=== PATIENT | female | born 2005 | race Caucasian/White ===

== ENCOUNTER 2023-03-18 01:30 | Emergency (ER) | payer MEDICAID, SELFPAY ==
[2023-03-18 01:40] VITALS: BP 130/82; PULSE 95; RESP 16; TEMP 37.1; O2SAT 97; BMI 45.2
--- NOTE | 2023-03-18 01:45 | ED.SOB1 ---
HPI - SOB/Dyspnea General Chief Complaint: Shortness of Breath/Dyspnea Stated Complaint: SHORTNESS OF BREATH Time Seen by Provider: 03/18/23 01:45 Source: patient Mode of arrival: walk-in Limitations: no limitations History of Present Illness HPI Narrative: history of asthma. doesn't have her inhaler. short of breath for a couple of days. Worse with exertion or lying down. No fever. Dry cough. No associated nausea MD elicited complaint: shortness of breath and cough Related Data Home Medications Medication Instructions Recorded Confirmed lisinopril 5 mg tablet mg 03/18/23 Allergies Allergy/AdvReac Type Severity Reaction Status Date / Time estradiol [From EstroGel] Allergy Verified 03/18/23 01:44 Review of Systems ROS Status of ROS 10 or more systems reviewed and unremarkable except as noted in history and below [facility] Medical History (Updated 03/18/23 @ 02:55 by Demetris Dunaway MD) Exam Constitutional Vital Signs - 24 hr 03/18/23 01:40 Temperature 98.7 F Pulse Rate [Monitor] 95 H Respiratory Rate 16 Blood Pressure [Right Arm] 130/82 H Pulse Oximetry 97 Oxygen Delivery Method Room Air Common normals: no apparent distress, oriented x3 and no limitations HENMT Common normals: normocephalic and head/scalp atraumatic Eye Common normals: PERRL, EOMs intact bilaterally and conjunctivae normal Chest Common normals: inspection of chest normal and palpation of chest normal Respiratory Common normals: normal respiratory effort, no retractions, no use of accessory muscles and clear to auscultation bilaterally Cardio Common normals: regular rate, regular rhythm, S1 normal heart sound and S2 normal heart sound GI Common normals: Normal to inspection, nondistended, normoactive bowel sounds present and soft to palpation Extremity Common normals: normal to inspection, full ROM and no joint enlargement Neuro Common normals: oriented x3 and CN's II-XII intact bilaterally Psych Appearance: grossly normal Course Vital Signs Vital signs: Vital Signs Temperature 98.7 F 03/18/23 01:40 Pulse Rate 95 H 03/18/23 01:40 Respiratory Rate 16 03/18/23 01:40 Blood Pressure 130/82 H 03/18/23 01:40 Pulse Oximetry 97 03/18/23 01:40 Oxygen Delivery Method Room Air 03/18/23 01:40 Temperature 98.7 F 03/18/23 01:40 Pulse Rate 95 H 03/18/23 01:40 Respiratory Rate 16 03/18/23 01:40 Blood Pressure 130/82 H 03/18/23 01:40 Pulse Oximetry 97 03/18/23 01:40 Oxygen Delivery Method Room Air 03/18/23 01:40 MDM - SOB/Dyspnea MDM Narrative Medical decision making narrative: history of asthma. Presents complaining she feels short of breath. chest clear. No distress. cxray is clear. Treated with albuterol NMT and solumedrol and she is feeling better. Discharged home Discharge Plan Discharge Chief Complaint: Shortness of Breath/Dyspnea Clinical Impression: Asthma with acute exacerbation Patient Disposition: Home, Self-Care Prescriptions / Home Meds: No Action lisinopril 5 mg tablet Instructions: Asthma (ED) Stand Alone Forms: Portal Instructions Referrals: Nicanor Leung MD [Primary Care Provider] - 1 week Follow Up Appointments: follow up with Dr Leung in 1-3 days
--- NOTE | 2023-03-18 01:47 | XR_ITS ---
The [address] [address] Patient Name: CHAYO JACOBSON MRN: [id number] date: 2005 Sex: F Assigned Patient Location: ER Current Patient Location: ER Accession/Order Number: [id number] Exam Date: 03/18/2023 02:22 Report Date: 03/18/2023 02:40 At the request of: NIRAJ ROCHA Procedure: XR chest 2V EXAM: XR chest 2V HISTORY: dyspnea COMPARISON: None. TECHNIQUE: 2 views of the chest were obtained. FINDINGS: The cardiac silhouette is normal in size. The lungs are clear. There is no significant pneumothorax or pleural effusion. No acute osseous abnormality is seen. IMPRESSION: 1. No acute cardiopulmonary abnormality. Electronically authenticated by: Sandra DUNN Date: 03/18/2023 02:40
[2023-03-18 02:20] VITALS: PULSE 93; RESP 18; O2SAT 96
[2023-03-18] MEDS: ALBUTEROL SULFATE 2.5 MG/3 ML VIAL NEB IH (02:20)
[2023-03-18 02:27] LABS: Basophils Percent Auto 0.4 % (0.2-2.0); Eosinophils Absolute Auto 0.1 10^3/uL (0.0-0.7); Hematocrit 43.8 % (36.0-48.0); Hemoglobin 14.6 g/dL (12.0-16.0); Immature Granulocytes Abs Auto 0.03 10^3/uL (0.00-0.03); Immature Granulocytes Pct Auto 0.3 % (0.0-0.5); Lymphocytes Absolute Auto 3.3 10^3/uL (1.2-3.8); Lymphocytes Percent Auto 34.1 % (20.5-60.0); Mean Corpuscular HGB Conc 33.3 g/dL (29.9-35.2); Mean Corpuscular Hemoglobin 27.4 pg (26.7-34.0); Mean Corpuscular Volume 82.3 fL (81.0-99.0); Mean Platelet Volume 8.9 fL (9.5-13.5); Monocytes Absolute Auto 0.7 10^3/uL (0.3-0.8); Monocytes Percent Auto 7.6 % (1.7-12.0); Neutrophils Absolute Auto 5.4 10^3/uL (1.4-6.5); Neutrophils Percent Auto 56.6 % (43.0-75.0); Platelet Count 310 10^3/uL (150-450); Red Blood Count 5.32 10^6/uL (4.20-5.40); Red Cell Distribution Width 13.4 % (11.0-15.0); White Blood Count 9.6 10^3/uL (4.0-11.0)
[2023-03-18 02:29] VITALS: PULSE 91; RESP 20; O2SAT 99
[2023-03-18 02:32] LABS: Anion Gap 12.3; BUN Creatinine Ratio 14.5; Calcium 9.3 mg/dL (8.5-10.1); Carbon Dioxide 27.4 mmol/L (21.0-32.0); Chloride 104 mmol/L (98-107); Estimated GFR (African America >60 (>=60); Estimated GFR (Non-African Ame >60 (>=60); Glucose 97 mg/dL (74-106); Potassium 3.7 mmol/L (3.5-5.1); Sodium 140 mmol/L (136-145)
[2023-03-18] MEDS: ALBUTEROL SULFATE 200 PUFF/6.7 GM INHALER IH (03:03)
== END 2023-03-18 03:09 | disposition home or self-care (01) ==
PROVIDERS: Emergency Provider Internal Medicine; PCP Family Medicine
DX: J45.901 Unspecified asthma with (acute) exacerbation (principal); Z79.899 Other long term (current) drug therapy
CPT/HCPCS: 36415; 71046; 80048; 85025; 94640; 99284

== ENCOUNTER 2023-11-26 20:59 | Emergency (ER) | payer SELFPAY ==
[2023-11-26 21:09] VITALS: BP 122/77; PULSE 122; RESP 18; TEMP 38.9; O2SAT 99; BMI 45.4
--- NOTE | 2023-11-26 21:14 | XR_ITS ---
The [place] [id number] Patient Name: CHAYO JACOBSON MRN: [id number] date: 2005 Sex: F Assigned Patient Location: ER Current Patient Location: ED.MAIN Accession/Order Number: [id number] Exam Date: 11/26/2023 21:25 Report Date: 11/26/2023 22:18 At the request of: NIRAJ ROCHA Procedure: XR chest 1V EXAMINATION: XR chest 1V, , 11/26/2023 9:25 PM EST INDICATION: shortness of breath HISTORY: Ordering Provider Reason for Exam: shortness of breath Technologist Note: Additional: COMPARISON: None. TECHNIQUE: Chest x-ray: One view. FINDINGS: No pneumothorax, pleural effusion or focal airspace consolidation. Heart is normal in size. Bony thorax is unremarkable. XR/XR chest 1V IMPRESSION: No acute cardiopulmonary process. Electronically authenticated by: ERICKA FOSTER Date: 11/26/2023 22:18
[2023-11-26 21:22] LABS: Adenovirus NOT DETECTED (NOT DETECTE); Bordetella parapertussis NOT DETECTED (NOT DETECTE); Coronavirus 229E NOT DETECTED (NOT DETECTE); Coronavirus HKU1 NOT DETECTED (NOT DETECTE); Coronavirus NL63 NOT DETECTED (NOT DETECTE); Coronavirus OC43 NOT DETECTED (NOT DETECTE); Human Metapneumovirus NOT DETECTED (NOT DETECTE); Human Rhinovirus/Enterovirus NOT DETECTED (NOT DETECTE); Influenza B NOT DETECTED (NOT DETECTE); Mycoplasma pneumoniae NOT DETECTED (NOT DETECTE); Parainfluenza Virus 1 NOT DETECTED (NOT DETECTE); Parainfluenza Virus 2 NOT DETECTED (NOT DETECTE); Parainfluenza Virus 3 NOT DETECTED (NOT DETECTE); Parainfluenza Virus 4 NOT DETECTED (NOT DETECTE); Respiratory Syncytial Virus NOT DETECTED (NOT DETECTE); SARS-CoV-2 NOT DETECTED (NOT DETECTE)
[2023-11-26] MEDS: ACETAMINOPHEN 500 MG TABLET 1000 MG PO (22:28)
[2023-11-26 22:50] VITALS: PULSE 117; O2SAT 93
[2023-11-26 23:20] LABS: Basophils Percent Auto 0.5 % (0.2-2.0); Hematocrit 41.3 % (36.0-48.0); Hemoglobin 13.3 g/dL (12.0-16.0); Immature Granulocytes Abs Auto 0.02 10^3/uL (0.00-0.03); Immature Granulocytes Pct Auto 0.3 % (0.0-0.5); Lymphocytes Absolute Auto 0.6 10^3/uL (1.2-3.8); Lymphocytes Percent Auto 9.3 % (20.5-60.0); Mean Corpuscular HGB Conc 32.2 g/dL (29.9-35.2); Mean Corpuscular Volume 83.9 fL (81.0-99.0); Mean Platelet Volume 9.1 fL (9.5-13.5); Monocytes Absolute Auto 0.8 10^3/uL (0.3-0.8); Neutrophils Absolute Auto 4.9 10^3/uL (1.4-6.5); Neutrophils Percent Auto 77.9 % (43.0-75.0); Platelet Count 237 10^3/uL (150-450); Red Blood Count 4.92 10^6/uL (4.20-5.40); Red Cell Distribution Width 13.5 % (11.0-15.0); White Blood Count 6.3 10^3/uL (4.0-11.0)
[2023-11-26 23:32] LABS: Anion Gap 13.3; Calcium 8.6 mg/dL (8.5-10.1); Carbon Dioxide 23.2 mmol/L (21.0-32.0); Chloride 105 mmol/L (98-107); Estimated GFR (African America >60 (>=60); Estimated GFR (Non-African Ame >60 (>=60); Glucose 95 mg/dL (74-106); Potassium 3.5 mmol/L (3.5-5.1); Sodium 138 mmol/L (136-145)
[2023-11-26] MEDS: OSELTAMIVIR PHOSPHATE 75 MG CAPSULE PO (23:52)
[2023-11-26] MEDS: 0.9 % SODIUM CHLORIDE 1,000 ML 999 ML IV (23:52)
[2023-11-26 23:59] VITALS: PULSE 102; TEMP 37.5; O2SAT 95
--- NOTE | 2023-11-27 00:10 | ED.URI1 ---
HPI - URI/Sore Throat General Chief Complaint: Upper Respiratory Infection Stated Complaint: diff breathing/burning sensation Time Seen by Provider: 11/26/23 21:16 Source: patient Limitations: no limitations History of Present Illness HPI Narrative: patient states ill since yesterday. cough and body aches. Chest aches with deep breath. no nausea or vomiting or fever. Feels weak. Related Data Home Medications Medication Instructions Recorded Confirmed lisinopril 5 mg tablet mg 03/18/23 rivaroxaban 10 mg tablet (Xarelto) mg 11/26/23 Allergies Allergy/AdvReac Type Severity Reaction Status Date / Time estradiol [From EstroGel] Allergy Verified 11/26/23 21:13 Review of Systems ROS Status of ROS 10 or more systems reviewed and unremarkable except as noted in history and below [facility] Medical History (Updated 11/27/23 @ 00:13 by Demetris Dunaway MD) Pulmonary embolism ?I26.99 - Other pulmonary embolism without acute cor pulmonale (ICD-10) Factor 5 Leiden mutation, heterozygous ?D68.51 - Activated protein C resistance (ICD-10) Hypertension ?I10 - Essential (primary) hypertension (ICD-10) Social History Smoking status: Never smoker Exam Constitutional Vital Signs, click to edit/add: Last Vital Signs Temp 99.5 F 11/26/23 23:59 Pulse 102 H 11/26/23 23:59 Resp 18 11/26/23 21:09 BP 122/77 11/26/23 21:09 Pulse Ox 95 11/26/23 23:59 O2 Del Method Room Air 11/26/23 21:09 Common normals: no apparent distress, average body habitus, oriented x3, healthy appearing, alert and well nourished [facility] Common normals: normocephalic and head/scalp atraumatic Eye Common normals: EOMs intact bilaterally and conjunctivae normal Respiratory Common normals: normal respiratory effort, no retractions, no use of accessory muscles and clear to auscultation bilaterally Cardio Common normals: regular rate, regular rhythm, S1 normal heart sound and S2 normal heart sound GI Common normals: Normal to inspection, nondistended, normoactive bowel sounds present, soft to palpation and non-tender Extremity Common normals: normal to inspection and full ROM Neuro Common normals: oriented x3, CN's II-XII intact bilaterally, moves all extremities and no focal motor deficits Psych Appearance: grossly normal Course Vital Signs Vital signs: Vital Signs Temperature 102.1 F H 11/26/23 21:09 Pulse Rate 122 H 11/26/23 21:09 Respiratory Rate 18 11/26/23 21:09 Blood Pressure 122/77 11/26/23 21:09 Pulse Oximetry 99 11/26/23 21:09 Oxygen Delivery Method Room Air 11/26/23 21:09 Temperature 99.5 F 11/26/23 23:59 Pulse Rate 102 H 11/26/23 23:59 Respiratory Rate 18 11/26/23 21:09 Blood Pressure 122/77 11/26/23 21:09 Pulse Oximetry 95 11/26/23 23:59 Oxygen Delivery Method Room Air 11/26/23 21:09 MDM - URI/Sore Throat MDM Narrative Medical decision making narrative: patient present with complaint of body aches and cough. RA pulse ox 95%. cxray clear. chest clear. influenza positive. patient tachycardic and hydrated in the department. Given dose of Tamiflu and discharged home Lab Data Labs: Lab Results 11/26/23 11/26/23 Range/Units 21:20 23:12 WBC 6.3 (4.0-11.0) 10^3/uL RBC 4.92 (4.20-5.40) 10^6/uL Hgb 13.3 (12.0-16.0) g/dL Hct 41.3 (36.0-48.0) % MCV 83.9 (81.0-99.0) fL MCH 27.0 (26.7-34.0) pg MCHC 32.2 (29.9-35.2) g/dL RDW 13.5 (11.0-15.0) % Plt Count 237 (150-450) 10^3/uL MPV 9.1 L (9.5-13.5) fL Neut % (Auto) 77.9 H (43.0-75.0) % Lymph % (Auto) 9.3 L (20.5-60.0) % [place] % (Auto) 12.0 (1.7-12.0) % Eos % (Auto) 0.0 L (0.9-7.0) % Baso % (Auto) 0.5 (0.2-2.0) % Neut # (Auto) 4.9 (1.4-6.5) 10^3/uL Lymph # (Auto) 0.6 L (1.2-3.8) 10^3/uL [place] # (Auto) 0.8 (0.3-0.8) 10^3/uL Eos # (Auto) 0.0 (0.0-0.7) 10^3/uL Baso # (Auto) 0.0 (0.0-0.1) 10^3/uL Abs Immat Gran (auto) 0.02 (0.00-0.03) 10^3/uL Imm/Tot Granulo (auto) 0.3 (0.0-0.5) % Sodium 138 (136-145) mmol/L Potassium 3.5 (3.5-5.1) mmol/L Chloride 105 (98-107) mmol/L Carbon Dioxide 23.2 (21.0-32.0) mmol/L Anion Gap 13.3 BUN 10.0 (7.0-18.0) mg/dL Creatinine 0.83 (0.55-1.02) mg/dL Est GFR ( Amer) >60 (>=60) Est GFR (Non-Af Amer) >60 (>=60) BUN/Creatinine Ratio 12.0 Glucose 95 (74-106) mg/dL Calcium 8.6 (8.5-10.1) mg/dL Adenovirus (PCR) Not detected (NOT DETECTE) C. pneumoniae DNA (PCR) Not detected (NOT DETECTE) Coronavirus Type OC43 Not detected (NOT DETECTE) Coronavirus Type HKU1 Not detected (NOT DETECTE) Coronavirus Type 229E Not detected (NOT DETECTE) Coronavirus Type NL63 Not detected (NOT DETECTE) Human Metapneumovir PCR Not detected (NOT DETECTE) Influenza A (H1) PCR Senior Clinical Project Manager Influenza A (H3) PCR Detected M. pneumoniae (PCR) Not detected (NOT DETECTE) Parainfluenza PCR Not detected (NOT DETECTE) Parainfluenza 2 (PCR) Not detected (NOT DETECTE) Parainfluenza 3 (PCR) Not detected (NOT DETECTE) Parainfluenza 4 (PCR) Not detected (NOT DETECTE) RSV (RT-PCR) Not detected (NOT DETECTE) Entero/Rhino (PCR) Not detected (NOT DETECTE) SARS-CoV-2 (PCR) Not detected (NOT DETECTE) Bordetella pertussis (PCR) Not detected (NOT DETECTE) B parapertussis DNA PCR Not detected (NOT DETECTE) Influenza Type B (PCR) Not detected (NOT DETECTE) Discharge Plan Discharge Chief Complaint: Upper Respiratory Infection Clinical Impression: Acute dehydration, Influenza Patient Disposition: Home, Self-Care Prescriptions / Home Meds: No Action lisinopril 5 mg tablet Xarelto 10 mg tablet Instructions: Dehydration (ED), Influenza (ED) Stand Alone Forms: Portal Instructions Referrals: Nicanor Leung MD [Primary Care Provider] - 1 week Discharge Date/Time: 11/27/23 01:10
[2023-11-27 12:23] LABS: Influenza A\\H3 DETECTED
== END 2023-11-27 01:10 | disposition home or self-care (01) ==
PROVIDERS: Emergency Provider Internal Medicine; PCP Family Medicine
DX: J10.1 Influenza due to other identified influenza virus with other respiratory manifestations (principal); E86.0 Dehydration; Z79.01 Long term (current) use of anticoagulants; Z79.899 Other long term (current) drug therapy; I10 Essential (primary) hypertension; D68.51 Activated protein C resistance; Z86.711 Personal history of pulmonary embolism; Z20.822 Contact with and (suspected) exposure to COVID-19
CPT/HCPCS: 0202U; 36415; 71045; 80048; 85025; 99284

== ENCOUNTER 2024-10-10 13:00 | Emergency (ER) | payer SELFPAY ==
[2024-10-10 13:11] VITALS: BP 118/69; PULSE 85; TEMP 37.1; O2SAT 98; BMI 46.2
--- OUTSIDE RECORDS SUMMARY | 2024-10-10 13:23 | XMS_ITS | CCD ---
Author Organization [facility] Care Team Providers Care Easter Bunny Name Role Phone Susan [phone] UNKNOWN Unavailable Unavailable Román Charlton Unavailable Unavailable Román Charlton Unavailable Unavailable Wendy Leyva Unavailable Unavailable Laila, Margo Unavailable Unavailable Susan Leung Unavailable Unavailable Susan Leung Unavailable Unavailable Unavailable MADHU Malik, DR DAVIS Admitting Unavailable HOY ., DR DAVIS Attending Unavailable HOY ., DR DAVIS Primary Care Unavailable HOY ., DR DAVIS Consulting Unavailable KARASIK ., DR AYALA Admitting Unavailabl e KARASIK ., DR AYALA Attending Unavailabl e HOY ., DR DAVIS Primary Care Unavailable KARASIK ., DR AYALA Consulting Unavailabl e KARRUPERTK ., DR AYALA Admitting Unavailabl e KARRUPERTK ., DR AYALA Attending Unavailabl e HOY ., DR DAVIS Primary Care Unavailable KARASIK ., DR AYALA Consulting Unavailabl e WEST, DR ANTONIO Nguyen Consulting Unavailable DIANE DAVIS Admitting Unavailable DIANE DAVIS Attending Unavailable MADHU ., DR DAVIS Primary Care Unavailable DIANE DAVIS Consulting Unavailable HOY ., DR DAVIS Admitting Unavailable HOY ., DR DAVIS Attending Unavailable HOY ., DR DAVIS Primary Care Unavailable HOY ., DR DAVIS Consulting Unavailable LEEANN, DR ANTONIO Nguyen Consulting Unavailable LIBERTY LOONEY Attending SUSAN Soto Primary Care Unavailable LIBERTY LOONEY Attending LIBERTY Stahl Referring UnavailSUSAN Marroquin Primary Care Unavailable Allergies Allergy Classification Reported Allergen(s) Allergy Type Date of Onset Reaction(s) Facility Estrogens (1 source) Estrogens; Translations: [Estrogens] Drug Allergy [facility] Work Phone: (2 sources) Estrogens; Translations: [Estrogens] Drug Allergy DC-Ezpanvipzc-X [facility] Work Phone: (1 source) Estradiol Drug Allergy 10-11-2020 [facility] Repository (1 source) Estradiol; Translations: [ESTRADIOL] Drug Allergy 03-31-2024 [facility] Repository Medications Completed/Discontinued Medications Medication Drug Class(es) Dates Sig (Normalized) Sig (Original) acetaminophen 325 mg oral tablet (3 sources) Start: 11-14-2020 take 1-2 tablets by mouth every four hours as needed Tylenol 325 MG Oral Tablet TAKE 1 TO 2 TABLETS EVERY 4 HOURS NEEDED Quantity: 0 Refills: 0 Ordered: 14-Nov-2020 DO Start : 14-Nov-2020 Active 60 actuat albuterol 0.09 mg/actuat metered dose inhaler (1 source) beta2-Adrenergic Agonist Start: 10-06-2020 take 2 puff(s) by mouth every four to six hours as needed Albuterol Sulfate HFA 108 (90 Base) MCG/ACT Inhalation Aerosol Solution INHALE 2 PUFFS BY MOUTH EVERY 4 TO 6 HOURS NEEDED Quantity: 18 Refills: 0 Start : 06-Oct-2020 Active cetirizine hydrochloride 10 mg oral tablet (3 sources) Histamine-1 Receptor Antagonist Start: 11-27-2019 take 1 tablet by mouth once daily as needed Cetirizine HCl - 10 MG Oral Tablet TAKE 1 TABLET DAILY NEEDED. Quantity: 0 Refills: 2 Ordered: 14-Nov-2020 DO Start : 27-Nov-2019 Active ferrous sulfate 143 mg extended release oral tablet (3 sources) Start: 11-14-2020 take 1 tablet by mouth twice daily Iron Slow Release 143 (45 Fe) MG Oral Tablet Extended Release take one tablet po bid Quantity: 0 Refills: 0 Ordered: 14-Nov-2020 DO Start : 14-Nov-2020 Active lisinopril 10 mg oral tablet (3 sources) Angiotensin Converting Enzyme Inhibitor Start: 11-14-2020 take 1 tablet by mouth once daily Lisinopril 10 MG Oral Tablet TAKE 1 TABLET BY MOUTH DAILY Quantity: 30 Refills: 1 Ordered: 15-Sep-2021 Wendy Leyva MD Start : 14-Nov-2020 Active Needs to be seen in Nephrology for further refills NasoGel Nasal Gel (1 source) Start: 11-04-2020 NasoGel Nasal Gel Use once or twice daily as needed for nasal congestion/irritati on Quantity: 1 Refills: 6 Margo Ulloa DO Start : 04-Nov-2020 Active 30 ML [place] Btl norethindrone acetate 5 mg oral tablet (1 source) Start: 10-23-2020 take 1 tablet by mouth once daily Norethindrone Acetate 5 MG Oral Tablet TAKE 1 TABLET DAILY. Quantity: 30 Refills: 6 Start : 23-Oct-2020 Active rivaroxaban 20 mg oral tablet (3 sources) Factor Xa Inhibitor Start: 10-21-2020 take 1 tablet by mouth once daily Xarelto 20 MG Oral Tablet TAKE ONE TABLET PO DAILY Quantity: 0 Refills: 0 Ordered: 14-Nov-2020 DO Start : 21-Oct-2020 Active Problems Active Problems Problem Classification Problem Date Documented Da te Episodic/Chronic Abdominal pain (1 source) Abdominal pain Onset: 03-31-2024 Episodic Cardiac and circulatory congenital anomalies (2 sources) Patent foramen ovale; Translations: [Ostium secundum type atrial septal defect] Chronic Conditions associated with dizziness or vertigo (3 sources) Dizziness and giddiness; Translations: [Dizziness] Onset: 03-31-2024 Episodic Deficiency and other anemia (3 sources) Anemia; Translations: [Anemia, unspecified] Episodic Essential hypertension (5 sources) Hypertensive disorder; Translations: [Unspecified essential hypertension] Chronic Fluid and electrolyte disorders (1 source) Dehydration; Translations: [Dehydration] Onset: 03-31-2024 Episodic Menstrual disorders (4 sources) Dysmenorrhea, unspecified; Translations: [DYSMENORRHEA UNSPECIFIED] Onset: 08-10-2022 Chronic Nutritional deficiencies (1 source) Vitamin D deficiency, unspecified; Translations: [VITAMIN D DEFICIENCY UNSPECIFIED] Onset: 02-11-2022 Chronic Other female genital disorders (1 source) Abnormal uterine bleeding; Translations: [DUB (dysfunctional uterine bleeding)] Chronic Other female genital disorders (4 sources) Postcoital and contact bleeding; Translations: [POSTCOITAL AND CONTACT BLEEDING] Onset: 05-15-2022 Chronic Other lower respiratory disease (1 source) Hypoxia; Translations: [Nocturnal hypoxemia] Episodic Other lower respiratory disease (3 sources) Snoring; Translations: [Other respiratory abnormalities] Episodic Other lower respiratory disease (3 sources) Cough; Translations: [Cough] Episodic Other nutritional; endocrine; and metabolic disorders (2 sources) Childhood obesity; Translations: [Obesity, unspecified] Chronic Other upper respiratory disease (3 sources) Allergic rhinitis; Translations: [Allergic rhinitis, cause unspecified] Chronic Other upper respiratory disease (3 sources) Nasal congestion; Translations: [Other disease of nasal cavity and sinuses] Episodic Other upper respiratory disease (3 sources) Bleeding from nose; Translations: [Epistaxis] Episodic Other upper respiratory disease (3 sources) Nasal mucosa dry; Translations: [Other disease of nasal cavity and sinuses] Episodic Other upper respiratory infections (4 sources) Acute sinusitis, unspecified; Translations: [ACUTE SINUSITIS UNSPECIFIED] Onset: 10-07-2022 Episodic Phlebitis; thrombophlebitis and thromboembolism (2 sources) Acute deep vein thrombosis of lower limb; Translations: [Acute venous embolism and thrombosis of unspecified deep vessels of lower extremity] Episodic Pulmonary heart disease (3 sources) Pulmonary embolism; Translations: [Other pulmonary embolism and infarction] Episodic Residual codes; unclassified (2 sources) Hypoxia; Translations: [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 Spondylosis; intervertebral disc disorders; other back problems (4 sources) Radiculopathy, cervical region; Translations: [RADICULOPATHY CERVICAL REGION] Onset: 12-25-2022 Episodic Unclassified (1 source) CONTACT W/AND (SUSP) EXPOS COVID-19; Translations: [CONTACT W/AND (SUSP) EXPOS COVID-19] Onset: 10-09-2022 Past or Other Problems Problem Classification Problem Date Documented Date Episodic/Chronic Deficiency and other anemia (1 source) Anemia, unspecified; Translations: [ANEMIA UNSPECIFIED] Onset: 02-11-2022 Episodic Diabetes mellitus without complication (1 source) Other abnormal glucose; Translations: [OTHER ABNORMAL GLUCOSE] Onset: 02-11-2022 Episodic Other female genital disorders (2 sources) History of gynecological disorder; Translations: [Personal history of other genital system and obstetric disorders] Resolved: 01-17-2021 Episodic Unclassified (1 source) History of No significant past medical history; Translations: [History of No significant past medical history] NEGATED: Highlighted row has not occurred!Residual codes; unclassified (2 sources) Disease Episodic Results Test Name Value Interpretation Reference Range Facility CBC AND AUTO DIFFon 03-31-20 ABSOLUTE BASOPHIL 0.0 X10E9/L Normal 0.0-0.2 [facility] Comment on above: Performed By: #### Zoë MITTAL, 79080-2, CMP, 1988-02, , 97121- 7 #### [facility] ([id number]) [address] [place] [address] 73547 ABSOLUTE NEUTROPHIL 6.2 X10E9/L Normal 1.5-6.6 [facility] Comment on above: Performed By: #### Zoë MITTAL, 70823-4, CMP, 1988-02, , 86635- 7 #### [facility] ([id number]) [address] [place] [address] 03588 Basophils/100 WBC (Bld) 0.3 % Normal [facility] Comment on above: Performed By: #### Zoë MITTAL, 66656-8, CMP, 1988-02, , 74689- 7 #### [facility] ([id number]) [address] [place] [address] 12870 Eosinophils (Bld) [#/Vol] 0.2 10*3/uL Normal 0.0-0.4 [facility] Comment on above: Performed By: #### Zoë MITTAL, 90932-3, CMP, 1988-02, , 17876 7 #### [facility] ([id number]) [address] [place] [address] 72492 Eosinophils/100 WBC (Bld) 2.1 % Normal [facility] Comment on above: Performed By: #### Zoë MITTAL, 63226-8, CMP, 1988-02, , 45293- 7 #### [facility] ([id number]) [address] [place] [address] 62527 Erythrocyte distribution width (RBC) [Ratio] 14.0 % Normal 11.5-15.0 [facility] Comment on above: Performed By: #### Zoë MITTAL, 31841-4, [facility], 1988-02, , 25497- 7 #### [facility] ([id number]) [address] [place] [address] 45545 Hematocrit (Bld) [Volume fraction] 41.1 % Normal 35-47 [facility] Comment on above: Performed By: #### Zoë MITTAL, 30229-7, [facility], 1988-02, , 46043- 7 #### [facility] ([id number]) [address] [place] [address] 85928 Hemoglobin (Bld) [Mass/Vol] 13.9 g/dL Normal 11.7-15.5 [facility] Comment on above: Performed By: #### Zoë MITTAL, 24473-5, [facility], 1988-02, , 04476- 7 #### [facility] ([id number]) [address] [place] [address] 33562 Lymphocytes (Bld) [#/Vol] 4.4 10*3/uL High 1.0-3.5 [facility] Comment on above: Performed By: #### Zoë MITTAL, 38652-8, [facility], 1988-02, , 98317 #### [facility] ([id number]) [address] [place] [address] 44132 Lymphocytes/100 WBC (Bld) 38.2 % Normal [facility] Comment on above: Performed By: #### Zoë MITTAL, 90009-7, [facility], 1988-02, , 82986 7 #### [facility] ([id number]) [address] [place] [address] 29475 MCH (RBC) [Entitic mass] 27.2 pg Normal 27-34 [facility] Comment on above: Performed By: #### Zoë MITTAL, 95968-0, CMP, 1988-02, , 77447 7 #### [facility] ([id number]) [address] [place] [address] 82162 MCHC (RBC) [Mass/Vol] 33.8 g/dL Normal 32-36 [facility] Comment on above: Performed By: #### Zoë MITTAL, 79082-5, CMP, 1988-02, , 11435 #### [facility] ([id number]) [address] [place] [address] 69633 MCV (RBC) [Entitic vol] 80 fL Normal 80-100 [facility] Comment on above: Performed By: #### Zoë MITTAL, 86077-9, CMP, 1988-02, , 08524- 7 #### [facility] ([id number]) [address] [place] [address] 76185 Monocytes (Bld) [#/Vol] 0.7 10*3/uL Normal 0-0.9 [facility] Comment on above: Performed By: #### Zoë MITTAL, 22559-0, CMP, 1988-02, , 64406- 7 #### [facility] ([id number]) [address] [place] [address] 73906 Monocytes/100 WBC (Bld) 6.1 % Normal [facility] Comment on above: Performed By: #### Zoë MITTAL, 96035-2, CMP, 1988-02, , 33463 7 #### [facility] ([id number]) [address] [place] [address] 86468 Neutrophils/100 WBC (Bld) 53.3 % Normal [facility] Comment on above: Performed By: #### Zoë MITTAL, 74874-3, CMP, 1988-02, , 03539- 7 #### [facility] ([id number]) [address] [place] [address] 05417 Platelet mean volume (Bld) [Entitic vol] 7.4 fL Normal 7-12 [facility] Comment on above: Performed By: #### Zoë MITTAL, 07114-5, CMP, 1988-02, , 13361- 7 #### [facility] ([id number]) [address] [place] [address] 98649 Platelets (Bld) [#/Vol] 310 10*3/uL Normal 150-450 [facility] Comment on above: Performed By: #### Zoë MITTAL, 65620-2, CMP, 1988-02, , 73846- 7 #### [facility] ([id number]) [address] [place] [address] 58345 RBC COUNT 5.11 X10E12/L Normal 3.80-5.20 [facility] Comment on above: Performed By: #### Zoë MITTAL, 87486-9, CMP, 1988-02, , 73984- 7 #### [facility] ([id number]) [address] [place] [address] 59663 WBC (Bld) [#/Vol] 11.6 10*3/uL High 4.0-11.0 [facility] Comment on above: Performed By: #### Zoë MITTAL, 46314-9, CMP, 1988-02, , 13224- 7 #### [facility] ([id number]) [address] [place] [address] 52266 COMPREHENSIVE METABOLIC PANE Bill 03-31-2024 Albumin [Mass/Vol] 3.8 g/dL Normal 3.2-5.3 [facility] Comment on above: Performed By: #### Zoë MITTAL, 55840-8, CMP, 1988-02, , 53473 7 #### [facility] ([id number]) [address] [place] [address] 68777 ALP [Catalytic activity/Vol] 75 U/L Normal 39-130 [facility] Comment on above: Performed By: #### C BCA, 29552-8, CMP, 1988-02, , 12663- 7 #### [facility] ([id number]) [address] [place] [address] 90093 ALT [Catalytic activity/Vol] 16 U/L Normal 0-31 [facility] Comment on above: Performed By: #### C BCA, 08301-8, CMP, 1988-02, , 36038 7 #### [facility] ([id number]) [address] [place] [address] 24483 Anion gap [Moles/Vol] 3 mmol/L Low 5-15 [facility] Comment on above: Performed By: #### C BCA, 72064-6, CMP, 1988-02, , 05413- 7 #### [facility] ([id number]) [address] [place] [address] 75502 AST [Catalytic activity/Vol] 19 U/L Normal 0-41 [facility] Comment on above: Performed By: #### C BCA, 92433-3, CMP, 1988-02, , 91722 7 #### [facility] ([id number]) [address] [place] [address] 16089 Bilirubin [Mass/Vol] 0.6 mg/dL Normal 0.3-1.2 [facility] Comment on above: Performed By: #### C BCA, 77393-5, CMP, 1988-02, , 52196- 7 #### [facility] ([id number]) [address] [place] [address] 45705 Calcium [Mass/Vol] 8.7 mg/dL Normal 8.5-10.5 [facility] Comment on above: Performed By: #### C DAXA, 26920-3, CMP, 1988-02, , 05517- 7 #### [facility] ([id number]) [address] [place] [address] 63675 Chloride [Moles/Vol] 108 mmol/L Normal 98-109 [facility] Comment on above: Performed By: #### C DAXA, 03530-7, CMP, 1988-02, , 40198 7 #### [facility] ([id number]) [address] [place] [address] 91002 CO2 [Moles/Vol] 26 mmol/L Normal 22-32 [facility] Comment on above: Performed By: #### C DAXA, 47158-7, CMP, 1988-02, , 29361- 7 #### [facility] ([id number]) [address] [place] [address] 96890 Creatinine [Mass/Vol] 0.83 mg/dL Normal 0.40-1.00 [facility] Comment on above: Result Comment: METH OD TRACEABLE TO IDMS STANDARD Performed By: #### C DAXA, 65634-4, CMP, 1988-02, , 99413-7 #### [facility] ([id number]) [address] [place] [address] 55280 eGFR (CKD-EPI) NON-RACE DEPENDENT >90 Normal >59 [facility] Comment on above: Result Comment: Reported eGFR is based on the CKD-EPI 2020 equation that does not use a race coefficient. Performed By: #### C DAXA, 21300-0, CMP, 1988-02, , 29655-0 #### [facility] ([id number]) [address] [place] [address] 29493 Glucose [Mass/Vol] 88 mg/dL Normal 65-99 [facility] Comment on above: Performed By: #### C DAXA, 95371-6, CMP, 1988-02, , 46339- 7 #### [facility] ([id number]) [address] [place] [address] 06678 Potassium [Moles/Vol] 3.6 mmol/L Normal 3.5-5.0 [facility] Comment on above: Performed By: #### C BCA, 26213-6, CMP, 1988-02, , 59225- 7 #### [facility] ([id number]) [address] [place] [address] 66697 Protein [Mass/Vol] 6.9 g/dL Normal 6.0-8.0 [facility] Comment on above: Performed By: #### C BCA, 74176-6, CMP, 1988-02, , 70099- 7 #### [facility] ([id number]) [address] [place] [address] 19427 Sodium [Moles/Vol] 137 mmol/L Normal 134-146 [facility] Comment on above: Performed By: #### C BCA, 26410-7, CMP, 1988-02, , 04131- 7 #### [facility] ([id number]) [address] [place] [address] 33501 Urea nitrogen [Mass/Vol] 15 mg/dL Normal 5-23 [facility] Comment on above: Performed By: #### C BCA, 70967-9, CMP, 1988-02, , 87083- 7 #### [facility] ([id number]) [address] [place] [address] 93969 CRP [Mass/Vol]on 03-31-2024 C REACTIVE PROTEIN 1.5 mg/dL High 0.000-0.744 [facility] Comment on above: Performed By: #### C BCA, 30108-4, CMP, 1988-02, , 15018 7 #### [facility] ([id number]) [address] [place] [address] ABDOMEN AND PELVIS W CONT on 03-31-2024 CT ABDOMEN AND PELVIS W CONT CT ABDOMEN AND PELVIS W CONT History: . Abdominal pain, post-op Exam/Technique: Contiguous axial images are obtained of the abdomen and pelvis with 100 cc omnipaque 300 intravenous contrast. Coronal and sagittal reconstructions were performed and reviewed. Automatic dose exposure reduction technique utilized. Comparison: None. Findings: LUNGS AND CARDIOMEDIASTINAL STRUCTURES: no abnormality. LIVER: is normal. SPLEEN: is normal. GALLBLADDER: normal. BILIARY TREE:Normal PANCREAS: normal. ADRENAL GLANDS are normal. RIGHT KIDNEY: is normal.. Right renal cyst formation: LEFT KIDNEY: is normal.. Left renal cyst formation: ABDOMINAL AND PELVIC VASCULATURE: Normal IVC is normal. Retroaortic left renal vein normal variation. There is no paraaortic or paracaval adenopathy. FREE AIR: Absent SIGNIFICANT FREE FLUID:absent MESENTERY: Normal BODY WALL: Fat-containing periumbilical hernia. SMALL BOWEL AND TERMINAL ILEUM: normal. COLON: no abnormality. APPENDIX: normal. HERNIAL ORIFICES:normal. PELVIC ORGANS: IUD in the uterus. BONES AND SOFT TISSUES: No acute findings. IMPRESSION: No acute findings.. All CT scans at this facility use dose modulation, iterative reconstruction, and/or weight based dosing when appropriate to reduce radiation dose to as low as reasonably achievable. Finalized by Carlos Bar MD on 03/31/2024 3:35 PM Normal [facility] DRUG SCREEN, URINEon 024 AMPHETAMINE/METHAMP Negative Normal NEG [facility] Comment on above: Result Comment: AMPH /METH screening cut off = 1000 ng/mL Performed By: #### D CRANDALL #### [facility] ([id number]) [address] [place] [address] 78204 BARBITURATES Negative Normal NEG [facility] Comment on above: Result Comment: Gisela iturates screening cut off value = 200 ng/mL Performed By: #### D CRANDALL #### [facility] ([id number]) [address] [place] [address] [place] [address] BENZODIAZEPINES Negative Normal NEG [facility] Comment on above: Result Comment: Zack odiazepines screening cut off value = 200 ng/mL Performed By: #### D CRANDALL #### [facility] ([id number]) [address] [place] [address] 39353 CANNABINOIDS Negative Normal NEG [facility] Comment on above: Result Comment: Valdo abinoids/THC screening cut off value = 50 ng/mL Performed By: #### D CRANDALL #### [facility] ([id number]) [address] [place] [address] 19972 COCAINE METABOLITE Negative Normal NEG [facility] Comment on above: Result Comment: Coca ine screening cut off value = 300 ng/mL Performed By: #### D CRANDALL #### [facility] ([id number]) [address] [place] [address] 80637 ECSTASY Negative Normal NEG [facility] Comment on above: Result Comment: Ecst asy screening cut off value = 500 ng/mL This report is intended for use in clinical monitoring or management of patients. Performed By: #### D CRANDALL #### [facility] ([id number]) [address] [place] [address] 09353 METHADONE Negative Normal NEG [facility] Comment on above: Result Comment: Meth adone screening cut off value = 300 ng/mL. Performed By: #### D CRANDALL #### [facility] ([id number]) [address] [place] [address] [place] [address] OPIATES Negative Normal NEG [facility] Comment on above: Result Comment: Opia albertina screening cut off value = 300 ng/mL NOTE: This test is used for the detection of codeine, hydrocodone (>1000 ng/mL), morphine and hydromorphone (>900 ng/mL) in urine. Performed By: #### D CRANDALL #### [facility] ([id number]) [address] [place] [address] 37751 OXYCODONE Negative Normal NEG [facility] Comment on above: Result Comment: Oxyc odone screening cut off value = 300 ng/mL NOTE: This test is used for the detection of oxycodone and oxymorphone in urine. Performed By: #### D CRANDALL #### [facility] ([id number]) [address] [place] [address] 53236 PHENCYCLIDINE Negative Normal NEG [facility] Comment on above: Result Comment: Phen cyclidine screening cut off value = 25 ng/mL Performed By: #### D CRANDALL #### [facility] ([id number]) [address] [place] [address] 13687 Fibrin D-dimer DDU (PPP) [Ma ss/Vol]on 03-31-2024 D DIMER <150 Normal <255 [facility] Comment on above: Result Comment: Results <255 ng/mL DDU: The presence of a VTE can safely be excluded with a negative D-Dimer result and Wells score. A negative result doesn't exclude the possibility of DIC. The test be repeated along with other diagnostic tests if the patient's symptoms persist or worsen. [email or web address] Performed By: #### C BCA, 58690-0, CMP, 1987-5, 16271-8, 30891-5 #### [facility] ([id number]) [address] [place] [address] 52058 HCG ( test) Ql (U)o n 03-31-2024 Beta HCG ( test) Ql (U) Negative Normal NEG [facility] Comment on above: Performed By: #### 2 106-3 #### [facility] ([id number]) [address] [place] [address] 46491 MAGNESIUMon 03-31-2024 Magnesium [Mass/Vol] 2.2 mg/dL Normal 1.8-2.6 [facility] Comment on above: Performed By: #### C DAXA, 92848-0, [facility], 1988-02, , 66660- 7 #### [facility] ([id number]) [address] [place] [address] 81934 Troponin I.cardiac High sens itivity method [Mass/Vol]on 03-31-2024 1 HOUR TROP I, HIGH SENSITIVITY <2 Normal <16 [facility] Comment on above: Result Comment: Reference ranges have not been established for patients under 21 years of age. Performed By: #### 8 9579-7 #### [facility] ([id number]) [address] [place] [address] TROPONIN I, HIGH SENSITIVITY <2 Normal <16 [facility] Comment on above: Result Comment: Reference ranges have not been established for patients under 21 years of age. Performed By: #### C DAXA, 17838-0, [facility], 1988-02, , 52699-1 #### [facility] ([id number]) [address] [place] [address] 20853 URN MACROSCOPIC NURon 2023 BILIRUBIN MIREYA Small Abnormal NEG [facility] Comment on above: Performed By: #### N UM #### [facility] ([id number]) [address] [place] [address] [place] [address] BLOOD/HGB MIREYA Negative Normal NEG [facility] Comment on above: Performed By: #### N UM #### [facility] ([id number]) [address] [place] [address] GLUCOSE MIREYA Negative Normal NEG [facility] Comment on above: Performed By: #### N UM #### [facility] ([id number]) [address] [place] [address] [place] [address] KETONES MIREYA Trace Abnormal NEG [facility] Comment on above: Performed By: #### N UM #### [facility] ([id number]) [address] [place] [address] 22500 LEUKOCYTE ESTERASE MIREYA Negative Normal NEG [facility] Comment on above: Performed By: #### N UM #### [facility] ([id number]) [address] [place] [address] 27790 NITRITE MIREYA Negative Normal NEG [facility] Comment on above: Performed By: #### N UM #### [facility] ([id number]) [address] [place] [address] 490[address] PH MIREYA 5.5 Normal 5.0-8.5 [facility] Comment on above: Performed By: #### N UM #### [facility] ([id number]) [address] [place] [address] 79732 PROTEIN MIREYA Negative Normal NEG [facility] Comment on above: Performed By: #### N UM #### [facility] ([id number]) [address] [place] [address] SPECIFIC GRAVITY MIREYA >=1.030 Normal 1.003-1.035 [facility] Comment on above: Performed By: #### N UM #### [facility] ([id number]) [address] [place] [address] 80959 UROBILINOGEN MIREYA 0.2 eu/dL Normal <1.1 [facility] Comment on above: Performed By: #### N UM #### [facility] ([id number]) [address] [place] [address] 34065 XR CSPINE MIN 4 VIEWSon 12-09 XR CSPINE MIN 4 VIEWS EXAMINATION: XR CSPINE MIN 4 VIEWS HISTORY: Cervical radiculopathy COMPARISON: No relevant comparison available. FINDINGS: BONES: Reversal of normal cervical lordosis. No acute fracture or spondylolisthesis. No significant degenerative changes DISC SPACES: Normal. No significant disc height narrowing, subluxation, or endplate abnormality. PARASPINOUS: Negative. No paraspinous abnormality is seen. OTHER: Negative. IMPRESSION: Reversal of cervical lordosis Electronically authenticated by: ANTONIO BRADSHAW Date: 2022-12-25 15:36 Normal [facility]11 SARS-CoV-2 (COVID-19) RNA HAIDER+probe Ql (Unsp spec) Not detected Normal NOT DETECTED [facility] Comment on above: Result Comment: This test is not yet approved or cleared by the [place] FDA. When there are no FDA-approved or cleared tests available, and other criteria are met, FDA can make tests available under an emergency access mechanism called an Emergency Use Authorization (EUA). The EUA for this test is supported by the [place] Supervisor of Health and Human Service's (HHS's) declaration that circumstances exist to justify the emergency use of in vitro diagnostics for the detection and/or diagnosis of the virus that causes COVID-19. This EUA will remain in effect (meaning this test can be used) for the duration of the COVID-19 declaration justifying emergency of IVDs, unless it is terminated or revoked by FDA (after which the test may no longer be used). When diagnostic testing is negative, the possibility of a false negative should be considered in the context of a patient's recent exposures and the presence of clinical signs and symptoms consistent with SARS-CoV-2. Performed By: #### C VDTBH #### [facility] [address] [place], [place] [address] Dr. Ryan Bagley INFLUENZA A AND B AGon 10-07 [facility] SEE BELOW Normal [facility] Comment on above: Result Comment: Nega tive for Flu A protein angiten. Infection due to Flu A cannot be ruled out. Flu A angiten in the sample may be below the detection limit of the test. Performed By: #### I NFLUAB ####[facility] [address] [place], [place] [address]WwDr. Ryan Bagley INFLUBNEG SEE BELOW Normal [facility] Comment on above: Result Comment: Nega tive for Flu B protein antigen. Infection due to Flu B cannot be ruled out. Flu B antigen in the sample may be below the detection limit of the test. Performed By: #### I NFLUAB ####[facility] [address] [place], [place] [address]Kn. Ryan Bagley INFLUENZA A AG Negative Normal NEGATIVE SEE COMMENT [facility] Comment on above: Performed By: #### I NFLUAB ####[facility] [address] [place], [place] [address]Oc. Ryan Bagley INFLUENZA B AG Negative Normal NEGATIVE SEE COMMENT [facility] Comment on above: Performed By: #### I NFLUAB ####[facility] [address] [place], [place] [address]Fh. Ryan Kevyn US PELVISon 08-11-2022 US PELVIS EXAMINATION: US PELV IS HISTORY: IUD check COMPARISON: FINDINGS: Transabdominal only images The uterus is normal in size, contour and echotexture measuring 7.4 x 3.8 x 4.5 cm. Anteverted, anteflexed. No focal myometrial mass. The endometrium measures 7 mm, normal. Linear hyperechogenicity within the endometrial cavity with acoustic shadowing consistent with a normally positioned IUD The right ovary is normal in appearance measuring 4.3 x 1.7 x 2.5 cm. The left ovary is normal in appearance measuring 3.5 x 1.4 x 2.6 cm. IMPRESSION: Normal examination. Electronically authenticated by: ANTONIO BRADSHAW Date: 2022-08-11 07:16 Normal [facility] CHLAMYDIA/GONOCOCCUS HAIDER (SW AB/URINE/PAPon 05-18-2022 Chlamydia trachomatis, HAIDER Negative Normal Negative [facility] Comment on above: Performed By: #### C T/NGNA #### [facility] [address] [place] [address] [address] Ryan Bagley Neisseria gonorrhoeae, HAIDER Negative Normal Negative [facility] Comment on above: Performed By: #### C T/NGNA #### [facility] [address] [place] [address] [address] Ryan Bagley VAGINITIS/VAGINOSIS DNA PROB Sarmad 05-17-2022 Dawn species Negative Normal Negative [facility] Comment on above: Performed By: #### V AGINT ####[facility] [address] [place] [id number]. Ryan Bagely Gardnerella vaginalis Negative Normal Negative [facility] Comment on above: Performed By: #### V AGINT ####[facility] [address] [place] [id number]. Ryan Bagley Trichomonas vaginalis Negative Normal Negative [facility] Comment on above: Performed By: #### V AGINT ####[facility] [address] [place] [address]Dr. Ryan Bagley INSULINon 02-11-2022 Insulin 31.4 uIU/mL Critically high 2.6-24.9 [facility] Comment on above: Performed By: #### I NSULIN #### [facility] [address] [place] [address] [address] Ryan Bagley CBC AUTO DIFFon 02-10-2022 BASO # 0.1 103/ul Normal 0.0-0.1 [facility] Comment on above: Performed By: #### C BC ####[facility] [address] [place] [address]Dr. Ryan Bagley Basophils/100 WBC (Bld) 1.0 % Normal 0.2-2.0 [facility] Comment on above: Performed By: #### C BC ####[facility] [address] [place] [address]Dr. Ryan Bagley EO # 0.2 103/ul Normal 0.0-0.7 [facility] Comment on above: Performed By: #### C BC ####[facility] [address] [place] [address]Dr. Ryan Bagley Eosinophils/100 WBC (Bld) 3.1 % Normal 0.9-7.0 [facility] Comment on above: Performed By: #### C BC ####[facility] [address] [place] [address]Dr. Ryan Bagley Erythrocyte distribution width (RBC) [Ratio] 17.5 % Critically high 11.0-15.0 [facility] Comment on above: Performed By: #### C BC ####[facility] [address] [place] [address]Dr. Ryan Bagley Hematocrit (Bld) [Volume fraction] 47.4 % Normal 36.0-48.0 [facility] Comment on above: Performed By: #### C BC ####[facility] [address] [place] [address]Dr. Ryan Bagley Hemoglobin (Bld) [Mass/Vol] 14.7 g/dL Normal 12.0-16.0 [facility] Comment on above: Performed By: #### C BC ####[facility] [address] [place] [address]Dr. Ryan Bagley IG # 0.03 10e3/ul Normal 0.00-0.03 [facility] Comment on above: Performed By: #### C BC ####[facility] [address] [place] [address]Dr. Robynyana Bagley IG % 0.4 % Normal 0.0-0.5 [facility] Comment on above: Performed By: #### C BC ####[facility] [address] [place] [address]Dr. Ryan Kevyn LYMPH # 2.0 103/ul Normal 1.2-3.8 [facility] Comment on above: Performed By: #### C BC ####[facility] [address] [place] [address]Dr. Robynyana Bagley Lymphocytes/100 WBC (Bld) 28.9 % Normal 20.5-60.0 [facility] Comment on above: Performed By: #### C BC ####[facility] [address] [place] [address]Dr. Ryan Bagley MANUAL DIFF REQ NO Normal [facility] Comment on above: Performed By: #### C BC ####[facility] [address] [place], [place] [address]Dr. Ryan Bagley MCH (RBC) [Entitic mass] 24.2 pg Critically low 26.7-34.0 [facility] Comment on above: Performed By: #### C BC ####[facility] [address] [place] [address]Dr. Ryan Bagley MCHC (RBC) [Mass/Vol] 31.0 g/dL Normal 29.9-35.2 [facility] Comment on above: Performed By: #### C BC ####[facility] [address] [place] [address]Dr. Ryan Bagley MCV (RBC) [Entitic vol] 78.0 fL Critically low 81.0-99.0 [facility] Comment on above: Performed By: #### C BC ####[facility] [address] [place], [place] [address]Dr. Ryan Bagley MONO # 0.5 103/ul Normal 0.3-0.8 [facility] Comment on above: Performed By: #### C BC ####[facility] [address] [place], [place] [address]Dr. Robynyana Bagley Monocytes/100 WBC (Bld) 6.8 % Normal 1.7-12.0 [facility] Comment on above: Performed By: #### C BC ####[facility] [address] [place], [place] [address]Dr. Ryan Bagley NEUT # 4.2 103/ul Normal 1.4-6.5 [facility] Comment on above: Performed By: #### C BC ####[facility] [address] [place], [place] [address]Dr. Ryan Bagley Neutrophils/100 WBC (Bld) 59.8 % Normal 43.0-75.0 [facility] Comment on above: Performed By: #### C BC ####[facility] [address] [place], [place] [address]Dr. Ryan Bagley Platelet mean volume (Bld) [Entitic vol] 8.7 fL Critically low 9.5-13.5 [facility] Comment on above: Performed By: #### C BC ####[facility] [address] [place], [place] [address]Dr. Ryan Kevyn PLT 268 103/ul Normal 150-450 [facility] Comment on above: Performed By: #### C BC ####[facility] [address] [place], [place] [address]FhKing Bagley RBC 6.08 106/ul Critically high 4.20-5.40 [facility] Comment on above: Performed By: #### C BC ####[facility] [address] [place], [place] [address]AeKing Bagley WBC 7.0 103/ul Normal 4.0-11.0 [facility] Comment on above: Performed By: #### C BC ####[facility] [address] [place] [id number]. Ryan Bagley FREE THYROXINE INDEX T7on FTI 3.06 Normal [facility] Comment on above: Performed By: #### T 7, TSH, CMP, LIPID #### [facility] [address] [place] [address] [address] Ryan Bagley T3U 36.0 % Normal 23.5-40.5 [facility] Comment on above: Performed By: #### T 7, TSH, CMP, LIPID #### [facility] [address] [place] [address] [address] Ryan Bagley T4 [Mass/Vol] 8.50 ug/dL Normal 5.40-10.60 [facility] Comment on above: Performed By: #### T 7, TSH, CMP, LIPID #### [facility] [address] [place] [address] [address] Ryan Bagley GLYCOHEMOGLOBIN A1Con 2021 ADA RECOMMENDATION SEE BELOW Normal [facility] Comment on above: Result Comment: ADA RECOMMENDED LIMIT 4.0 - 6.0 ADA THERAPEUTIC TARGET < 7.0 ACTION SUGGESTED > 7.0 Performed By: #### A 1C ####[facility] [address] [place] [id number]. Ryan Bagley Glucose [Mass/Vol] 108 mg/dL Normal [facility] Comment on above: Performed By: #### A 1C ####[facility] [address] [place] [id number]. Ryan Bagley HbA1c (Bld) [Mass fraction] 5.4 % Normal 4.5-6.2 [facility] Comment on above: Performed By: #### A 1C ####[facility] [address] [place], [place] [address]JhDr. Ryan Bagley IRONon 02-10-2022 Iron [Mass/Vol] 50.0 ug/dL Normal 50.0-170.0 [facility] Comment on above: Performed By: #### V ITAD, IRON ####[facility] [address] [place], [place] [address]KeDr. Ryan Bagley LIPID PROFILEon 02-10-2022 CHOL-HDL RATIO NORM SEE BELOW Normal [facility] Comment on above: Result Comment: 3.3 - 4.4 LOW RISK 4.4 - 7.1 AVERAGE RISK 7.1 - 11.0 MODERATE RISK >11.0 HIGH RISK Performed By: #### T 7, TSH, CMP, LIPID #### [facility] [address] [place] [address] [address] Ryan Bagley Cholesterol [Mass/Vol] 215 mg/dL Normal 104-227 [facility] Comment on above: Performed By: #### T 7, TSH, CMP, LIPID #### [facility] [address] [place] [id number] [address] Ryan Bagley Cholesterol in HDL [Mass/Vol] 42 mg/dL Normal 29-69 [facility] Comment on above: Performed By: #### T 7, TSH, CMP, LIPID #### [facility] [address] [place] [id number] [address] Ryan Bagley Cholesterol in LDL [Mass/Vol] 145.0 mg/dL Critically high 46.0-140.0 [facility] Comment on above: Performed By: #### T 7, TSH, CMP, LIPID #### [facility] [address] [place], [place] [address] Dr. Ryan Bagley Cholesterol.total/C holesterol in HDL [Mass ratio] 5.1 {ratio} Normal [facility] Comment on above: Performed By: #### T 7, TSH, CMP, LIPID #### [facility] [address] [place], [place] [address] Dr. Ryan Bagley HDL NORMAL > or = 60 mg/dl - LO W CARDIOVASCULAR RISK <40 mg/dl - HIGH CARDIOVASCULAR RISK Normal [facility] Comment on above: Performed By: #### T 7, TSH, CMP, LIPID #### [facility] [address] [place] [address] [address] Ryan Bagley LDL CALC NORMAL SEE BELOW Normal [facility] Comment on above: Result Comment: <100 mg/dl OPTIMAL 100 - 129 mg/dl NEAR OR ABOVE OPTIMAL 130 - 159 mg/dl BORDERLINE HIGH 160 - 189 mg/dl HIGH >190 mg/dl VERY HIGH Performed By: #### T 7, TSH, CMP, LIPID #### [facility] [address] [place] [address] [address] Ryan Bagley Triglyceride [Mass/Vol] 140 mg/dL Normal 53-208 [facility] Comment on above: Performed By: #### T 7, TSH, CMP, LIPID #### [facility] [address] [place] [address] [address] Ryan Bagley VLDL CALC 28.0 mg/dL Normal [facility] Comment on above: Performed By: #### T 7, TSH, CMP, LIPID #### [facility] [address] [place] [address] [address] Ryan Bagley PROF 14(COMP METB)on 022 Albumin [Mass/Vol] 3.7 g/dL Normal 3.4-5.0 [facility] Comment on above: Performed By: #### T 7, TSH, CMP, LIPID #### [facility] [address] [place] [address] [address] Ryan Bagley Albumin/Globulin [Mass ratio] 0.9 {ratio} Normal [facility] Comment on above: Performed By: #### T 7, TSH, CMP, LIPID #### [facility] [address] [place] [address] [address] Ryan Bagley ALP [Catalytic activity/Vol] 102 U/L Normal 46-116 [facility] Comment on above: Performed By: #### T 7, TSH, CMP, LIPID #### [facility] [address] [place] [address] [address] Ryan Bagley ALT [Catalytic activity/Vol] 19 U/L Normal 14-59 [facility] Comment on above: Performed By: #### T 7, TSH, CMP, LIPID #### [facility] [address] [place] [address] [address] Ryan Bagley Anion gap [Moles/Vol] 15.1 mmol/L Normal [facility] Comment on above: Performed By: #### T 7, TSH, CMP, LIPID #### [facility] [address] [place] [address] [address] Ryan Bagley AST [Catalytic activity/Vol] 17 U/L Normal 15-37 [facility] Comment on above: Performed By: #### T 7, TSH, CMP, LIPID #### [facility] [address] [place] [address] Dr. Ryan Bagley Bilirubin [Mass/Vol] 0.7 mg/dL Normal 0.2-1.0 [facility] Comment on above: Performed By: #### T 7, TSH, CMP, LIPID #### [facility] [address] [place] [address] [address] Ryan Bagley Calcium [Mass/Vol] 8.3 mg/dL Critically low 8.5-10.1 [facility] Comment on above: Performed By: #### T 7, TSH, CMP, LIPID #### [facility] [address] [place] [address] Dr. Ryan Bagley Chloride [Moles/Vol] 101 mmol/L Normal 98-107 [facility] Comment on above: Performed By: #### T 7, TSH, CMP, LIPID #### [facility] [address] [place] [address] Dr. Ryan Bagley CO2 [Moles/Vol] 23.8 mmol/L Normal 21.0-32.0 [facility] Comment on above: Performed By: #### T 7, TSH, CMP, LIPID #### [facility] [address] [place] [address] Dr. Ryan Bagley Creatinine [Mass/Vol] 0.81 mg/dL Normal 0.55-1.02 [facility] Comment on above: Performed By: #### T 7, TSH, CMP, LIPID #### [facility] [address] [place] [address] [address] Ryan Bagley EGFR-AF FINNISH >60 Normal >=60 [facility] Comment on above: Performed By: #### T 7, TSH, CMP, LIPID #### [facility] [address] [place] [address] [address] Ryan Bagley EGFR-NON AF FINNISH >60 Normal >=60 [facility] Comment on above: Performed By: #### T 7, TSH, CMP, LIPID #### [facility] [address] [place] [address] [address] Ryan Bagley Globulin (S) [Mass/Vol] 4.0 g/dL Normal [facility] Comment on above: Performed By: #### T 7, TSH, CMP, LIPID #### [facility] [address] [place] [address] [address] Ryan Bagley Glucose [Mass/Vol] 95 mg/dL Normal 74-106 [facility] Comment on above: Performed By: #### T 7, TSH, CMP, LIPID #### [facility] [address] [place] [address] [address] Ryan Bagley Potassium [Moles/Vol] 3.9 mmol/L Normal 3.5-5.1 [facility] Comment on above: Performed By: #### T 7, TSH, CMP, LIPID #### [facility] [address] [place] [address] [address] Ryan Bagley Protein [Mass/Vol] 7.7 g/dL Normal 6.1-8.2 [facility] Comment on above: Performed By: #### T 7, TSH, CMP, LIPID #### [facility] [address] [place] [address] [address] Ryan Bagley Sodium [Moles/Vol] 136 mmol/L Normal 136-145 [facility] Comment on above: Performed By: #### T 7, TSH, CMP, LIPID #### [facility] [address] [place] [address] [address] Ryan Bagley Urea nitrogen [Mass/Vol] 9.0 mg/dL Normal 6.4-19.3 [facility] Comment on above: Performed By: #### T 7, TSH, CMP, LIPID #### [facility] [address] [place] [address] [address] Ryan Bagley Urea nitrogen/Creatinine [Mass ratio] 11.1 mg/mg Normal [facility] Comment on above: Performed By: #### T 7, TSH, CMP, LIPID #### [facility] [address] [place] [address] Dr. Ryan Bagley TSHon 02-10-2022 TSH 2.133 uIU/mL Normal 0.430-3.750 [facility] Comment on above: Performed By: #### T 7, TSH, CMP, LIPID #### [facility] [address] [place] [address] Dr. Ryan Bagley TSH RANGE SEE BELOW Normal [facility] Comment on above: Result Comment: <0.3 4 UIU/ml HYPERTHYROID 0.34-5.60 UIU/ml EUTHYROID >5.60 UIU/ml HYPOTHYROID Performed By: #### T 7, TSH, CMP, LIPID #### [facility] [address] [place] [address] Dr. Ryan Bagley VITAMIN D 25 OHon 02-10-2022 VIT D 25-OH 11.3 ng/mL Normal [facility] Comment on above: Performed By: #### V ITAD, IRON #### [facility] [address] [place] [address] Dr. Ryan Bagley VIT D RANGES SEE BELOW Normal [facility] Comment on above: Result Comment: <20 ng/mL Vit D deficient 20 - <30 ng/mL Vit D insufficient 30 - 100 ng/mL Vit D sufficient >100 ng/mL Potential Toxicity Performed By: #### V ITAD, IRON #### [facility] [address] [place] [address] Dr. Ryan Bagley IRON + TIBCon 01-03-2022 % SATURATION 11 % Low 25 - 45 [facility] Comment on above: Performed By: #### I RONT #### [facility] [address] [place] [address] Iron [Mass/Vol] 36 ug/dL Normal 35 - 150 [facility] Comment on above: Performed By: #### I KRISTI #### [facility] [address] [place] [address] TIBC 334 ug/dL Normal 240 - 445 [facility] Comment on above: Performed By: #### I KRISTI #### [facility] [address] [place] [address] CBC AND DIFFERENTIALon 01-02 % AUTOMATED IMMATURE GRAN 0.4 % Normal 0.0 - 0.9 [facility] Comment on above: Result Comment: [place]lin ture Granulocyte Count (IG) includes promyelocytes, myelocytes and metamyelocytes but does not include bands. Percent differential counts (%) should be interpreted in the context of the absolute cell counts (cells/L). Performed By: #### C BCDF #### [address] [id number] Basophils (Bld) [#/Vol] 0.07 10*3/uL Normal 0.00 - 0.10 [facility] Comment on above: Performed By: #### C BCDF #### [address] [id number] Basophils/100 WBC (Bld) 0.6 % Normal 0.0 - 2.0 [facility] Comment on above: Performed By: #### C BCDF #### [address] [id number] Eosinophils (Bld) [#/Vol] 0.14 10*3/uL Normal 0.00 - 0.70 [facility] Comment on above: Performed By: #### C BCDF #### [address] [id number] Eosinophils/100 WBC (Bld) 1.1 % Normal 0.0 - 6.0 [facility] Comment on above: Performed By: #### C BCDF #### [address] [id number] Erythrocyte distribution width (RBC) [Ratio] 16.5 % High 11.5 - 14.5 [facility] Comment on above: Performed By: #### C BCDF #### [address] [id number] Hematocrit (Bld) [Volume fraction] 46.8 % High 36.0 - 46.0 [facility] Comment on above: Performed By: #### C BCDF #### [address] [id number] Hemoglobin (Bld) [Mass/Vol] 13.7 g/dL Normal 12.0 - 16.0 [facility] Comment on above: Performed By: #### C BCDF #### [address] [id number] Lymphocytes (Bld) [#/Vol] 3.77 10*3/uL Normal 1.20 - 4.80 [facility] Comment on above: Performed By: #### C BCDF #### [address] [id number] Lymphocytes/100 WBC (Bld) 30.5 % Normal 13.0 - 44.0 [facility] Comment on above: Performed By: #### C BCDF #### [address] [id number] MCHC (RBC) [Mass/Vol] 29.3 g/dL Low 32.0 - 36.0 [facility] Comment on above: Performed By: #### C BCDF #### [address] [id number] MCV (RBC) [Entitic vol] 79 fL Low 80 - 100 [facility] Comment on above: Performed By: #### C BCDF #### [address] [id number] Monocytes (Bld) [#/Vol] 0.94 10*3/uL Normal 0.10 - 1.00 [facility] Comment on above: Performed By: #### C BCDF #### [address] [id number] Monocytes/100 WBC (Bld) 7.6 % Normal 2.0 - 10.0 [facility] Comment on above: Performed By: #### C BCDF #### [address] [id number] Neutrophils (Bld) [#/Vol] 7.41 10*3/uL Normal 1.20 - 7.70 [facility] Comment on above: Performed By: #### C BCDF #### [address] [id number] Neutrophils/100 WBC (Bld) 59.8 % Normal 40.0 - 80.0 [facility] Comment on above: Performed By: #### C BCDF #### [address] [phone] Platelets (Bld) [#/Vol] 427 10*3/uL Normal 150 - 450 [facility] Comment on above: Performed By: #### C BCDF #### [address] [id number] RBC 5.92 x10E12/L High 4.00 - 5.20 [facility] [place] Comment on above: Performed By: #### C BCDF #### [address] [phone] WBC (Bld) [#/Vol] 12.4 10*3/uL High 4.4 - 11.3 [facility] Comment on above: Performed By: #### C BCDF #### [address] [id number] FERRITINon 01-02-2022 FERRITIN 59 ug/L Normal 8 - 150 [facility] Comment on above: Performed By: #### F ERRI #### [facility] [address] [place] [address] Peds Nephrologyon 10-02-2021 Peds Nephrology No report was sent Normal [facility]phrolog[facility] 02-20-2021 Peds Nephrology Orders Renew: Lisinopril 10 MG Oral Tablet; TAKE 1 TABLET DAILY Patient Discussion/Summary Thank you for coming in to clinic today! Please decrease Lisinopril to 10mg daily (1 tablet). Please take your blood pressure every day around the same time. We will call to check up in about 2-3 weeks. If you develops any symptoms such as dizziness, blurred vision, headache, chest pain or blood in your urine please call the office! Lifestyle modifications that can improve hypertension include: -Increasing activity/exercise to 30 minutes at least three times weekly -Limiting sodium in the diet to 2000 mg daily -Following a DASH diet: eating fruits and vegetables, nuts, dairy, lean meats, fish, poultry, whole grains, and heart healthy fats -Keeping weight in a healthy range Provider Impressions Zee is a 15 y/o morbidly obese female with hypertension, double heterozygous state for Factor V Leiden and prothrombin gene mutation with history of bilateral PE's and significant RLE DVT in October of 2020 on chronic anticoagulation with Xarelto who is here for follow up for HTN. Overall doing well - some dizziness/blurred vision when standing up quickly. BP today 105/70 (RUE) and 112/72 (LUE). No at home BPs reported however suspect that dizziness/blurred vision may be secondary to mild hypotension. Etiology of HTN is likely primary given obesity and CV risk factors however may have been exacerbated by significant pulmonary embolism which is now resolving with anticoagulant therapy, again raising suspicion for hypotension at home. Will decrease Lisinopril today from 15mg to 10mg and encourage home BP monitoring. UA wnl. We reviewed the teratogenicity of ROGE-I therapy, and Zee has an IUD in place. - Decrease Lisinopril to 10mg daily - Encourage BP checks daily at home - will call to check in 2-3 weeks time - F/u in 3 months, can be virtual; plan for annual RFP while on ROGE-I therapy. Latisha Hoyt, DO PGY-2 Pediatrics Dave I saw and evaluated the patient. I personally obtained the martins and critical portions of the history and physical exam or was physically present for martins and critical portions performed by the trainee. I reviewed the documentation and discussed the patient with the trainee. I agree with the medical decision making, as documented on the trainee's note. Wendy Leyva MD, MS [facility] Out Man of Pediatric Nephrology [facility] [phone] [address] [place] [place] [id number] Chief Complaint Follow up visit here for hypertension per mother Accompanied by mother. History of Present Illness Zee lopez is a 15 year old female who was diagnosed with DVT and PE secondary to OCP use in October 2020. During that hospitalization, she was noted to be hypertensive and started on lisinopril. Her renal imaging was normal with no evidence of renal vein thrombosis, and echocardiogram reassuringly showed no left ventricular hypertrophy. She has been maintained on lisinopril. Per Mom, she is still on 1L of Oxygen at night. Mom states that when she is a deep sleep she will drop lower into the upper 80s. She just received a call that she does not need to be on O2 overnight moving forward. They are planning on one more sleep study after this. Overall she has been doing very well per Mom - about to graduate high school. 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 She endorses chronic fatigue - stable. She also endorses blurred/double vision when she stands up quickly or if she has been standing for a while. She does also have occasional heart racing when she is lying down to sleep. She has not been checking her blood pressure at home. She is very compliant with her medication - has missed maybe one dose in the past few months. Diet: does not eat a lot of meat, eats chicken/rice, avoids salt Past Medical History: Menorrhagia Pre-diabetes DVT and PE, likely due to previous OCP use and double heterozygous state for Factor V Leiden and prothrombin gene mutation Primary hypertension Past Surgical History: Tonsillectomy Bilateral myringotomy and tube placement Family History: Strong maternal family history of hypertension Father with hypertension Cousin with DVT at young age Social History: Lives with mother and father; will be graduating from high school and plans to attend school for ultrasonography The patient is being seen for a routine clinic follow-up of chronic kidney disease. The patient is being seen for a routine clinic follow-up of hypertension. Symptoms: visual disturbance, rapid heartbeat, dyspnea, fatigue and SOB on exertion - improved from after d/c, but no headache, no epistaxis, no palpitations, no flushing, no tremor, no edema, no hematuria, no weight gain and no weight loss. Review of Systems Positive fatigue, hair loss, double/blurry vision, SOB, depressed mood, difficulty sleeping. Per patient, A 10 point review of systems was completed and is negative except as noted (more content not included)... Normal [facility] Peds Cardiology - 3-19 y/oon 01-14-2021 Peds Cardiology - 3-19 y/o Diagnoses/Problems Assessed Acute deep vein thrombosis (DVT) of other specified vein of right lower extremity (453.40) (I82.491) Essential hypertension (401.9) (I10) Multiple subsegmental pulmonary emboli without acute cor pulmonale (415.19) (I26.94) Nocturnal hypoxemia (327.24) (G47.34) PFO (patent foramen ovale) (745.5) (Q21.1) Provider Impressions Zee is a 15-year-old girl who suffered an acute right lower extremity DVT and bilateral submassive pulmonary emboli in October 2020. She still is in the convalescence stage following her DVT/PE. She still has a nocturnal oxygen requirement is thought to be secondary to intrapulmonary shunting and this has been slowly getting better with less oxygen required to maintain normal nocturnal saturations. Her to echocardiograms performed both show normal intracardiac anatomy and function. Although her right ventricle function was low-normal to mildly diminished during her acute presentation with her pulmonary embolism, the function is now normal based on her NATHAN in December. The NATHAN in December did reveal a patent foramen ovale with [id number] shunting by color-flow Doppler. No evidence of right to left shunting, although a agitated hearing contrast injection was not performed. Nevertheless Fabricio has not suffered a cryptogenic stroke nor has she had any other signs of systemic embolization to suggest that the PFO is at all pathologic. The only FDA approved indication for PFO at this time is for the secondary prevention of cryptogenic stroke in young patients less than 60 years do not have other explanation for why the had the stroke. Considering that Zee has never had a stroke she does not meet any standard indication for PFO closure. I do not think that the oxygen requirement is related to right to left shunting as this was not seen on either of her studies and is getting progressively better presumably as the pulmonary artery clot burden improves and she has less intrapulmonary shunting. Discussed the indications for PFO closure with the patient and her mother who provided reassurance that the PFO does not require any closure at this time. I did emphasize the need for follow-up for possible obstructive sleep apnea and encouraged weight loss and exercise to promote heart healthy living in her younger years and to decrease the risk for acquired cardiovascular disease in the future. Should there be concerned that she has a persistent oxygen requirement despite optimizing all other factors that we could look at the atrial septum as a possible source of right to left shunting and systemic desaturation, but again I do not feel this is likely to be the case at this time or in the future. I only suggest that we keep it as a consideration should the oxygen requirement persist I do not need to see Zee back in clinic at this time and do not recommend any further cardiovascular testing at this time. Recommendations: 1. SBE prophylaxis is not indicated 2. Encouraged diet and increasing physical exercise to promote weight loss. No restrictions to exercise from cardiac standpoint. 3. HTN management per nephrology 4. Anticoagulation management for DVT/PE and thrombophilia per hematology 5. No indication for PFO closure at this time 6. Ongoing cardiology follow-up not needed Chief Complaint ART CONSERVATOR evaluation for recent pulmonary embolism and recent echo findings Accompanied by mother. History of Present Illness ZEE is a 15-year-old female who is being seen in follow-up today after recent hospitalization for pulmonary embolus. She is accompanied by her mother who contributed to the history. Previous records were reviewed and pertinent details are included below. Zee was admitted to an outside hospital on October 16, 2020 with worsening respiratory distress and fever. Workup at the outside hospital revealed a submassive pulmonary embolism and right lower extremity DVT. She had recently started an oral contraceptive pill for control of her menorrhagia, and this was thought to be the reason for the thrombus formation. She was transferred from the outside hospital to [place] [facility] for management of worsening respiratory distress. She never required intubation but was on noninvasive positive pressure ventilatory support during her ICU stay. She did not receive systemic thrombolytic therapy or mechanical thrombectomy, just intravenous heparin drip. She was then transitioned over to Xarelto on which she still remains. In the hospital she was found to be hypertensive and was eventually started on lisinopril 10 mg daily. She also had a persistent oxygen requirement at night which was thought to be multifactorial but partly related to her significant pulmonary emboli. She remains on 1 L of oxygen by nasal cannula at night. While in the hospital a transthoracic echocardiogram was performed which was pertinent for abnormal branch pulmonary artery Doppler profile and mildly diminished RV systolic function. Both of which could be seen with acute s (more content not included)... Normal [facility] 11-14-2020 Peds Nephrology Diagnoses/Problems Hypertension (401.9) (I10) Orders Start: Lisinopril 10 MG Oral Tablet; TAKE 1 TABLET DAILY Stop: Lisinopril 5 MG Oral Tablet Patient Discussion/Summary Recommendations: 1. Increase lisinopril to 10 mg daily; we reviewed the potential teratogenicity of ROGE-I. Zee is scheduled to get IUD placement next week. 1 2. Our nurse will call in 2 weeks to review home BP's after medication adjustment; please continue to take BP daily 3. Lifestyle modifications including increasing activity, losing weight and eating a low salt diet will aid in control of hypertension 4. Follow up in Nephrology Clinic in 3 months, likely with repeat RFP at that time 1 Amended By: Wendy Leyva; Nov 14 2020 3:33 PM ESTProvider Impressions In summary, Zee is a 15 year old female who was recently hospitalized for treatment of DVT and PE, noted to have hypertension most likely primary in nature. Renal imaging was reassuring and she had no evidence of end organ damage with no LVH on echocardiogram. She is being treated with lisinopril with some improvement in her home blood pressures, but the majority of her BP's remain above goal of < 120/80. I would like to increase her lisinopril dose today and continue to monitor home BP's, as we may need to adjust dose further. Her renal function and electrolytes after lisinopril initiation is appropriate, and she has no history of proteinuria. Wendy Leyva MD, MS [facility] Out [facility] of Pediatric Nephrology [facility] [phone] [place] [address] Chief Complaint An interactive audio and video telecommunication system which permits real time communications between the patient (at the originating site) and provider (at the distant site) was utilized to provide this telehealth service. Verbal consent was requested and obtained for minor from (parent/guardian) on this date, 11/14/2020 09:20 AM , for a telehealth visit. This visit was completed via Doxy[employer]Me due to the restrictions of the COVID-19 pandemic. All issues as below were discussed and addressed but no physical exam was performed. If it was felt that the patient should be evaluated in clinic then they were directed there. The patient/parent verbally consented to the visit. FUV HTN History of Present IllnessI had the pleasure of seeing ZEE tinoco in the Nephrology Clinic at [facility] today for follow-up evaluation of hypertension. As you know, ZEE is a 15 year old female who was recently diagnosed with DVT and PE secondary to OCP use in October 2020. During that hospitalization, she was noted to be hypertensive and started on lisinopril. Her renal imaging was normal with no evidence of renal vein thrombosis, and echocardiogram reassuringly showed no left ventricular hypertrophy. She was started on lisinopril 5 mg daily prior to discharge. Since discharge from the hospital, Zee reports doing well. She continues to use oxygen overnight while asleep, and does report some higher heart rates intermittently. She is working on becoming more active, which is going slowly. She reports the swelling of her RLE associated with DVT has resolved, though still has some mild right inner thigh pain intermittent. Takes her medication regularly with no issues. Is off OCP with plans to get IUD placed next week with sedation. She endorses constipation for which she is using Miralax. She doesn't drink much water during the day - maybe 1-2 cups. She has occasionally gotten dizzy with standing but getting better. Denies headaches, vision changes, nosebleeds and dry cough. Home BP's: 124/78, 116/79, 112/82, 143/75, 128/83, 120/76, 141/82, 126/85, 138/68, 137/80, 121/81, 145/95 Past Medical History: Menorrhagia Pre-diabetes DVT and PE, likely due to previous OCP use Primary hypertension Past Surgical History: Tonsillectomy Bilateral myringotomy and tube placement Family History: Strong maternal family history of hypertension Cousin with DVT at young age Social History: Lives with mother and father; family taking a trip in their RV next week to [place] Review of Systems The remainder of a full review of systems is otherwise negative Active Problems Allergic rhinitis (477.9) (J30.9) Anemia (285.9) (D64.9) Cough (786.2) (R05) DUB (dysfunctional uterine bleeding) (626.8) (N93.8) Epistaxis (784.7) (R04.0) Hypertension (401.9) (I10) Nasal congestion (478.19) (R09.81) Nasal dryness (478.19) (J34.89) Nocturnal hypoxemia (327.24) (G47.34) Pulmonary embolism (415.19) (I26.99) Snoring (786.09) (R06.83) Past Medical History History of No significant past medical history Surgical History History of Tonsillectomy with adenoidectomy Family History Family history of Environmental allergies Family history of sleep apnea (V19.8) (Z82.0) Social History Lives with parents Never a smoker No tobacco/smoke exposure Pets/Animals: Cat Allergies Estrogens Record (more content not included)... Normal [facility] 5 Allergens with IgEon 11-04-2020 Alternaria Alternata <0.10 Normal [facility] 0 [facility] Comment on above: Performed By: #### A LLERGEN 5, MOUSE EPITHELIA #### [facility] , Magno White Allergen <0.10 Normal Class [address] [facility] Comment on above: Performed By: #### A LLERGEN 5, MOUSE EPITHELIA #### [facility] , Aspergillis Fumigatus Allergen <0.10 [facility] 0 [facility] Comment on above: Performed By: #### A LLERGEN 5, MOUSE EPITHELIA #### [facility] , Bermuda Grass Allergen <0.10 Normal [facility] 0 [facility] Comment on above: Performed By: #### A LLERGEN 5, MOUSE EPITHELIA #### [facility] , [place] Common Silver Aller <0.10 Normal [facility] 0 [facility] Comment on above: Performed By: #### A LLERGEN 5, MOUSE EPITHELIA #### [facility] , Cat Hair/Dander Allergen <0.10 [facility] 0 [facility] Comment on above: Performed By: #### A LLERGEN 5, MOUSE EPITHELIA #### [facility] , [place], Mountain Allergen <0.10 Normal Class 0 [facility] Comment on above: Performed By: #### A LLERGEN 5, MOUSE EPITHELIA #### [facility] , Cladosporium Herbarum <0.10 Normal Class 0 [facility] Comment on above: Performed By: #### A LLKIRILLN 5, MOUSE EPITHELIA #### [facility] , CLASS DESCRIPTION Normal . [facility] Comment on above: Result Comment: Forest gill of Specific IgE Class Description of Class ----- < 0.10 0 Negative 0.10 - 0.31 0/I Equivocal/Low 0.32 - 0.55 I Low 0.56 - 1.40 II Moderate 1.41 - 3.90 III High 3.91 - 19.00 IV Very High 19.01 - 100.00 V Very High >100.00 Very High Performed By: #### A LLERGEN 5, MOUSE EPITHELIA #### [facility] , Cockroach Ugandan Allergen <0.10 Normal Class 0 [facility] Comment on above: Performed By: #### A LLERGEN 5, MOUSE EPITHELIA #### [facility] , [place] Allergen <0.10 Normal Class 0 [facility] Comment on above: Performed By: #### A LLERGEN 5, MOUSE EPITHELIA #### [facility] , D Farinae Mite Allergen <0.10 Normal Class 0 [facility] Comment on above: Performed By: #### A LLERGEN 5, MOUSE EPITHELIA #### [facility] , D Pteronyssinus Allergen <0.10 Normal Class 0 [facility] Comment on above: Performed By: #### A LLERGEN 5, MOUSE EPITHELIA #### [facility] , Dog Hair/Dander Allergen <0.10 Normal Class 0 [facility] Comment on above: Performed By: #### A LLERGEN 5, MOUSE EPITHELIA #### [facility] , Elm Tree Allergen <0.10 Normal Class 0 [facility] Comment on above: Performed By: #### A LLERGEN 5, MOUSE EPITHELIA #### [facility] , Immunoglobulin E 13 Normal 6-495 [facility] Comment on above: Performed By: #### A LLERGEN 5, MOUSE EPITHELIA #### [facility] , Maple/Robeson Allergen <0.10 [facility] 0 [facility] Comment on above: Performed By: #### A LLERGEN 5, MOUSE EPITHELIA #### [facility] , Mouse Urine Allergen <0.10 [facility] 0 [facility] Comment on above: Performed By: #### A LLERGEN 5, MOUSE EPITHELIA #### [facility] , [place], White Allergen <0.10 [facility] 0 [facility] Comment on above: Performed By: #### A LLERGEN 5, MOUSE EPITHELIA #### [facility] , Julian Tree Allergen <0.10 [place] Class 0 [facility] Comment on above: Performed By: #### A LLERGEN 5, MOUSE EPITHELIA #### [facility] , Pecan/[place] Tree Allergen <0.10 [facility] 0 [facility] Comment on above: Performed By: #### A LLERGEN 5, MOUSE EPITHELIA #### [facility] , Penicillium Chrysogen Mold All <0.10 [facility] 0 [facility] Comment on above: Performed By: #### A LLERGEN 5, MOUSE EPITHELIA #### [facility] , Pigweed Allergen <0.10 [facility] 0 [facility] Comment on above: Performed By: #### A LLERGEN 5, MOUSE EPITHELIA #### [facility] , Ragweed Short Allergen <0.10 Normal Class 0 [facility] Comment on above: Performed By: #### A LLERGEN 5, MOUSE EPITHELIA #### [facility] , [place] Sheep Allergen <0.10 Normal Class 0 [facility] Comment on above: Performed By: #### A LLERGEN 5, MOUSE EPITHELIA #### [facility] , [place] Allergen <0.10 Normal Class 0 [facility] Comment on above: Performed By: #### A LLERGEN 5, MOUSE EPITHELIA #### [facility] , Thistle S[place] Allergen <0.10 Normal Class 0 [facility] Comment on above: Performed By: #### A LLERGEN 5, MOUSE EPITHELIA #### [facility] , Du Allergen <0.10 Normal Class 0 [facility] Comment on above: Performed By: #### A LLERGEN 5, MOUSE EPITHELIA #### [facility] , [place] Tree Pollen Allergen <0.10 Normal Class 0 [facility] Comment on above: Performed By: #### A LLERGEN 5, MOUSE EPITHELIA #### [facility] , Mouse Epithelia Allergenon 0 11-04-2020 Mouse Epithelia Allergen <0.10 Normal Class 0 [facility] Comment on above: Result Comment: Perf ormed at: - [facility] [id number] Mainframe Architect: Wu Sesay MD, Phone: [phone] PERFORMED BY: [facility] [address] [place] [address] PATHOLOGIST PREFABRICATOR LUIS HENSON M.D. Performed By: #### A LLERGEN 5, MOUSE EPITHELIA #### [facility] , Peds Pulmonary Medicine- Off ice Visiton 11-04-2020 Peds Pulmonary Medicine- Office Visit Diagnoses/Problems Pulmonary embolism (415.19) (I26.99) Nocturnal hypoxemia (327.24) (G47.34) Cough (786.2) (R05) Snoring (786.09) (R06.83) Allergic rhinitis (477.9) (J30.9) Epistaxis (784.7) (R04.0) DUB (dysfunctional uterine bleeding) (626.8) (N93.8) Patient Discussion/Summary As discussed in clinic today the plan includes: -- Lung function test looks great today! -- I will talk with Dr. Foster about timing of the next CT scan, maybe in the next few weeks -- Repeat echo to be done December 13 at . I will find out if our rooter operator can put an IUD in at the same time -- Overnight downloadable pulse ox study to be done on 2L. Depending on how it looks, we might be able to wean a little -- I am giving you some gel to use in your nose for the dryness and nosebleeds -- Albuterol should be continued as needed for cough, wheezing or shortness of breath with inhaler and spacer (Ventolin or Proair) -- Allergy medications prescribed/continued today include: Zyrtec/cetirizine as needed -- Please call the office if you have any questions, need additional refills, your child is sick or you have questions about the plan ([phone]). Please call us if you are having insurance coverage problems with any of the medications we have prescribed -- Follow up will be in 2-3 months Provider Impressions 15 yo female with hx bilateral PEs associated with right lower extremity DVT after staring OCPs for DUB. She's also on home oxygen at night - 2L and feeling overall better. The general thought was that the oxygen requirement was secondary to V/Q mismatch and parenchymal changes from the PEs. Will need to discuss timing of repeat CT with heme/onc. Also, she is still having some bleeding on the progesterone only pills and we discussed other options today. I emailed hybrid technologist, heme onc and cardiology about her case today as I feel a little uneasy about her undergoing sedation/anesthesia for NATHAN in December, but presumably her oxygen requirement will be better and so will her CT chest. Her PFTs are normal and NOT suggestive of obstruction, but she does have rescue inhalers at home to use PRN for dry cough that has been present for a while - unclear if this is related to asthma, post-nasal drip or something else. She is high risk for upper airway obstruction with her size and does snore - she may need a formal PSG if her saturations do not improve over time or she is still needing oxygen, but TCOM and POX study was not suggestive of SCARLETT inhouse. Consider additional workup if CT does not improve, cough does not improve or nocturnal hypoxemia does not improve. All of this was discussed with patient and family today. I ordered allergy blood test today with her dry cough and possible allergies to better tease out the cause of her cough. I spent 80 minutes on the date of visit 11/04/2020 reviewing the patient's chart, preparing the note, completing the note, and discussing the patient's case with other providers including hematology, my partners in pulmonology, hybrid technologist and cardiology Chief Complaint followup Accompanied by mother. History of Present Illness Today (11/04/2020) I am seeing ZEE JACOBSON as a hospital followup Hospital followup from stay dated: 10/16/20-10/23/20 at [facility]. was at [facility] for 2 days prior to being transferred Admitted for: pulmonary embolism Summary from stay: no discharge summary available Summary from consult done 10/22/20 [address] by Drs. King and Chandra HPI: 15 year old female with dysfunctional uterine bleeding requiring OCPs who is admitted, hospital day 6, for DVT with bilateral pulmonary embolism. She has been anticoagulated with heparin bridge and is currently on Xarelto. Pulmonology is consulted for nocturnal hypoxemia requiring supplemental oxygen. Zee began having leg pain on 10/03. On 10/05 leg pain was worse and she developed chest pain keith dyspnea. She was taken to OSH ED where CXR was concerning for pneumonia. She was discharged on azithromycin. She had worsening shortness of breath and leg pain over the weekend with fever. She had a dry cough without hemoptysis. She saw her PCP prior to admission when she was noted to have hypoxemia to 68%. Shew as admitted to OSH for further management. Prior to this episode, Zee had a chronic cough which she attributes to seasonal allergies. She has no history of chest pain prior to this episode, dyspnea, or exercise intolerance. 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 Zee has a history of snoring that resolved status/post TANDA at about age 4. She had regrowth of adenoids per mom but her snoring has not recurred. She has no morning headaches or daytime somnolence. Mom has not appreciated gasping in her sleep. Zee does not wake with headaches. She occasionally wakes with a mild dry mouth. She is a night owl and stays up alll night and uses her phone if allowed, preferring to sleep during the day. Her PMD ordered a sleep study for t (more content not included)... Normal [facility] Renal Function Panelon 11-04 Albumin [Mass/Vol] 3.6 g/dL Normal 3.2-5.[address] [facility] Comment on above: Result Comment: PERF ORMED BY: [place] [address] PATHOLOGIST PREFABRICATOR LUIS HENSON M.D. Performed By: #### R ENAL #### [address] Calcium [Mass/Vol] 9.2 mg/dL Normal 8.2-10.[address] [facility] Comment on above: Performed By: #### R ENAL #### [facility] [address] [place] [address] [place] Chloride [Moles/Vol] 107 mmol/L Normal 95-114 [facility] Comment on above: Performed By: #### R ENAL #### [address] CO2 [Moles/Vol] 21.5 mmol/L Low 22.0-30.0 [facility] Comment on above: Performed By: #### R ENAL #### [facility] [address] [place] [address] [place] Creatinine [Mass/Vol] 0.78 mg/dL Normal 0.44-1.03 [facility] Comment on above: Performed By: #### R ENAL #### [facility] [address] Glucose [Mass/Vol] 85 mg/dL Normal 70-[address] [facility] Comment on above: Result Comment: [facility] Glucose Reference Range is dependent on time and content of last meal. Glucose of more than 200 mg/dL in a nonstressed, ambulatory subject supports the diagnosis of Diabetes Mellitus. ADA recommended reference range Performed By: #### R ENAL #### [facility] [address] Phosphate [Mass/Vol] 4.3 mg/dL Normal 2.5-4.6 [facility] Comment on above: Performed By: #### R ENAL #### [facility] [address] Potassium [Moles/Vol] 3.9 mmol/L Normal 3.5-5.1 [facility] Comment on above: Performed By: #### R ENAL #### [facility] [address] Sodium [Moles/Vol] 137 mmol/L Low 138-[address] [facility] Comment on above: Performed By: #### R ENAL #### [facility] [address] Urea nitrogen [Mass/Vol] 9 mg/dL Normal 9-23 [facility] Comment on above: Performed By: #### R ENAL #### [facility] [address] ED Clinical Summaryon 2017 ED Clinical Summary (Inserted Image. Brittnee ble to display) [place] [address] ED Clinical SummaryPerson Information Name: ZEE JACOBSON/[facility] Age: 12 Years : 2005 12:00 AM Sex: Female Language:Korean PCP: Susan Leung MD Marital Status:Single Phone: [phone] MRN: Visit Id: Visit Reason:Ear pain; RIGHT EARACHE Speciality: Acuity: 4 Enc Type: Emergency Med Service: Emergency Arrival:03/28/2018 10:51 PM Discharge: 03/28/2018 11:51 PM LOS: 000 01:00 Checkin:03/28/2018 10:51 PM Checkout: 03/28/2018 11:51 PM Dispo Type: Home (Routine DC) EVENTS:Event Name Event Status Request Date/Time Start Date/Time Complete Date/Time Arrive Complete 03/28/2018 10:51 PM 03/28/2018 10:51 PM 03/28/2018 10:51 PM Document Home Meds Complete 03/28/2018 10:51 PM 03/28/2018 11:01 PM 03/28/2018 11:01 PM Triage Complete 03/28/2018 10:51 PM 03/28/2018 10:56 PM 03/28/2018 10:56 PM Bed Assign Complete 03/28/2018 10:58 PM 03/28/2018 10:58 PM 03/28/2018 10:[address] Exam Complete 03/28/2018 10:58 PM 03/28/2018 11:02 PM 03/28/2018 11:02 PM RN Exam Complete 03/28/2018 10:58 PM 03/28/2018 11:01 PM 03/28/2018 11:01 PM Registration Complete 03/28/2018 11:02 PM 03/28/2018 11:40 PM 03/28/2018 11:40 PM Meds Admin Request 03/28/2018 11:23 PM Meds Admin Request 03/28/2018 11:25 PM Discharge Complete 03/28/2018 11:33 PM 03/28/2018 11:51 PM 03/28/2018 11:51 PM Reg Complete Request 03/28/2018 11:40 PM Reg Bed Request Complete 03/28/2018 11:40 PM 03/28/2018 11:40 PM 03/28/2018 11:40 PM Transfer Complete 03/28/2018 11:51 PM 03/28/2018 11:51 PM 03/28/2018 11:51 PM ADDRESS:[address] [place] [phone] [facility] DOC NOTES: MEDICAL INFORMATION: Prescriptions Given:Prescription Display acetaminophen-hydrocodone (Rowley 325 mg-5 mg oral tablet) 1-2 tab(s), Oral, q6hr for pain, 8 tab(s), Refill(s) 0 amoxicillin-clavulanate (Augmentin 875 mg-125 mg Tab) 1 tab(s), Oral, q12hr for 10 day(s), 20 tab(s), Refill(s) 0 hydrocortisone/neomycin/p olymyxin B otic (hydrocortisone/neomycin/ polymyxin B Otic Ramandeep) 2 drop(s), Otic, QID for 7 day(s), 10 mL, Refill(s) 0 ibuprofen (ibuprofen 600 mg Tab) 600 mg = 1 tab(s), Oral, q8hr, with food or milk, # 30 tab(s), Refills(s) 0 PATIENT EDUCATION INFORMATION: Instructions:Eardrum Perforation Follow up:With: Address: When: Susan Leung [address] [place] [id number] Business (1) In 3 days 03/31/2018 Comments: Call in morning for recheck before the weekend, Medication as directed. Cotton ball to Ear canal may be helpful. No Swimming for 2 weeks or until released by Dr Leung DIAGNOSIS:Otitis media; Ruptured eardrum Normal [facility] ED Note-Physicianon 03-29-20 ED Note-Physician Basic Information Ti me Seen: Frank Coronado PA-C 03/28/2018 23:02Chief Complaint c/o right ear pain since yesterday PM. [place]. c/o muffled sound.History of Present Illness 12-year-old white female presents emergency room with her mother surgeons of severe right ear pain and drainage. Child has had problems with cough congestion for several weeks and has seen PCP for this. Patient has been [place] in the [place] recently. She is somewhat tearful mom had given aspirin prior to arrival with no improvement. Patient notices muffled hearing on the right side. She complains of sore throat as well. Patient does not smoke nor do her parents.Review of Systems Unless otherwise stated in this report or unable to obtain because of patient's clinical or mental status as evidenced by the medical record, the patient's positive and negative responses for review of systems for constitutional, eyes, ENT, cardiovascular, respiratory, gastrointestinal, neurological, genitourinary, musculoskeletal, and integument systems and related systems to the presenting problem are either as stated in the HPI or were not pertinent or were negative for the symptoms and/or complaints related to the presenting medical problem. Physical Exam Vitals & Measurements T: 36.9 ?C (Oral) HR: 81(Peripheral) RR: 16 BP: 144/84 SpO2: 98% HT: 168 cm WT: 124.2 kg BMI: 44.01 General: Alert and oriented, Mild distress, Uncomfortable in room A. Eye: Pupils are equal, round and reactive to light, Extraocular movements are intact. HENT: Normocephalic. Moderate Pharyngeal Swelling minimalTonsillar Enlargement, Nose Patent, no discharge, right TM rupture erythematous Neck: Supple, Non-tender, No Cervical Lymphadenopathy.. Respiratory: Respirations are non-labored, Symmetrical chest wall expansion, No chest wall tenderness, no wheezing rhonchi rales or rubs noted.. Cardiovascular: Normal rate, Regular rhythm, Good pulses equal in all extremities. Gastrointestinal: Soft, Non-tender, Non-distended, Normal bowel sounds. Musculoskeletal: Normal range of motion, Normal strength. Neurologic: Alert, Oriented, Normal sensory, Normal motor function. Cognition and Speech: Oriented, Speech clear and coherent. Psychiatric: Cooperative, Appropriate mood & affect. Integumentary: Warm, Dry, PinkAssessment/Plan Otitis media Ruptured eardrum Ordered: acetaminophen-hydrocodone , 1-2 tab(s), Oral, q6hr for pain, 8 tab(s), Refill(s) 0 Orders: acetaminophen-hydrocodone , 2 tab(s), Tab, Oral, Once PRN Pain, STAT, Start date 03/28/18 23:24:00 EDT, to go acetaminophen-hydrocodone , 2 tab(s), Tab, Oral, Once PRN Pain, STAT, Start date 03/28/18 23:23:00 EDT amoxicillin-clavulanate, 1 tab(s), Tab, Oral, Once, Stop date 03/28/18 23:23:00 EDT, STAT, Start date 03/28/18 23:23:00 EDT amoxicillin-clavulanate, 1 tab(s), Oral, q12hr for 10 day(s), 20 tab(s), Refill(s) 0 hydrocortisone/neomycin/p olymyxin B otic, 2 drop(s), Otic, QID for 7 day(s), 10 mL, Refill(s) 0 ibuprofen, 600 mg = 1 tab(s), Oral, q8hr, with food or milk, # 30 tab(s), Refills(s) 0Disposition Plan Patient Discharge Condition Stable Discharge Disposition Home Discharge Prescription List Prescriptions Augmentin 875 mg-125 mg Tab, 1 tab(s), Oral, q12hr hydrocortisone/neomycin/p olymyxin B Otic Ramandeep, 2 drop(s), Otic, QID ibuprofen 600 mg Tab, 600 mg= 1 tab(s), Oral, q8hr Rowley 325 mg-5 mg oral tablet, 1-2 tab(s), Oral, q6hr, PRN Follow-up With When Contact Information Susan Madhu In 3 days 03/31/2018 EDT [address] [facility] [address] [place] [id number]- Business (1) Additional Instructions: Call in morning for recheck before the weekend, Medication as directed. Cotton ball to Ear canal may be helpful. No Swimming for 2 weeks or until released by Dr Leung Patient Education Eardrum PerforationAttestation Patient was not seen by me or staffed with me - Dr. Chirinos List/Past Medical History Ongoing No qualifying data Historical No qualifying dataMedications Inpatient Augmentin 875 mg-125 mg Tab, 1 tab(s), Oral, Once Rowley 5/325 Tab, 2 tab(s), Oral, Once, PRN Rowley 5/325 Tab, 2 tab(s), Oral, Once, PRN Home Augmentin 875 mg-125 mg Tab, 1 tab(s), Oral, q12hr hydrocortisone/neomycin/p olymyxin B Otic Ramandeep, 2 drop(s), Otic, QID ibuprofen 600 mg Tab, 600 mg= 1 tab(s), Oral, q8hr Rowley 325 mg-5 mg oral tablet, 1-2 tab(s), Oral, q6hr, PRNAllergies No Known AllergiesSocial History Alcohol - Denies Alcohol Use, 03/28/2018Lab Results No qualifying data available.Diagnostic Results No qualifying data available. Normal [facility] Comment on above: Result Comment: Elec tronically Signed By: Frank Coronado PA-C\.br\Date and Time Signed: 03/28/18 23:39 EDT\.br\Electronically Co-Signed By: Zoltan GOLDMAN, Román Cantrell\.br\Date and Time Co-Signed: 03/29/18 03:42 EDT ED Patient Education Noteon 03-29-2018 ED Patient Education Note Family MedicineEardrum PerforationThe eardrum is a thin, round tissue inside the ear that separates the ear canal from the middle ear. This is the tissue that detects sound and enables you to hear. The eardrum can be punctured or torn (perforated). Eardrums generally heal without help and with little or no permanent hearing loss. CAUSES? Sudden pressure changes that happen in situations like scuba diving or flying in an airplane.? Foreign objects in the ear.? Inserting a cotton-tipped swab in the ear.? Loud noise.? Trauma to the ear.SYMPTOMS? Hearing loss.? Ear pain.? Ringing in the ears.? Discharge or bleeding from the ear. ? Dizziness.? Vomiting.? Facial paralysis. HOME CARE INSTRUCTIONS? Keep your ear dry, as this improves healing. Swimming, diving, and showers are not allowed until healing is complete. While bathing, protect the ear by placing a piece of cotton covered with petroleum jelly in the outer ear canal.? Only take csnv-euc-tfjoonq or prescription medicines for pain, discomfort, or fever as directed by your caregiver.? Blow your nose gently. Forceful blowing increases the pressure in the middle ear and may cause further injury or delay healing.? Resume normal activities, such as showering, when the perforation has healed. Your caregiver can let you know when this has occurred.? Talk to your caregiver before flying on an airplane. Air travel is generally allowed with a perforated eardrum. ? If your caregiver has given you a follow-up appointment, it is very important to keep that appointment. Failure to keep the appointment could result in a chronic or permanent injury, pain, hearing loss, and disability.SEEK IMMEDIATE MEDICAL CARE IF:? You have bleeding or pus coming from your ear.? You have problems with balance, dizziness, nausea, or vomiting.? You develop increased pain.? You have a fever.MAKE SURE YOU:? Understand these instructions. ? Will watch your condition.? Will get help right away if you are not doing well or get worse. Document Released: 09/24/2001 Document Revised: 12/19/2012 Document Reviewed: 09/26/2009ExitCare? Patient Information ?2014 [employer]. This information is not intended to replace advice given to you by your health care provider. Make sure you discuss any questions you have with your health care provider. Normal [facility] ED Patient Summaryon 018 ED Patient Summary (Inserted Image. Brittnee ble to display) [address] [address] Patient Discharge Instructions Person Information Name: ZEE JACOBSON Age: 12 Years Date: 03/28/2018 10:51 PMDischarge Diagnosis: Otitis media; Ruptured eardrum Primary Care Physician: Susan Leung MD Provider InformationPrimary Provider: [facility] [employer] Supervisor:Frank Coronado PA-C The exam and treatment you received in the Emergency Department were for an urgent problem and are not intended as complete care. It is important that you follow up with a doctor, nurse practitioner, or physician?s assistant professor of nursing for ongoing care. If your symptoms become worse or you do not improve as expected and you are unable to reach your usual health care provider, you should return to the Emergency Department. We are available 24 hours a day. ZEE JACOBSON has been given the following list of patient education materials, prescriptions and follow-up instructions: Follow-up Instructions:With: Address: When: Susan Leung [address] [place] [address] [place] [phone] [facility] () In 3 days 03/31/2018 Comments: Call in morning for recheck before the weekend, Medication as directed. Cotton ball to Ear canal may be helpful. No Swimming for 2 weeks or until released by Dr Leung In the event that this physician does not participate in your insurance network, please consult with your insurance company to find a nearby participating provider. Patient Education Materials:Eardrum Perforation A MESSAGE TO ALL PATIENTS REGARDING OPIOIDS PRESCRIPTION OPIOIDS: WHAT YOU NEED TO KNOW Prescription opioids can be used to help relieve emwplcsz-iw-ebrgwe pain and are often prescribed following a surgery or injury, or for certain health conditions. These medications can be an important part of the treatment but also come with serious risks. It is important to work with your healthcare provider to make sure you are getting the safest, most effective care. WHAT ARE THE RISKS AND SIDE EFFECTS OF OPIOID USE?Prescription opioids carry serious risks of addiction and overdose, especially with prolonged use. An opioid overdose, often marked by slowed breathing, can cause sudden . The use of prescription opioids can have a number of side effects as well, even when taken as directed:? Tolerance?meaning you might need to take more of the medication for the same pain relief? Physical dependence?meaning you have symptoms of withdrawal when a medication is stopped? Increased sensitivity to pain ? Constipation? Nausea, vomiting, and dry mouth? Sleepiness and dizziness? Confusion? Depression? Low levels of testosterone that can result in lower sex drive, energy, and strength? Itching and sweating RISKS ARE GREATER WITH:? History of drug misuse, substance use disorder, or overdose? Mental health conditions (such as depression or anxiety)? Sleep apnea? Older age (65 years and older)? Avoid alcohol while taking prescription opioids. Also, unless specifically advised by your health care provider, medications to avoid include:? Benzodiazepines (such as Xanax or Valium)? Muscle relaxants (such as Soma or Flexeril)? Hypnotics (such as Ambien or Lunesta)? Other prescription opioids KNOW YOUR OPTIONSTalk to your health care provider about ways to manage your pain that don?t involve prescription opioids. Some of these options may actually work better and have fewer risks and side effects. Options may include:? Pain relievers such as acetaminophen, ibuprofen, and naproxen? Some medication that are also used for depression or seizures? Physical therapy and exercise? Cognitive behavioral therapy, a psychological, goal-directed approach, in which patients learn how to modify physical, behavioral, and emotional triggers of pain and stress. IF YOU ARE PRESCRIBED OPIOIDS FOR PAIN:? Never take opioids in greater amounts or more often than prescribed.? Follow up with your primary health care provider.o Work together to create a plan on how to manage your pain.o Talk about ways to help manage your pain that don?t involve prescription opioids.o Talk about any and all concerns and side effects.? Help prevent misuse and abuseo Never sell or share prescription opioids.o Never use another person?s prescription opioids.? Store prescription opioids in a secure place and out of reach of others (this may include visitors, children, friends, and family).? Safely dispose of unused prescription opioids: Find your community drug take-back program or your pharmacy mail-back program, or flush them down the toilet, following guidance from the Food and Drug Administration (www.fda.gov/Drugs/Resour cesForYou).? Visit www.cdc.gov/drugoverdose to learn about the risks of opioids abuse and overdose.? If you believe you may be struggling with addiction, tell your health personal care service provider and ask for guidance or call [employer] at 1-395-590-EZZO. o Source: US Department of Health and Human Services/Center for Disease Control & Prevention [facility] Medications Given:Medication Dose Route No medications found. Medication Information:New MedicationsPrinted Prescriptionsacetaminophe n-hydrocodone (Rowley 325 mg-5 mg oral tablet) 1-2 tab(s) By Mouth every 6 hours as needed for pain. Refills: 0.amoxicillin-clavulanate (Augmentin 875 mg-125 mg Tab) 1 Tabs By Mouth every 12 hours for 10 Days. Refills: 0.hydrocortisone/neomycin /polymyxin B otic (hydrocortisone/neomycin/ polymyxin B Otic Ramandeep) 2 Drops Otic 4 times a day for 7 Days. Refills: 0.ibuprofen (ibuprofen 600 mg Tab) 1 Tabs By Mouth every 8 hours. with food or milk. Refills: 0.Comment: Pharmacy Information: Thank you for choosing [facility] Patient Education Materials: Eardrum PerforationThe eardrum is a thin, round tissue inside the ear that separates the ear canal from the middle ear. This is the tissue that detects sound and enables you to hear. The eardrum can be punctured or torn (perforated). Eardrums generally heal without help and with little or no permanent hearing loss. CAUSES? Sudden pressure changes that happen in situations like scuba diving or flying in an airplane.? Foreign objects in the ear.? Inserting a cotton-tipped swab in the ear.? Loud noise.? Trauma to the ear.SYMPTOMS? Hearing loss.? Ear pain.? Ringing in the ears.? Discharge or bleeding from the ear. ? Dizziness.? Vomiting.? Facial paralysis. HOME CARE INSTRUCTIONS? Keep your ear dry, as this improves healing. Swimming, diving, and showers are not allowed until healing is complete. While bathing, protect the ear by placing a piece of cotton covered with petroleum jelly in the outer ear canal.? Only take kevp-upq-ugurucl or prescription medicines for pain, discomfort, or fever as directed by your caregiver.? Blow your nose gently. Forceful blowing increases the pressure in the middle ear and may cause further injury or delay healing.? Resume normal activities, such as showering, when the perforation has healed. Your caregiver can let you know when this has occurred.? Talk to your caregiver before flying on an airplane. Air travel is generally allowed with a perforated eardrum. ? If your caregiver has given you a follow-up appointment, it is very important to keep that appointment. Failure to keep the appointment could result in a chronic or permanent injury, pain, hearing loss, and disability.SEEK IMMEDIATE MEDICAL CARE IF:? You have bleeding or pus coming from your ear.? You have problems with balance, dizziness, nausea, or vomiting.? You develop increased pain.? You have a fever.MAKE SURE YOU:? Understand these instructions. ? Will watch your condition.? Will get help right away if you are not doing well or get worse. Document Released: 09/24/2001 Document Revised: 12/19/2012 Document Reviewed: 09/26/2009ExitCare? Patient Information ?2014 [employer] [facility]. This information is not intended to replace advice given to you by your health care provider. Make sure you discuss any questions you have with your health care provider.KAVON Modi LILY E , have received the following patient education materials/instructions and have verbalized understanding: Patient Education Materials: Eardrum Perforation Follow-up Instructions: With: Address: When: Susan Leung [facility], [place] [address] [employer] (1) In 3 days 03/31/2018 Comments: Call in morning for recheck before the weekend, Medication as directed. Cotton ball to Ear canal may be helpful. No Swimming for 2 weeks or until released by Dr Leung Prescriptions: [acetaminophen-hydrocodon e (Rowley 325 mg-5 mg oral tablet)] [amoxicillin-clavulanate (Augmentin 875 mg-125 mg Tab)] [hydrocortisone/neomycin/ polymyxin B otic (hydrocortisone/neomycin/ polymyxin B Otic Ramandeep)] [ibuprofen (ibuprofen 600 mg Tab)] Patient Signature __ Date Clinician/Nurse Signature Date 03/28/18 23:51:16 [facility] Progress Note-Nurseon 2017 Progress Note-Nurse pt was educated on [place]. 2 tabs were given here as ordered, 2 tabs sent home. patient instructed to take medications as needed but not until after 6am to allow time in between. mother verbalizes understanding. verbalizes understanding on prescriptions and follow up as well. [facility] Encounters Encounter Date Encounter Type Care Provider Facility Start: 03-31-2024 End: 04-01-2024 Emergency department patient visit [facility] Start: 03-31-2024 End: 03-31-2024 Emergency department patient visit [facility] Start: 12-25-2022 End: 12-26-[address] SUSAN LEUNG . Facility:[facility] Start: 10-07-2022 End: 10-07-2022 ambulatory DIANE DAVIS Facility:[facility] Start: 08-10-2022 End: 08-11-[address] LUCY RICHTER . Facility:[facility] Start: 05-15-2022 End: 05-15-[address] LUCY RICHTER . Facility:[facility] Start: 02-10-2022 End: 02-11-[address] SUSAN LEUNG . Facility:[facility] Start: 09-15-2021 AUDIT Susan Leung Work Phone: [facility] Work Phone: Start: 05-12-2021 Rx Renewal Susan Leung Work Phone: [facility] Work Phone: Start: 11-14-2020 Patient encounter procedure Wendy Matthewyce [facility] Work Phone: Start: 11-04-2020 Patient encounter procedure Wendy Leyva [facility] Work Phone: Start: 03-29-2018 End: 03-29-2018 Emergency department patient visit [id number] UNKNOWN Madhu Facility:[facility] [place] Procedures Date Procedure Procedure Detail Performing Clinician Start: 11-18-2020 Urinalysis, automated E frida Leyva Start: 11-05-2020 Asthma Action Plan Awais Leyva Start: 11-04-2020 MOUSE EPI.IGE,IC Wendy Leyva Start: 11-04-2020 Pulse Oximetry, Nocturnal Wendy Leyva Start: 11-04-2020 Respiratory Allergy Profile Region 5, IC Wendy Leyva Start: 10-22-2020 Renal function panel Shira Leyva Tonsillectomy and adenoidectomy Wendy Leyva Plan of Treatment Date Care Activity Detail Author Start: 10-02-2021 JOSE MARIA, Provider: Wendy Leyva, Status: Pen, Time: 11:20 AM JOSE MARIA Provider: Wendy Leyva, Status: Pen, Time: 11:20 AM [facility] Work Phone: [facility] Work Phone: NEGATED: Highlighted row has been ruled out! Planned Goals not documented [facility] Work Phone: Payers Date Payer Category Payer Unknown [id number] 2022 Medicaid [id number] 2018 Unknown [id number] 2003 Unknown [id number] 2003 Unknown [id number] 2003 Unknown [id number] 2003 Unknown [id number] 2003 Unknown [id number] 2003 Unknown [id number] 2003 Unknown [id number] 1959 Unknown [id number] Unknown [place] [employer] Social History Date Type Detail Facility Lives with parents Lives with [facility] Work Phone: NEGATED: Highlighted row - - [facility] Work Phone: Functional Status Date Assessment Result Facility NEGATED: Highlighted row Functional performance Functional status health issues are not documented Disease [facility] Work Phone: Mental Status Date Assessment Result Facility NEGATED: Highlighted row Cognitive function [Interpretation] Cognitive status health issues are not documented Disease [facility] Work Phone: Summary Purpose Family History No Family History Records Found Father Name Dates Details Family history of Environmen kenya allergies(V15.09, Z91.09) Status:Active Family history of sleep apne a(V19.8, Z82.0) Status:Active Unknown Family Member Name Dates Details Environmental allergies: Fat her Status:Active Family history of sleep apne a: Father(V19.8, Z82.0) Status:Active Unknown Family Member Name Dates Details Environmental allergies: Fat her Status:Active Family history of sleep apne a: Father(V19.8, Z82.0) Status:Active Advance Directives No Advanced Directives Records FoundNo Advanced Directives Records FoundNo Advanced Directives Records FoundNo Advanced Directives Records FoundNo Advanced Directives Records FoundNo Advanced Directives Records Found Additional Source Comments INFORMATION SOURCE (unrecogn ized section and content) DATE CREATED AUTHOR 03/29/[address] [facility] DATE CREATED AUTHOR AUTHOR'S ORGANIZ ATION 11/08/2020 [facility] DATE CREATED AUTHOR AUTHOR'S ORGANIZ ATION 10/03/2021 [facility] DATE CREATED AUTHOR AUTHOR'S ORGANIZ ATION 06/07/2022 [facility] DATE CREATED AUTHOR AUTHOR'S ORGANIZ ATION 01/03/2023 [facility] DATE CREATED AUTHOR AUTHOR'S ORGANIZ ATION 04/02/2024 [facility] FOR RECORDS PERTAINING TO PATIENTS WHO ARE OR HAVE BEEN ENROLLED IN A CHEMICAL DEPENDENCY/SUBSTANCEABUSE PROGRAM, SOME INFORMATION MAY BE OMITTED. This clinical summary was aggregated from multiple sources. Caution should be exercised in using it in the provision of clinical care. This summary normalizes information from multiple sources, and as a consequence, information in this document may materially change the coding, format and clinical context of patient data. In addition, data may be omitted in some cases. CLINICAL DECISIONS SHOULD BE BASED ON THE PRIMARY CLINICAL RECORDS. [employer] provides no warranty or guarantee of the accuracy or completeness of information in this document.
--- NOTE | 2024-10-10 13:31 | ED_ITS ---
HPI - Nausea/Vomiting/Diarrhea General Chief complaint: Nausea/Vomiting/Diarrhea Stated complaint: C DIFF SYMPTOMS Time Seen by Provider: 10/10/24 13:05 Source: patient and family Mode of arrival: walk-in Limitations: no limitations History of Present Illness HPI Narrative: 19-year-old female presents for nausea and vomiting and diarrhea. She has had this for a week. She has been around somebody who had C. difficile. No hematemesis or blood in her stool. She does not complain of abdominal pain and has not had a fever. Related Data Home Medications ?Medication ?Instructions ?Recorded ?Confirmed lisinopril 5 mg tablet mg 03/18/23 rivaroxaban 10 mg tablet (Xarelto) mg 11/26/23 Previous Rx's ?Medication ?Instructions ?Recorded ondansetron 4 mg disintegrating 4 mg PO Q6H PRN nausea and 10/10/24 tablet vomiting #20 tabs Allergies Allergy/AdvReac Type Severity Reaction Status Date / Time estradiol (From EstroGel) Allergy Verified 11/26/23 21:13 Review of Systems ROS Narrative A ten point review of systems is negative except as noted above. [facility] Medical History (Updated 10/10/24 @ 15:44 by Curtis Farmer MD) Pulmonary embolism ?I26.99 - Other pulmonary embolism without acute cor pulmonale (ICD-10) Factor 5 Leiden mutation, heterozygous ?D68.51 - Activated protein C resistance (ICD-10) Hypertension ?I10 - Essential (primary) hypertension (ICD-10) Social History Smoking status: Never smoker Little interest or pleasure in doing things: not at all Feeling down, depressed, or hopeless: not at all Exam Narrative Exam Narrative: Nurses note and vital signs reviewed and patient is not hypoxic. General: The patient appears well and in no apparent distress. Patient is resting comfortably on cart. Skin: Warm, dry, no pallor noted. There is no rash noted. Head: Normocephalic, atraumatic Eye: Normal conjunctiva, no drainage Ears, Nose, Mouth, and Throat: oral mucosa is moist. Nares patent. Cardiovascular: Regular Rate and Rhythm, no CVA tenderness bilaterally to percussion. GI: no tenderness to palpation, no masses appreciated. No rebound, guarding, or rigidity noted. Musculoskeletal: The patient has no evidence of calf tenderness, no pitting edema, symmetrical pulses noted bilaterally Neurological: A&O, normal speech Psychiatric: Cooperative Constitutional Vital Signs, click to edit/add: Last Vital Signs Temp 98.8 F 10/10/24 13:11 Pulse 85 10/10/24 13:11 Resp 16 10/10/24 13:11 BP 118/69 10/10/24 13:11 Pulse Ox 98 10/10/24 13:11 O2 Del Method Room Air 10/10/24 13:11 Course Vital Signs Vital signs: Vital Signs Temperature 98.8 F 10/10/24 13:11 Pulse Rate 85 10/10/24 13:11 Respiratory Rate 16 10/10/24 13:11 Blood Pressure 118/69 10/10/24 13:11 Pulse Oximetry 98 10/10/24 13:11 Oxygen Delivery Method Room Air 10/10/24 13:11 Temperature 98.8 F 10/10/24 13:11 Pulse Rate 85 10/10/24 13:11 Respiratory Rate 16 10/10/24 13:11 Blood Pressure 118/69 10/10/24 13:11 Pulse Oximetry 98 10/10/24 13:11 Oxygen Delivery Method Room Air 10/10/24 13:11 MDM - Nausea/Vomiting/Diarrhea MDM Narrative Medical decision making narrative: C. difficile is negative as well as the rest of her workup including test. She was given IV fluids and Zofran and is discharged home on Zofran. Treatment diagnosis and follow-up were discussed with the patient. Differential Diagnosis Differential diagnosis: Likely food poisoning, gastroenteritis, clostridium difficile infection and dehydration Lab Data Attestation: I reviewed the patient's lab results. Labs: Lab Results 10/10/24 10/10/24 Range/Units 13:55 14:30 WBC 6.1 (4.0-11.0) 10^3/uL RBC 5.54 H (4.20-5.40) 10^6/uL Hgb 15.1 (12.0-16.0) g/dL Hct 46.1 (36.0-48.0) % MCV 83.2 (81.0-99.0) fL MCH 27.3 (26.7-34.0) pg MCHC 32.8 (29.9-35.2) g/dL RDW 12.8 (11.0-15.0) % Plt Count 273 (150-450) 10^3/uL MPV 8.9 L (9.5-13.5) fL Neut % (Auto) 61.5 (43.0-75.0) % Lymph % (Auto) 27.9 (20.5-60.0) % Valley % (Auto) 9.0 (1.7-12.0) % Eos % (Auto) 0.8 L (0.9-7.0) % Baso % (Auto) 0.5 (0.2-2.0) % Neut # (Auto) 3.8 (1.4-6.5) 10^3/uL Lymph # (Auto) 1.7 (1.2-3.8) 10^3/uL Valley # (Auto) 0.6 (0.3-0.8) 10^3/uL Eos # (Auto) 0.1 (0.0-0.7) 10^3/uL Baso # (Auto) 0.0 (0.0-0.1) 10^3/uL Abs Immat Gran (auto) 0.02 (0.00-0.03) 10^3/uL Imm/Tot Granulo (auto) 0.3 (0.0-0.5) % Sodium 139 (136-145) mmol/L Potassium 3.6 (3.5-5.1) mmol/L Chloride 104 (98-107) mmol/L Carbon Dioxide 26.0 (21.0-32.0) mmol/L Anion Gap 12.6 BUN 7.0 (7.0-18.0) mg/dL Creatinine 0.94 (0.55-1.02) mg/dL Est GFR ( Amer) >60 (>=60 mL/min/1.73m^2) Est GFR (Non-Af Amer) >60 (>=60 mL/min/1.73m^2) BUN/Creatinine Ratio 7.4 Glucose 108 H (74-106) mg/dL Calcium 8.4 L (8.5-10.1) mg/dL Serum HCG, Qual Negative (NEGATIVE) C. difficile Toxin PCR Negative Discharge Plan Discharge Chief Complaint: Nausea/Vomiting/Diarrhea Clinical Impression: Nausea, vomiting, and diarrhea Patient Disposition: Home, Self-Care Time of Disposition Decision: 15:44 Condition: Good Mode of Transportation: Private Vehicle Prescriptions / Home Meds: New ondansetron 4 mg tablet,disintegrating 4 mg PO Q6H PRN (Reason: nausea and vomiting) Qty: 20 0RF No Action lisinopril 5 mg tablet Xarelto 10 mg tablet Print Language: Citizen Of [place] Instructions: Acute Nausea and Vomiting (ED) Referrals: Nicanor Leung MD [Primary Care Provider] - 1 week
[2024-10-10] MEDS: 0.9 % SODIUM CHLORIDE 1,000 ML 1000 ML IV (13:53)
[2024-10-10] MEDS: ONDANSETRON PF 4 MG/2 ML VIAL IV (13:53)
[2024-10-10 14:02] LABS: Basophils Percent Auto 0.5 % (0.2-2.0); Eosinophils Absolute Auto 0.1 10^3/uL (0.0-0.7); Eosinophils Percent Auto 0.8 % (0.9-7.0); Hematocrit 46.1 % (36.0-48.0); Hemoglobin 15.1 g/dL (12.0-16.0); Immature Granulocytes Abs Auto 0.02 10^3/uL (0.00-0.03); Immature Granulocytes Pct Auto 0.3 % (0.0-0.5); Lymphocytes Absolute Auto 1.7 10^3/uL (1.2-3.8); Lymphocytes Percent Auto 27.9 % (20.5-60.0); Mean Corpuscular HGB Conc 32.8 g/dL (29.9-35.2); Mean Corpuscular Hemoglobin 27.3 pg (26.7-34.0); Mean Corpuscular Volume 83.2 fL (81.0-99.0); Mean Platelet Volume 8.9 fL (9.5-13.5); Monocytes Absolute Auto 0.6 10^3/uL (0.3-0.8); Neutrophils Absolute Auto 3.8 10^3/uL (1.4-6.5); Neutrophils Percent Auto 61.5 % (43.0-75.0); Platelet Count 273 10^3/uL (150-450); Red Blood Count 5.54 10^6/uL (4.20-5.40); Red Cell Distribution Width 12.8 % (11.0-15.0); White Blood Count 6.1 10^3/uL (4.0-11.0)
[2024-10-10 14:12] LABS: Anion Gap 12.6; BUN Creatinine Ratio 7.4; Calcium 8.4 mg/dL (8.5-10.1); Chloride 104 mmol/L (98-107); Estimated GFR (African America >60 (>=60 mL/min/1.73m^2); Estimated GFR (Non-African Ame >60 (>=60 mL/min/1.73m^2); Glucose 108 mg/dL (74-106); Potassium 3.6 mmol/L (3.5-5.1); Sodium 139 mmol/L (136-145)
[2024-10-10 14:16] LABS: HCG Qualitative NEGATIVE (NEGATIVE); Internal Control Within Normal Limits
[2024-10-10 15:36] LABS: C. Difficile PCR NEGATIVE
== END 2024-10-10 16:03 | disposition home or self-care (01) ==
PROVIDERS: Emergency Provider Emergency Medicine; PCP Family Medicine
DX: R11.2 Nausea with vomiting, unspecified (principal); R19.7 Diarrhea, unspecified
CPT/HCPCS: 36415; 80048; 84703; 85025; 87493; 96361; 96374; 99285; J2405

== ENCOUNTER 2025-05-26 09:43 | Outpatient (OUT) | payer BC, SELFPAY ==
--- OUTSIDE RECORDS SUMMARY | 2024-06-08 07:00 | XMS_ITS ---
Author Organization [facility] Servic es Address [address] [place] [address] Care Team Providers Care Data Storage Specialist Name Role Phone Matias Fernandez Primary Care Provider REASON FOR VISIT NEW PT, ROOT CANAL PAIN, WISDOM TEETH REMOVAL REFERRAL,, ANOTHER TOOTH EXTRACTED Encounters Encounter Location Date Provider Diagnosis [place] [address] [place] [address] 06/08/2024 Matias Fernandez Plan Of Treatment No Information Progress Notes * TOANMEGANOB:2005 ([age] yo F)Acc No.[id number]:06/08/2024 Patient: CHAYO ROWE Provider: Amaya Fernandez DDS :2005 A ge:19 Y S ex:Female Date:06/08/2024 Address:[address] [place], [place] [id number] Subjective: * Chief Complaints: * 1 . NEW PT, ROOT CANAL PAIN, WISDOM TEETH REMOVAL REFERRAL,, ANOTHER TOOTH EXTRACTED. * Medical History: Objective: * Vitals: Assessment: Plan: * Treatment: * Images: * Electronic signature of Torey Fernandez DDS on 05/26/2025 at 09:52 AM EDT Sign off status: Pending * Provider: Amaya Fernandez DDS Date: 06/08/2024 Generated for Messi reeder/Jayro/Claudine on: 05/26/2025 09:52 AM EDT
--- OUTSIDE RECORDS SUMMARY | 2024-06-09 07:30 | XMS_ITS ---
Author Organization [facility] Servic es Address [address] [place] [address] Care Team Providers Care Scientologist Name Role Phone Matias Fernandez Primary Care Provider REASON FOR VISIT r/s from 06/07/2024 Encounters Encounter Location Date Provider Diagnosis [address] [place] [address] [place] [address] 06/09/2024 Matias Fernandez Plan Of Treatment No Information Progress Notes * MEGAN JOYAOB:2005 ([age] yo F)Acc No.[id number]:06/09/2024 Patient: CHAYO ROWE Provider: Amaya Fernandez DDS :2005 A ge:19 Y S ex:Female Date:06/09/2024 Address:[address] [place], [place] [phone] Subjective: * Chief Complaints: * 1 . R/s from 06/07/2024. * Medical History: Objective: * Vitals: Assessment: Plan: * Treatment: * Images: * Electronic signature of Torey Fernandez DDS on 05/26/2025 at 09:52 AM EDT Sign off status: Pending * Provider: Amaya Fernandez DDS Date: 06/09/2024 Generated for Messi reeder/Jayro/Russellitting on: 05/26/2025 09:52 AM EDT
--- OUTSIDE RECORDS SUMMARY | 2025-05-21 12:30 | XMS_ITS ---
Author Organization The [facility] in [place] Address [address] [place] [address] Care Team Providers Care Digital Strategy Director Name Role Phone Rubén Leung Primary Care Provider Allergies Allergen (clinical drug ingredient) Drug/Non Drug Allergy documented on EMR Reaction Allergy Type Onset Date Status estradiol Estrogel Bloodclot Drug Allergy Active REASON FOR VISIT yearly wellness, patient has questions about blood thinners and bp meds, patient is co being tired all the time, brain fog, weight loss, cold sore Medications Medication SIG (Take, Route, Frequency, Duration) Notes Start Date End Date Status Mirena Active Pristiq 50 MG 1 tablet Orally Once a day for 30 days 05/21/2025 Active Xarelto 10 MG 1 tablet Orally ever y other day Not-Taking CeleBREX 100 MG 1 capsule Orally Onc e a day Not-Taking Cholecalciferol 50 MCG (2000 UT) 1 capsule Orally Once a day Not-Taking B12 Active Ferrous Sulfate 325 (65 Fe) MG 1 tablet Orally once a day Not-Taking Lisinopril 5 MG 1 tablet Orally Once a day for 30 days 01/25/2023 Not-Taking Social History Tobacco Use: Social History Observation Description Date Details (start date - stop date) Never Smoker NA - NA Tobacco Use/Smoking Question Answer Notes Patient is a nonsmoker AUDIT-C (Standard) Question Answer Notes Did you have a drink contain ing alcohol in the past year? Yes How often did you have a dri nk containing alcohol in the past year? Monthly or less (1 point) How many drinks did you have on a typical day when you were drinking in the past year? 1 or 2 drinks (0 point) How often did you have six o r more drinks on one occasion in the past year? 2 to 4 times a month (2 points) Points 3 Interpretation Positive Problems Problem Type SNOMED Code ICD Code Onset Dates Problem Status W/U Status Risk Notes Problem Well adult (789930062) Well adult (Z00.00) Active confirmed Problem Depression (502483853) Depression (F32.9) Active confirmed Vital Signs Weight 291 lbs 05/21/2025 Height 67 in 05/21/2025 Blood pressure systolic 130 mm Hg 05/21/20 25 Blood pressure diastolic 84 mm Hg 025 BMI 45.57 kg/m2 05/21/2025 Encounters Encounter Location Date Provider Diagnosis [facility] [address] [place] [address] 05/21/2025 Rubén Hoy Depression F32.9 and Well adult Z00.00 Assessments Encounter Date Diagnosis (ICD Code) Assessment Notes Treatment Notes Treatment Clinical Notes Section Notes 05/21/2025 Depression (ICD-10 - F32.9) 05/21/2025 Well adult (ICD-10 - Z00.00) Plan Of Treatment Medication Medication Name Sig Start Date Stop Date Notes Pristiq 50 MG 1 tablet Orally Once a day for 30 days 05/21 Pending Test Test Name Order Date HEMOGLOBIN A1C (GLYCO) 05/21/2025 IRON, TOTAL 05/21/2025 LIPID PANEL (CHOL/TRIG/HDL/LDL) 05/21/20 25 VITAMIN D, 25 LEVEL (TOTAL) 05/21/2025 Insulin Level 05/21/2025 THYROID PANEL (T4/TSH/FREE T3) 5 CMP (COMP MET HERNANDEZ) w/eGFR CKD-EPI 2024 CBC WITH DIFF 05/21/2025 Progress Notes * Zee BRIAN EDOB:2005 (20 yo F)Acc No.[id number]:05/21/2025 Progress Note Patient: eZe ROWE Provider: Sheng Leung ([facility])MD :2005 A ge:20 Y S ex:Female Date:05/21/2025 Address:[address] [place], [place] [id number] Check In:04:23 PM ESTCheck O ut:05:14 PM EST Subjective: * Chief Complaints: * Y early wellnessPatient has questions about blood thinners and bp meds, patient is co being tired all the time, brain fog, weight loss, cold sore * HPI: G eneral: Brain fog and not gotti labs in a while - sleepy tired no snoring - just the daytime fatigue Disucssed blood clots -. D epression Screening: PHQ-9 L ittle interest or pleasure in doing things?More than half the days F eeling down, depressed, or hopeless N early every day T rouble falling or staying asleep, or sleeping too much N early every day F eeling tired or having little energy N early every day P oor appetite or overeating N early every day F eeling bad about yourself or that you are a failure, or have let yourself or your family down N early every day T rouble concentrating on things, such as reading the newspaper or watching television M ore than half the days M oving or speaking so slowly that other people could have noticed; or the opposite, being so fidgety or restless that you have been moving around a lot more than usual N early every day T houghts that you would be better off or of hurting yourself in some way N early every day (Consider Suicide Assessment Risk) T otal Score 2 5 I nterpretation S evere Depression * ROS: E ENT: hearing changes d enies. v isual changes d enies.?non-healing mouth sores d enies. s wollen glands or neck lumps d enies. h oarseness d enies. s ore throat d enies. d ifficulty swallowing d enies. n ose bleeds d enies. n jose congestion d enies. e ar ache d enies. e ar discharge?denies. r inging in ears d enies. l ight sensitivity d enies. e ye pain d enies. b lurring d enies. e ye irritation d enies. d ouble vision d enies.?vision loss d enies. G eneral/Constitutional: Sweats: D enies. F atigue d enies. S leep problems d enies. A norexia d enies. M alaise d enies. W eight loss d enies.?Fatigue or Weakness d enies. F ever or Chills d enies. C ardiovascular: Shortness of Breath w/lying flat d enies. L ightheadedness/dizziness d enies. C hest tightness/ heavy pressure d enies. S welling of legs, ankles, or feet d enies. W aking up with shortness of breath d enies. C hest pain denies. P alpitations d enies. W eight gain d enies. R espiratory: Chronic or frequent cough d enies. C oughing up blood?denies. D ifficulty breathing d enies. P roductive cough d enies. S noring?denies. S hortness of breath that awakens from sleep (PND) d enies. C hest pain d enies. S putum production d enies. W heezing d enies. M usculoskeletal: Joint pain d enies. J oint Fluid d enies. B ack pain d enies. K nee pain d enies. N walt pain d enies. J oint Stiffness d enies. M uscle cramps d enies. W eakness of muscles d enies. A rthritis d enies. M uscle aches d enies. P ain in shoulder(s) d enies. S wollen joints d enies. * Active Problem List J45.909 Asthma Modified On:03/22/2023W/U Status:confirmed F32.9 Depression Modified On:05/21/2025W/U Status:confirmed Z00.00 Well adult Modified On:05/21/2025/U Status:confirmed * Medical History: * Surgical History: T ONSILLECTOMY,OVER 12 YRS * Hospitalization/Major Diagno stic Procedure: N o Hospitalization History. * Family History: F ather: unknown. M other: alive, Clotting disorder, diagnosed with Unspecified essential hypertension, Diabetes mellitus without mention of complication, type II or unspecified type, not stated as uncontrolled. B rother(s): alive. 1 brother(s) - healthy. . * Social History: T obacco Use: T obacco Use/Smoking P atient is a n onsmoker D rug/Alcohol: A KAYLENE-C (Standard) D id you have a drink containing alcohol in the past year? Y es H ow often did you have a drink containing alcohol in the past year? M onthly or less (1 point) H ow many drinks did you have on a typical day when you were drinking in the past year? 1 or 2 drinks (0 point) H ow often did you have six or more drinks on one occasion in the past year? 2 to 4 times a month (2 points) P oints 3 I nterpretation P ositive * Medications: T [id number] Mirena Taking B12 Taking Mirena Not-Taking/PRNCeleBREX(Celecoxib) 100 MG Capsule 1 capsule Orally Once a day Cholecalciferol 50 MCG (1999) Capsule 1 capsule Orally Once a day Ferrous Sulfate 325 (65 Fe) MG Tablet 1 tablet Orally once a day Lisinopril 5 MG Tablet 1 tablet Orally Once a day Xarelto(Rivaroxaban) 10 MG Tablet 1 tablet Orally every other day Medication List reviewed and reconciled with the patientNot-Taking/PRN CeleBREX(Celecoxib) 100 MG Capsule 1 capsule Orally Once a day Not-Taking/PRN Cholecalciferol 50 MCG (1999) Capsule 1 capsule Orally Once a day Not-Taking/PRN Ferrous Sulfate 325 (65 Fe) MG Tablet 1 tablet Orally once a day Not-Taking/PRN Lisinopril 5 MG Tablet 1 tablet Orally Once a day Not-Taking/PRN Xarelto(Rivaroxaban) 10 MG Tablet 1 tablet Orally every other day Medication List reviewed and reconciled with the patient * Allergies: E strogel: Bloodclot - Allergy - Criticality Highno[Allergies Verified] Objective: * Vitals: W t:291lbs, Ht: 67 in, BP:130/84mm Hg, BMI:45.57Index, Ht-cm: 170.18 cm, Wt-k kg. * Examination: P hysical Exam: GENERAL: w ell developed, well nourished, in no acute distress. HEAD: n ormocephalic/atraumatic. EYES: p upils equal, round and reactive to light, conjunctivae and sclerae normal. EARS: n o deformity or lesion of external ear, canals and TM appear normal bilaterally, TM's intact, not inflamed with normal light reflex, hearing grossly normal to conversational speech. NOSE: n o deformity, discharge, inflammation, or lesions.? MOUTH: m ucous membranes moist, normal oropharynx and posterior pharynx without lesions or exudates, tongue normal, dentition normal. NECK: n walt supple, no masses or palpable cervical nodes, trachea midline, thyroid without nodules, masses, tenderness, or enlargement. CHEST: n o chest wall deformity, no chest wall tenderness.? LUNGS: n ormal respiratory effort and clear to auscultation, no wheezes, rales, or rhonchi, good air exchange. CARDIO: r egular rate and rhythm, normal S1 and S2, nor murmur, rub, or gallop. PULSES: n ormal capillary refill. ABDOMEN: s oft, non-distended, non-tender, no masses. MUSCULOSKELETAL: n o deformity or scoliosis noted, normal range of motion, joints normal, no erythema, edema, effusion, or ecchymosis. EXTREMITY: n o clubbing, cyanosis, edema, or deformity with normal ROM in both upper and lower bilateral extremities. NEUROLOGIC: g rossly normal. SKIN: n o rashes, ulcerations, or suspicious lesions. LYMPH NODES: n o cervical adenopathy, nodes normal. MENTAL STATUS: a lert and oriented x3, normal mood and affect. Assessment: * Assessment: 1. D epression - F32.9 (Primary) 2 . W [facility] adult - Z00.00 Plan: * Treatment: 2. W [facility] adult L AB: HEMOGLOBIN A1C (GLYCO) L AB: IRON, TOTAL L AB: LIPID PANEL (CHOL/TRIG/HDL/LDL) L AB: VITAMIN D, 25 LEVEL (TOTAL) L AB: Insulin Level L AB: THYROID PANEL (T4/TSH/FREE T3) L AB: CMP (COMP MET HERNANDEZ) w/eGFR CKD-EPI L AB: CBC WITH DIFF * Procedure Codes: * Preventive Medicine: Screenings/Counseling: B UT ACTION PLAN Above Normal BMI Follow-up D ietary management education, guidance, and counseling * * Sign off status: Completed Visit Status: C HK (Check Out) true * Provider: Sheng Leung ([facility])MD Date: 0 05/21/2025 Generated for Messi reeder/Jayro/Russellitting on: 0 05/26/2025 09:52 AM EDT History and Physical Notes * HPI (History of Present Illness) Category Sub-Category Detail Notes Category Not es Depression Screening PHQ-9 Little inte rest or pleasure in doing things: More than half the days Feeling down, depressed, or hopeless: Ne samy every day Trouble falling or staying asleep, or sl eeping too much: Nearly every day Feeling tired or having little energy: N early every day Poor appetite or overeating: Nearly ever y day Feeling bad about yourself o r that you are a failure, or have let yourself or your family down: Nearly every day Trouble concentrating on thi ngs, such as reading the newspaper or watching television: More than half the days Moving or speaking so slowly that other people could have noticed; or the opposite, being so fidgety or restless that you have been moving around a lot more than usual: Nearly every day Thoughts that you would be b loy off or of hurting yourself in some way: Nearly every day (Consider Suicide Assessment Risk) Total Score: 25 Interpretation: Severe Depression General Brain fog and not gotti labs in a while - sleepy tired no snoring - just the daytime fatigue Disucssed blood clots - Examination Category Sub-Category Detail Notes Category Not es Physical Exam GENERAL: well developed, well nourished, in no acute distress HEAD: normocephalic/atraum atic EYES: pupils equal, round and reactive to light, conjunctivae and sclerae normal EARS: no deformity or lesi on of external ear, canals and TM appear normal bilaterally, TM's intact, not inflamed with normal light reflex, hearing grossly normal to conversational speech NOSE: no deformity, discha rge, inflammation, or lesions MOUTH: mucous membranes karina st, normal oropharynx and posterior pharynx without lesions or exudates, tongue normal, dentition normal NECK: neck supple, no mass es or palpable cervical nodes, trachea midline, thyroid without nodules, masses, tenderness, or enlargement CHEST: no chest wall deform ity, no chest wall tenderness LUNGS: normal respiratory e ffort and clear to auscultation, no wheezes, rales, or rhonchi, good air exchange CARDIO: regular rate and rhy thm, normal S1 and S2, nor murmur, rub, or gallop PULSES: normal capillary ref ill ABDOMEN: soft, non-distended, non-tender, no masses RECTAL: MUSCULOSKELETAL: no deformity or scol iosis noted, normal range of motion, joints normal, no erythema, edema, effusion, or ecchymosis EXTREMITY: no clubbing, cyanosi s, edema, or deformity with normal ROM in both upper and lower bilateral extremities NEUROLOGIC: grossly normal SKIN: no rashes, ulceratio ns, or suspicious lesions LYMPH NODES: no cervical adenopat hy, nodes normal MENTAL STATUS: alert and oriented x 3, normal mood and affect
--- OUTSIDE RECORDS SUMMARY | 2025-05-26 09:52 | XMS_ITS | Clinical Summary ---
Author Organization [employer] tem Address [id number] [address] [place] [address] Care Team Providers Care Safety Inspector Name Role Phone Nicanor Leung MD Primary Care Provider [phone] Allergies Active Allergy Reactions Criticality Noted Date Comments Estradiol Other (See Comments) 03/31/2024 Blood clot Medications rivaroxaban (XARELTO) 10 mg tablet Take 1 tablet (10 mg total) by mouth in the morning. Active lisinopriL (PRINIVIL,ZESTRI L) 10 mg tablet Take 1 tablet (10 mg total) by mouth in the morning. Active Social History Tobacco Use Types Packs/Day Years Used Date Smoking Tobacco: Never Smokeless Tobacco: Never Tobacco Cessation:Counseling Given: Not Answered Alcohol Use Standard Drinks/Week Comments Never 0 (1 standard drink = 0.6 oz pur e alcohol) Hunger Screening Answer Date Recorded Within the past 12 months we worried whether our food would run out before we got money to buy more. Never True 03/31/2024 Within the past 12 months th e food we bought just didn't last and we didn't have money to get more. Never True 03/31/2024 Comments No Sex and Gender Information Value Date Recorded Sex Assigned at Not on file Legal Sex Female 10:34 AM EDT Gender Identity Not on file Sexual Orientation Not on file Last Filed Vital Signs Vital Sign Reading Time Taken Comments Blood Pressure 156/61 03/31/2024 1:30 PM EDT Pulse 62 03/31/2024 3:45 PM EDT Temperature 36.4 C (97.6 F) 03/31/2024 10:55 AM EDT Respiratory Rate 16 03/31/2024 3:45 PM EDT Oxygen Saturation 93% 03/31/2024 3:45 PM EDT Inhaled Oxygen Concentration - - Weight 126.1 kg (278 lb) 03/31/2024 10:55 AM EDT Height 170.2 cm (5' 7 ) 03/31/2024 10:55 AM EDT Body Mass Index 43.54 03/31/2024 10:55 AM EDT Plan of Treatment Health Maintenance Due Date Last Done Comments Chlamydia Screening 2003 Depression Screening 2015 Pap Smear 2024 Adult BMI Screening 03/31/2025 03/31/2024 Tobacco Screening 03/31/2025 03/31/2024 DTaP,Tdap and Td Vaccines (7 - Td or Tdap) 05/16/2025 05/16/2015, 02/07/2008, 01/19/2005, Additional history exists Influenza Vaccine 06/11/2025 Medical Devices Not on file Insurance Care Teams Safety Inspector Relationship Specialty Start Date End Date Nicanor Leung MD PCP - General Family Medicine 03/31/24
--- OUTSIDE RECORDS SUMMARY | 2025-05-26 09:52 | XMS_ITS | Patient Health Record ---
Author Organization The [facility] in [place] Address [address] [place] [address] Care Team Providers Care Machine Tester Name Role Phone Rubén Leung Primary Care Provider Allergies Allergen (clinical drug ingredient) Drug/Non Drug Allergy documented on EMR Reaction Allergy Type Onset Date Status estradiol Estrogel Bloodclot Drug Allergy Active Reason For Referral No Information Medications Medication SIG (Take, Route, Frequency, Duration) Notes Start Date End Date Status B12 Active Ferrous Sulfate 325 (65 Fe) MG 1 tablet Orally once a day Not-Taking Lisinopril 5 MG 1 tablet Orally Once a day for 30 days 01/25/2023 Not-Taking Mirena Active Pristiq 50 MG 1 tablet Orally Once a day for 30 days 05/21/2025 Active Xarelto 10 MG 1 tablet Orally ever y other day Not-Taking CeleBREX 100 MG 1 capsule Orally Onc e a day Not-Taking Cholecalciferol 50 MCG (2000 UT) 1 capsule Orally Once a day Not-Taking Social History Tobacco Use: Social History [...] Problem Status W/U Status Risk Notes Problem Asthma (J45.909) Active confirmed Problem Depression (273089121) Depression (F32.9) Active confirmed Problem Well adult (811104174) Well adult (Z00.00) Active confirmed Vital Signs Blood pressure diastolic 84 mm Hg 05/21/2025 Height 67 in 05/21/2025 Blood pressure systolic 130 mm Hg 05/21/2025 Weight 291 lbs 05/21/2025 BMI 45.57 kg/m2 05/21/2025 Encounters Encounter Location Date Provider Diagnosis [facility] [address] [place] [address] 05/21/2025 Rubén Hoy Depression F32.9 and Well adult Z00.00 Assessments Encounter Date Diagnosis (ICD Code) Assessment Notes Treatment Notes Treatment Clinical Notes Section Notes 05/21/2025 Depression (ICD-10 - F32.9) 05/21/2025 Well adult (ICD-10 - Z00.00) Plan Of Treatment Pending Test Test Name Order Date HEMOGLOBIN A1C (GLYCO) 05/21/2025 IRON, TOTAL 05/21/2025 LIPID PANEL (CHOL/TRIG/HDL/LDL) 05/21/20 25 VITAMIN D, 25 LEVEL (TOTAL) 05/21/2025 Insulin Level 05/21/2025 THYROID PANEL (T4/TSH/FREE T3) CMP (COMP MET HERNANDEZ) w/eGFR CKD-EPI 2024 CBC WITH DIFF 05/21/2025 Insurance Providers Payer Name Payer Address Payer Phone Subscriber Number Group Number Insured Name Patient Relationship to Insured Coverage Start Date Coverage End Date MEJIA LAUREANO [address] [place] [address] [id number] Zee Brian Self - patient is the insured Medical (General) History Medical History History ICD Code Snoring R06.83 Seasonal allergic rhinitis J30.2 Pulmonary emboli I26.99 Prothrombin gene mutation D68.52 Prediabetes R73.09 Irregular menses N92.6 Hypertension I10 Factor V Leiden mutation D68.51 Dyslexia R48.0 Cervical radiculopathy M54.12 Anemia D64.9 Acute deep vein thrombosis ( DVT) of other specified vein of right lower extremity I82.491 Surgical History Surgery Date(Month/Year) TONSILLECTOMY,OVER 12 YRS
--- OUTSIDE RECORDS SUMMARY | 2025-05-26 09:52 | XMS_ITS | Patient Health Record ---
Author Organization [email or web address] Address [address] [place] [address] Care Team Providers Care Production Control Expediter Name Role Phone Matias Fernandez Primary Care Provider Reason For Referral No Information Plan Of Treatment No Information
--- OUTSIDE RECORDS SUMMARY | 2025-05-26 09:53 | XMS_ITS | CCD ---
Author Organization [facility] Care Team Providers Care Jack Machine Operator Name Role Phone Susan [phone] UNKNOWN Unavailable Unavailable Román Charlton Unavailable Unavailable Román Charlton Unavailable Unavailable Wendy Leyva Unavailable Unavailable Laila, Margo Unavailable Unavailable Susan Leung Unavailable Unavailable Susan Leung Unavailable Unavailable Unavailable MADHU Malik, DR DAVIS Admitting Unavailable HOY ., DR DAVIS Attending Unavailable HOY ., DR DAVIS Primary Care Unavailable HOY ., DR DVAIS Consulting Unavailable KARASIK ., DR AYALA Admitting [...] (1 source) Estrogens; Translations: [Estrogens] Drug Allergy AM-Vvbwhlntvd-[facility] Work Phone: (2 sources) Estrogens; Translations: [Estrogens] Drug Allergy MW-Yspazzqdwn-Y [facility] Work Phone: (1 source) Estradiol Drug Allergy 10-11-2020 [facility] Repository (1 source) Estradiol; Translations: [ESTRADIOL] Drug [...] DO Start : 04-Nov-2020 Active 30 ML Wesley Btl norethindrone acetate 5 mg oral tablet [...] 03-31-20 ABSOLUTE BASOPHIL 0.0 X10E9/L Normal 0.0-0.2 [facility] Comment on above: Performed By: #### Zoë MITTAL, 33505-5, CMP, 1988-02, , 56335- 7 #### [facility] ([id number]) [address] [place] [address] 53736 ABSOLUTE NEUTROPHIL 6.2 X10E9/L Normal 1.5-6.6 [facility] Comment on above: Performed By: #### Zoë MITTAL, 78451-7, CMP, 1988-02, , 55314- 7 #### [facility] ([id number]) [address] [place] [address] 28743 Basophils/100 WBC (Bld) 0.3 % Normal [facility] Comment on above: Performed By: #### Zoë MITTAL, 54761-6, CMP, 1988-02, , 39271- 7 #### [facility] ([id number]) [address] [place] [address] 18298 Eosinophils (Bld) [#/Vol] 0.2 10*3/uL Normal 0.0-0.4 [facility] Comment on above: Performed By: #### Zoë MITTAL, 47849-4, CMP, 1988-02, , 64968 7 #### [facility] ([id number]) [address] [place] [address] 36372 Eosinophils/100 WBC (Bld) 2.1 % Normal [facility] Comment on above: Performed By: #### Zoë MITTAL, 42719-5, CMP, 1988-02, , 02973- 7 #### [facility] ([id number]) [address] [place] [address] 30850 Erythrocyte distribution width (RBC) [Ratio] 14.0 % Normal 11.5-15.0 [facility] Comment on above: Performed By: #### Zoë MITTAL, 58854-7, [facility], 1988-02, , 06343- 7 #### [facility] ([id number]) [address] [place] [address] 32545 Hematocrit (Bld) [Volume fraction] 41.1 % Normal 35-47 [facility] Comment on above: Performed By: #### Zoë MITTAL, 94839-0, [facility], 1988-02, , 76659- 7 #### [facility] ([id number]) [address] [place] [address] 63028 Hemoglobin (Bld) [Mass/Vol] 13.9 g/dL Normal 11.7-15.5 [facility] Comment on above: Performed By: #### Zoë MITTAL, 17578-4, [facility], 1988-02, , 18204- 7 #### [facility] ([id number]) [address] [place] [address] 69350 Lymphocytes (Bld) [#/Vol] 4.4 10*3/uL High 1.0-3.5 [facility] Comment on above: Performed By: #### Zoë MITTAL, 36626-7, [facility], 1988-02, , 71024 #### [facility] ([id number]) [address] [place] [address] 88907 Lymphocytes/100 WBC (Bld) 38.2 % Normal [facility] Comment on above: Performed By: #### Zoë MITTAL, 32377-5, [facility], 1988-02, , 49518 7 #### [facility] ([id number]) [address] [place] [address] 72035 MCH (RBC) [Entitic mass] 27.2 pg Normal 27-34 [facility] Comment on above: Performed By: #### Zoë MITTAL, 76695-3, CMP, 1988-02, , 58993 7 #### [facility] ([id number]) [address] [place] [address] 30069 MCHC (RBC) [Mass/Vol] 33.8 g/dL Normal 32-36 [facility] Comment on above: Performed By: #### Zoë MITTAL, 17440-2, CMP, 1988-02, , 92948 #### [facility] ([id number]) [address] [place] [address] 14525 MCV (RBC) [Entitic vol] 80 fL Normal 80-100 [facility] Comment on above: Performed By: #### Zoë MITTAL, 27181-0, CMP, 1988-02, , 75768- 7 #### [facility] ([id number]) [address] [place] [address] 57112 Monocytes (Bld) [#/Vol] 0.7 10*3/uL Normal 0-0.9 [facility] Comment on above: Performed By: #### Zoë MITTAL, 40448-8, CMP, 1988-02, , 82414- 7 #### [facility] ([id number]) [address] [place] [address] 69018 Monocytes/100 WBC (Bld) 6.1 % Normal [facility] Comment on above: Performed By: #### Zoë MITTAL, 41669-0, CMP, 1988-02, , 37555 7 #### [facility] ([id number]) [address] [place] [address] 55404 Neutrophils/100 WBC (Bld) 53.3 % Normal [facility] Comment on above: Performed By: #### Zoë MITTAL, 54263-7, CMP, 1988-02, , 76045- 7 #### [facility] ([id number]) [address] [place] [address] 98402 Platelet mean volume (Bld) [Entitic vol] 7.4 fL Normal 7-12 [facility] Comment on above: Performed By: #### Zoë MITTAL, 85599-2, CMP, 1988-02, , 11499- 7 #### [facility] ([id number]) [address] [place] [address] 73977 Platelets (Bld) [#/Vol] 310 10*3/uL Normal 150-450 [facility] Comment on above: Performed By: #### Zoë MITTAL, 91769-9, CMP, 1988-02, , 20689- 7 #### [facility] ([id number]) [address] [place] [address] 93389 RBC COUNT 5.11 X10E12/L Normal 3.80-5.20 [facility] Comment on above: Performed By: #### Zoë MITTAL, 39992-5, CMP, 1988-02, , 47821- 7 #### [facility] ([id number]) [address] [place] [address] 32630 WBC (Bld) [#/Vol] 11.6 10*3/uL High 4.0-11.0 [facility] Comment on above: Performed By: #### Zoë MITTAL, 81993-0, CMP, 1988-02, , 87553- 7 #### [facility] ([id number]) [address] [place] [address] 61532 COMPREHENSIVE METABOLIC PANE Bill 03-31-2024 Albumin [Mass/Vol] 3.8 g/dL Normal 3.2-5.3 [facility] Comment on above: Performed By: #### Zoë MITTAL, 24465-6, CMP, 1988-02, , 99732 7 #### [facility] ([id number]) [address] [place] [address] 63759 ALP [Catalytic activity/Vol] 75 U/L Normal 39-130 [facility] Comment on above: Performed By: #### C BCA, 72756-5, CMP, 1988-02, , 62241- 7 #### [facility] ([id number]) [address] [place] [address] 48622 ALT [Catalytic activity/Vol] 16 U/L Normal 0-31 [facility] Comment on above: Performed By: #### C BCA, 30826-0, CMP, 1988-02, , 76536 7 #### [facility] ([id number]) [address] [place] [address] 44620 Anion gap [Moles/Vol] 3 mmol/L Low 5-15 [facility] Comment on above: Performed By: #### C BCA, 82877-8, CMP, 1988-02, , 61848- 7 #### [facility] ([id number]) [address] [place] [address] 34937 AST [Catalytic activity/Vol] 19 U/L Normal 0-41 [facility] Comment on above: Performed By: #### C BCA, 09240-2, CMP, 1988-02, , 47915 7 #### [facility] ([id number]) [address] [place] [address] 68625 Bilirubin [Mass/Vol] 0.6 mg/dL Normal 0.3-1.2 [facility] Comment on above: Performed By: #### C BCA, 72985-8, CMP, 1988-02, , 02157- 7 #### [facility] ([id number]) [address] [place] [address] 93925 Calcium [Mass/Vol] 8.7 mg/dL Normal 8.5-10.5 [facility] Comment on above: Performed By: #### C DAXA, 94212-2, CMP, 1988-02, , 80380- 7 #### [facility] ([id number]) [address] [place] [address] 61252 Chloride [Moles/Vol] 108 mmol/L Normal 98-109 [facility] Comment on above: Performed By: #### C DAXA, 28843-1, CMP, 1988-02, , 90975 7 #### [facility] ([id number]) [address] [place] [address] 20518 CO2 [Moles/Vol] 26 mmol/L Normal 22-32 [facility] Comment on above: Performed By: #### C DAXA, 40878-4, CMP, 1988-02, , 63127- 7 #### [facility] ([id number]) [address] [place] [address] 34128 Creatinine [Mass/Vol] 0.83 mg/dL Normal 0.40-1.00 [facility] Comment on above: Result Comment: METH OD TRACEABLE TO IDMS STANDARD Performed By: #### C DAXA, 25320-3, CMP, 1988-02, , 75601-7 #### [facility] ([id number]) [address] [place] [address] 87152 eGFR (CKD-EPI) NON-RACE DEPENDENT >90 Normal >59 [facility] Comment on above: Result Comment: Reported eGFR is based on the CKD-EPI 2020 equation that does not use a race coefficient. Performed By: #### C DAXA, 19424-1, CMP, 1988-02, , 31285-6 #### [facility] ([id number]) [address] [place] [address] 05938 Glucose [Mass/Vol] 88 mg/dL Normal 65-99 [facility] Comment on above: Performed By: #### C DAXA, 87246-8, CMP, 1988-02, , 17878- 7 #### [facility] ([id number]) [address] [place] [address] 68849 Potassium [Moles/Vol] 3.6 mmol/L Normal 3.5-5.0 [facility] Comment on above: Performed By: #### C BCA, 28053-9, CMP, 1988-02, , 20829- 7 #### [facility] ([id number]) [address] [place] [address] 74132 Protein [Mass/Vol] 6.9 g/dL Normal 6.0-8.0 [facility] Comment on above: Performed By: #### C BCA, 07771-4, CMP, 1988-02, , 19245- 7 #### [facility] ([id number]) [address] [place] [address] 76156 Sodium [Moles/Vol] 137 mmol/L Normal 134-146 [facility] Comment on above: Performed By: #### C BCA, 51134-2, CMP, 1988-02, , 07471- 7 #### [facility] ([id number]) [address] [place] [address] 78832 Urea nitrogen [Mass/Vol] 15 mg/dL Normal 5-23 [facility] Comment on above: Performed By: #### C BCA, 28335-5, CMP, 1988-02, , 83273- 7 #### [facility] ([id number]) [address] [place] [address] 29803 CRP [Mass/Vol]on 03-31-2024 C REACTIVE PROTEIN 1.5 mg/dL High 0.000-0.744 [facility] Comment on above: Performed By: #### C BCA, 53853-4, CMP, 1988-02, , 01619 7 #### [facility] ([id number]) [address] [place] [address] ABDOMEN AND PELVIS W CONT on [...] Bar MD on 03/31/2024 3:35 PM Normal [facility] DRUG SCREEN, URINEon 024 AMPHETAMINE/METHAMP Negative Normal NEG [facility] Comment on above: Result Comment: AMPH /METH screening cut off = 1000 ng/mL Performed By: #### D CRANDALL #### [facility] ([id number]) [address] [place] [address] 36756 BARBITURATES Negative Normal NEG [facility] Comment on above: Result Comment: Gisela iturates screening cut off value = 200 ng/mL Performed By: #### D CRANDALL #### [facility] ([id number]) [address] [place] [address] [place] [address] BENZODIAZEPINES Negative Normal NEG [facility] Comment on above: Result Comment: Zack odiazepines screening cut off value = 200 ng/mL Performed By: #### D CRANDALL #### [facility] ([id number]) [address] [place] [address] 67904 CANNABINOIDS Negative Normal NEG [facility] Comment on above: Result Comment: Valdo abinoids/THC screening cut off value = 50 ng/mL Performed By: #### D CRANDALL #### [facility] ([id number]) [address] [place] [address] 20480 COCAINE METABOLITE Negative Normal NEG [facility] Comment on above: Result Comment: Coca ine screening cut off value = 300 ng/mL Performed By: #### D CRANDALL #### [facility] ([id number]) [address] [place] [address] 55845 ECSTASY Negative Normal NEG [facility] Comment on above: Result Comment: Ecst asy screening cut off value = 500 ng/mL This report is intended for use in clinical monitoring or management of patients. Performed By: #### D CRANDALL #### [facility] ([id number]) [address] [place] [address] 53975 METHADONE Negative Normal NEG [facility] Comment on above: Result Comment: Meth adone screening cut off value = 300 ng/mL. Performed By: #### D CRANDALL #### [facility] ([id number]) [address] [place] [address] [place] [address] OPIATES Negative Normal NEG [facility] Comment on above: Result Comment: Opia albertina screening cut off value = 300 ng/mL NOTE: This test is used for the detection of codeine, hydrocodone (>1000 ng/mL), morphine and hydromorphone (>900 ng/mL) in urine. Performed By: #### D CRANDALL #### [facility] ([id number]) [address] [place] [address] 27062 OXYCODONE Negative Normal NEG [facility] Comment on above: Result Comment: Oxyc odone screening cut off value = 300 ng/mL NOTE: This test is used for the detection of oxycodone and oxymorphone in urine. Performed By: #### D CRANDALL #### [facility] ([id number]) [address] [place] [address] 36448 PHENCYCLIDINE Negative Normal NEG [facility] Comment on above: Result Comment: Phen cyclidine screening cut off value = 25 ng/mL Performed By: #### D CRANDALL #### [facility] ([id number]) [address] [place] [address] 42644 Fibrin D-dimer DDU (PPP) [Ma ss/Vol]on 03-31-2024 D DIMER <150 Normal <255 [facility] Comment on above: Result Comment: Results <255 ng/mL DDU: The presence of a VTE can safely be excluded with a negative D-Dimer result and Wells score. A negative result doesn't exclude the possibility of DIC. The test be repeated along with other diagnostic tests if the patient's symptoms persist or worsen. [email or web address] Performed By: #### C BCA, 81857-4, CMP, 1987-5, 83980-4, 36787-0 #### [facility] ([id number]) [address] [place] [address] 53474 HCG ( test) Ql (U)o n 03-31-2024 Beta HCG ( test) Ql (U) Negative Normal NEG [facility] Comment on above: Performed By: #### 2 106-3 #### [facility] ([id number]) [address] [place] [address] 01343 MAGNESIUMon 03-31-2024 Magnesium [Mass/Vol] 2.2 mg/dL Normal 1.8-2.6 [facility] Comment on above: Performed By: #### C DAXA, 55670-6, [facility], 1988-02, , 78471- 7 #### [facility] ([id number]) [address] [place] [address] 94885 Troponin I.cardiac High sens itivity method [Mass/Vol]on 03-31-2024 1 HOUR TROP I, HIGH SENSITIVITY <2 Normal <16 [facility] Comment on above: Result Comment: Reference ranges have not been established for patients under 21 years of age. Performed By: #### 8 9579-7 #### [facility] ([id number]) [address] [place] [address] 96791 TROPONIN I, HIGH SENSITIVITY <2 Normal <16 [facility] Comment on above: Result Comment: Reference ranges have not been established for patients under 21 years of age. Performed By: #### C DAXA, 15690-8, [facility], 1988-02, , 94220-0 #### [facility] ([id number]) [address] [place] [address] 88968 URN MACROSCOPIC NURon 2023 BILIRUBIN MIREYA Small Abnormal NEG [facility] Comment on above: Performed By: #### N UM #### [facility] ([id number]) [address] [place] [address] [place] [address] BLOOD/HGB MIREYA Negative Normal NEG [facility] Comment on above: Performed By: #### N UM #### [facility] ([id number]) [address] [place] [address] 77671 GLUCOSE MIREYA Negative Normal NEG [facility] Comment on above: Performed By: #### N UM #### [facility] ([id number]) [address] [place] [address] [place] [address] KETONES MIREYA Trace Abnormal NEG [facility] Comment on above: Performed By: #### N UM #### [facility] ([id number]) [address] [place] [address] 44557 LEUKOCYTE ESTERASE MIREYA Negative Normal NEG [facility] Comment on above: Performed By: #### N UM #### [facility] ([id number]) [address] [place] [address] 61577 NITRITE MIREYA Negative Normal NEG [facility] Comment on above: Performed By: #### N UM #### [facility] ([id number]) [address] [place] [address] 43894 PH MIREYA 5.5 Normal 5.0-8.5 [facility] Comment on above: Performed By: #### N UM #### [facility] ([id number]) [address] [place] [address] 33260 PROTEIN MIREYA Negative Normal NEG [facility] Comment on above: Performed By: #### N UM #### [facility] ([id number]) [address] [place] [address] 13700 SPECIFIC GRAVITY MIREYA >=1.030 Normal 1.003-1.035 [facility] Comment on above: Performed By: #### N UM #### [facility] ([id number]) [address] [place] [address] 68994 UROBILINOGEN MIREYA 0.2 eu/dL Normal <1.1 [facility] Comment on above: Performed By: #### N UM #### [facility] ([id number]) [address] [place] [address] 14335 XR CSPINE MIN 4 VIEWSon 12-09 XR [...] ANTONIO BRADSHAW Date: 2022-12-25 15:36 Normal [facility]-11 SARS-CoV-2 (COVID-19) RNA HAIDER+probe Ql (Unsp spec) Not detected Normal NOT DETECTED [facility] Comment on above: Result Comment: This test is not yet approved or cleared by the [place] FDA. When there are no FDA-approved or cleared tests available, and other criteria are met, FDA can make tests available under an emergency access mechanism called an Emergency Use Authorization (EUA). The EUA for this test is supported by the [place] of Health and Human Service's (HHS's) declaration [...] SARS-CoV-2. Performed By: #### C VDTBH #### [facility] [address] [place], [place] [address] Dr. Ryan Bagley INFLUENZA A AND B AGon 10-[facility] BELOW Normal [facility] Comment on above: Result Comment: Nega tive for Flu A protein angiten. Infection due to Flu A cannot be ruled out. Flu A angiten in the sample may be below the detection limit of the test. Performed By: #### I NFLUAB ####[facility] [address] [place], [place] [address]LtDr. Ryan Bagley INFLUBNEG SEE BELOW Normal [facility] Comment on above: Result Comment: Nega tive for Flu B protein antigen. Infection due to Flu B cannot be ruled out. Flu B antigen in the sample may be below the detection limit of the test. Performed By: #### I NFLUAB ####[facility] [address] [place], [place] [address]Dl. Ryan Bagley INFLUENZA A AG Negative Normal NEGATIVE SEE COMMENT [facility] Comment on above: Performed By: #### I NFLUAB ####[facility] [address] [place], [place] [address]Np. Ryan Bagley INFLUENZA B AG Negative Normal NEGATIVE SEE COMMENT [facility] Comment on above: Performed By: #### I NFLUAB ####[facility] [address] [place], [place] [address]Pi. Ryan Kevyn US PELVISon 08-11-2022 US PELVIS [...] ANTONIO BRADSHAW Date: 2022-08-11 07:16 Normal [facility] CHLAMYDIA/GONOCOCCUS HAIDER (SW AB/URINE/PAPon 05-18-2022 Chlamydia trachomatis, HAIDER Negative Normal Negative [facility] Comment on above: Performed By: #### C T/NGNA #### [facility] [address] [place] [address] [address] Ryan Bagley Neisseria gonorrhoeae, HAIDER Negative Normal Negative [facility] Comment on above: Performed By: #### C T/NGNA #### [facility] [address] [place] [address] [address] Ryan Bagley VAGINITIS/VAGINOSIS DNA PROB Sarmad 05-17-2022 Dawn species Negative Normal Negative [facility] Comment on above: Performed By: #### V AGINT ####[facility] [address] [place] [address]Dr. Ryan Bagley Gardnerella vaginalis Negative Normal Negative [facility] Comment on above: Performed By: #### V AGINT ####[facility] [address] [place] [address]Dr. Ryan Bagley Trichomonas vaginalis Negative Normal Negative [facility] Comment on above: Performed By: #### V AGINT ####[facility] [address] [place] [address]Dr. Ryan Bagley INSULINon 02-11-2022 Insulin 31.4 uIU/mL Critically high 2.6-24.9 [facility] Comment on above: Performed By: #### I NSULIN #### [facility] [address] [place] [address] [address] Ryan Bagley CBC AUTO DIFFon 02-10-2022 BASO # 0.1 103/ul Normal 0.0-0.1 [facility] Comment on above: Performed By: #### C BC ####[facility] [address] [place] [address]Dr. Ryan Bagley Basophils/100 WBC (Bld) 1.0 % Normal 0.2-2.0 [facility] Comment on above: Performed By: #### C BC ####[facility] [address] [place] [address]Dr. Ryan Bagley EO # 0.2 103/ul Normal 0.0-0.7 [facility] Comment on above: Performed By: #### C BC ####[facility] [address] [place] [address]Dr. Ryan Bagley Eosinophils/100 WBC (Bld) 3.1 % Normal 0.9-7.0 [facility] Comment on above: Performed By: #### C BC ####[facility] [address] [place] [address]Dr. Ryan Bagley Erythrocyte distribution width (RBC) [Ratio] 17.5 % Critically high 11.0-15.0 [facility] Comment on above: Performed By: #### C BC ####[facility] [address] [place] [address]Dr. Ryan Bagley Hematocrit (Bld) [Volume fraction] 47.4 % Normal 36.0-48.0 [facility] Comment on above: Performed By: #### C BC ####[facility] [address] [place] [address]Dr. Ryan Bagley Hemoglobin (Bld) [Mass/Vol] 14.7 g/dL Normal 12.0-16.0 [facility] Comment on above: Performed By: #### C BC ####[facility] [address] [place] [address]Dr. Ryan Bagley IG # 0.03 10e3/ul Normal 0.00-0.03 [facility] Comment on above: Performed By: #### C BC ####[facility] [address] [place] [address]Dr. Robynyana Bagley IG % 0.4 % Normal 0.0-0.5 [facility] Comment on above: Performed By: #### C BC ####[facility] [address] [place] [address]Dr. Ryan Kevyn LYMPH # 2.0 103/ul Normal 1.2-3.8 [facility] Comment on above: Performed By: #### C BC ####[facility] [address] [place] [address]Dr. Robynyana Bagley Lymphocytes/100 WBC (Bld) 28.9 % Normal 20.5-60.0 [facility] Comment on above: Performed By: #### C BC ####[facility] [address] [place] [address]Dr. Ryan Bagley MANUAL DIFF REQ NO Normal [facility] Comment on above: Performed By: #### C BC ####[facility] [address] [place], [place] [address]Dr. Ryan Bagley MCH (RBC) [Entitic mass] 24.2 pg Critically low 26.7-34.0 [facility] Comment on above: Performed By: #### C BC ####[facility] [address] [place] [address]Dr. Ryan Bagley MCHC (RBC) [Mass/Vol] 31.0 g/dL Normal 29.9-35.2 [facility] Comment on above: Performed By: #### C BC ####[facility] [address] [place] [address]Dr. Ryan Bagley MCV (RBC) [Entitic vol] 78.0 fL Critically low 81.0-99.0 [facility] Comment on above: Performed By: #### C BC ####[facility] [address] [place], [place] [address]Dr. Ryan Bagley MONO # 0.5 103/ul Normal 0.3-0.8 [facility] Comment on above: Performed By: #### C BC ####[facility] [address] [place], [place] [address]Dr. Robynyana Bagley Monocytes/100 WBC (Bld) 6.8 % Normal 1.7-12.0 [facility] Comment on above: Performed By: #### C BC ####[facility] [address] [place], [place] [address]Dr. Ryan Bagley NEUT # 4.2 103/ul Normal 1.4-6.5 [facility] Comment on above: Performed By: #### C BC ####[facility] [address] [place], [place] [address]Dr. Ryan Bagley Neutrophils/100 WBC (Bld) 59.8 % Normal 43.0-75.0 [facility] Comment on above: Performed By: #### C BC ####[facility] [address] [place], [place] [address]Dr. Ryan [place] Platelet mean volume (Bld) [Entitic vol] 8.7 fL Critically low 9.5-13.5 [facility] Comment on above: Performed By: #### C BC ####[facility] [address] [place], [place] [id number]. Ryan Kevyn PLT 268 103/ul Normal 150-450 [facility] Comment on above: Performed By: #### C BC ####[facility] [address] [place], [place] [address]HiKing Bagley RBC 6.08 106/ul Critically high 4.20-5.40 The [facility] Comment on above: Performed By: #### C BC ####[facility] [address] [place], [place] [address]QiKing [place]ley WBC 7.0 103/ul Normal 4.0-11.0 [facility] Comment on above: Performed By: #### C BC ####[facility] [address] [place] [id number]. Ryan [place] FREE THYROXINE INDEX T7on FTI 3.06 Normal [facility] Comment on above: Performed By: #### T 7, TSH, CMP, LIPID #### [facility] [address] [place] [address] [address] Ryan [place] T3U 36.0 % Normal 23.5-40.5 [facility] Comment on above: Performed By: #### T 7, TSH, CMP, LIPID #### [facility] [address] [place] [address] [address] Ryan [place] T4 [Mass/Vol] 8.50 ug/dL Normal 5.40-10.60 [facility] Comment on above: Performed By: #### T 7, TSH, CMP, LIPID #### [facility] [address] [place] [address] [address] Ryan [place] GLYCOHEMOGLOBIN A1Con 2021 ADA RECOMMENDATION SEE BELOW Normal The [facility] Comment on above: Result Comment: ADA RECOMMENDED LIMIT 4.0 - 6.0 ADA THERAPEUTIC TARGET < 7.0 ACTION SUGGESTED > 7.0 Performed By: #### A 1C ####[facility] [address] [place] [id number]. Ryan [place] Glucose [Mass/Vol] 108 mg/dL Normal [facility] Comment on above: Performed By: #### A 1C ####[facility] [address] [place] [id number]. Ryan [place] HbA1c (Bld) [Mass fraction] 5.4 % Normal 4.5-6.2 [facility] Comment on above: Performed By: #### A 1C ####[facility] [address] [place], [place] [address]AgDr. Ryan [place] IRONon 02-10-2022 Iron [Mass/Vol] 50.0 ug/dL Normal 50.0-170.0 [facility] Comment on above: Performed By: #### V ITAD, IRON ####[facility] [address] [place], [place] [address]MhDr. Ryan [place] LIPID PROFILEon 02-10-2022 CHOL-HDL RATIO NORM SEE BELOW Normal [facility] Comment on above: Result Comment: 3.3 - 4.4 LOW RISK 4.4 - 7.1 AVERAGE RISK 7.1 - 11.0 MODERATE RISK >11.0 HIGH RISK Performed By: #### T 7, TSH, CMP, LIPID #### [facility] [address] [place] [address] [address] Ryan [place] Cholesterol [Mass/Vol] 215 mg/dL Normal 104-227 [facility] Comment on above: Performed By: #### T 7, TSH, CMP, LIPID #### [facility] [address] [place] [id number] Ryan [place] Cholesterol in HDL [Mass/Vol] 42 mg/dL Normal 29-69 [facility] Comment on above: Performed By: #### T 7, TSH, CMP, LIPID #### [facility] [address] [id number] Ryan [place] Cholesterol in LDL [Mass/Vol] 145.0 mg/dL Critically high 46.0-140.0 [facility] Comment on above: Performed By: #### T 7, TSH, CMP, LIPID #### [facility] [address] [place], [place] [address] Dr. Ryan [place] Cholesterol.total/C holesterol in HDL [Mass ratio] 5.1 {ratio} Normal [facility] Comment on above: Performed By: #### T 7, TSH, CMP, LIPID #### [facility] [address] [place], [place] [address] Dr. Ryan [place] HDL NORMAL > or = 60 mg/dl - LO W CARDIOVASCULAR RISK <40 mg/dl - HIGH CARDIOVASCULAR RISK Normal [facility] Comment on above: Performed By: #### T 7, TSH, CMP, LIPID #### [facility] [address] [address] [address] Ryan [place] LDL CALC NORMAL SEE BELOW Normal [facility] Comment on above: Result Comment: <100 mg/dl OPTIMAL 100 - 129 mg/dl NEAR OR ABOVE OPTIMAL 130 - 159 mg/dl BORDERLINE HIGH 160 - 189 mg/dl HIGH >190 mg/dl VERY HIGH Performed By: #### T 7, TSH, CMP, LIPID #### [facility] [address] [address] [address] Ryan [place] Triglyceride [Mass/Vol] 140 mg/dL Normal 53-208 [facility] Comment on above: Performed By: #### T 7, TSH, CMP, LIPID #### [facility] [address] [address] [address] Ryan [place] VLDL CALC 28.0 mg/dL Normal [facility] Comment on above: Performed By: #### T 7, TSH, CMP, LIPID #### [facility] [address] [address] [address] Ryan [place] PROF 14(COMP METB)on 022 Albumin [Mass/Vol] 3.7 g/dL Normal 3.4-5.0 [facility] Comment on above: Performed By: #### T 7, TSH, CMP, LIPID #### [facility] [address] [address] [address] Ryan [place] Albumin/Globulin [Mass ratio] 0.9 {ratio} Normal [facility] Comment on above: Performed By: #### T 7, TSH, CMP, LIPID #### [facility] [address] [address] [address] Ryan [place] ALP [Catalytic activity/Vol] 102 U/L Normal 46-116 [facility] Comment on above: Performed By: #### T 7, TSH, CMP, LIPID #### [facility] [address] [address] [address] Ryan [place] ALT [Catalytic activity/Vol] 19 U/L Normal 14-59 [facility] Comment on above: Performed By: #### T 7, TSH, CMP, LIPID #### [facility] [address] [address] [address] Ryan [place] Anion gap [Moles/Vol] 15.1 mmol/L Normal [facility] Comment on above: Performed By: #### T 7, TSH, CMP, LIPID #### [facility] [address] [address] [address] Ryan [place] AST [Catalytic activity/Vol] 17 U/L Normal 15-37 [facility] Comment on above: Performed By: #### T 7, TSH, CMP, LIPID #### [facility] [address] [place] [address] Dr. Ryan [place] Bilirubin [Mass/Vol] 0.7 mg/dL Normal 0.2-1.0 [facility] Comment on above: Performed By: #### T 7, TSH, CMP, LIPID #### [facility] [address] [address] [address] Ryan [place] Calcium [Mass/Vol] 8.3 mg/dL Critically low 8.5-10.1 [facility] Comment on above: Performed By: #### T 7, TSH, CMP, LIPID #### [facility] [address] [place] [address] Dr. Ryan [place] Chloride [Moles/Vol] 101 mmol/L Normal 98-107 [facility] Comment on above: Performed By: #### T 7, TSH, CMP, LIPID #### [facility] [address] [place] [address] Dr. Ryan [place] CO2 [Moles/Vol] 23.8 mmol/L Normal 21.0-32.0 [facility] Comment on above: Performed By: #### T 7, TSH, CMP, LIPID #### [facility] [address] [place] [address] Dr. Ryan [place] Creatinine [Mass/Vol] 0.81 mg/dL Normal 0.55-1.02 [facility] Comment on above: Performed By: #### T 7, TSH, CMP, LIPID #### [facility] [address] [address] [address] Ryan [place]ley EGFR-AF COOK ISLANDER >60 Normal >=60 [facility] Comment on above: Performed By: #### T 7, TSH, CMP, LIPID #### [facility] [address] [address] [address] Ryan [place] EGFR-NON AF COOK ISLANDER >60 Normal >=60 [facility] Comment on above: Performed By: #### T 7, TSH, CMP, LIPID #### [facility] [address] [address] [address] Ryan [place] Globulin (S) [Mass/Vol] 4.0 g/dL Normal [facility] Comment on above: Performed By: #### T 7, TSH, CMP, LIPID #### [facility] [address] [address] [address] Ryan [place] Glucose [Mass/Vol] 95 mg/dL Normal 74-106 [facility] Comment on above: Performed By: #### T 7, TSH, CMP, LIPID #### [facility] [address] [address] [address] Ryan [place] Potassium [Moles/Vol] 3.9 mmol/L Normal 3.5-5.1 [facility] Comment on above: Performed By: #### T 7, TSH, CMP, LIPID #### [facility] [address] [address] [address] Ryan [place] Protein [Mass/Vol] 7.7 g/dL Normal 6.1-8.2 [facility] Comment on above: Performed By: #### T 7, TSH, CMP, LIPID #### [facility] [address] [address] [address] Ryan Bagley Sodium [Moles/Vol] 136 mmol/L Normal 136-145 [facility] Comment on above: Performed By: #### T 7, TSH, CMP, LIPID #### [facility] [address] [address] [address] Ryan Bagley Urea nitrogen [Mass/Vol] 9.0 mg/dL Normal 6.4-19.3 [facility] Comment on above: Performed By: #### T 7, TSH, CMP, LIPID #### [facility] [address] [address] [address] Ryan Bagley Urea nitrogen/Creatinine [Mass ratio] 11.1 mg/mg Normal [facility] Comment on above: Performed By: #### T 7, TSH, CMP, LIPID #### [facility] [address] [place] [address] Dr. Ryan [place] TSHon 02-10-2022 TSH 2.133 uIU/mL Normal 0.430-3.750 [facility] Comment on above: Performed By: #### T 7, TSH, CMP, LIPID #### [facility] [address] [place] [address] Dr. Ryan [place] TSH RANGE SEE BELOW Normal [facility] Comment on above: Result Comment: <0.3 4 UIU/ml HYPERTHYROID 0.34-5.60 UIU/ml EUTHYROID >5.60 UIU/ml HYPOTHYROID Performed By: #### T 7, TSH, CMP, LIPID #### [facility] [address] [place] [address] Dr. Ryan [place] VITAMIN D 25 OHon 02-10-2022 VIT D 25-OH 11.3 ng/mL Normal [facility] Comment on above: Performed By: #### V ITAD, IRON #### [facility] [address] [place] [address] Dr. Ryan [place] VIT D RANGES SEE BELOW Normal [facility] Comment on above: Result Comment: <20 ng/mL Vit D deficient 20 - <30 ng/mL Vit D insufficient 30 - 100 ng/mL Vit D sufficient >100 ng/mL Potential Toxicity Performed By: #### V ITAD, IRON #### [facility] [address] [place] [address] Dr. Ryan [place] IRON + TIBCon 01-03-2022 % SATURATION 11 % Low 25 - 45 [facility] Comment on above: Performed By: #### I RONT #### [facility] [address] [place] [address] Iron [Mass/Vol] 36 ug/dL Normal 35 - 150 [facility] Comment on above: Performed By: #### I KRISTI #### [facility] [address] [place] [address] TIBC 334 ug/dL Normal 240 - 445 [facility] Comment on above: Performed By: #### I KRISTI #### [facility] [address] [place] [address] CBC AND DIFFERENTIALon 01-02 % AUTOMATED IMMATURE GRAN 0.4 % Normal 0.0 - 0.9 [facility] Comment on above: Result Comment: Katlin ture Granulocyte Count (IG) includes promyelocytes, myelocytes and metamyelocytes but does not include bands. Percent differential counts (%) should be interpreted in the context of the absolute cell counts (cells/L). Performed By: #### C BCDF #### [address] [id number] Basophils (Bld) [#/Vol] 0.07 10*3/uL Normal 0.00 - 0.10 [facility] Comment on above: Performed By: #### C BCDF #### [address] [id number] Basophils/100 WBC (Bld) 0.6 % Normal 0.0 - 2.0 [facility] Comment on above: Performed By: #### C BCDF #### [address] [id number] Eosinophils (Bld) [#/Vol] 0.14 10*3/uL Normal 0.00 - 0.70 [facility] Comment on above: Performed By: #### C BCDF #### [address] [id number] Eosinophils/100 WBC (Bld) 1.1 % Normal 0.0 - 6.0 [facility] Comment on above: Performed By: #### C BCDF #### [address] [id number] Erythrocyte distribution width (RBC) [Ratio] 16.5 % High 11.5 - 14.5 [facility] Comment on above: Performed By: #### C BCDF #### [address] [id number] Hematocrit (Bld) [Volume fraction] 46.8 % High 36.0 - 46.0 [facility] Comment on above: Performed By: #### C BCDF #### [address] [id number] Hemoglobin (Bld) [Mass/Vol] 13.7 g/dL Normal 12.0 - 16.0 [facility] Comment on above: Performed By: #### C BCDF #### [address] [id number] Lymphocytes (Bld) [#/Vol] 3.77 10*3/uL Normal 1.20 - 4.80 [facility] Comment on above: Performed By: #### C BCDF #### [address] [id number] Lymphocytes/100 WBC (Bld) 30.5 % Normal 13.0 - 44.0 [facility] Comment on above: Performed By: #### C BCDF #### [address] [id number] MCHC (RBC) [Mass/Vol] 29.3 g/dL Low 32.0 - 36.0 [facility] Comment on above: Performed By: #### C BCDF #### [address] [id number] MCV (RBC) [Entitic vol] 79 fL Low 80 - 100 [facility] Comment on above: Performed By: #### C BCDF #### [address] [id number] Monocytes (Bld) [#/Vol] 0.94 10*3/uL Normal 0.10 - 1.00 [facility] Comment on above: Performed By: #### C BCDF #### [address] [id number] Monocytes/100 WBC (Bld) 7.6 % Normal 2.0 - 10.0 [facility] Comment on above: Performed By: #### C BCDF #### [address] [id number] Neutrophils (Bld) [#/Vol] 7.41 10*3/uL Normal 1.20 - 7.70 [facility] Comment on above: Performed By: #### C BCDF #### [address] [id number] Neutrophils/100 WBC (Bld) 59.8 % Normal 40.0 - 80.0 [facility] Comment on above: Performed By: #### C BCDF #### [address] [id number] Platelets (Bld) [#/Vol] 427 10*3/uL Normal 150 - 450 [facility] Comment on above: Performed By: #### C BCDF #### [address] [id number] RBC 5.92 x10E12/L High 4.00 - 5.20 [facility] [place] Comment on above: Performed By: #### C BCDF #### [address] [id number] WBC (Bld) [#/Vol] 12.4 10*3/uL High 4.4 - 11.3 [facility] Comment on above: Performed By: #### C BCDF #### [address] [id number] FERRITINon 01-02-2022 FERRITIN 59 ug/L Normal 8 - 150 [facility] Comment on above: Performed By: #### F ERRI #### [facility] [address] [place] [address] Peds Nephrologyon 10-02-2021 Peds Nephrology No report [...] making, as documented on the trainee's note. Wnedy Leyva MD, MS Bottom Crane Operator of Pediatric Nephrology 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 She endorses chronic fatigue - stable. She [...] did reveal a patent foramen ovale with [id number] shunting by color-flow Doppler. No evidence of [...] Ongoing cardiology follow-up not needed Chief Complaint HIDE DYER evaluation for recent pulmonary embolism and recent [...] was transferred from the outside hospital to [facility] for management of worsening respiratory distress. [...] history of proteinuria. Wendy Leyva MD, MS Bottom Crane Operator of Pediatric Nephrology [facility] [address] [address] [place] [address] Chief Complaint An interactive audio [...] ZEE tinoco in the Nephrology Clinic at [facility] today for follow-up evaluation of hypertension. As [...] trip in their RV next week to [place] Review of Systems The remainder of a [...] with IgEon 11-04-2020 Alternaria Alternata <0.10 Normal [facility] 0 [facility] Comment on above: Performed By: #### A LLERGEN 5, MOUSE EPITHELIA #### [facility] , Magno White Allergen <0.10 Normal Class 0 [facility] Comment on above: Performed By: #### A LLERGEN 5, MOUSE EPITHELIA #### [facility] , Aspergillis Fumigatus Allergen <0.10 [facility] 0 [facility] Comment on above: Performed By: #### A LLERGEN 5, MOUSE EPITHELIA #### [facility] , Bermuda Grass Allergen <0.10 Normal [facility] 0 [facility] Comment on above: Performed By: #### A LLERGEN 5, MOUSE EPITHELIA #### [facility] , [place] Common Silver Aller <0.10 Normal [facility] 0 [facility] Comment on above: Performed By: #### A LLERGEN 5, MOUSE EPITHELIA #### [facility] , Cat Hair/Dander Allergen <0.10 [facility] 0 [facility] Comment on above: Performed By: #### A LLERGEN 5, MOUSE EPITHELIA #### [facility] , [place], Mountain Allergen <0.10 Normal Class 0 [facility] Comment on above: Performed By: #### A LLERGEN 5, MOUSE EPITHELIA #### [facility] , Cladosporium Herbarum <0.10 Normal Class 0 [facility] Comment on above: Performed By: #### A LLKIRILLN 5, MOUSE EPITHELIA #### [facility] , CLASS DESCRIPTION Normal . [facility] Comment on above: Result Comment: Forest gill [...] 5, MOUSE EPITHELIA #### [facility] , Cockroach Iranian Allergen <0.10 Normal Class 0 [facility] Comment on above: Performed By: #### A LLERGEN 5, MOUSE EPITHELIA #### [facility] , [place] Allergen <0.10 Normal Class 0 [facility] Comment on above: Performed By: #### A LLERGEN 5, MOUSE EPITHELIA #### [facility] , D Farinae Mite Allergen <0.10 Normal Class 0 [facility] Comment on above: Performed By: #### A LLERGEN 5, MOUSE EPITHELIA #### [facility] , D Pteronyssinus Allergen <0.10 Normal Class 0 [facility] Comment on above: Performed By: #### A LLERGEN 5, MOUSE EPITHELIA #### [facility] , Dog Hair/Dander Allergen <0.10 Normal Class 0 [facility] Comment on above: Performed By: #### A LLERGEN 5, MOUSE EPITHELIA #### [facility] , Elm Tree Allergen <0.10 Normal Class 0 [facility] Comment on above: Performed By: #### A LLERGEN 5, MOUSE EPITHELIA #### [facility] , Immunoglobulin E 13 Normal 6-495 [facility] Comment on above: Performed By: #### A LLERGEN 5, MOUSE EPITHELIA #### [facility] , Maple/Long Beach Allergen <0.10 [facility] 0 [facility] Comment on above: Performed By: #### A LLERGEN 5, MOUSE EPITHELIA #### [facility] , Mouse Urine Allergen <0.10 [facility] 0 [facility] Comment on above: Performed By: #### A LLERGEN 5, MOUSE EPITHELIA #### [facility] , [place], White Allergen <0.10 [facility] 0 [facility] Comment on above: Performed By: #### A LLERGEN 5, MOUSE EPITHELIA #### [facility] , Moro Tree Allergen <0.10 [place] [facility] 0 [facility] Comment on above: Performed By: #### A LLERGEN 5, MOUSE EPITHELIA #### [facility] , Pecan/[place] Tree Allergen <0.10 [facility] 0 [facility] Comment on above: Performed By: #### A LLERGEN 5, MOUSE EPITHELIA #### [facility] , Penicillium Chrysogen Mold All <0.10 [facility] 0 [facility] Comment on above: Performed By: #### A LLERGEN 5, MOUSE EPITHELIA #### [facility] , Pigweed Allergen <0.10 [facility] 0 [facility] Comment on above: Performed By: #### A LLERGEN 5, MOUSE EPITHELIA #### [facility] , Ragweed Short Allergen <0.10 Normal Class 0 [facility] Comment on above: Performed By: #### A LLERGEN 5, MOUSE EPITHELIA #### [facility] , Dutch [place] Sheep Allergen <0.10 Normal Class 0 [facility] Comment on above: Performed By: #### A LLERGEN 5, MOUSE EPITHELIA #### [facility] , Larue Allergen <0.10 Normal Class 0 [facility] Comment on above: Performed By: #### A LLERGEN 5, MOUSE EPITHELIA #### [facility] , Thistle Togolese Allergen <0.10 Normal Class 0 [facility] Comment on above: Performed By: #### A LLERGEN 5, MOUSE EPITHELIA #### [facility] , Du Allergen <0.10 Normal Class 0 [facility] Comment on above: Performed By: #### A LLERGEN 5, MOUSE EPITHELIA #### [facility] , Danielson Tree Pollen Allergen <0.10 Normal Class 0 [facility] Comment on above: Performed By: #### A LLERGEN 5, MOUSE EPITHELIA #### [facility] , Mouse Epithelia Allergenon 0 11-04-2020 Mouse Epithelia Allergen <0.10 Normal Class 0 [facility] Comment on above: Result Comment: Perf ormed at: - [address] [id number] Gambreler Helper: Wu Sesay MD, Phone: [phone] PERFORMED BY: [facility] [address] [place] [address] PATHOLOGIST SALES PROJECT ENGINEER LUIS HENSON M.D. Performed By: #### A [...] . I will find out if our shoe cutter can put an IUD in at the [...] or you have questions about the plan ([phone]). Please call us if you are having [...] we discussed other options today. I emailed it help desk manager, heme onc and cardiology about her case [...] providers including hematology, my partners in pulmonology, it help desk manager and cardiology Chief Complaint followup Accompanied by mother. History of Present Illness Today (11/04/2020) I am seeing ZEE JACOBSON as a hospital followup Hospital followup from stay dated: 10/16/20-10/23/20 at [facility]. was at [facility] for 2 days prior to being transferred [...] for t (more content not included)... Normal [place] Renal Function Panelon 11-04 Albumin [Mass/Vol] 3.6 g/dL Normal 3.2-5.5 [facility] Comment on above: Result Comment: PERF ORMED BY: [place] [address] PATHOLOGIST SALES PROJECT ENGINEER LUIS HENSON M.D. Performed By: #### R ENAL #### [address] Calcium [Mass/Vol] 9.2 mg/dL Normal 8.2-10.2 [facility] Comment on above: Performed By: #### R ENAL #### [facility] [address] [place] [address] [place] Chloride [Moles/Vol] 107 mmol/L Normal 95-114 [facility] Comment on above: Performed By: #### R ENAL #### [address] CO2 [Moles/Vol] 21.5 mmol/L Low 22.0-30.0 [facility] Comment on above: Performed By: #### R ENAL #### [facility] [address] [place] [address] [place] Creatinine [Mass/Vol] 0.78 mg/dL Normal 0.44-1.03 [facility] Comment on above: Performed By: #### R ENAL #### [facility] [address] Glucose [Mass/Vol] 85 mg/dL Normal 70-100 [facility] Comment on above: Result Comment: [facility] Glucose Reference Range is dependent on time and content of last meal. Glucose of more than 200 mg/dL in a nonstressed, ambulatory subject supports the diagnosis of Diabetes Mellitus. ADA recommended reference range Performed By: #### R ENAL #### [facility] [address] Phosphate [Mass/Vol] 4.3 mg/dL Normal 2.5-4.6 [facility] Comment on above: Performed By: #### R ENAL #### [facility] [address] Potassium [Moles/Vol] 3.9 mmol/L Normal 3.5-5.1 [facility] Comment on above: Performed By: #### R ENAL #### [facility] [address] Sodium [Moles/Vol] 137 mmol/L Low 138-145 [facility] Comment on above: Performed By: #### R ENAL #### [facility] [address] Urea nitrogen [Mass/Vol] 9 mg/dL Normal 9-23 [facility] Comment on above: Performed By: #### R ENAL #### [facility] [address] ED Clinical Summaryon 2017 ED Clinical Summary (Inserted Image. Brittnee ble to display) [place] [address] ED Clinical SummaryPerson Information Name: ZEE JACOBSON/[facility]_Keven Age: 12 Years : 2005 12:00 AM Sex: Female Language:Frisian PCP: Susan Leung MD Marital Status:Single Phone: [phone] MRN: Visit Id: Visit Reason:Ear pain; RIGHT [...] PM 03/28/2018 11:51 PM 03/28/2018 11:51 PM ADDRESS:[address] [place] [id number] [facility] DOC NOTES: MEDICAL INFORMATION: Prescriptions Given:Prescription Display acetaminophen-hydrocodone ([place] 325 mg-5 mg oral tablet) 1-2 tab(s), [...] Follow up:With: Address: When: Susan Leung [address] [facility], [address] [place] [id number] Business (1) In 3 days 03/31/2018 Comments: Call in morning for recheck before the weekend, Medication as directed. Cotton ball to Ear canal may be helpful. No Swimming for 2 weeks or until released by Dr Leung DIAGNOSIS:Otitis media; Ruptured eardrum Normal [facility] ED Note-Physicianon 03-29-20 ED Note-Physician Basic Information Ti me Seen: Frank Coronado PA-C 03/28/2018 23:02Chief Complaint c/o right ear pain since yesterday PM. was [place] c/o muffled sound.History of Present Illness 12-year-old [...] Tab, 600 mg= 1 tab(s), Oral, q8hr [place] 325 mg-5 mg oral tablet, 1-2 tab(s), Oral, q6hr, PRN Follow-up With When Contact Information Susan Madhu In 3 days 03/31/2018 EDT 12[address] [facility] [place] [id number]- Business (1) Additional Instructions: Call in morning [...] mg-125 mg Tab, 1 tab(s), Oral, Once [place] 5/325 Tab, 2 tab(s), Oral, Once, PRN [place] 5/325 Tab, 2 tab(s), Oral, Once, PRN Home Augmentin 875 mg-125 mg Tab, 1 tab(s), Oral, q12hr hydrocortisone/neomycin/p olymyxin B Otic Ramandeep, 2 drop(s), Otic, QID ibuprofen 600 mg Tab, 600 mg= 1 tab(s), Oral, q8hr [place] 325 mg-5 mg oral tablet, 1-2 tab(s), Oral, q6hr, PRNAllergies No Known AllergiesSocial History Alcohol - Denies Alcohol Use, 03/28/2018Lab Results No qualifying data available.Diagnostic Results No qualifying data available. Normal [facility] Comment on above: Result Comment: Elec [...] in the outer ear canal.? Only take yiof-iqm-mvzxvap or prescription medicines for pain, discomfort, or [...] 12/19/2012 Document Reviewed: 09/26/2009ExitCare? Patient Information ?2014 [employer]. This information is not intended to replace advice given to you by your health care provider. Make sure you discuss any questions you have with your health care provider. Normal [facility] ED Patient Summaryon 018 ED Patient Summary (Inserted Image. Brittnee ble to display) [address] [address] Patient Discharge Instructions Person Information Name: ZEE JACOBSON Age: 12 Years Date: 03/28/2018 10:51 PMDischarge Diagnosis: Otitis media; Ruptured eardrum Primary Care Physician: Susan Leung MD Provider InformationPrimary Provider: Advanced Astro Technician:Frank Coronado PA-C The exam and treatment you received in the Emergency Department were for an urgent problem and are not intended as complete care. It is important that you follow up with a doctor, nurse practitioner, or physician?s licensed nursing assistant for ongoing care. If your symptoms become worse or you do not improve as expected and you are unable to reach your usual health care provider, you should return to the Emergency Department. We are available 24 hours a day. ZEE JACOBSON has been given the following list of patient education materials, prescriptions and follow-up instructions: Follow-up Instructions:With: Address: When: Susan Leung [address] [place] [address] [place] [id number] [facility] () In 3 days 03/31/2018 [...] opioids can be used to help relieve vagqcctb-wc-gpnbmw pain and are often prescribed following a [...] be struggling with addiction, tell your health ambulatory care nurse and ask for guidance or call JEFFAmaya?[employer] National [employer] at 7-192-122-XZBE. v Source: [place] Department of Health and Human Services/Center for Disease Control & Prevention [facility] Medications Given:Medication Dose Route No medications found. Medication Information:New MedicationsPrinted Prescriptionsacetaminophe n-hydrocodone ([place] 325 mg-5 mg oral tablet) 1-2 tab(s) [...] 0.Comment: Pharmacy Information: Thank you for choosing [facility] Patient Education Materials: Eardrum PerforationThe eardrum is [...] in the outer ear canal.? Only take bkdg-piy-xkaugpx or prescription medicines for pain, discomfort, or [...] 12/19/2012 Document Reviewed: 09/26/2009ExitCare? Patient Information ?[address] [facility]. This information is not intended to replace advice given to you by your health care provider. Make sure you discuss any questions you have with your health care provider.KAVON Modi LILY E , have received the following patient education materials/instructions and have verbalized understanding: Patient Education Materials: Eardrum Perforation Follow-up Instructions: With: Address: When: Susan Leung [facility] [facility], [place] [address] [facility] (1) In 3 days 03/31/2018 Comments: Call in morning for recheck before the weekend, Medication as directed. Cotton ball to Ear canal may be helpful. No Swimming for 2 weeks or until released by Dr Leung Prescriptions: [acetaminophen-hydrocodon e ([place] 325 mg-5 mg oral tablet)] [amoxicillin-clavulanate (Augmentin 875 mg-125 mg Tab)] [hydrocortisone/neomycin/ polymyxin B otic (hydrocortisone/neomycin/ polymyxin B Otic Ramandeep)] [ibuprofen (ibuprofen 600 mg Tab)] Patient Signature __ Date Clinician/Nurse Signature Date 03/28/18 23:51:16 [facility] Progress Note-Nurseon 2017 Progress Note-Nurse pt was educated on N orco. 2 tabs were given here as ordered, 2 tabs sent home. patient instructed to take medications as needed but not until after 6am to allow time in between. mother verbalizes understanding. verbalizes understanding on prescriptions and follow up as well. [facility] Encounters Encounter Date Encounter Type Care Provider Facility Start: 03-31-2024 End: 04-01-2024 Emergency department [facility] Start: 03-31-2024 End: 03-31-2024 Emergency department [facility] Start: 12-25-2022 End: 12-26-[address] SUSAN LEUNG . Facility:[facility] Start: 10-07-2022 End: 10-07-2022 ambulatory DIANE DAVIS Facility:[facility] Start: 08-10-2022 End: 08-11-[address] LUCY RICHTER . Facility:[facility] Start: 05-15-2022 End: 05-15-[address] LUCY RICHTER . Facility:[facility] Start: 02-10-2022 End: 02-11-[address] SUSAN LEUNG . Facility:[facility] Start: 09-15-2021 AUDIT Susan Leung Work Phone: [facility] Work Phone: Start: 05-12-2021 Rx Renewal Susan Leung Work Phone: [facility] Work Phone: Start: 11-14-2020 Patient encounter procedure Wendy Matthewyce [facility] Work Phone: Start: 11-04-2020 Patient encounter procedure Wendy Leyva [facility] Work Phone: Start: 03-29-2018 End: 03-29-2018 Emergency department patient visit [id number] UNKNOWN Madhu Facility:[facility] Procedures Date Procedure Procedure Detail Performing Clinician [...] Detail Author Start: 10-02-2021 JOSE MARIA, Provider: eWndy Leyva, Status: Pen, Time: 11:20 AM JOSE MARIA Provider: Wendy Leyva, Status: Pen, Time: 11:20 AM [facility] Work Phone: [facility] Work Phone: NEGATED: Highlighted row has been ruled out! Planned Goals not documented [facility] Work Phone: Payers Date Payer Category Payer Unknown [id number] 2022 Medicaid [id number] 2018 Unknown [id number] 2003 Unknown [id number] 2003 Unknown [id number] 2003 Unknown [id number] 2003 Unknown [id number] 2003 Unknown [id number] 2003 Unknown [id number] 2003 Unknown [id number] 1959 Unknown [id number] Unknown [facility] MEDICAID Social History Date Type Detail Facility Lives with parents Lives with parents [facility] Work Phone: NEGATED: Highlighted row - - [facility] Work Phone: Functional Status Date Assessment Result Facility NEGATED: Highlighted row Functional performance Functional status health issues are not documented Disease [facility] Work Phone: Mental Status Date Assessment Result Facility NEGATED: Highlighted row Cognitive function [Interpretation] Cognitive status health issues are not documented Disease [facility] Work Phone: Summary Purpose Family [...] section and content) DATE CREATED AUTHOR 03/29/2018 [facility] DATE CREATED AUTHOR AUTHOR'S ORGANIZ ATION 11/08/2020 [facility] DATE CREATED AUTHOR AUTHOR'S ORGANIZ ATION 10/03/2021 [facility] DATE CREATED AUTHOR AUTHOR'S ORGANIZ ATION 06/07/2022 [facility] DATE CREATED AUTHOR AUTHOR'S ORGANIZ ATION 01/03/2023 [facility] DATE CREATED AUTHOR AUTHOR'S ORGANIZ ATION 04/02/2024 [facility] FOR RECORDS PERTAINING TO PATIENTS WHO [...] BE BASED ON THE PRIMARY CLINICAL RECORDS. [employer] provides no warranty or guarantee of the accuracy or completeness of information in this document.
[2025-05-26 10:27] LABS: Hematocrit 47.2 % (36.0-48.0); Hemoglobin 15.9 g/dL (12.0-16.0); Immature Granulocytes Abs Auto 0.02 10^3/uL (0.00-0.03); Immature Granulocytes Pct Auto 0.2 % (0.0-0.5); Lymphocytes Absolute Auto 3.5 10^3/uL (1.2-3.8); Mean Corpuscular HGB Conc 33.7 g/dL (29.9-35.2); Mean Corpuscular Hemoglobin 27.7 pg (26.7-34.0); Mean Corpuscular Volume 82.1 fL (81.0-99.0); Platelet Count 325 10^3/uL (150-450); Red Blood Count 5.75 10^6/uL (4.20-5.40); White Blood Count 8.1 10^3/uL (4.0-11.0)
[2025-05-26 11:04] LABS: Alanine Aminotransferase 21 U/L (14-59); Albumin Globulin Ratio 0.9; Albumin Level 3.8 g/dL (3.4-5.0); Alkaline Phosphatase 96 U/L (46-116); Anion Gap 12.8; Aspartate Amino Transferase 15 U/L (15-37); Blood Urea Nitrogen 13.0 mg/dL (7.0-18.0); Calcium 9.2 mg/dL (8.5-10.1); Carbon Dioxide 26.2 mmol/L (21.0-32.0); Chloride 104 mmol/L (98-107); Cholesterol 239 mg/dL (<=200); Estimated GFR (African America >60 (>=60 mL/min/1.73m^2); Estimated GFR (Non-African Ame >60 (>=60 mL/min/1.73m^2); Free T3 2.32 pg/mL (2.18-3.98); Globulin 4.2 g/dL; Glucose 97 mg/dL (74-106); HDL Cholesterol 46 mg/dL (40-60); Potassium 4.0 mmol/L (3.5-5.1); Sodium 139 mmol/L (136-145); Thyroid Stimulating Hormone 2.433 uIU/mL (0.358-3.740); Total Protein 8.0 g/dL (6.4-8.2); Triglycerides 81 mg/dL (<=150); VLDL CHOLESTEROL 16.2 mg/dL
[2025-05-26 11:11] LABS: Iron 66.0 ug/dL (50.0-170.0)
== END 2025-05-26 09:44 | disposition home or self-care (01) ==
LOC: LAB 09:50
PROVIDERS: PCP Family Medicine; Visit Provider Family Medicine
DX: Z00.00 Encounter for general adult medical examination without abnormal findings (principal)
CPT/HCPCS: 36415; 80053; 80061; 82306; 83036; 83525; 83540; 84436; 84443; 84481; 85025

== ENCOUNTER 2025-07-30 18:50 | Outpatient (OUT) | payer BC, SELFPAY ==
--- OUTSIDE RECORDS SUMMARY | 2025-07-30 18:54 | XMS_ITS | CCD ---
Author Organization [facility] Care Team Providers Care Security Nurse Name Role Phone Susan [phone] UNKNOWN Unavailable Unavailable Román Charlton Unavailable Unavailable [...] (1 source) Estrogens; Translations: [Estrogens] Drug Allergy VM-Qdfrznrfzg-C [facility] Work Phone: (2 sources) Estrogens; Translations: [Estrogens] Drug Allergy PZ-Bzwvaqigxs-H [facility] Work Phone: (1 source) Estradiol Drug Allergy 10-11-2020 [facility] Repository (1 source) Estradiol; Translations: [ESTRADIOL] Drug [...] DO Start : 04-Nov-2020 Active 30 ML [place] Btl norethindrone acetate 5 mg oral tablet [...] 03-31-20 ABSOLUTE BASOPHIL 0.0 X10E9/L Normal 0.0-0.2 [facility] Comment on above: Performed By: #### Zoë MITTAL, 64504-0, CMP, 1988-02, , 50169- 7 #### [facility] ([id number]) [address] [place] [address] 49097 ABSOLUTE NEUTROPHIL 6.2 X10E9/L Normal 1.5-6.6 [facility] Comment on above: Performed By: #### Zoë MITTAL, 64650-5, CMP, 1988-02, , 77801- 7 #### [facility] ([id number]) [address] [place] [address] 92470 Basophils/100 WBC (Bld) 0.3 % Normal [facility] Comment on above: Performed By: #### Zoë MITTAL, 36494-1, CMP, 1988-02, , 34981- 7 #### [facility] ([id number]) [address] [place] [address] 19481 Eosinophils (Bld) [#/Vol] 0.2 10*3/uL Normal 0.0-0.4 [facility] Comment on above: Performed By: #### Zoë MITTAL, 70953-0, CMP, 1988-02, , 22030 7 #### [facility] ([id number]) [address] [place] [address] 90483 Eosinophils/100 WBC (Bld) 2.1 % Normal [facility] Comment on above: Performed By: #### Zoë MITTAL, 49101-2, CMP, 1988-02, , 88599- 7 #### [facility] ([id number]) [address] [place] [address] 56629 Erythrocyte distribution width (RBC) [Ratio] 14.0 % Normal 11.5-15.0 [facility] Comment on above: Performed By: #### Zoë MITTAL, 13972-6, [facility], 1988-02, , 83680- 7 #### [facility] ([id number]) [address] [place] [address] 42163 Hematocrit (Bld) [Volume fraction] 41.1 % Normal 35-47 [facility] Comment on above: Performed By: #### Zoë MITTAL, 60863-7, [facility], 1988-02, , 31224- 7 #### [facility] ([id number]) [address] [place] [address] 89176 Hemoglobin (Bld) [Mass/Vol] 13.9 g/dL Normal 11.7-15.5 [facility] Comment on above: Performed By: #### Zoë MITTAL, 35040-2, [facility], 1988-02, , 16378- 7 #### [facility] ([id number]) [address] [place] [address] 96180 Lymphocytes (Bld) [#/Vol] 4.4 10*3/uL High 1.0-3.5 [facility] Comment on above: Performed By: #### Zoë MITTAL, 51743-2, [facility], 1988-02, , 16360 #### [facility] ([id number]) [address] [place] [address] 88777 Lymphocytes/100 WBC (Bld) 38.2 % Normal [facility] Comment on above: Performed By: #### Zoë MITTAL, 94404-8, [facility], 1988-02, , 78418 7 #### [facility] ([id number]) [address] [place] [address] 73725 MCH (RBC) [Entitic mass] 27.2 pg Normal 27-34 [facility] Comment on above: Performed By: #### Zoë MITTAL, 78178-2, CMP, 1988-02, , 64655 7 #### [facility] ([id number]) [address] [place] [address] 53243 MCHC (RBC) [Mass/Vol] 33.8 g/dL Normal 32-36 [facility] Comment on above: Performed By: #### Zoë MITTAL, 06428-6, CMP, 1988-02, , 45696 #### [facility] ([id number]) [address] [place] [address] 31171 MCV (RBC) [Entitic vol] 80 fL Normal 80-100 [facility] Comment on above: Performed By: #### Zoë MITTAL, 13177-5, CMP, 1988-02, , 15918- 7 #### [facility] ([id number]) [address] [place] [address] 32445 Monocytes (Bld) [#/Vol] 0.7 10*3/uL Normal 0-0.9 [facility] Comment on above: Performed By: #### Zoë MITTAL, 51693-9, CMP, 1988-02, , 19531- 7 #### [facility] ([id number]) [address] [place] [address] 44379 Monocytes/100 WBC (Bld) 6.1 % Normal [facility] Comment on above: Performed By: #### Zoë MITTAL, 78577-5, CMP, 1988-02, , 36873 7 #### [facility] ([id number]) [address] [place] [address] 57205 Neutrophils/100 WBC (Bld) 53.3 % Normal [facility] Comment on above: Performed By: #### Zoë MITTAL, 23034-5, CMP, 1988-02, , 48410- 7 #### [facility] ([id number]) [address] [place] [address] 29433 Platelet mean volume (Bld) [Entitic vol] 7.4 fL Normal 7-12 [facility] Comment on above: Performed By: #### Zoë MITTAL, 22702-2, CMP, 1988-02, , 71704- 7 #### [facility] ([id number]) [address] [place] [address] 64043 Platelets (Bld) [#/Vol] 310 10*3/uL Normal 150-450 [facility] Comment on above: Performed By: #### Zoë MITTAL, 91580-1, CMP, 1988-02, , 09224- 7 #### [facility] ([id number]) [address] [place] [address] 07113 RBC COUNT 5.11 X10E12/L Normal 3.80-5.20 [facility] Comment on above: Performed By: #### Zoë MITTAL, 71924-5, CMP, 1988-02, , 06208- 7 #### [facility] ([id number]) [address] [place] [address] 34946 WBC (Bld) [#/Vol] 11.6 10*3/uL High 4.0-11.0 [facility] Comment on above: Performed By: #### Zoë MITTAL, 65162-7, CMP, 1988-02, , 45195- 7 #### [facility] ([id number]) [address] [place] [address] 10237 COMPREHENSIVE METABOLIC PANE Bill 03-31-2024 Albumin [Mass/Vol] 3.8 g/dL Normal 3.2-5.3 [facility] Comment on above: Performed By: #### Zoë MITTAL, 84559-7, CMP, 1988-02, , 64007 7 #### [facility] ([id number]) [address] [place] [address] 51539 ALP [Catalytic activity/Vol] 75 U/L Normal 39-130 [facility] Comment on above: Performed By: #### C BCA, 67295-0, CMP, 1988-02, , 51366- 7 #### [facility] ([id number]) [address] [place] [address] 20618 ALT [Catalytic activity/Vol] 16 U/L Normal 0-31 [facility] Comment on above: Performed By: #### C BCA, 07748-2, CMP, 1988-02, , 74550 7 #### [facility] ([id number]) [address] [place] [address] 05741 Anion gap [Moles/Vol] 3 mmol/L Low 5-15 [facility] Comment on above: Performed By: #### C BCA, 54304-3, CMP, 1988-02, , 81033- 7 #### [facility] ([id number]) [address] [place] [address] 43399 AST [Catalytic activity/Vol] 19 U/L Normal 0-41 [facility] Comment on above: Performed By: #### C BCA, 00183-6, CMP, 1988-02, , 25187 7 #### [facility] ([id number]) [address] [place] [address] 68783 Bilirubin [Mass/Vol] 0.6 mg/dL Normal 0.3-1.2 [facility] Comment on above: Performed By: #### C BCA, 83784-9, CMP, 1988-02, , 73969- 7 #### [facility] ([id number]) [address] [place] [address] 43233 Calcium [Mass/Vol] 8.7 mg/dL Normal 8.5-10.5 [facility] Comment on above: Performed By: #### C DAXA, 09016-6, CMP, 1988-02, , 40711- 7 #### [facility] ([id number]) [address] [place] [address] 11718 Chloride [Moles/Vol] 108 mmol/L Normal 98-109 [facility] Comment on above: Performed By: #### C DAXA, 78953-0, CMP, 1988-02, , 86442 7 #### [facility] ([id number]) [address] [place] [address] 31096 CO2 [Moles/Vol] 26 mmol/L Normal 22-32 [facility] Comment on above: Performed By: #### C DAXA, 30501-9, CMP, 1988-02, , 99380- 7 #### [facility] ([id number]) [address] [place] [address] 00639 Creatinine [Mass/Vol] 0.83 mg/dL Normal 0.40-1.00 [facility] Comment on above: Result Comment: METH OD TRACEABLE TO IDMS STANDARD Performed By: #### C DAXA, 84235-6, CMP, 1988-02, , 03549-0 #### [facility] ([id number]) [address] [place] [address] 73095 eGFR (CKD-EPI) NON-RACE DEPENDENT >90 Normal >59 [facility] Comment on above: Result Comment: Reported eGFR is based on the CKD-EPI 2020 equation that does not use a race coefficient. Performed By: #### C DAXA, 98692-2, CMP, 1988-02, , 27490-9 #### [facility] ([id number]) [address] [place] [address] 24473 Glucose [Mass/Vol] 88 mg/dL Normal 65-99 [facility] Comment on above: Performed By: #### C DAXA, 94228-3, CMP, 1988-02, , 39443- 7 #### [facility] ([id number]) [address] [place] [address] 29359 Potassium [Moles/Vol] 3.6 mmol/L Normal 3.5-5.0 [facility] Comment on above: Performed By: #### C BCA, 34618-1, CMP, 1988-02, , 25137- 7 #### [facility] ([id number]) [address] [place] [address] 75561 Protein [Mass/Vol] 6.9 g/dL Normal 6.0-8.0 [facility] Comment on above: Performed By: #### C BCA, 10562-9, CMP, 1988-02, , 94032- 7 #### [facility] ([id number]) [address] [place] [address] 76643 Sodium [Moles/Vol] 137 mmol/L Normal 134-146 [facility] Comment on above: Performed By: #### C BCA, 10785-0, CMP, 1988-02, , 40770- 7 #### [facility] ([id number]) [address] [place] [address] 96718 Urea nitrogen [Mass/Vol] 15 mg/dL Normal 5-23 [facility] Comment on above: Performed By: #### C BCA, 81167-4, CMP, 1988-02, , 74895- 7 #### [facility] ([id number]) [address] [place] [address] 67701 CRP [Mass/Vol]on 03-31-2024 C REACTIVE PROTEIN 1.5 mg/dL High 0.000-0.744 [facility] Comment on above: Performed By: #### C BCA, 58501-5, CMP, 1988-02, , 31202 7 #### [facility] ([id number]) [address] [place] [address] ABDOMEN AND PELVIS W CONT on [...] Bar MD on 03/31/2024 3:35 PM Normal [facility] DRUG SCREEN, URINEon 024 AMPHETAMINE/METHAMP Negative Normal NEG [facility] Comment on above: Result Comment: AMPH /METH screening cut off = 1000 ng/mL Performed By: #### D CRANDALL #### [facility] ([id number]) [address] [place] [address] 62451 BARBITURATES Negative Normal NEG [facility] Comment on above: Result Comment: Gisela iturates screening cut off value = 200 ng/mL Performed By: #### D CRANDALL #### [facility] ([id number]) [address] [place] [address] [place] [address] BENZODIAZEPINES Negative Normal NEG [facility] Comment on above: Result Comment: Zack odiazepines screening cut off value = 200 ng/mL Performed By: #### D CRANDALL #### [facility] ([id number]) [address] [place] [address] 25053 CANNABINOIDS Negative Normal NEG [facility] Comment on above: Result Comment: Valdo abinoids/THC screening cut off value = 50 ng/mL Performed By: #### D CRANDALL #### [facility] ([id number]) [address] [place] [address] 27100 COCAINE METABOLITE Negative Normal NEG [facility] Comment on above: Result Comment: Coca ine screening cut off value = 300 ng/mL Performed By: #### D CRANDALL #### [facility] ([id number]) [address] [place] [address] 14187 ECSTASY Negative Normal NEG [facility] Comment on above: Result Comment: Ecst asy screening cut off value = 500 ng/mL This report is intended for use in clinical monitoring or management of patients. Performed By: #### D CRANDALL #### [facility] ([id number]) [address] [place] [address] 97026 METHADONE Negative Normal NEG [facility] Comment on above: Result Comment: Meth adone screening cut off value = 300 ng/mL. Performed By: #### D CRANDALL #### [facility] ([id number]) [address] [place] [address] [place] [address] OPIATES Negative Normal NEG [facility] Comment on above: Result Comment: Opia albertina screening cut off value = 300 ng/mL NOTE: This test is used for the detection of codeine, hydrocodone (>1000 ng/mL), morphine and hydromorphone (>900 ng/mL) in urine. Performed By: #### D CRANDALL #### [facility] ([id number]) [address] [place] [address] 13795 OXYCODONE Negative Normal NEG [facility] Comment on above: Result Comment: Oxyc odone screening cut off value = 300 ng/mL NOTE: This test is used for the detection of oxycodone and oxymorphone in urine. Performed By: #### D CRANDALL #### [facility] ([id number]) [address] [place] [address] 67832 PHENCYCLIDINE Negative Normal NEG [facility] Comment on above: Result Comment: Phen cyclidine screening cut off value = 25 ng/mL Performed By: #### D CRANDALL #### [facility] ([id number]) [address] [place] [address] 43125 Fibrin D-dimer DDU (PPP) [Ma ss/Vol]on 03-31-2024 D DIMER <150 Normal <255 [facility] Comment on above: Result Comment: Results <255 ng/mL DDU: The presence of a VTE can safely be excluded with a negative D-Dimer result and Wells score. A negative result doesn't exclude the possibility of DIC. The test be repeated along with other diagnostic tests if the patient's symptoms persist or worsen. [email or web address] Performed By: #### C BCA, 48125-7, CMP, 1987-5, 92294-4, 98546-5 #### [facility] ([id number]) [address] [place] [address] 93077 HCG ( test) Ql (U)o n 03-31-2024 Beta HCG ( test) Ql (U) Negative Normal NEG [facility] Comment on above: Performed By: #### 2 106-3 #### [facility] ([id number]) [address] [place] [address] 50674 MAGNESIUMon 03-31-2024 Magnesium [Mass/Vol] 2.2 mg/dL Normal 1.8-2.6 [facility] Comment on above: Performed By: #### C DAXA, 97531-6, [facility], 1988-02, , 90403- 7 #### [facility] ([id number]) [address] [place] [address] 71657 Troponin I.cardiac High sens itivity method [Mass/Vol]on 03-31-2024 1 HOUR TROP I, HIGH SENSITIVITY <2 Normal <16 [facility] Comment on above: Result Comment: Reference ranges have not been established for patients under 21 years of age. Performed By: #### 8 9579-7 #### [facility] ([id number]) [address] [place] [address] 11794 TROPONIN I, HIGH SENSITIVITY <2 Normal <16 [facility] Comment on above: Result Comment: Reference ranges have not been established for patients under 21 years of age. Performed By: #### C DAXA, 50681-7, [facility], 1988-02, , 84433-2 #### [facility] ([id number]) [address] [place] [address] 24576 URN MACROSCOPIC NURon 2023 BILIRUBIN MIREYA Small Abnormal NEG [facility] Comment on above: Performed By: #### N UM #### [facility] ([id number]) [address] [place] [address] [place] [address] BLOOD/HGB MIREYA Negative Normal NEG [facility] Comment on above: Performed By: #### N UM #### [facility] ([id number]) [address] [place] [address] 95046 GLUCOSE MIREYA Negative Normal NEG [facility] Comment on above: Performed By: #### N UM #### [facility] ([id number]) [address] [place] [address] [place] [address] KETONES MIREYA Trace Abnormal NEG [facility] Comment on above: Performed By: #### N UM #### [facility] ([id number]) [address] [place] [address] 70307 LEUKOCYTE ESTERASE MIREYA Negative Normal NEG [facility] Comment on above: Performed By: #### N UM #### [facility] ([id number]) [address] [place] [address] 08050 NITRITE MIREYA Negative Normal NEG [facility] Comment on above: Performed By: #### N UM #### [facility] ([id number]) [address] [place] [address] 99524 PH MIREYA 5.5 Normal 5.0-8.5 [facility] Comment on above: Performed By: #### N UM #### [facility] ([id number]) [address] [place] [address] 13950 PROTEIN MIREYA Negative Normal NEG [facility] Comment on above: Performed By: #### N UM #### [facility] ([id number]) [address] [place] [address] 73457 SPECIFIC GRAVITY MIREYA >=1.030 Normal 1.003-1.035 [facility] Comment on above: Performed By: #### N UM #### [facility] ([id number]) [address] [place] [address] 29957 UROBILINOGEN MIREYA 0.2 eu/dL Normal <1.1 [facility] [place] Comment on above: Performed By: #### N UM #### [facility] ([id number]) [address] [place] [address] 75462 XR CSPINE MIN 4 VIEWSon 12-09 XR [...] ANTONIO BRADSHAW Date: 2022-12-25 15:36 Normal [facility]11 SARS-CoV-2 (COVID-19) RNA HAIDER+probe Ql (Unsp spec) Not detected Normal NOT DETECTED [facility] Comment on above: Result Comment: This test is not yet approved or cleared by the [place] FDA. When there are no FDA-approved or cleared tests available, and other criteria are met, FDA can make tests available under an emergency access mechanism called an Emergency Use Authorization (EUA). The EUA for this test is supported by the [place] of Health and Human Service's (HHS's) declaration [...] SARS-CoV-2. Performed By: #### C VDTBH #### [facility] [address] [place], [place] [address] Dr. Ryan Bagley INFLUENZA A AND B AGon 10-[facility] BELOW Normal [facility] Comment on above: Result Comment: Nega tive for Flu A protein angiten. Infection due to Flu A cannot be ruled out. Flu A angiten in the sample may be below the detection limit of the test. Performed By: #### I NFLUAB ####[facility] [address] [place], [place] [address]RuDr. Ryan Bagley INFLUBNEG SEE BELOW Normal [facility] Comment on above: Result Comment: Nega tive for Flu B protein antigen. Infection due to Flu B cannot be ruled out. Flu B antigen in the sample may be below the detection limit of the test. Performed By: #### I NFLUAB ####[facility] [address] [place], [place] [address]Rk. Ryan Bagley INFLUENZA A AG Negative Normal NEGATIVE SEE COMMENT [facility] Comment on above: Performed By: #### I NFLUAB ####[facility] [address] [place], [place] [address]It. Ryan Bagley INFLUENZA B AG Negative Normal NEGATIVE SEE COMMENT [facility] Comment on above: Performed By: #### I NFLUAB ####[facility] [address] [place], [place] [address]Kq. Ryan Kevyn US PELVISon 08-11-2022 US PELVIS [...] ANTONIO BRADSHAW Date: 2022-08-11 07:16 Normal [facility] CHLAMYDIA/GONOCOCCUS HAIDER (SW AB/URINE/PAPon 05-18-2022 Chlamydia trachomatis, HAIDER Negative Normal Negative [facility] Comment on above: Performed By: #### C T/NGNA #### [facility] [address] [place] [address] [address] Ryan Bagley Neisseria gonorrhoeae, HAIDER Negative Normal Negative [facility] Comment on above: Performed By: #### C T/NGNA #### [facility] [address] [place] [address] [address] Ryan Bagley VAGINITIS/VAGINOSIS DNA PROB Sarmad 05-17-2022 Dawn species Negative Normal Negative [facility] Comment on above: Performed By: #### V AGINT ####[facility] [address] [place] [address]Dr. Ryan Bagley Gardnerella vaginalis Negative Normal Negative [facility] Comment on above: Performed By: #### V AGINT ####[facility] [address] [place] [address]Dr. Ryan Bagley Trichomonas vaginalis Negative Normal Negative [facility] Comment on above: Performed By: #### V AGINT ####[facility] [address] [place] [address]Dr. Ryan Bagley INSULINon 02-11-2022 Insulin 31.4 uIU/mL Critically high 2.6-24.[address] [facility] Comment on above: Performed By: #### I NSULIN #### [facility] [address] [place] [address] [address] Ryan Bagley CBC AUTO DIFFon 02-10-2022 BASO # 0.1 103/ul Normal 0.0-0.1 [facility] Comment on above: Performed By: #### C BC ####[facility] [address] [place] [address]Dr. Ryan Bagley Basophils/100 WBC (Bld) 1.0 % Normal 0.2-2.0 [facility] Comment on above: Performed By: #### C BC ####[facility] [address] [place] [address]Dr. Ryan Bagley EO # 0.2 103/ul Normal 0.0-0.7 [facility] Comment on above: Performed By: #### C BC ####[facility] [address] [place] [address]Dr. Ryan Bagley Eosinophils/100 WBC (Bld) 3.1 % Normal 0.9-7.0 [facility] Comment on above: Performed By: #### C BC ####[facility] [address] [place] [address]Dr. Ryan Bagley Erythrocyte distribution width (RBC) [Ratio] 17.5 % Critically high 11.0-15.0 [facility] Comment on above: Performed By: #### C BC ####[facility] [address] [place] [id number]. Ryan Bagley Hematocrit (Bld) [Volume fraction] 47.4 % Normal 36.0-48.0 [facility] Comment on above: Performed By: #### C BC ####[facility] [address] [place] [address]Dr. Ryan Bagley Hemoglobin (Bld) [Mass/Vol] 14.7 g/dL Normal 12.0-16.0 [facility] Comment on above: Performed By: #### C BC ####[facility] [address] [place] [address]Dr. Ryan Bagley IG # 0.03 10e3/ul Normal 0.00-0.03 [facility] Comment on above: Performed By: #### C BC ####[facility] [address] [place] [address]Dr. Robynyana Bagley IG % 0.4 % Normal 0.0-0.5 [facility] Comment on above: Performed By: #### C BC ####[facility] [address] [place] [address]Dr. Ryan Kevyn LYMPH # 2.0 103/ul Normal 1.2-3.8 [facility] Comment on above: Performed By: #### C BC ####[facility] [address] [place] [address]Dr. Robynyana Bagley Lymphocytes/100 WBC (Bld) 28.9 % Normal 20.5-60.0 [facility] Comment on above: Performed By: #### C BC ####[facility] [address] [place] [address]Dr. Ryan Bagley MANUAL DIFF REQ NO Normal [facility] Comment on above: Performed By: #### C BC ####[facility] [address] [place], [place] [address]Dr. Ryan Bagley MCH (RBC) [Entitic mass] 24.2 pg Critically low 26.7-34.0 [facility] Comment on above: Performed By: #### C BC ####[facility] [address] [place] [address]Dr. Ryan Bagley MCHC (RBC) [Mass/Vol] 31.0 g/dL Normal 29.9-35.2 [facility] Comment on above: Performed By: #### C BC ####[facility] [address] [place] [address]Dr. Ryan Bagley MCV (RBC) [Entitic vol] 78.0 fL Critically low 81.0-99.0 [facility] Comment on above: Performed By: #### C BC ####[facility] [id number] [place], [place] [address]Dr. Ryan Bagley MONO # 0.5 103/ul Normal 0.3-0.8 [facility] Comment on above: Performed By: #### C BC ####[facility] [id number] [place], [place] [address]Dr. Robynyana Bagley Monocytes/100 WBC (Bld) 6.8 % Normal 1.7-12.0 [facility] Comment on above: Performed By: #### C BC ####[facility] [id number] [place], [place] [address]Dr. Ryan Bagley NEUT # 4.2 103/ul Normal 1.4-6.5 [facility] Comment on above: Performed By: #### C BC ####[facility] [id number] [place], [place] [id number]. Ryan Bagley Neutrophils/100 WBC (Bld) 59.8 % Normal 43.0-75.0 [facility] Comment on above: Performed By: #### C BC ####[facility] [address] [place], [place] [address]Dr. Ryan Bagley Platelet mean volume (Bld) [Entitic vol] 8.7 fL Critically low 9.5-13.5 [facility] Comment on above: Performed By: #### C BC ####[facility] [address] [place], [place] [id number]. Ryan Kevyn PLT 268 103/ul Normal 150-450 [facility] Comment on above: Performed By: #### C BC ####[facility] [address] [place], [place] [address]YiKing Bagley RBC 6.08 106/ul Critically high 4.20-5.[address] [facility] Comment on above: Performed By: #### C BC ####[facility] [address] [place], [place] [address]YvKing Bagley WBC 7.0 103/ul Normal 4.0-11.0 [facility] Comment on above: Performed By: #### C BC ####[facility] [address] [place] [id number]. Ryan Bagley FREE THYROXINE INDEX T7on FTI 3.06 Normal [facility] Comment on above: Performed By: #### T 7, TSH, CMP, LIPID #### [facility] [address] [address] [address] Ryan Bagley T3U 36.0 % Normal 23.5-40.5 [facility] Comment on above: Performed By: #### T 7, TSH, CMP, LIPID #### [facility] [address] [address] [address] Ryan Bagley T4 [Mass/Vol] 8.50 ug/dL Normal 5.40-10.60 [facility] Comment on above: Performed By: #### T 7, TSH, CMP, LIPID #### [facility] [address] [address] [address] Ryan Bagley GLYCOHEMOGLOBIN A1Con 2021 ADA RECOMMENDATION SEE BELOW Normal The [facility] Comment on above: Result Comment: ADA RECOMMENDED LIMIT 4.0 - 6.0 ADA THERAPEUTIC TARGET < 7.0 ACTION SUGGESTED > 7.0 Performed By: #### A 1C ####[facility] [address] [place] [id number]. Ryan Bagley Glucose [Mass/Vol] 108 mg/dL Normal [facility] Comment on above: Performed By: #### A 1C ####[facility] [address] [place] [id number]. Ryan Bagley HbA1c (Bld) [Mass fraction] 5.4 % Normal 4.5-6.2 [facility] Comment on above: Performed By: #### A 1C ####[facility] [address] [place], [place] [address]RvDr. Ryan Bagley IRONon 02-10-2022 Iron [Mass/Vol] 50.0 ug/dL Normal 50.0-170.0 [facility] Comment on above: Performed By: #### V ITAD, IRON ####[facility] [address] [place], [place] [address]AsDr. Ryan Bagley LIPID PROFILEon 02-10-2022 CHOL-HDL RATIO NORM SEE BELOW Normal [facility] Comment on above: Result Comment: 3.3 - 4.4 LOW RISK 4.4 - 7.1 AVERAGE RISK 7.1 - 11.0 MODERATE RISK >11.0 HIGH RISK Performed By: #### T 7, TSH, CMP, LIPID #### [facility] [address] [address] [address] Ryan Bagley Cholesterol [Mass/Vol] 215 mg/dL Normal 104-227 [facility] Comment on above: Performed By: #### T 7, TSH, CMP, LIPID #### [facility] [id number] Ryan Bagley Cholesterol in HDL [Mass/Vol] 42 mg/dL Normal 29-69 [facility] Comment on above: Performed By: #### T 7, TSH, CMP, LIPID #### [facility] [id number] Ryan Bagley Cholesterol in LDL [Mass/Vol] 145.0 mg/dL Critically high 46.0-140.0 [facility] Comment on above: Performed By: #### T 7, TSH, CMP, LIPID #### [facility] [address] [place], [place] [address] Dr. Ryan Bagley Cholesterol.total/C holesterol in HDL [Mass ratio] 5.1 {ratio} Normal [facility] Comment on above: Performed By: #### T 7, TSH, CMP, LIPID #### [facility] [address] [place], [place] [address] Dr. Ryan Bagley HDL NORMAL > or = 60 mg/dl - LO W CARDIOVASCULAR RISK <40 mg/dl - HIGH CARDIOVASCULAR RISK Normal [facility] Comment on above: Performed By: #### T 7, TSH, CMP, LIPID #### [facility] [address] [address] [address] Ryan Bagley LDL CALC NORMAL SEE BELOW Normal [facility] Comment on above: Result Comment: <100 mg/dl OPTIMAL 100 - 129 mg/dl NEAR OR ABOVE OPTIMAL 130 - 159 mg/dl BORDERLINE HIGH 160 - 189 mg/dl HIGH >190 mg/dl VERY HIGH Performed By: #### T 7, TSH, CMP, LIPID #### [facility] [address] [address] [address] Ryan Bagley Triglyceride [Mass/Vol] 140 mg/dL Normal 53-208 [facility] Comment on above: Performed By: #### T 7, TSH, CMP, LIPID #### [facility] [address] [address] [address] Ryan Bagley VLDL CALC 28.0 mg/dL Normal [facility] Comment on above: Performed By: #### T 7, TSH, CMP, LIPID #### [facility] [address] [address] [address] Ryan Bagley PROF 14(COMP METB)on 022 Albumin [Mass/Vol] 3.7 g/dL Normal 3.4-5.0 [facility] Comment on above: Performed By: #### T 7, TSH, CMP, LIPID #### [facility] [address] [address] [address] Ryan Bagley Albumin/Globulin [Mass ratio] 0.9 {ratio} Normal [facility] Comment on above: Performed By: #### T 7, TSH, CMP, LIPID #### [facility] [address] [address] [address] Ryan Bagley ALP [Catalytic activity/Vol] 102 U/L Normal 46-116 [facility] Comment on above: Performed By: #### T 7, TSH, CMP, LIPID #### [facility] [address] [address] [address] Ryan Bagley ALT [Catalytic activity/Vol] 19 U/L Normal 14-59 [facility] Comment on above: Performed By: #### T 7, TSH, CMP, LIPID #### [facility] [address] [address] [address] Ryan Bagley Anion gap [Moles/Vol] 15.1 mmol/L Normal [facility] Comment on above: Performed By: #### T 7, TSH, CMP, LIPID #### [facility] [address] [address] [address] Ryan Bagley AST [Catalytic activity/Vol] 17 U/L Normal 15-37 [facility] Comment on above: Performed By: #### T 7, TSH, CMP, LIPID #### [facility] [address] [place] [address] Dr. Ryan Bagley Bilirubin [Mass/Vol] 0.7 mg/dL Normal 0.2-1.0 [facility] Comment on above: Performed By: #### T 7, TSH, CMP, LIPID #### [facility] [address] [address] [address] Ryan Bagley Calcium [Mass/Vol] 8.3 mg/dL Critically low 8.5-10.[address] [facility] Comment on above: Performed By: #### T 7, TSH, CMP, LIPID #### [facility] [address] [place] [address] Dr. Ryan Bagley Chloride [Moles/Vol] 101 mmol/L Normal 98-107 [facility] Comment on above: Performed By: #### T 7, TSH, CMP, LIPID #### [facility] [address] [place] [address] Dr. Ryan Bagley CO2 [Moles/Vol] 23.8 mmol/L Normal 21.0-32.[address] [facility] Comment on above: Performed By: #### T 7, TSH, CMP, LIPID #### [facility] [address] [place] [address] Dr. Ryan Bagley Creatinine [Mass/Vol] 0.81 mg/dL Normal 0.55-1.02 [facility] Comment on above: Performed By: #### T 7, TSH, CMP, LIPID #### [facility] [address] [address] [address] Ryan Bagley EGFR-AF GUYANESE >60 Normal >=[address] [facility] Comment on above: Performed By: #### T 7, TSH, CMP, LIPID #### [facility] [address] [address] [address] Ryan Bagley EGFR-NON AF GUYANESE >60 Normal >=60 [facility] Comment on above: Performed By: #### T 7, TSH, CMP, LIPID #### [facility] [address] [address] [address] Ryan Bagley Globulin (S) [Mass/Vol] 4.0 g/dL Normal [facility] Comment on above: Performed By: #### T 7, TSH, CMP, LIPID #### [facility] [address] [address] [address] Ryan Bagley Glucose [Mass/Vol] 95 mg/dL Normal 74-106 [facility] Comment on above: Performed By: #### T 7, TSH, CMP, LIPID #### [facility] [address] [address] [address] Ryan Bagley Potassium [Moles/Vol] 3.9 mmol/L Normal 3.5-5.1 [facility] Comment on above: Performed By: #### T 7, TSH, CMP, LIPID #### [facility] [address] [address] [address] Ryan Bagley Protein [Mass/Vol] 7.7 g/dL Normal 6.1-8.2 [facility] Comment on above: Performed By: #### T 7, TSH, CMP, LIPID #### [facility] [address] [address] [address] Ryan Bagley Sodium [Moles/Vol] 136 mmol/L Normal 136-145 [facility] Comment on above: Performed By: #### T 7, TSH, CMP, LIPID #### [facility] [address] [address] [address] Ryan Bagley Urea nitrogen [Mass/Vol] 9.0 mg/dL Normal 6.4-19.3 [facility] Comment on above: Performed By: #### T 7, TSH, CMP, LIPID #### [facility] [address] [address] [address] Ryan Bagley Urea nitrogen/Creatinine [Mass ratio] 11.1 mg/mg Normal [facility] Comment on above: Performed By: #### T 7, TSH, CMP, LIPID #### [facility] [address] [place] [address] Dr. Ryan Bagley TSHon 02-10-2022 TSH 2.133 uIU/mL Normal 0.430-3.[address] [facility] Comment on above: Performed By: #### T 7, TSH, CMP, LIPID #### [facility] [address] [place] [address] Dr. Ryan Bagley TSH RANGE SEE BELOW Normal [facility] Comment on above: Result Comment: <0.3 4 UIU/ml HYPERTHYROID 0.34-5.60 UIU/ml EUTHYROID >5.60 UIU/ml HYPOTHYROID Performed By: #### T 7, TSH, CMP, LIPID #### [facility] [address] [place] [address] Dr. Ryan Bagley VITAMIN D 25 OHon 02-10-2022 VIT D 25-OH 11.3 ng/mL Normal [facility] Comment on above: Performed By: #### V ITAD, IRON #### [facility] [address] [place] [address] Dr. Ryan Bagley VIT D RANGES SEE BELOW Normal [facility] Comment on above: Result Comment: <20 ng/mL Vit D deficient 20 - <30 ng/mL Vit D insufficient 30 - 100 ng/mL Vit D sufficient >100 ng/mL Potential Toxicity Performed By: #### V ITAD, IRON #### [facility] [address] [place] [address] Dr. Ryan Bagley IRON + TIBCon 01-03-2022 % SATURATION 11 % Low 25 - 45 [facility] Comment on above: Performed By: #### I RONT #### [facility] [address] [place] [address] Iron [Mass/Vol] 36 ug/dL Normal 35 - 150 [facility] Comment on above: Performed By: #### I KRISTI #### [facility] [address] [place] [address] TIBC 334 ug/dL Normal 240 - 445 [facility] Comment on above: Performed By: #### I KRISTI #### [facility] [address] [place] [address] CBC AND DIFFERENTIALon 01-02 % AUTOMATED IMMATURE GRAN 0.4 % Normal 0.0 - 0.9 [facility] Comment on above: Result Comment: Katlin ture Granulocyte Count (IG) includes promyelocytes, myelocytes and metamyelocytes but does not include bands. Percent differential counts (%) should be interpreted in the context of the absolute cell counts (cells/L). Performed By: #### C BCDF #### [address] [id number] Basophils (Bld) [#/Vol] 0.07 10*3/uL Normal 0.00 - 0.10 [facility] Comment on above: Performed By: #### C BCDF #### [address] [id number] Basophils/100 WBC (Bld) 0.6 % Normal 0.0 - 2.0 [facility] Comment on above: Performed By: #### C BCDF #### [address] [id number] Eosinophils (Bld) [#/Vol] 0.14 10*3/uL Normal 0.00 - 0.70 [facility] Comment on above: Performed By: #### C BCDF #### [address] [id number] Eosinophils/100 WBC (Bld) 1.1 % Normal 0.0 - 6.0 [facility] Comment on above: Performed By: #### C BCDF #### [address] [id number] Erythrocyte distribution width (RBC) [Ratio] 16.5 % High 11.5 - 14.5 [facility] Comment on above: Performed By: #### C BCDF #### [address] [id number] Hematocrit (Bld) [Volume fraction] 46.8 % High 36.0 - 46.0 [facility] Comment on above: Performed By: #### C BCDF #### [address] [id number] Hemoglobin (Bld) [Mass/Vol] 13.7 g/dL Normal 12.0 - 16.0 [facility] Comment on above: Performed By: #### C BCDF #### [address] [id number] Lymphocytes (Bld) [#/Vol] 3.77 10*3/uL Normal 1.20 - 4.80 [facility] Comment on above: Performed By: #### C BCDF #### [address] [id number] Lymphocytes/100 WBC (Bld) 30.5 % Normal 13.0 - 44.0 [facility] Comment on above: Performed By: #### C BCDF #### [address] [id number] MCHC (RBC) [Mass/Vol] 29.3 g/dL Low 32.0 - 36.0 [facility] Comment on above: Performed By: #### C BCDF #### [address] [id number] MCV (RBC) [Entitic vol] 79 fL Low 80 - 100 [facility] Comment on above: Performed By: #### C BCDF #### [address] [id number] Monocytes (Bld) [#/Vol] 0.94 10*3/uL Normal 0.10 - 1.00 [facility] Comment on above: Performed By: #### C BCDF #### [address] [id number] Monocytes/100 WBC (Bld) 7.6 % Normal 2.0 - 10.0 [facility] Comment on above: Performed By: #### C BCDF #### [address] [id number] Neutrophils (Bld) [#/Vol] 7.41 10*3/uL Normal 1.20 - 7.70 [facility] Comment on above: Performed By: #### C BCDF #### [address] [id number] Neutrophils/100 WBC (Bld) 59.8 % Normal 40.0 - 80.0 [facility] Comment on above: Performed By: #### C BCDF #### [address] [id number] Platelets (Bld) [#/Vol] 427 10*3/uL Normal 150 - 450 [facility] Comment on above: Performed By: #### C BCDF #### [address] [id number] RBC 5.92 x10E12/L High 4.00 - 5.20 [facility] Comment on above: Performed By: #### C BCDF #### [address] [id number] WBC (Bld) [#/Vol] 12.4 10*3/uL High 4.4 - 11.3 [facility] Comment on above: Performed By: #### C BCDF #### [address] [id number] FERRITINon 01-02-2022 FERRITIN 59 ug/L Normal 8 - 150 [facility] Comment on above: Performed By: #### F ERRI #### [facility] [address] [place] [address] Peds Nephrologyon 10-02-2021 Peds Nephrology No report [...] the trainee's note. 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 She endorses chronic fatigue - stable. [...] did reveal a patent foramen ovale with mgiz-iz-tudmn shunting by color-flow Doppler. No evidence of [...] Ongoing cardiology follow-up not needed Chief Complaint GRIDDLE COOK evaluation for recent pulmonary embolism and recent [...] was transferred from the outside hospital to [place] [facility] for management of worsening respiratory distress. [...] history of proteinuria. Wendy Leyva MD, MS Centrifugal Supervisor of Pediatric Nephrology [facility] [phone] [place] [address] Chief Complaint An interactive audio [...] ZEE tinoco in the Nephrology Clinic at [facility] today for follow-up evaluation [...] trip in their RV next week to [place] Review of Systems The remainder of a [...] with IgEon 11-04-2020 Alternaria Alternata <0.10 Normal [facility] 0 [facility] Comment on above: Performed By: #### A LLERGEN 5, MOUSE EPITHELIA #### [facility] , Magno White Allergen <0.10 Normal Class 0 [facility] Comment on above: Performed By: #### A LLERGEN 5, MOUSE EPITHELIA #### [facility] , Aspergillis Fumigatus Allergen <0.10 [facility] 0 [facility] Comment on above: Performed By: #### A LLERGEN 5, MOUSE EPITHELIA #### [facility] , Bermuda Grass Allergen <0.10 Normal [facility] 0 [facility] Comment on above: Performed By: #### A LLERGEN 5, MOUSE EPITHELIA #### [facility] , Plympton Common Silver Aller <0.10 Normal [facility] 0 [facility] Comment on above: Performed By: #### A LLERGEN 5, MOUSE EPITHELIA #### [facility] , Cat Hair/Dander Allergen <0.10 [facility] 0 [facility] Comment on above: Performed By: #### A LLERGEN 5, MOUSE EPITHELIA #### [facility] , Marston, Mountain Allergen <0.10 Normal Class 0 [facility] Comment on above: Performed By: #### A LLERGEN 5, MOUSE EPITHELIA #### [facility] , Cladosporium Herbarum <0.10 Normal Class 0 [facility] Comment on above: Performed By: #### A LLKIRILLN 5, MOUSE EPITHELIA #### [facility] , CLASS DESCRIPTION Normal . [facility] Comment on above: Result Comment: Forest [...] 5, MOUSE EPITHELIA #### [facility] , Cockroach Lithuanian Allergen <0.10 Normal Class 0 [facility] Comment on above: Performed By: #### A LLERGEN 5, MOUSE EPITHELIA #### [facility] , Rapides Allergen <0.10 Normal Class 0 [facility] Comment on above: Performed By: #### A LLERGEN 5, MOUSE EPITHELIA #### [facility] , D Farinae Mite Allergen <0.10 Normal Class 0 [facility] Comment on above: Performed By: #### A LLERGEN 5, MOUSE EPITHELIA #### [facility] , D Pteronyssinus Allergen <0.10 Normal Class 0 [facility] Comment on above: Performed By: #### A LLERGEN 5, MOUSE EPITHELIA #### [facility] , Dog Hair/Dander Allergen <0.10 Normal Class 0 [facility] Comment on above: Performed By: #### A LLERGEN 5, MOUSE EPITHELIA #### [facility] , Elm Tree Allergen <0.10 Normal Class 0 [facility] Comment on above: Performed By: #### A LLERGEN 5, MOUSE EPITHELIA #### [facility] , Immunoglobulin E 13 Normal 6-495 [facility] Comment on above: Performed By: #### A LLERGEN 5, MOUSE EPITHELIA #### [facility] , Maple/Currituck Allergen <0.10 [facility] 0 [facility] Comment on above: Performed By: #### A LLERGEN 5, MOUSE EPITHELIA #### [facility] , Mouse Urine Allergen <0.10 [facility] 0 [facility] Comment on above: Performed By: #### A LLERGEN 5, MOUSE EPITHELIA #### [facility] , Round Mountain, White Allergen <0.10 [facility] 0 [facility] Comment on above: Performed By: #### A LLERGEN 5, MOUSE EPITHELIA #### [facility] , Glasford Tree Allergen <0.10 [place] Class 0 [facility] Comment on above: Performed By: #### A LLERGEN 5, MOUSE EPITHELIA #### [facility] , Pecan/Turin Tree Allergen <0.10 [facility] 0 [facility] Comment on above: Performed By: #### A LLERGEN 5, MOUSE EPITHELIA #### [facility] , Penicillium Chrysogen Mold All <0.10 [facility] 0 [facility] Comment on above: Performed By: #### A LLERGEN 5, MOUSE EPITHELIA #### [facility] , Pigweed Allergen <0.10 [facility] 0 [facility] Comment on above: Performed By: #### A LLERGEN 5, MOUSE EPITHELIA #### [facility] , Ragweed Short Allergen <0.10 Normal Class 0 [facility] Comment on above: Performed By: #### A LLERGEN 5, MOUSE EPITHELIA #### [facility] , Glennallen Sheep Allergen <0.10 Normal Class 0 [facility] Comment on above: Performed By: #### A LLERGEN 5, MOUSE EPITHELIA #### [facility] , Bridge City Allergen <0.10 Normal Class 0 [facility] Comment on above: Performed By: #### A LLERGEN 5, MOUSE EPITHELIA #### [facility] , Thistle Czech Allergen <0.10 Normal Class 0 [facility] Comment on above: Performed By: #### A LLERGEN 5, MOUSE EPITHELIA #### [facility] , Du Allergen <0.10 Normal Class 0 [facility] Comment on above: Performed By: #### A LLERGEN 5, MOUSE EPITHELIA #### [facility] , Eldred Tree Pollen Allergen <0.10 Normal Class 0 [facility] Comment on above: Performed By: #### A LLERGEN 5, MOUSE EPITHELIA #### [facility] , Mouse Epithelia Allergenon 0 11-04-2020 Mouse Epithelia Allergen <0.10 Normal Class 0 [facility] Comment on above: Result Comment: Perf ormed at: - [address] [id number] Dry Chain Puller: Wu Sesay MD, Phone: [phone] PERFORMED BY: [facility] [address] [place] [address] PATHOLOGIST PAINTING DEPARTMENT SUPERVISOR LUIS HENSON M.D. Performed By: #### A [...] . I will find out if our hydrometer calibrator can put an IUD in at the [...] or you have questions about the plan ([phone]). Please call us if you are having [...] we discussed other options today. I emailed inkjet operator, heme onc and cardiology about her case [...] providers including hematology, my partners in pulmonology, inkjet operator and cardiology Chief Complaint followup Accompanied by mother. History of Present Illness Today (11/04/2020) I am seeing ZEE JACOBSON as a hospital followup Hospital followup from stay dated: 10/16/20-10/23/20 at [facility]. was at [facility] for 2 days prior to being transferred [...] for t (more content not included)... Normal [employer] Renal Function Panelon 11-04 Albumin [Mass/Vol] 3.6 g/dL Normal 3.2-5.5 [facility] Comment on above: Result Comment: PERF ORMED BY: [place] [address] PATHOLOGIST PAINTING DEPARTMENT SUPERVISOR LUIS HENSON M.D. Performed By: #### R ENAL #### [address] Calcium [Mass/Vol] 9.2 mg/dL Normal 8.2-10.2 [facility] Comment on above: Performed By: #### R ENAL #### [facility] [address] [place] [address] [place] Chloride [Moles/Vol] 107 mmol/L Normal 95-114 [facility] Comment on above: Performed By: #### R ENAL #### [address] CO2 [Moles/Vol] 21.5 mmol/L Low 22.0-30.0 [facility] Comment on above: Performed By: #### R ENAL #### [facility] [address] [place] [address] [place] Creatinine [Mass/Vol] 0.78 mg/dL Normal 0.44-1.03 [facility] Comment on above: Performed By: #### R ENAL #### [facility] [address] Glucose [Mass/Vol] 85 mg/dL Normal 70-100 [facility] Comment on above: Result Comment: [facility] Glucose Reference Range is dependent on time and content of last meal. Glucose of more than 200 mg/dL in a nonstressed, ambulatory subject supports the diagnosis of Diabetes Mellitus. ADA recommended reference range Performed By: #### R ENAL #### [facility] [address] Phosphate [Mass/Vol] 4.3 mg/dL Normal 2.5-4.6 [facility] Comment on above: Performed By: #### R ENAL #### [facility] [address] Potassium [Moles/Vol] 3.9 mmol/L Normal 3.5-5.1 [facility] Comment on above: Performed By: #### R ENAL #### [facility] [address] Sodium [Moles/Vol] 137 mmol/L Low 138-145 [facility] Comment on above: Performed By: #### R ENAL #### [facility] [address] Urea nitrogen [Mass/Vol] 9 mg/dL Normal 9-23 [facility] Comment on above: Performed By: #### R ENAL #### [facility] [address] ED Clinical Summaryon 2017 ED Clinical Summary (Inserted Image. Brittnee ble to display) [place] [address] ED Clinical SummaryPerson Information Name: ZEE JACOBSON/[facility]_Keven Age: 12 Years : 2005 12:00 AM Sex: Female Language:Ecuadorean PCP: Susan Leung MD Marital Status:Single Phone: [phone] MRN: Visit Id: Visit Reason:Ear pain; RIGHT [...] PM 03/28/2018 11:51 PM 03/28/2018 11:51 PM ADDRESS:[address] [place] [id number] [facility] DOC NOTES: MEDICAL INFORMATION: Prescriptions Given:Prescription Display acetaminophen-hydrocodone ([place] 325 mg-5 mg oral tablet) 1-2 tab(s), [...] Follow up:With: Address: When: Susan Leung [address] [facility], [address] [place] [place] [id number] Business (1) In 3 days 03/31/2018 Comments: Call in morning for recheck before the weekend, Medication as directed. Cotton ball to Ear canal may be helpful. No Swimming for 2 weeks or until released by Dr Leung DIAGNOSIS:Otitis media; Ruptured eardrum Normal [facility] ED Note-Physicianon 03-29-20 ED Note-Physician Basic [...] Tab, 600 mg= 1 tab(s), Oral, q8hr [place] 325 mg-5 mg oral tablet, 1-2 tab(s), Oral, q6hr, PRN Follow-up With When Contact Information Susan Madhu In 3 days 03/31/2018 EDT [address] [facility] [place] [id number]- Business (1) Additional Instructions: Call in morning [...] mg-125 mg Tab, 1 tab(s), Oral, Once [place] 5/325 Tab, 2 tab(s), Oral, Once, PRN [place] 5/325 Tab, 2 tab(s), Oral, Once, PRN Home Augmentin 875 mg-125 mg Tab, 1 tab(s), Oral, q12hr hydrocortisone/neomycin/p olymyxin B Otic Ramandeep, 2 drop(s), Otic, QID ibuprofen 600 mg Tab, 600 mg= 1 tab(s), Oral, q8hr [place] 325 mg-5 mg oral tablet, 1-2 tab(s), Oral, q6hr, PRNAllergies No Known AllergiesSocial History Alcohol - Denies Alcohol Use, 03/28/2018Lab Results No qualifying data available.Diagnostic Results No qualifying data available. Normal [facility] Comment on above: Result Comment: Elec [...] in the outer ear canal.? Only take xhlb-qjm-xorpudq or prescription medicines for pain, discomfort, or [...] 12/19/2012 Document Reviewed: 09/26/2009ExitCare? Patient Information ?2014 [employer]. This information is not intended to replace advice given to you by your health care provider. Make sure you discuss any questions you have with your health care provider. Normal [facility] ED Patient Summaryon 018 ED Patient Summary (Inserted Image. Brittnee ble to display) [address] [address] Patient Discharge Instructions Person Information Name: ZEE JACOBSON Age: 12 Years Date: 03/28/2018 10:51 PMDischarge Diagnosis: Otitis media; Ruptured eardrum Primary Care Physician: Susan Leung MD Provider InformationPrimary Provider: Advanced Standard Machine Stitcher:Frank Coronado PA-C The exam and treatment you received in the Emergency Department were for an urgent problem and are not intended as complete care. It is important that you follow up with a doctor, nurse practitioner, or physician?s congressional assistant for ongoing care. If your symptoms become worse or you do not improve as expected and you are unable to reach your usual health care provider, you should return to the Emergency Department. We are available 24 hours a day. ZEE JACOBSON has been given the following list of patient education materials, prescriptions and follow-up instructions: Follow-up Instructions:With: Address: When: Susan Leung [address] [place] [address] [place] [id number] [facility] () In 3 days 03/31/2018 [...] opioids can be used to help relieve osxiqunu-dd-zdhtsg pain and are often prescribed following a [...] be struggling with addiction, tell your health healthcare account manager and ask for guidance or call JEFFAmyaa?[employer] at 7-408-475-OHSJ. h Source: [place] Department of Health and Human Services/Center for Disease Control & Prevention [facility] Medications Given:Medication Dose Route No medications found. Medication Information:New MedicationsPrinted Prescriptionsacetaminophe n-hydrocodone ([place] 325 mg-5 mg oral tablet) 1-2 tab(s) [...] 0.Comment: Pharmacy Information: Thank you for choosing [facility] Patient Education Materials: Eardrum PerforationThe eardrum is [...] in the outer ear canal.? Only take odmu-mhx-gzcppnn or prescription medicines for pain, discomfort, or [...] 12/19/2012 Document Reviewed: 09/26/2009ExitCare? Patient Information ?2014 [employer] [facility]. This information is not intended to replace advice given to you by your health care provider. Make sure you discuss any questions you have with your health care provider.KAVON Modi LILY E , have received the following patient education materials/instructions and have verbalized understanding: Patient Education Materials: Eardrum Perforation Follow-up Instructions: With: Address: When: Susan Leung [facility] [facility], [place] [address] [place] [address] [employer] (1) In 3 days 03/31/2018 Comments: Call in morning for recheck before the weekend, Medication as directed. Cotton ball to Ear canal may be helpful. No Swimming for 2 weeks or until released by Dr Leung Prescriptions: [acetaminophen-hydrocodon e ([place] 325 mg-5 mg oral tablet)] [amoxicillin-clavulanate (Augmentin 875 mg-125 mg Tab)] [hydrocortisone/neomycin/ polymyxin B otic (hydrocortisone/neomycin/ polymyxin B Otic Ramandeep)] [ibuprofen (ibuprofen 600 mg Tab)] Patient Signature __ Date Clinician/Nurse Signature Date 03/28/18 23:51:16 [facility] Progress Note-Nurseon 2017 Progress Note-Nurse pt was educated on N orco. 2 tabs were given here as ordered, 2 tabs sent home. patient instructed to take medications as needed but not until after 6am to allow time in between. mother verbalizes understanding. verbalizes understanding on prescriptions and follow up as well. [facility] Encounters Encounter Date Encounter Type Care Provider Facility Start: 03-31-2024 End: 04-01-2024 Emergency department patient visit [facility] Start: 03-31-2024 End: 03-31-2024 Emergency department patient visit [facility] Start: 12-25-2022 End: 12-26-[address] SUSAN LEUNG . Facility:[facility] Start: 10-07-2022 End: 10-07-2022 ambulatory DIANE DAVIS Facility:[facility] Start: 08-10-2022 End: 08-11-[address] LUCY RICHTER . Facility:[facility] Start: 05-15-2022 End: 05-15-[address] LUCY RICHTER . Facility:[facility] Start: 02-10-2022 End: 02-11-[address] SUSAN LEUNG . Facility:[facility] Start: 09-15-2021 AUDIT Susan Leung Work Phone: [facility] Work Phone: Start: 05-12-2021 Rx Renewal Susan Leung Work Phone: [facility] Work Phone: Start: 11-14-2020 Patient encounter procedure Wendy Matthewyce [facility] Work Phone: Start: 11-04-2020 Patient encounter procedure Wendy Leyva [facility] Work Phone: Start: 03-29-2018 End: 03-29-2018 Emergency department patient visit [id number] UNKNOWN Madhu [place] [place] Date Procedure Procedure Detail Performing Clinician [...] Wendy Leyva, Status: Pen, Time: 11:20 AM [facility] Work Phone: [facility] Work Phone: NEGATED: Highlighted row has been ruled out! Planned Goals not documented [facility] Work Phone: Payers Date Payer Category Payer Unknown [id number] 2022 Medicaid [id number] 2018 Unknown [id number] 2003 Unknown [id number] 2003 Unknown [id number] 2003 Unknown [id number] 2003 Unknown [id number] 2003 Unknown [id number] 2003 Unknown [id number] 2003 Unknown [id number] 1959 Unknown [id number] Unknown [employer] MEDICA[employer] Social History Date Type Detail Facility Lives with parents Lives with parents [facility] Work Phone: NEGATED: Highlighted row - - [facility] Work Phone: Functional Status Date Assessment Result Facility NEGATED: Highlighted row Functional performance Functional status health issues are not documented Disease [facility] Work Phone: Mental Status Date Assessment Result Facility NEGATED: Highlighted row Cognitive function [Interpretation] Cognitive status health issues are not documented Disease [facility] Work Phone: Summary Purpose Family [...] section and content) DATE CREATED AUTHOR 03/29/2018 [facility] DATE CREATED AUTHOR AUTHOR'S ORGANIZ ATION 11/08/2020 [facility] DATE CREATED AUTHOR AUTHOR'S ORGANIZ ATION 10/03/2021 [facility] DATE CREATED AUTHOR AUTHOR'S ORGANIZ ATION 06/07/2022 [facility] DATE CREATED AUTHOR AUTHOR'S ORGANIZ ATION 01/03/2023 [facility] DATE CREATED AUTHOR AUTHOR'S ORGANIZ ATION 04/02/2024 [facility] FOR RECORDS PERTAINING TO PATIENTS WHO [...] BE BASED ON THE PRIMARY CLINICAL RECORDS. [employer] provides no warranty or guarantee of the accuracy or completeness of information in this document.
--- NOTE | 2025-07-30 19:23 | US_ITS ---
The [address] [address] Patient Name: CHAYO JOYA MRN: [id number] date: 2005 Sex: F Assigned Patient Location: US Current Patient Location: US Accession/Order Number: [id number] Exam Date: 07/30/2025 19:38 Report Date: 07/30/2025 21:49 At the request of: WALDEMAR HYMAN DO Procedure: US pelvis transvaginal Transvaginal pelvic ultrasound INDICATION: IUD check. COMPARISON: None FINDINGS: Uterus measures 8.4 x 3.6 x 4.7 cm. IUD worse appears be within the fundal position of endometrium. Anechoic nabothian cysts within cervix. Endometrial thickness 5.7 mm which is normal. Right ovary 4.0 x 1.7 x 2.5 cm. Left ovary unremarkable 2.2 x 1.5 x 2.2 cm in size. US/US pelvis transvaginal IMPRESSION: IUD within the fundus of the uterus. Impression dictated by: Tripp Perkins M.D. 07/30/2025 9:49 PM Dictation Location: [place] [address] Electronically authenticated by: [id number] Y Date: 07/30/2025 21:49
== END 2025-07-30 18:51 | disposition home or self-care (01) ==
PROVIDERS: PCP Family Medicine; Visit Provider Obstetrics & Gynecology
DX: Z30.431 Encounter for routine checking of intrauterine contraceptive device (principal)
CPT/HCPCS: 76830

== ENCOUNTER 2025-08-07 06:15 | Day surgery (SDC) | payer BC, SELFPAY ==
--- OUTSIDE RECORDS SUMMARY | 2024-06-08 07:00 | XMS_ITS ---
Author Organization [facility] Servic es Address [address] [place] [address] Care Team Providers Care Screen Handler Name Role Phone Matias Fernandez Primary Care Provider REASON FOR VISIT NEW PT, ROOT CANAL PAIN, WISDOM TEETH REMOVAL REFERRAL,, ANOTHER TOOTH EXTRACTED Encounters Encounter Location Date Provider Diagnosis [place] [address] [place] [address] 06/08/2024 Matias Fernandez Plan Of Treatment No Information Progress Notes * MEGAN JOYAOB:2005 ([age] yo F)Acc No.[id number]:06/08/2024 Patient:?TOAN CHAYO :?Matias Fernandez DDSDOB:2005???Age:19 Y ???Sex:FemaleDate:06/08/2024hone:[phone]:[address] [place], [place] [id number] Subjective: * Chief Complaints: * N EW PT, ROOT CANAL PAIN, WISDOM TEETH REMOVAL REFERRAL,, ANOTHER TOOTH EXTRACTED * Electronic signature of Matias Fernandez DDS on 08/07/2025 at 06:19 AM EDTSign off status: Pending * Provider: Amaya Fernandez DDS Date: 0 06/08/2024 Generated for Printing/Faxing/eTransmitting on:?08/07/2025 06:19 AM EDT
--- OUTSIDE RECORDS SUMMARY | 2024-06-09 07:30 | XMS_ITS ---
Author Organization [facility] Servic es Address [address] [place] [address] Care Team Providers Care Mold Cleaning And Storage Supervisor Name Role Phone Matias Fernandez Primary Care Provider REASON FOR VISIT r/s from 06/07/2024 Encounters Encounter Location Date Provider Diagnosis [address] [place] [address] [place] [address] 06/09/2024 Matias Fernandez Plan Of Treatment No Information Progress Notes * MEGAN JOYAOB:2005 ([age] yo F)Acc No.[id number]:06/09/2024 Patient:?CHAYO JOYA :?SIENA RamirezOB:2005???Age:19 Y ???Sex:FemaleDate:06/09/2024hone:[phone]:[address] [place], [place] [id number] Subjective: * Chief Complaints: * R /s from 06/07/2024 * Electronic signature of Matias Fernandez DDS on 08/07/2025 at 06:18 AM EDTSign off status: Pending * Provider: Amaya Fernandez DDS Date: 0 06/09/2024 Generated for Printing/Faxing/eTransmitting on:?08/07/2025 06:18 AM EDT
--- OUTSIDE RECORDS SUMMARY | 2025-07-30 15:30 | XMS_ITS | Encounter Summary ---
Author Organization [facility] Address [address] [place] [address] Care Team Providers Care Chief Informatics Officer Name Role Phone Unavailable Primary Care Provider Unavailabl e Reason for Visit * ReasonCommentsContraceptionMirena Removal/ reinsert Encounter Details DateTypeDepartmentCare Team (Latest Contact Info)Ruqjuqnnsvg96/20/2025 3:30 PM EDTProcedure Visit [facility] [address] [place] [id number] Kun Hutson DO [address] Jose Caldrea, [facility]11 Encounter for removal and reinsertion of intrauterine contraceptive device (IUD); IUD check up; Intrauterine contraceptive device threads lost, initial encounter Social History Tobacco UseTypesPacks/DayYears UsedDateSmoking Tobacco: Never Assessed CommentsNoSex and Gender InformationValueDate RecordedSex Assigned at BirthNot on fileLegal WpjBdqoua72/15/2023 6:46 PM EDTGender IdentityNot on fileSexual OrientationNot on filedocumented as of this encounter Last Filed Vital Signs Vital SignReadingTime TakenCommentsBlood Yieosihr130/8207/30/2025 3:58 PM EDT Pulse--Temperature--Respiratory Rate--Oxygen Saturation--Inhaled Oxygen Concentration--Rgtxyj389 kg (283 lb 6.4 oz)07/30/2025 3:58 PM BVLNxkrsi832.2 cm (5' 7 )07/30/2025 3:58 PM EDTBody Mass Index44.391 3:58 PM EDT documented in this encounter Progress Notes * Kezia Poe LPN - 07/30/2025 3:30 PM EDTAssociated Order(s): IUD Removal Post-Procedure Diagnose(s): IUD check up Reason for Appointment: Patient ID: Zee Brian is a 20 y.o. female who presents for Contraception (Mirena Removal/ reinsert) Patient presents today for a IUD Removal appointment. MEDICATIONS No current outpatient medications ALLERGIES No Known Allergies PROBLEMS Active Ambulatory Problems Diagnosis Date Noted No Active Ambulatory Problems Resolved Ambulatory Problems Diagnosis Date Noted No Resolved Ambulatory Problems Past Medical History: Diagnosis Date Blood clotting disorder ([facility]) HISTORY PAST MEDICAL HISTORY SOCIAL HISTORY Past Medical History: Diagnosis Date Blood clotting disorder ([facility]) Social History Tobacco Use Smoking status: Not on file Smokeless tobacco: Not on file Substance Use Topics Alcohol use: Not on file Drug use: Not on file FAMILY HISTORY Family History Problem Relation Name Age of Onset Cervical cancer Mother Clotting disorder Father Cervical cancer Mother's Sister Clotting disorder Other SURGICAL HISTORY Past Surgical History: Procedure Laterality Date TONSILLECTOMY REVIEW OF SYSTEMS Review of Systems: Review of Systems Constitutional: Negative. HENT: Negative. Eyes: Negative. Respiratory: Negative. Cardiovascular: Negative. Gastrointestinal: Negative. Genitourinary: Negative. Musculoskeletal: Negative. Skin: Negative. Neurological: Negative. All other systems reviewed and are negative. Hematological: Negative. Endocrine: Negative. Allergic/Immunologic: Negative. OBJECTIVE Objective: Physical Exam Constitutional: Appearance: Normal appearance. She is well-developed. Genitourinary: Vulva normal. Cardiovascular: Rate and Rhythm: Normal rate and regular rhythm. Pulmonary: Effort: Pulmonary effort is normal. Breath sounds: Normal breath sounds. Abdominal: General: Bowel sounds are normal. There is no distension. Palpations: Abdomen is soft. Tenderness: There is no abdominal tenderness. There is no guarding or rebound. Musculoskeletal: General: No swelling. Normal range of motion. Right lower leg: No edema. Left lower leg: No edema. Neurological: Mental Status: She is alert and oriented to person, place, and time. Skin: General: Skin is warm and dry. Psychiatric: Mood and Affect: Mood normal. Behavior: Behavior normal. Vitals and nursing note reviewed. Exam conducted with a safety associate present. Vitals: Estimated body mass index is 44.39 kg/m?? as calculated from the following: Height as of this encounter: 5' 7 . Weight as of this encounter: 283 lb 6.4 oz. BP: 120/82 No LMP recorded. (Menstrual status: IUD). ASSESSMENT & PLAN Assessment/Plan Encounter Diagnosis: ICD-10-CM 1. Encounter for removal and reinsertion of intrauterine contraceptive device (IUD) Z30.433 Levonorgestrel intrauterine device 52 mg POCT , urine manually resulted 2. Encounter for IUD removal and reinsertion Z30.433 Levonorgestrel intrauterine device 52 mg POCT , urine manually resulted IUD Removal Date/Time: 07/30/2025 4:35 PM Performed by: Kun Hutson DO Authorized by: Kun Hutson DO Consent: Consent obtained: Written Consent given by: Patient Procedure risks and benefits discussed: yes Patient questions answered: yes Patient agrees, verbalizes understanding, and wants to proceed: yes Educational handouts given: yes Instructions and paperwork completed: yes Procedure: Removed with no complications: no Removal due to mechanical complications of IUD: no Removal due to infection and inflammatory reaction: no Comments: Unable to find IUD strings--will order ultrasound to be obtained for placement. Patient to tentatively setup date to have IUD removed and reinserted in OR. IUD Removal: Patient presents today for removal of IUD. Written consent was obtained and patient was placed in dorsal lithotomy position with feet in stirrups. A sterile speculum was inserted into the vagina and the cervix was visualized. The IUD strings were not visualized. Failed removal. Follow Up: Patient is to return to the office for pre-op surgical procedure to removed IUD and reinsert new Mirena. Documented by Margo Wheat PA-C on behalf of: Kun Hutson DO documented in this encounter Plan of Treatment NameTypePriorityAssociated DiagnosesOrder ScheduleUS pelvis transvaginalImaging Routine IUD check up Intrauterine contraceptive device threads lost, initial encounter Expected: 07/30/2025, Expires: 01/28/2026documented as of this encounter Procedures Procedure NamePriorityDate/TimeAssociated DiagnosisCommentsIUD REMOVALRoutine 07/30/2025 4:35 PM EDT IUD check up POCT , PQMDOUjpuzkj63/20/2025 4:10 PM EDT Encounter for removal and reinsertion of intrauterine contraceptive device (IUD) documented in this encounter Results * IUD REMOVAL (07/30/2025 4:35 PM EDT) Narrative Kezia Poe LPN - 07/30/2025 4:35 PM EDT Kezia Poe LPN 08/01/2025 2:01 PM IUD Removal Date/Time: 07/30/2025 4:35 PM Performed by: Kun Hutson DO Authorized by: Kun Hutson DO ?? Consent: ??Consent obtained: ??Written ??Consent given by: ??Patient ??Procedure risks and benefits discussed: yes ?Patient questions answered: yes ?Patient agrees, verbalizes understanding, and wants to proceed: yes ?Educational handouts given: yes ?Instructions and paperwork completed: yes ?? Procedure: ??Removed with no complications: no ?Removal due to mechanical complications of IUD: no ?Removal due to infection and inflammatory reaction: no ?? Comments: ?? Unable to find IUD strings--will order ultrasound to be obtained for placement. ??Patient to tentatively setup date to have IUD removed and reinserted in OR. Authorizing ProviderResult TypeResult StatusKun [facility]/B[facility]IDE ORDERABLESFinal Result * POCT , urine manually resulted (07/30/2025 4:10 PM EDT)ComponentValue Ref RangeTest MethodAnalysis TimePerformed AtPathologist SignaturePreg Test, UrNegativeNegativeSpecimen (Source)Anatomical Location / LateralityCollection Method / VolumeCollection TimeReceived MdyqAudth02/20/2025 4:10 PM EDT Narrative Authorizing ProviderResult TypeResult Maine Hutson DOPOINT OF CARE TEST ENTER/EDIT ORDERABLESFinal Result documented in this encounter Visit Diagnoses Diagnosis Encounter for removal and reinsertion of intrauterine contraceptive device (IUD) IUD check up Intrauterine contraceptive device threads lost, initial encounter documented in this encounter Administered Medications Medication OrderMAR ActionAction DateDoseRateSite Levonorgestrel intrauterine device 52 mg 52 mg, Intrauterine, Continuous, Starting on Wed07/30/25 at 1600, For 1825 days Indications:Encounter for removal and reinsertion of intrauterine contraceptive device (IUD)[facility]07/30/2025 4:10 PM EDT52 mgdocumented in this encounter
--- OUTSIDE RECORDS SUMMARY | 2025-08-02 12:15 | XMS_ITS ---
Author Organization [facility] in [place] Address [address] [place] [address] Care Team Providers Care Freight Manager Name Role Phone Madhu Rubén Primary Care Provider [phone] Allergies Allergen (clinical drug ingredient) Drug/Non Drug Allergy documented on EMR Reaction Allergy Type Onset Date Status estradiol Estrogel Bloodclot Drug Allergy Active Reason For Referral Diagnosis 1 Depression (F32.9) Referral Organization [facility] ([place], [place]) Medicine Referring Provider First Name Rubén Referring Provider Last Name Madhu Referring Provider Speciality Family Med elizabeth Referred Provider Darryl Gutiérrez Referred Provider Specialty Psychiatry Referral Priority Routine REASON FOR VISIT sick- chest congestion- trying to cough it up- chest hurting yesterday, thinks from coughing, Drinking [place] Tea for the chest congestion Medications Medication SIG (Take, Route, Frequency, Duration) Notes Start Date End Date Status Pristiq 50 MG 1 tablet Orally Once a day; Dura tion: 30 days 5ActiveBenzonatate 200 MG1 capsule Orally Three times a day; Duration: 7 days5ActivepredniSONE 20 MG2 tablets Orally Once a day; Duration: 5 days5ActivelevoFLOXacin 750 MG1 tablet Orally Once a day; Duration: 10 day(s)5Active Social History Tobacco Use: Social History Observation Description Date Details (start date - stop date) Never Smoker NA - NA Tobacco Use/Smoking Question Answer Notes Patient is a nonsmoker Vital Signs Weight 285.0 lbs 08/02/2025 Height 67 in 08/02/2025 Blood pressure systolic 124 mm Hg 08/02/20 25 Blood pressure diastolic 90 mm Hg 025 Temperature 98.1 degrees Fahrenheit 08/02/20 25 BMI 44.63 kg/m2 08/02/2025 Encounters Encounter Location Date Provider Diagnosis [facility] [address] [place] [address] 08/02/2025 Rubén Hoyasmeen Acute bronchitis, unspecified organism J20.9 and Depression F32.9 Assessments Encounter Date Diagnosis (ICD Code) Assessment Notes Treatment Notes Treatment Clinical Notes Section Notes 08/02/2025 Acute bronchitis, unspecified or ganism (ICD-10 - J20.9) Rest and drink more liquids, especially water. You may use a humidifier or vaporizer to help keep the drainage moist. Xous-rsa-dfjhlxx Nasal Saline may help the stuffy and runny nose. Use Ibuprofen and or Tylenol as needed for fever, chills, body aches or pain. Children 5 years old should not be given utkb-svg-ogjlgjo cough and cold medications such as guaifenesin and dextromethorphan. If you're over age 5, you may try lkod-vxl-jhbeufj cold medications such as guaifenesin and dextromethorphan, or multi-symptom cold reliever such as Dayquil to help reduce the symptoms. Antibiotics have been pre scribed. You should take these until completed and follow the directions. Antibiotics can sometimescause upset stomach, and in rare cases, serious allergic reactions or serious gastrointestinal problems. If you start having severe abdominal pain, severe vomiting, or bloody diarrhea, you should be r eevaluated by your physician or urgent care immediately. Follow up with your Primary Care Provider or return to clinic if symptoms do not improve within 3-5 days. If you develop severe symptoms such as shortness of breath, repeated vomiting, coughing up blood, or chest pain you should go to the emergency room or call [phone] (ICD-10 - F32.9) Plan Of Treatment Medication Medication Name Sig Start Date Stop Date Notes Pristiq 50 MG 1 tablet Orally Once a day; Duration: 30 days 08/02/2025 Benzonatate 200 MG1 capsule Orally Three times a day; Duration: 7 days08/02/2025 predniSONE 20 MG2 tablets Orally Once a day; Duration: 5 days08/02/2025 levoFLOXacin 750 MG1 tablet Orally Once a day; Duration: 10 day(s)08/02/2025 Treatment Notes Assessment Notes Acute bronchitis, unspecified organism R est and drink more liquids, especially water. You may use a humidifier or vaporizer to help keep the drainage moist. Ulsz-gcx-reeyoxk Nasal Saline may help the stuffy and runny nose. Use Ibuprofen and or Tylenol as needed for fever, chills, body aches or pain. Children 5 years old should not be given cukv-sxo-lkphnln cough and cold medications such as guaifenesin and dextromethorphan. If you're over age 5, you may try zrvs-ukf-bkrvsqf cold medications such as guaifenesin and dextromethorphan, or multi-symptom cold reliever such as Dayquil to help reduce the symptoms. Antibiotics have been prescribed. You should take these until completed and follow the directions. Antibiotics can sometimes cause upset stomach, and in rare cases, serious allergic reactions or serious gastrointestinal problems. If you start having severe abdominal pain, severe vomiting, or bloody diarrhea, you should be reevaluated by your physician or urgent care immediately. Follow up with your Primary Care Provider or return to clinic if symptoms do not improve within 3-5 days. If you develop severe symptoms such as shortness of breath, repeated vomiting, coughing up blood, or chest pain you should go to the emergency room or call 911 Referrals Referral Date Details 08/02/2025 08/02/2025, Darryl hubbard Next Appt Details Follow Up: 3-5 days if not i mproving, Reason: Progress Notes * Zee BRIAN EDOB:2005 (20 yo F)Acc No.[id number]:08/02/2025 Progress Note Patient: Zee ROWE :?Nicanor Leung ([facility]), MDDOB:2005???Age: 20 Y???Sex:FemaleDate:08/02/2025Phone:[phone]:[address] [place] [address], [phone] In:04:03 PM ESTCheck Out:04:46 PM EST Subjective: * Chief Complaints: * S ick- chest congestion- trying to cough it up- chest hurting yesterday, thinks from coughingDrinking [place] Tea for the chest congestion * HPI: ???Bronchitis:?The patient complains of symptoms of bronchitis. The symptoms have been present for 1-2 days. The symptoms are moderate. The patient has not been exposed to sick contacts. Symptomatic treatment has included OTC medication. Associated symptoms include nasal congestion, postnasal drainage, congested e ars, cough, fever, chills, body aches Thck Green sputum. * ROS: ???ENT:?Ear pain?denies.?Hoarseness?denies.?Cardiovascular:?Edema?denies.?Palpitations?denies.?Respiratory:?Comments?See HPI for details.?Gastrointestinal:?Abdominal pain?denies.?Diarrhea?denies.?Nausea?denies.?Skin:?Rash?denies.? * Active Problem List J45.909 Asthma Modified On:03/22/2023/U Status:qpaxzgegsC20.9Depression Modified On:05/21/2025/U Status:irpbhsdjhO00.00Well adult Modified On:05/21/2025/U Status:abxodhpqrX65.00Hypercholesterolemia Modified On:06/04/2025/U Status:confirmed * Medical History: * Surgical History: T ONSILLECTOMY,OVER 12 YRS * Hospitalization/Major Diagno stic Procedure: D enies Past Hospitalization * Family History: F ather: unknown. M other: alive, Clotting disorder, diagnosed with Diabetes, Hypertension. B rother(s): alive. 1 brother(s) - healthy. . * Social History: ???Tobacco Use:?Tobacco Use/Smoking?Patient is a?nonsmoker * Medications: D iscontinuedAmoxicillin-Pot Clavulanate 875-125 MG Tablet 1 tablet Orally every 12 hrs B12 CeleBREX 100 MG Capsule 1 capsule Orally Once a day Cholecalciferol 50 MCG (2000 UT) Capsule 1 capsule Orally Once a day Ferrous Sulfate 325 (65 Fe) MG Tablet 1 tablet Orally once a day Lisinopril 5 MG Tablet 1 tablet Orally Once a day Mirena Pristiq(Desvenlafaxine Succinate ER) 50 MG Tablet Extended Release 24 Hour 1 tablet Orally Once a day Xarelto(Rivaroxaban) 10 MG Tablet 1 tablet Orally every other day Medication List reviewed and reconciled with the patientDiscontinued Amoxicillin-Pot Clavulanate 875-125 MG Tablet 1 tablet Orally every 12 hrs Discontinued B12 Discontinued CeleBREX 100 MG Capsule 1 capsule Orally Once a day Discontinued Cholecalciferol 50 MCG (2000 UT) Capsule 1 capsule Orally Once a day Discontinued Ferrous Sulfate 325 (65 Fe) MG Tablet 1 tablet Orally once a day Discontinued Lisinopril 5 MG Tablet 1 tablet Orally Once a day Discontinued Mirena Discontinued Pristiq(Desvenlafaxine Succinate ER) 50 MG Tablet Extended Release 24 Hour 1 tablet Orally Once a day Discontinued Xarelto(Rivaroxaban) 10 MG Tablet 1 tablet Orally every other day Medication List reviewed and reconciled with the patient * Allergies: E strogel: Bloodclot - Allergy - Criticality Highno[Allergies Verified] Objective: * Vitals: W t:285.0lbs, Ht: 67 in, BP:124/90mm Hg, Temp:98.1F, BMI:44.63Index, Ht-cm: 170.18 cm, Wt-k.28 kg. * Examination: ???General Examination: ?GENERAL APPEARANCE:? in no acute distress.?EYES:? EOMI.?EARS:? auditory canal clear, middle ear effusion noted. ?NOSE:? clear discharge, turbinates pale and swollen.?ORAL CAVITY:? mucosa moist.?THROAT:? no erythema, post-nasal drainage noted.?NECK:? neck supple, no thyromegaly.?LYMPH NODES:?no cervical adenopathy.?LUNGS:?Diffuse rhonchi.?CARDIO:?no murmurs, regular rate and rhythm.?ABDOMEN:? bowel sounds present, no organomegaly .? ?? Assessment: * Assessment: 1.?Acute bronchitis, unspecified organism - J20.9 (Primary)???2.?Depression - F32.9??? Plan: * Treatment: Start levoFLOXacin Tablet, 750 MG, 1 tablet, Orally, Once a day, 10 day(s), 10;?Start predniSONE Tablet, 20 MG, 2 tablets, Orally, Once a day, 5 days, 10 Tablet;?Start Benzonatate Capsule, 200 MG, 1 capsule, Orally, Three times a day, 7 days, 20 Capsule;?Start Pristiq Tablet ExtendedRelease 24 Hour, 50 MG, 1 tablet, Orally, Once a day, 30 days, 30, Refills 11.?? Notes:Rest and drink more liquids, especially water. You may use a humidifier or vaporizer to help keep the drainage moist. Erdc-dpz-gecmzzu Nasal Saline may help the stuffy and runny nose. Use Ibuprofen and or Tylenol as needed for fever, chills, body aches or pain. Children 5 years old should not be given frmq-lff-rzokqka cough and cold medications such as guaifenesin and dextromethorphan. If you're over age 5, you may try yejp-kwc-ufonvhx cold medications such as guaifenesin and dextromethorphan, or multi-symptom cold reliever such as Dayquil to help reduce the symptoms. Antibiotics have been pre scribed. You should take these until completed and follow the directions. Antibiotics can sometimescause upset stomach, and in rare cases, serious allergic reactions or serious gastrointestinal problems. If you start having severe abdominal pain, severe vomiting, or bloody diarrhea, you should be r eevaluated by your physician or urgent care immediately. Follow up with your Primary Care Provider or return to clinic if symptoms do not improve within 3-5 days. If you develop severe symptoms such as shortness of breath, repeated vomiting, coughing up blood, or chest pain you should go to the emergency room or call 911??2.?Depression? Referral To:Darryl Gutiérrez??Psychiatry ?Reason: * Procedure Codes: * Preventive Medicine: ??Screenings/Counseling:?BMI ACTION PLAN?Above Normal BMI Follow-up?Dietary management education, guidance, and counseling * Follow Up: 3 -5 days if not improving * * Sign off status: CompletedVisit Status:?CHK (Check Out) true * Provider: Sheng Leung ([facility])MD Date: 1 Generated for Printing/FaProtein Barg/eTransmitting on:?08/07/2025 06:18 AM EDT History and Physical Notes * Examination CategorySub-CategoryDetailNotesCategory NotesGeneral ExaminationGENERAL APPEARANCE:in no acute distressEYES:EOMIEARS:auditory canal clear, middle ear effusion notedNOSE:clear discharge, turbinates pale and swollenTHROAT:no erythema, post-nasal drainage notedNECK:neck supple, no thyromegalyCARDIO:no murmurs, regular rate and rhythmLUNGS:Diffuse rhonchiABDOMEN:bowel sounds present, no organomegalyLYMPH NODES:no cervical adenopathyORAL CAVITY:mucosa moist Consultation Request Notes Referral Date Referring Provider Referred Provider Not leti 08/02/2025 Rubén Leung Carlos
[2025-08-07] VITALS (15 sets, daily range): BP systolic 100–144; BP diastolic 64–94; PULSE 54–85; TEMP 36.3–36.5; O2SAT 91–98; BMI 44.6
--- OUTSIDE RECORDS SUMMARY | 2025-08-07 06:17 | XMS_ITS | CCD ---
Author Organization [facility] Care Team Providers Care Market Research Executive Name Role Phone Susan [phone] UNKNOWN Unavailable Unavailable Román Charlton Unavailable Unavailable Román Charlton Unavailable Unavailable Wendy Leyva Unavailable Unavailable Margo Ulloa Unavailable Unavailable Susan Leung Unavailable Unavailable Susan Leung Unavailable Unavailable Unavailable MADHU ., DR DAVIS Admitting Unavailable HOY ., DR DAVIS Attending Unavailable HOY ., DR DAVIS Primary Care Unavailable HOY ., DR DAVIS Consulting Unavailable KARASIK ., DR AYALA Admitting Unavailabl e KARASIK ., DR AYALA Attending Unavailabl e HOY ., DR DAVIS Primary Care Unavailable KARASIK ., DR AYALA Consulting Unavailabl e KARASIK ., DR AYALA Admitting Unavailabl e KARASIK ., DR AYALA Attending Unavailabl e HOY ., DR DAVIS Primary Care Unavailable KARASIK ., DR AYALA Consulting Unavailabl e WEST, DR ANTONIO Nguyen Consulting Unavailable DIANE DAVIS Admitting Unavailable DIANE DAVIS Attending Unavailable HOElida ., DR DAVIS Primary Care Unavailable DIANE DAVIS Consulting Unavailable HOY ., DR DAVIS Admitting Unavailable HOY ., DR DAVIS Attending Unavailable HOY ., DR DAVIS Primary Care Unavailable HOElida ., DR DAVIS Consulting Unavailable LEEANN, DR ANTONIO Nguyen Consulting Unavailable LIBERTY LOONEY Attending Unavailab SUSAN Patino Primary Care Unavailable LIBERTY LOONEY Attending Unavailab LIBERTY Pérez Referring Unavailab SUSAN Patino Primary Care Unavailable WALDEMAR HUTSON Attending Unavailable Unavailable Primary Care Provider Unavailnelsy e Allergies Allergy ClassificationReported Allergen(s)Allergy TypeDate of OnsetReaction(s) FacilityEstrogens (1 source)Estrogens; Translations: [Estrogens]Drug MbbqnhqSK-Ijdoinglbc-Haejbo [facility] Work Phone: (2 sources)Estrogens; Translations: [Estrogens]Drug GikdstdNT-Pbptoziwjz-[facility] Work Phone: (1 source)EstradiolDrug Mqtlxjk07-62-2001[facility] (1 source)Estradiol; Translations: [ESTRADIOL]Drug Defetuw19-07-3994UigTndhpm Repository Medications Completed/Discontinued Medications MedicationDrug Class(es)DatesSig (Normalized)Sig (Original)acetaminophen 325 mg oral tablet (3 sources)Start: 31-56-7679hkuv 1-2 tablets by mouth every four hours as needed Tylenol 325 MG Oral Tablet TAKE 1 TO 2 TABLETS EVERY 4 HOURS NEEDED Quantity: 0 Refills: 0 Ordered: 14-Nov-2020 DO Start : 14-Nov-2020 Skgdfw61 actuat albuterol 0.09 mg/actuat metered dose inhaler (1 source)beta2-Adrenergic AgonistStart: 05-41-2658mvkt 2 puff(s) by mouth every four to six hours as neededAlbuterol Sulfate HFA 108 (90 Base) MCG/ACT Inhalation Aerosol Solution INHALE 2 PUFFS BY MOUTH EVERY 4 TO 6 HOURS NEEDED Quantity: 18 Refills: 0 Start : 06-Oct-2020 Activecetirizine hydrochloride 10 mg oral tablet (3 sources)Histamine-1 Receptor AntagonistStart: 42-33-5413dhbt 1 tablet by mouth once daily as neededCetirizine HCl - 10 MG Oral Tablet TAKE 1 TABLET DAILY NEEDED. Quantity: 0 Refills: 2 Ordered: 14-Nov-2020 DO Start : 27-Nov-2019 Activeferrous sulfate 143 mg extended release oral tablet (3 sources)Start: 82-48-1599abke 1 tablet by mouth twice dailyIron Slow Release 143 (45 Fe) MG Oral Tablet Extended Release take one tablet po bid Quantity: 0 Refills: 0 Ordered: 14-Nov-2020 DO Start : 14-Nov-2020 Activelevonorgestrel 0.865453 mg/hr intrauterine system (2 sources)Progestin, Progestin-containing Intrauterine DeviceStart: 07-30-2025 End: 28-77-6694Fpcekagxcuxwin intrauterine device 52 mglisinopril 10 mg oral tablet (3 sources)Angiotensin Converting Enzyme InhibitorStart: 26-78-5291nxuw 1 tablet by mouth once dailyLisinopril 10 MG Oral Tablet TAKE 1 TABLET BY MOUTH DAILY Quantity: 30 Refills: 1 Ordered: 15-Sep-2021 Wendy Leyva MD Start : 14-Nov-2020 Active Needs to be seen in Nephrology for further refillsNasoGel Nasal Gel (1 source)Start: 31-32-4818JgqjIuu Nasal Gel Use once or twice daily as needed for nasal congestion/irritation Quantity: 1 Refills: 6 DiMwallaceo DO, Margo Start : 04-Nov-2020 Active 30 ML Vernon Btlnorethindrone acetate 5 mg oral tablet (1 source)Start: 44-01-7160dugx 1 tablet by mouth once dailyNorethindrone Acetate 5 MG Oral Tablet TAKE 1 TABLET DAILY. Quantity: 30 Refills: 6 Start : 23-Oct-2020 Activerivaroxaban 20 mg oral tablet (3 sources)Factor Xa InhibitorStart: 11-78-7601ycrz 1 tablet by mouth once daily Xarelto 20 MG Oral Tablet TAKE ONE TABLET PO DAILY Quantity: 0 Refills: 0 Ordered: 14-Nov-2020 DO Start : 21-Oct-2020 Active Problems Active Problems Problem ClassificationProblemDateDocumented DateEpisodic/ChronicAbdominal pain (1 source)Abdominal painOnset: 67-67-4865VnvuaruvAcyohcl and circulatory congenital anomalies (2 sources)Patent foramen ovale; Translations: [Ostium secundum type atrial septal defect]ChronicComplication of device; implant or graft (1 source)IUD threads lost; Translations: [Displacement of intrauterine contraceptive device, initial encounter]95-57-1675PsuzuybeOvculpkqfy associated with dizziness or vertigo (3 sources)Dizziness and giddiness; Translations: [Dizziness]Onset: 03-31-2024 EpisodicContraceptive and procreative management (2 sources)Contraception status; Translations: [Encounter for removal and reinsertion of intrauterine contraceptive device]32-54-7891TxicwokqOqtxanaitc and other anemia (3 sources)Anemia; Translations: [Anemia, unspecified]EpisodicEssential hypertension (5 sources)Hypertensive disorder; Translations: [Unspecified essential hypertension]ChronicFluid and electrolyte disorders (1 source)Dehydration; Translations: [Dehydration]Onset: 18-45-9746Harzxsnp Menstrual disorders (4 sources)Dysmenorrhea, unspecified; Translations: [DYSMENORRHEA UNSPECIFIED] Onset: 75-75-9232RxfwtauYywnjfozhni deficiencies (1 source)Vitamin D deficiency, unspecified; Translations: [VITAMIN D DEFICIENCY UNSPECIFIED]Onset: 89-39-2471KkczqioWpzxv female genital disorders (1 source)Abnormal uterine bleeding; Translations: [DUB (dysfunctional uterine bleeding)]ChronicOther female genital disorders (4 sources)Postcoital and contact bleeding; Translations: [POSTCOITAL AND CONTACT BLEEDING]Onset: 59-07-7514JkqesfsJfhal lower respiratory disease (1 source)Hypoxia; Translations: [Nocturnal hypoxemia]EpisodicOther lower respiratory disease (3 sources)Snoring; Translations: [Other respiratory abnormalities]EpisodicOther lower respiratory disease (3 sources)Cough; Translations: [Cough]EpisodicOther nutritional; endocrine; and metabolic disorders (2 sources)Childhood obesity; Translations: [Obesity, unspecified]ChronicOther upper respiratory disease (3 sources)Allergic rhinitis; Translations: [Allergic rhinitis, cause unspecified]ChronicOther upper respiratory disease (3 sources)Nasal congestion; Translations: [Other disease of nasal cavity and sinuses]EpisodicOther upper respiratory disease (3 sources)Bleeding from nose; Translations: [Epistaxis]EpisodicOther upper respiratory disease (3 sources)Nasal mucosa dry; Translations: [Other disease of nasal cavity and sinuses]EpisodicOther upper respiratory infections (4 sources)Acute sinusitis, unspecified; Translations: [ACUTE SINUSITIS UNSPECIFIED]Onset: 77-01-6527NiiswxgbQfbczmkks; thrombophlebitis and thromboembolism (2 sources)Acute deep vein thrombosis of lower limb; Translations: [Acute venous embolism and thrombosis of unspecified deep vessels of lower extremity]Episodic Pulmonary heart disease (3 sources)Pulmonary embolism; Translations: [Other pulmonary embolism and infarction]EpisodicResidual codes; unclassified (2 sources)Hypoxia; Translations: [Idiopathic sleep related non-obstructive alveolar hypoventilation]ChronicSpondylosis; intervertebral disc disorders; other back problems (4 sources)Radiculopathy, cervical region; Translations: [RADICULOPATHY CERVICAL REGION]Onset: 30-86-0957BhmdnjpeTfsxyjabptve (1 source)CONTACT W/AND (SUSP) EXPOS COVID-19; Translations: [CONTACT W/AND (SUSP) EXPOS COVID-19]Onset: 10-09-2022 Past or Other Problems Problem ClassificationProblemDateDocumented DateEpisodic/ChronicDeficiency and other anemia (1 source)Anemia, unspecified; Translations: [ANEMIA UNSPECIFIED]Onset: 44-85-9536JndvecxgKhgaurqr mellitus without complication (1 source)Other abnormal glucose; Translations: [OTHER ABNORMAL GLUCOSE]Onset: 92-66-2295LnnywwpuObjdq female genital disorders (2 sources)History of gynecological disorder; Translations: [Personal history of other genital system and obstetric disorders] Resolved: 49-10-1848LzvwddmgRdiclhbzxqei (1 source)History of No significant past medical history; Translations: [History of No significant past medical history]NEGATED: Highlighted row has not occurred!Residual codes; unclassified (2 sources)DiseaseEpisodic Results Test NameValueInterpretationReference RangeFacilityHCG ( test) Ql (U)on 11-46-5082Xgpiavgyeehcgu and review of laboratory resultsNormWarren State Hospital Preg Test, UrNegativeNegativeNovant Health Matthews Medical CenterIUD Removalon 66-05-9224Zabupjennifer Poe LPN 08/01/2025 2:01 PM IUD Removal Date/Time: 07/30/2025 4:35 PM Performed by: Waldemar Hutson DO Authorized by: Waldemar Hutson DO Consent: Consent obtained: Written Consent [...] to have IUD removed and reinserted in OR.[facility] Medical CenterCBC AND AUTO DIFFon 03-31-2024 ABSOLUTE BASOPHIL0.0 X10E9/LNormal0.0-0.2PSt. John of God HospitalComment on above:Performed By: #### AMARI, 80389-6, CMP, 1988-02, , 83641-6 #### [facility] ([id number]) [address] [place] [address] 04805GEZIAHBE NEUTROPHIL6.2 X10E9/LNormal1.5-6.6ProQuail Creek Surgical HospitalComment on above:Performed By: #### AMARI, 26213-1, CMP, 1988-02, , 39342-4 #### [facility] ([id number]) [address] [place] [address] 07150Fdeqsgkih/100 WBC (Bld)0.3 %NormalProQuail Creek Surgical Hospital Comment on above:Performed By: #### AMARI, 64793-1, CMP, 1988-02, , 23644-1 #### [facility] ([id number]) [address] [place] [address] 61670Xgmvrvxugjj (Bld) [#/Vol]0.2 10*3/uLNormal0.0-0.4ProQuail Creek Surgical HospitalComment on above:Performed By: #### AMARI, 78837-1, JORDON, 1988-02, , 98284-3 #### [facility] ([id number]) [address] [place] [address] 49710Ilsdxxvksbq/100 WBC (Bld)2.1 %NormalOhioHealth Southeastern Medical Center Comment on above:Performed By: #### AMARI, 62375-7, CMP, 1988-02, , 20906-8 #### [facility] ([id number]) [address] [place] [address] 34443Mqrylruxvhe distribution width (RBC) [Ratio]14.0 %Normal 11.5-15.0ProMercy Health St. Elizabeth Young[facility] Hospitalca West Winfield HospitalComment on above:Performed By: #### AMARI, 92326-1, CMP, 1988-02, , 94849-5 #### [facility] ([id number]) [address] [place] [address] 86582Ayxmeucodr (Bld) [Volume fraction]41.1 %Xtgwhd94-75VwaMpkorlQuail Creek Surgical HospitalComment on above:Performed By: #### AMRAI, 82398-9, CMP, 1988-02, , 38563-2 #### [facility] ([id number]) [address] [place] [address] 94214Ureucryksk (Bld) [Mass/Vol]13.9 g/cWMpzyqm73.7-15.5PSt. John of God HospitalComment on above:Performed By: #### AMARI, 96112-5, CMP, 1988-02, , 76808-3 #### [facility] ([id number]) [address] [place] [address] 63663Eqmrggedebs (Bld) [#/Vol]4.4 10*3/uLHigh1.0-3.5PSt. John of God HospitalComment on above:Performed By: #### AMARI, 55986-4, CMP, 1988-02, , 96766-6 #### [facility] ([id number]) [address] [place] [address] 59148Qbihsyooxqn/100 WBC (Bld)38.2 %NormalOhioHealth Southeastern Medical Center Comment on above:Performed By: #### AMARI, 29347-7, CMP, 1988-02, , 87123-2 #### [facility] ([id number]) [address] [place] [address] 39535VAC (RBC) [Entitic mass]27.2 awVzvnzr59-55JdnFysoneQuail Creek Surgical HospitalComment on above:Performed By: #### CBCA, 89356-1, CMP, 1988-02, , 77338-3 #### [facility] ([id number]) [address] [place] [address] 77626HGGL (RBC) [Mass/Vol]33.8 g/sQMeaxuu78-22KhqCssmhsQuail Creek Surgical HospitalComment on above:Performed By: #### CBCA, 57446-6, CMP, 1988-02, , 52704-3 #### [facility] ([id number]) [address] [place] [address] 05230SEI (RBC) [Entitic vol]80 vWPifjev30-152GucDjqtmtOhioHealth Southeastern Medical CenterComment on above:Performed By: #### CBCAmaya, 07926-8, CMP, 1988-02, , 31728-5 #### [facility] ([id number]) [address] [place] [address] 11630Legcgnrhf (Bld) [#/Vol]0.7 10*3/uLNormal0-0.9OhioHealth Southeastern Medical CenterComment on above:Performed By: #### CBCAmaya, 74108-6, CMP, 1988-02, , 10790-1 #### [facility] ([id number]) [address] [place] [address] 21067Jipnjjwiu/100 WBC (Bld)6.1 %NormalOhioHealth Southeastern Medical Center Comment on above:Performed By: #### CBCA, 53375-2, CMP, 1988-02, , 34784-7 #### [facility] ([id number]) [address] [place] [address] 49439Xikedwyutot/100 WBC (Bld)53.3 %[facility] Comment on above:Performed By: #### CBCA, 21983-0, CMP, 1988-02, , 27378-3 #### [facility] ([id number]) [address] [place] [address] 93502Lsrqafxn mean volume (Bld) [Entitic vol]7.4 fLNormal7-12 [facility]heastern Medical CenterComment on above:Performed By: #### AMARI, 99890-7, CMP, 1988-02, , 22421-1 #### [facility] ([id number]) [address] [place] [address] 00585Yfiifymet (Bld) [#/Vol]310 10*3/hAIuniur740-906GymMbrpxq [facility]remont HospitalComment on above:Performed By: #### AMARI, 07110-5, CMP, 1988-02, , 38033-8 #### [facility] ([id number]) [address] [place] [address] 13851UCO COUNT5.11 X10E12/LNormal3.80-5.20[facility] Comment on above:Performed By: #### AMARI, 97739-5, CMP, 1988-02, , 37565-4 #### [facility] ([id number]) [address] [place] [address] 72355WZS (Bld) [#/Vol]11.6 10*3/uLHigh4.0-11.0OhioHealth Southeastern Medical CenterComment on above:Performed By: #### AMARI, 90349-9, CMP, 1988-02, , 22632-3 #### [facility] ([id number]) [address] [place] [address] 45526YQBIFIDNKEGFB METABOLIC PANELon 45-13-1832Javwjjy [Mass/Vol]3.8 g/dLNormal3.2-5.3ProMedDoctors Medical Center of ModestoComment on above:Performed By: #### AMARI, 30933-1, CMP, 1988-02, , 10236-6 #### [facility] ([id number]) [address] [place] [address] 00663VEO [Catalytic activity/Vol]75 U/EKuzdwk83-524MsrRihzoyOhioHealth Southeastern Medical CenterComment on above:Performed By: #### AMARI, 04454-6, CMP, 1988-02, , 33222-3 #### [facility] ([id number]) [address] [place] [address] 92843EXY [Catalytic activity/Vol]16 U/LNormal0-31PSt. John of God HospitalComment on above:Performed By: #### AMARI, 74414-8, CMP, 1988-02, , 98005-6 #### [facility] ([id number]) [address] [place] [address] 83617Nrbfr gap [Moles/Vol]3 mmol/LLow5-15ProQuail Creek Surgical Hospital Comment on above:Performed By: #### AMARI, 45152-8, CMP, 1988-02, , 58379-3 #### [facility] ([id number]) [address] [place] [address] 71270PTR [Catalytic activity/Vol]19 U/LNormal0-41ProQuail Creek Surgical HospitalComment on above:Performed By: #### AMARI, 71606-8, CMP, 1988-02, , 29345-2 #### [facility] ([id number]) [address] [place] [address] 64643Pnortpzvz [Mass/Vol]0.6 mg/dLNormal0.3-1.2PSt. John of God HospitalComment on above:Performed By: #### AMARI, 24051-5, CMP, 1988-02, , 15586-8 #### [facility] ([id number]) [address] [place] [address] 72000Gmykgbw [Mass/Vol]8.7 mg/dLNormal8.5-10.5PSt. John of God HospitalComment on above:Performed By: #### AMARI, 92141-6, CMP, 1988-02, , 29487-2 #### [facility] ([id number]) [address] [place] [address] 98516Cvunuivk [Moles/Vol]108 mmol/NIzrxaf72-877MjhRxhyqxQuail Creek Surgical HospitalComment on above:Performed By: #### AMARI, 21417-4, JORDON, 1988-02, , 36144-6 #### [facility] ([id number]) [address] [place] [address] 57402IT8 [Moles/Vol]26 mmol/DNfcwyx91-54OhxTrgqzdSt. John of God Hospital Comment on above:Performed By: #### AMARI, 63842-1, JORDON, 1988-02, , 16490-5 #### [facility] ([id number]) [address] [place] [address] 55143Irzunjogmw [Mass/Vol]0.83 mg/dLNormal0.40-1.00ProQuail Creek Surgical HospitalComment on above:Result Comment: METHOD TRACEABLE TO IDMS STANDARD Performed By: #### AMARI, 10861-8, JORDON, 1988-02, , 50870-5 #### [facility] ([id number]) [address] [place] [address] 58833yGZV (CKD-EPI) NON-RACE DEPENDENT>90Normal>59ProQuail Creek Surgical HospitalComment on above:Result Comment: Reported eGFR is based on the CKD-EPI 2020 equation that does not use a race coefficient.Performed By: #### AMARI, 64287-9, JORDON, 1988-02, , 01912-0 #### [facility] ([id number]) [address] [place] [address], [place] [address]Hrxyclv [Mass/Vol]88 mg/gKDcsgkf08-66DazMbcieeOhioHealth Southeastern Medical Center Comment on above:Performed By: #### AMARI, 62690-8, CMP, 1988-02, , 00858-2 #### [facility] ([id number]) [address] [place] [address], [place] [address]Kkdacubbd [Moles/Vol]3.6 mmol/LNormal3.5-5.0ProQuail Creek Surgical HospitalComment on above:Performed By: #### AMARI, 39812-1, JORDON, 1988-02, , 29259-1 #### [facility] ([id number]) [address] [place] [address] 93287Pplwimp [Mass/Vol]6.9 g/dLNormal6.0-8.0ProQuail Creek Surgical HospitalComment on above:Performed By: #### AMARI, 53852-1, CMP, 1988-02, , 38947-9 #### [facility] ([id number]) [address] [place] [address], [place] [address]Vmfkyp [Moles/Vol]137 mmol/AWegnoi536-132OuoWuepue [facility] HospitalComment on above:Performed By: #### AMARI, 11213-4, CMP, 1988-02, , 21368-6 #### [facility] ([id number]) [address] [place] [address], [place] [address]Kkks nitrogen [Mass/Vol]15 mg/dLNormal5-23ProQuail Creek Surgical HospitalComment on above:Performed By: #### AMARI, 30702-4, CMP, 1988-02, , 44347-8 #### [facility] ([id number]) [address] [place] [address], [place] [address]FGK [Mass/Vol]on 4C REACTIVE PROTEIN1.5 mg/dLHigh 0.000-0.744ProMedica Century City HospitalComment on above:Performed By: #### CBCA, 74556-7, CMP, 1988-5, 04245-1, 25305-6 #### [facility] ([id number]) [address] [place] [address], FIRST FLOOR [place], [place] [address]DV ABDOMEN AND PELVIS W CONTon 21-30-8897GD ABDOMEN AND PELVIS W CONTCT ABDOMEN AND PELVIS W CONT History: . [...] by Carlos Bar MD on 03/31/2024 3:35 PMNormalProMedica Century City HospitalDRUG SCREEN, URINEon 19-81-3919LSONFRPGSNO/METHAMPNegativeNormalNEG [facility] HospitalComment on above:Result Comment: AMPH/METH screening cut off = 1000 ng/mLPerformed By: #### DSU #### [facility] ([id number]) [address] [place] [address] [place] [address]FLSSDWFWISMPJwrnqbhlGjzpaiYKXSvvGtfnbw [facility] HospitalComment on above:Result Comment: Barbiturates screening cut off value = 200 ng/mL Performed By: #### DSU #### [facility] ([id number]) [address] [place] [address] 33558TQYFGBKQRNALMUXCjzpyfqoLikejrYQPLioRlludl [facility] Comment on above:Result Comment: Benzodiazepines screening cut off value = 200 ng/mLPerformed By: #### DSU #### [facility] ([id number]) [address] [place] [address] 09922REXVAQUELCZFIohuuahrSefjgcVEZCeqKsedhf [facility] HospitalComment on above:Result Comment: Cannabinoids/THC screening cut off value = 50 ng/mL Performed By: #### DSU #### [facility] ([id number]) [address] [place] [address] 91439YCGRTSE METABOLITENegativeNoLicking Memorial Hospital Comment on above:Result Comment: Cocaine screening cut off value = 300 ng/mL Performed By: #### DSU #### [facility] ([id number]) [address] [place] [address] 16259DNPPEOTWlbfburtNgtxfjHASIyeLtgkmj [facility] HospitalComment on above:Result Comment: Ecstasy screening cut off value = 500 ng/mL This report is intended for use in clinical monitoring or management of patients.Performed By: #### DSU #### [facility] ([id number]) [address] [place] [address] 06120VSIDPUXYZVgfyycdrNrquytEQGKsrAhqqqp [facility] HospitalComment on above:Result Comment: Methadone screening cut off value = 300 ng/mL.Performed By: #### DSU #### [facility] ([id number]) [address] [place] [address] 44632JUZBBSUBskypwpsRjtjfwSTQHapZlymhl [facility] HospitalComment on above:Result Comment: Opiates screening cut off value = 300 ng/mL NOTE: This test is used for the detection of codeine, hydrocodone (>1000 ng/mL), morphine and hydromorphone (>900 ng/mL) in urine.Performed By: #### DSU #### [facility] ([id number]) [address] [place] [address] 85651UIQDUVDFYKdrqzwwbQrtttlNUVCqfWvrrpx [facility] HospitalComment on above:Result Comment: Oxycodone screening cut off value = 300 ng/mL NOTE: This test is used for the detection of oxycodone and oxymorphone in urine.Performed By: #### DSU #### [facility] ([id number]) [address] [place] [address] 10920NDEXKSGAEQBVZGjivsdfcWgxyauJJQQpsKkrimo [facility] HospitalComment on above:Result Comment: Phencyclidine screening cut off value = 25 ng/mL Performed By: #### DSU #### [facility] ([id number]) [address] [place] [address] 11992Vrqvom D-dimer DDU (PPP) [Mass/Vol]on 03-31-2024 DIMER<150 Normal<255[facility] on above:Result Comment: Results <255 ng/mL DDU: The presence of a VTE can safely be excluded with a negative D-Dimer result and Wells score. A negative result doesn't exclude the possibility of DIC. The test be repeated along with other diagnostic tests if the patient's symptoms persist or worsen. [email or web address] By: #### CBCA, 71193-9, CMP, 1987-5, 70188-2, 68927-9 #### [facility] ([id number]) [address] [place] [address] 87640MCQ ( test) Ql (U)on 23-13-8198Pwhr HCG ( test) Ql (U)NegativeNormalNEGOhioHealth Southeastern Medical CenterComment on above: Performed By: #### 2106-3 #### [facility] ([id number]) [address] [place] [address] 13671AZFTKZXACed 71-55-3570Vwsxyonts [Mass/Vol]2.2 mg/dLNormal 1.8-2.6ProQuail Creek Surgical HospitalComment on above:Performed By: #### AMARI, 70452-6, [facility], 1990-02, , 94652-6 #### [facility] ([id number]) [address] [place] [address] [id number] I.cardiac High sensitivity method [Mass/Vol]on HOUR TROP I, HIGH SENSITIVITY<2Normal<16[facility] Comment on above:Result Comment: Reference ranges have not been established for patients under 21 years of age.Performed By: #### 85397-4 #### [facility] ([id number]) [address] [place] [address] [id number] I, HIGH SENSITIVITY<2Normal<16ProQuail Creek Surgical HospitalComment on above:Result Comment: Reference ranges have not been established for patients under 21 years of age.Performed By: #### AMARI, 52242-4, CMP, 1990-02, , 07496-4 #### [facility] ([id number]) [address] [place] [address] [id number] MACROSCOPIC NURon [id number] NURSmallAbnormalNEG [facility] HospitalComment on above:Performed By: #### NUM #### [facility] ([id number]) [address] [place] [address] 44439JVFKQ/HGB NURNegativeNormalNEGProQuail Creek Surgical HospitalComment on above:Performed By: #### NUM #### [facility] ([id number]) [address] [place] [address] [id number] NURNegativeNormalNEGProQuail Creek Surgical HospitalComment on above:Performed By: #### NUM #### [facility] ([id number]) [address] [place] [address] [id number] NURTraceAbnormalNEGProQuail Creek Surgical HospitalComment on above:Performed By: #### NUM #### [facility] ([id number]) [address] [place] [address] [id number] ESTERASE NURNegativeNormalNEGOhioHealth Southeastern Medical CenterComment on above:Performed By: #### NUM #### [facility] ([id number]) [address] [place] [address] [id number] NURNegativeNormalNEGOhioHealth Southeastern Medical CenterComment on above:Performed By: #### NUM #### [facility] ([id number]) [address] [place] [address] [id number] NUR5.6Obznbm3.0-8.5ProMedica Century City HospitalComment on above:Performed By: #### NUM #### [facility] ([id number]) [address] [place] [address] [place] [address]KIICQNN NURNegativeNormalNEGProQuail Creek Surgical HospitalComment on above:Performed By: #### NUM #### [facility] ([id number]) [address] [place] [address] 54108KAOCLIXC GRAVITY MIREYA>=1.768Luwodk1.003-1.035ProQuail Creek Surgical HospitalComment on above:Performed By: #### NUM #### [facility] ([id number]) [address] [place] [address] [id number] NUR0.2 eu/dLNormal<1.1PSt. John of God Hospital Comment on above:Performed By: #### NUM #### [facility] ([id number]) [address] [place] [address], FIRST FLOOR [place], [place] [address] CSPINE MIN 4 VIEWSon 17-23-8887YS CSPINE MIN 4 VIEWS EXAMINATION: XR CSPINE [...] Electronically authenticated by: ANTONIO BRADSHAW Date: 2022-12-25 15:36NormWhite HospitalCovid-19 PCR (CVDTBH)on 83-98-2529XIGY-CoV-2 (COVID-19) RNA HAIDER+probe Ql (Unsp spec)Not detectedNormalNOT DETECTEDThe [facility] Comment on above:Result Comment: This test is not yet approved or cleared by the [place] FDA. When there are no FDA-approved or cleared tests available, and other criteria are met, FDA can make tests available under an emergency access mechanism called an Emergency Use Authorization (EUA). The EUA for this test is supported by the Boiler Tender of Health and Human Service's (HHS's) declaration that circumstances exist to justify the emergency use of in vitro diagnostics for the detection and/or diagnosis of the virus that causes COVID- 19. This EUA will remain in effect (meaning [...] of clinical signs and symptoms consistent with SARS-CoV-2.Performed By: #### CVDTBH #### [facility] [address] [place] [address] Dr. Ryan ROBLERO B AGon 18-00-0321DEISTIHUPHZVA [facility] Mansfield HospitalComment on above:Result Comment: Negative for Flu A protein angiten. Infection due to Flu A cannot be ruled out. FluA angiten in the sample may be below the detection limit of the test.Performed By: #### INFLUAB ####[facility] Hzmpkymmsb[address] [place], [place] [address]Dr. Ryan BagleyINFLUBNEGHSEE [facility] Mansfield HospitalComment on above:Result Comment: Negative for Flu B protein antigen. Infection due to Flu B cannot be ruled out. FluB antigen in the sample may be below the detection limit of the test.Performed By: #### INFLUAB ####[facility] Hhlpmznhep[address] [place], [place] [address]Dr. Ryan BagleyINFLUENZA A AGNegativeNormalNEGATIVE SEE COMMENTThe [facility]riners HospitalComment on above:Performed By: #### INFLUAB ####[facility] Wamgtmeayh[address] [place], [place] [address]Dr. Ryan BagleyINFLUENZA B AGNegativeNormalNEGATIVE SEE COMMENTThe [facility] Comment on above:Performed By: #### INFLUAB ####[facility] Qbghujwlux38[address] [place], [place] [address]Dr. Ryan Noble PELVISon 56-22-3438BW PELVISEXAMINATION: US PELVIS HISTORY: IUD check COMPARISON: FINDINGS: Transabdominal only [...] Electronically authenticated by: ANTONIO BRADSHAW Date: 2022-08-11 07:[address] [place], [place] [address]CHLAMYDIA/GONOCOCCUS HAIDER (SWAB/URINE/PAPon 29-65-8341Tfzpauxvd trachomatis, NAANegativeNormalNegativeThe [facility]ers HospitalComment on above: Performed By: #### CT/NGNA #### [facility] [address] [address] [address] Ryan Rojasisseria gonorrhoeae, NAANegativeNormalNegativeThe [facility]riners HospitalComment on above:Performed By: #### CT/NGNA #### [facility] [address] [address] [address] Ryan BagleyVAGINITIS/VAGINOSIS DNA PROBEon 97-99-0330Hdhjtjw speciesNegative NormalNegativeThe [facility]riners HospitalComment on above:Performed By: #### VAGINT ####[facility] [address] [address]Dr. Ryan BagleyGardnerella vaginalisNegativeNormalNegativeThe [facility] Comment on above:Performed By: #### VAGINT ####[facility] [address] [address]Dr. Ryan BagleyTrichomonas vaginalisNegative NormalNegativeThe [facility]riners HospitalComment on above:Performed By: #### VAGINT ####[facility] [address] [address]DrKing Davis ChangINSULINon 62-24-9992Xobrtzo86.4 uIU/mLCritically high2.6-24.9The [facility] HospitalComment on above:Performed By: #### INSULIN #### [facility] [address] [address] [address] Ryan HarrisC AUTO DIFFon 22-53-4716IGPH #0.1 103/ulNormal0.0-0.1The [facility]ers HospitalComment on above:Performed By: #### CBC ####[facility] [address] [address]Dr.Ryan BagleyBasophils/100 WBC (Bld)1.0 %Normal0.2-2.0The [facility]riners HospitalComment on above:Performed By: #### CBC ####[facility] [address] [address]Dr.Robynlan ChangEO #0.2 103/ulNormal0.0-0.7The [facility]ers HospitalComment on above:Performed By: #### CBC ####[facility] Wqwwtijnxl6[address] [place], [place] [address]Dr.Ryan ChangEosinophils/100 WBC (Bld)3.1 %Normal 0.9-7.0The [facility]riners HospitalComment on above:Performed By: #### CBC ####[facility] Exzxbrsqpa7[address] [place], [place] [address]Dr.Robynyaan Bagley Erythrocyte distribution width (RBC) [Ratio]17.5 %Critically high11.0-15.0The [facility]riners HospitalComment on above:Performed By: #### CBC ####[facility] Ziruyfsvxv[address] [place], [place] [address]Dr.Robynyana ChangHematocrit (Bld) [Volume fraction]47.4 %Mbddrd12.0-48.0The [facility]ers HospitalComment on above:Performed By: #### CBC ####[facility] Mzycdnuqak[address] [place], [place] [address]Dr.Robynyana ChangHemoglobin (Bld) [Mass/Vol]14.7 g/dL Hzwjlr42.0-16.0The [facility]ers HospitalComment on above:Performed By: #### CBC ####[facility] Tlldcvimak[address] [place], [place] [address]Dr. Ryan ChangIG #0.03 10e3/ulNormal0.00-0.03The [facility]ers HospitalComment on above: Performed By: #### CBC ####[facility] Udavzvmsai[address] [place], [place] [address]Dr.Ryan ChangIG %0.4 %Normal0.0-0.5The [facility]ers HospitalComment on above:Performed By: #### CBC ####[facility] Pcbgzxgmig[address] [place], [place] [address]Dr.Robynyana ChangLYMPH #2.0 103/ulNormal1.2-3.8The [facility]ers HospitalComment on above:Performed By: #### CBC ####[facility] [address] [address]Dr. Ryan BagleyLymphocytes/100 WBC (Bld)28.9 %Hotjoo51.5-60.0The [facility] Comment on above:Performed By: #### CBC ####[facility] Jmssncaovi[address] [place], [place] [address]Dr.Robynyana KevynMANUAL DIFF REQNONormalThe [facility]aks HospitalComment on above:Performed By: #### CBC ####[facility] Kotzdhthvq[address] [place], [place] [address]Dr.Ryan BagleyMCH (RBC) [Entitic mass]24.2 pgCritically low26.7-34.0The [facility] HospitalComment on above:Performed By: #### CBC ####[facility] Byifmfvdfl[address] [place], [place] [address]Dr.Ryan BagleyMCHC (RBC) [Mass/Vol]31.0 g/dLNormal 29.9-35.2The [facility] HospitalComment on above:Performed By: #### CBC ####[facility] Trxlubofym4[address] [place], [place] [address]Dr. Ryan BagleyMCV (RBC) [Entitic vol]78.0 fLCritically low81.0-99.0The [facility] HospitalComment on above:Performed By: #### CBC ####[facility] Ddthaohjre[address] [place], [place] [address]Dr.Ryan BagleyMONO #0.5 103/ulNormal0.3-0.8The [facility]aks HospitalComment on above:Performed By: #### CBC ####[facility] Iojvkahrkm29[address] [place], [place] [address]Dr. Robynyana BagleyMonocytes/100 WBC (Bld)6.8 %Normal1.7-12.0The [facility] Comment on above:Performed By: #### CBC ####[facility] Zrzofcmyzb[address] [place], [place] [address]Dr.Ryan BagleyNEUT #4.2 103/ulNormal1.4-6.5 [facility] HospitalComment on above:Performed By: #### CBC ####[facility] [address] [address]DrLupillo Bagley Neutrophils/100 WBC (Bld)59.8 %Fgdoqx96.0-75.0[facility] HospitalComment on above:Performed By: #### CBC ####[facility] [address] [address]DrLupillo BagleyPlatelet mean volume (Bld) [Entitic vol] 8.7 fLCritically low9.5-13.5The [facility] HospitalComment on above:Performed By: #### CBC ####[facility] Ayevvlyrvk[address] [place], [place] [address]DrLupillo BagleyPLT268 103/xiMlmiij125-567Cfw [facility] HospitalComment on above:Performed By: #### CBC ####[facility] Ylbkiboltn[address] [place], [place] [address]DrLupillo BagleyRBC6.08 106/ulCritically high4.20-5.40 The [facility] HospitalComment on above:Performed By: #### CBC ####[facility] Nmdirxultv[address] [place], [place] [address]DrLupillo BagleyWBC7.0 103/ulNormal4.0-11.0The [facility] HospitalComment on above:Performed By: #### CBC ####[facility] Hknfkxksjr[address] [place], [place] [address]DrKing BagleyFRKATHIE THYROXINE INDEX T7on 93-88-3303OAO9.06NormalThe [facility] HospitalComment on above:Performed By: #### T7, TSH, CMP, LIPID #### [facility] [address] [place] [address] Dr. Ryan BagleyT3U36.0 %Lbnoca89.5-40.5The [facility] HospitalComment on above: Performed By: #### T7, TSH, CMP, LIPID #### [facility] [address] [place] [address] Dr. Ryan BagleyT4 [Mass/Vol]8.50 ug/dLNormal5.40-10.60[facility] Comment on above:Performed By: #### T7, TSH, CMP, LIPID #### [facility] [address] [address] [address] Ryan BagleyGLYCOHEMOGLOBIN A1Con 28-56-0860XWF RECOMMENDATIONSEE BELOWWadsworth-Rittman HospitalComment on above:Result Comment: ADA RECOMMENDED LIMIT 4.0 - 6.0 ADA THERAPEUTIC TARGET < 7.0 ACTION SUGGESTED > 7.0Performed By: #### A1C ####[facility] [address] [address]Dr. Ryan BagleyGlucose [Mass/Vol]108 mg/dLNoGenesis HospitalComment on above:Performed By: #### A1C ####[facility] [address] [address]Dr.Yilan BagleyHbA1c (Bld) [Mass fraction]5.4 %Normal 4.5-6.2The [facility] HospitalComment on above:Performed By: #### A1C ####[facility] [address] [address]Dr.Yilan BagleyIRONon 73-55-6652Kqat [Mass/Vol]50.0 ug/wTDrmnqc06.0-170.0[facility] HospitalComment on above:Performed By: #### VITAD, IRON ####[facility] [address] [address]Dr. Ryan BagleyLIPID PROFILEon 02-10-2022 CHOL-HDL RATIO NORMSEE BELOWGlenbeigh HospitalComment on above:Result Comment: 3.3 - 4.4 LOW RISK 4.4 - 7.1 AVERAGE RISK 7.1 - 11.0 MODERATE RISK >11.0 HIGH RISKPerformed By: #### T7, TSH, CMP, LIPID #### [facility] [address] [address] [address] Ryan BagleyCholesterol [Mass/Vol]215 mg/aWSclfhq101-821Jlg [facility] Comment on above:Performed By: #### T7, TSH, CMP, LIPID #### [facility] [address] [address] [address] Ryan Castellanosesterol in HDL [Mass/Vol]42 mg/uBKuzkse95-83Mdv [facility] HospitalComment on above:Performed By: #### T7, TSH, CMP, LIPID #### [facility] [address] [address] [address] Ryan Castellanosesterol in LDL [Mass/Vol]145.0 mg/dLCritically high46.0-140.0 The [facility] HospitalComment on above:Performed By: #### T7, TSH, CMP, LIPID #### [facility] [address] [address] [address] Ryan Cho.total/Cholesterol in HDL [Mass ratio]5.1 {ratio} NormalThe [facility] HospitalComment on above:Performed By: #### T7, TSH, CMP, LIPID #### [facility] [address] [address] [address] Ryan Montgomery NORMAL> or = 60 mg/dl - LOW CARDIOVASCULAR RISK <40 mg/dl - HIGH CARDIOVASCULAR RISKNoGenesis HospitalComment on above:Performed By: #### T7, TSH, CMP, LIPID #### [facility] [address] [address] [address] Ryan Lucio CALC NORMALSEE BELOWNoGenesis HospitalComment on above:Result Comment: <100 mg/dl OPTIMAL 100 - 129 mg/dl NEAR OR ABOVE OPTIMAL 130 - 159 mg/dl BORDERLINE HIGH 160 - 189 mg/dl HIGH >190 mg/dl VERY HIGH Performed By: #### T7, TSH, CMP, LIPID #### [facility] [address] [address] [address] Ryan BagleyTriglyceride [Mass/Vol]140 mg/iDXmbzgk32-510IxkEast [facility] City Hospital Comment on above:Performed By: #### T7, TSH, CMP, LIPID #### [facility] [address] [address] [address] Ryan MccarthyLDL CALC28.0 mg/dLNormalThe [facility] HospitalComment on above: Performed By: #### T7, TSH, CMP, LIPID #### [facility] [address] [address] [address] Ryan Aguilera 14(COMP METB)on 03-89-9851Lmoypzv [Mass/Vol]3.7 g/dLNormal 3.4-5.0The [facility] HospitalComment on above:Performed By: #### T7, TSH, CMP, LIPID #### [facility] [address] [place] [address] Dr. Ryan BagleyAlbumin/Globulin [Mass ratio]0.9 {ratio}NormalThe [facility] HospitalComment on above:Performed By: #### T7, TSH, CMP, LIPID #### [facility] [address] [place] [address] Dr. Ryan Levin [Catalytic activity/Vol]102 U/XYmjadz86-706Rva [facility] Samaritan Medical Centerment on above:Performed By: #### T7, TSH, CMP, LIPID #### [facility] [address] [place] [address] Dr. Ryan Salinas [Catalytic activity/Vol]19 U/AQccsua78-91Udk [facility] HospitalComment on above:Performed By: #### T7, TSH, CMP, LIPID #### [facility] [address] [place] [address] Dr. Ryan Gilmore gap [Moles/Vol]15.1 mmol/LNormalThe [facility] Comment on above:Performed By: #### T7, TSH, CMP, LIPID #### [facility] [address] [place] [address] Dr. Ryan BagleyAST [Catalytic activity/Vol]17 U/UUplrzq27-70Ovu [facility] HospitalComment on above:Performed By: #### T7, TSH, CMP, LIPID #### [facility] [address] [place] [address] Dr. Ryan BagleyBilirubin [Mass/Vol]0.7 mg/dLNormal0.2-1.0The [facility] Comment on above:Performed By: #### T7, TSH, CMP, LIPID #### [facility] [address] [address] [address] Ryan BaglyeCalcium [Mass/Vol]8.3 mg/dLCritically low8.5-10.1The [facility] HospitalComment on above:Performed By: #### T7, TSH, CMP, LIPID #### [facility] [address] [place] [address] Dr. Ryan BagleyChloride [Moles/Vol]101 mmol/OTibwof36-447Uum [facility] Comment on above:Performed By: #### T7, TSH, CMP, LIPID #### [facility] [address] [place] [address] Dr. Ryan BagleyCO2 [Moles/Vol]23.8 mmol/RVlgthc82.0-32.0The [facility] Comment on above:Performed By: #### T7, TSH, CMP, LIPID #### [facility] [address] [place] [address] Dr. Ryan BagleyCreatinine [Mass/Vol]0.81 mg/dLNormal0.55-1.02The [facility] HospitalComment on above:Performed By: #### T7, TSH, CMP, LIPID #### [facility] [address] [place] [address] Dr. Ryan VillarealGFR-AF STATELESS>60Normal>=60The [facility] HospitalComment on above:Performed By: #### T7, TSH, CMP, LIPID #### [facility] [address] [place] [address] Dr. Ryan VillarealGFR-NON AF STATELESS>60Normal>=60The [facility] HospitalComment on above:Performed By: #### T7, TSH, CMP, LIPID #### [facility] [address] [place] [address] Dr. Ryan BagleyGlobulin (S) [Mass/Vol]4.0 g/dLNormalThe [facility] HospitalComment on above:Performed By: #### T7, TSH, CMP, LIPID #### [facility] [address] [place] [address] Dr. Ryan BagleyGlucose [Mass/Vol]95 mg/nBRbfjzp12-353VznEast [facility] Hospital Comment on above:Performed By: #### T7, TSH, CMP, LIPID #### [facility] [address] [place] [address] Dr. Ryan BagleyPotassium [Moles/Vol]3.9 mmol/LNormal3.5-5.1The [facility] Comment on above:Performed By: #### T7, TSH, CMP, LIPID #### [facility] [address] [place] [address] Dr. Ryan BagleyProtein [Mass/Vol]7.7 g/dLNormal6.1-8.2The [facility] Comment on above:Performed By: #### T7, TSH, CMP, LIPID #### [facility] [address] [place] [address] Dr. Ryan BagleySodium [Moles/Vol]136 mmol/QHnqyil696-648Fvq [facility] Comment on above:Performed By: #### T7, TSH, CMP, LIPID #### [facility] [address] [place] [address] Dr. Ryan BagleyUrea nitrogen [Mass/Vol]9.0 mg/dLNormal6.4-19.3TKettering Health MiamisburgComment on above:Performed By: #### T7, TSH, CMP, LIPID #### [facility] [address] [place] [address] Dr. Ryan Ramos nitrogen/Creatinine [Mass ratio]11.1 mg/mgNoGenesis HospitalComment on above:Performed By: #### T7, TSH, CMP, LIPID #### [facility] [address] [place] [address] Dr. Ryan Brothers 52-22-2532EUF4.133 uIU/mLNormal0.430-3.750The [facility] HospitalComment on above:Performed By: #### T7, TSH, CMP, LIPID #### [facility] [address] [place] [address] Dr. Ryan Alves [facility] BELOWGlenbeigh HospitalComment on above: Result Comment: <0.34 UIU/ml HYPERTHYROID 0.34-5.60 UIU/ml EUTHYROID >5.60 UIU/ml HYPOTHYROIDPerformed By: #### T7, TSH, CMP, LIPID #### [facility] [address] [place] [address] Dr. Ryan BagleyVITAMIN D 25 OHon 89-62-8184UKL D 25-OH11.3 ng/mLNLakeHealth Beachwood Medical CenterComment on above:Performed By: #### VITAD, IRON #### [facility] [address] [place] [address] [facility] Ironton CampusComment on above: Result Comment: <20 ng/mL Vit D deficient 20 - <30 ng/mL Vit D insufficient 30 - 100 ng/mL Vit D sufficient >100 ng/mL Potential ToxicityPerformed By: #### VITAD, IRON #### [facility] [address] [place] [address] Dr. Ryan Fleming + TIBCon 01-03-2022% ESMGXJVLTH76 %Low25 - 45[facility]ow[facility] HospitalComment on above:Performed By: #### IRONT #### [facility] [address] [place], [place] [address]Hnbp [Mass/Vol]36 ug/mGIdsgcb55 - 150[facility] HospitalComment on above:Performed By: #### IRONT #### [facility] [address] [place], [place] [address]CUVP065 ug/uLNrtelx103 - 445[facility] Comment on above:Performed By: #### IRONT #### [facility] [address] [place], [place] [address]TSB AND DIFFERENTIALon 01-02-2022% AUTOMATED IMMATURE GRAN0.4 %Normal0.0 - 0.9[facility] HospitalComment on above:Result Comment: Immature Granulocyte Count (IG) includes promyelocytes, myelocytes and metamyelocytes but does not include bands. Percent differential counts (%) should be interpreted in the context of the absolute cell counts (cells/L).Performed By: #### CBCDF #### [facility] [address] [place], [place] [id number] (Bld) [#/Vol]0.07 10*3/uLNormal0.00 - 0.10[facility] HospitalComment on above:Performed By: #### CBCDF #### [address] [id number]/100 WBC (Bld)0.6 %Normal0.0 - 2.0[facility] HospitalComment on above:Performed By: #### CBCDF #### [address] [id number] (Bld) [#/Vol]0.14 10*3/uLNormal0.00 - 0.70[facility] HospitalComment on above:Performed By: #### CBCDF #### [address] [id number]/100 WBC (Bld)1.1 %Normal0.0 - 6.0[facility] HospitalComment on above:Performed By: #### CBCDF #### [address] [id number] distribution width (RBC) [Ratio]16.5 %High11.5 - 14.5[facility] HospitalComment on above:Performed By: #### CBCDF #### [address] [id number] (Bld) [Volume fraction]46.8 %High36.0 - 46.0[facility] HospitalComment on above:Performed By: #### CBCDF #### [address] [id number] (Bld) [Mass/Vol]13.7 g/uJBekwmr33.0 - 16.0[facility] HospitalComment on above:Performed By: #### CBCDF #### [address] [id number] (Bld) [#/Vol]3.77 10*3/uLNormal1.20 - 4.80[facility] HospitalComment on above:Performed By: #### CBCDF #### [address] [id number]/100 WBC (Bld)30.5 %Nmrchn65.0 - 44.0[facility] HospitalComment on above:Performed By: #### CBCDF #### [address] [id number] (RBC) [Mass/Vol]29.3 g/dLLow32.0 - 36.0[facility] HospitalComment on above:Performed By: #### CBCDF #### [address] [id number] (RBC) [Entitic vol]79 fLLow80 - 100[facility] HospitalComment on above:Performed By: #### CBCDF #### [address] [id number] (Bld) [#/Vol]0.94 10*3/uLNormal0.10 - 1.00[facility] HospitalComment on above:Performed By: #### CBCDF #### [address] [id number]/100 WBC (Bld)7.6 %Normal2.0 - 10.0[facility] HospitalComment on above:Performed By: #### CBCDF #### [address] [id number] (Bld) [#/Vol]7.41 10*3/uLNormal1.20 - 7.70[facility] HospitalComment on above:Performed By: #### CBCDF #### [address] [id number]/100 WBC (Bld)59.8 %Gxyfzy89.0 - 80.0[facility] HospitalComment on above:Performed By: #### CBCDF #### [address] [id number] (Bld) [#/Vol]427 10*3/gRDbgroh346 - 450[facility] HospitalComment on above:Performed By: #### CBCDF #### [address] [id number] x10E12/LHigh4.00 - 5.20[facility] Comment on above:Performed By: #### CBCDF #### [address] [id number] (Bld) [#/Vol]12.4 10*3/uLHigh4.4 - 11.3[facility] HospitalComment on above:Performed By: #### CBCDF #### [address] [id number] 67-17-2016CDDOINWN56 ug/LNormal8 - 150[facility] HospitalComment on above:Performed By: #### KOKI #### [facility] [address] [place], [place] [address]Szbb Nephrologyon 18-01-5165Dcvy NephrologyNo report was sent [facility] Nephrologyon 43-77-6466Uqxq NephrologyOrders Renew: Lisinopril 10 MG Oral Tablet; TAKE [...] vegetables, nuts, dairy, lean meats, fish, poultry, wholegrains, and heart healthy fats -Keeping weight in a healthy range Provider Impressions Zee is a 15 y/o morbidly obese female with hypertension, double heterozygous state for Factor V Leiden and prothrombin gene mutation with history of bilateral PE's and significant RLE DVT in 2020 on chronic anticoagulation with Xarelto who is here for follow up for HTN. Overall doing well - some dizziness/blurred vision when standing up quickly. BP today 105/70 (RUE) and 112/72 (LUE).No at home BPs reported however suspect that dizziness/blurred vision may be secondary to mild hypotension. Etiology of HTN is likely primary given obesity and CV risk factors however may have been ex acerbated by significant pulmonary embolism which is now [...] RFP while on ROGE-I therapy. Latisha Hoyt, PGY-2 Pediatrics Dave I saw and evaluated the patient. I personally obtained the martins and critical portions of the historyand physical exam or was physically present for martins and critical portions performed by the trainee.I reviewed the documentation and discussed the patient with the trainee. I agree with the medical decision making, as documented on the trainee's note. Wendy Leyva MD, MS Field Education Director of Pediatric Nephrology [facility] [id number] [place] [id number] Chief Complaint Follow up visit here for hypertension per mother Accompanied by mother. History of Present Illness Zee braden a is a 15 year old female who was diagnosed with DVT and PE secondary to OCP use in October2020. 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 She endorses chronic fatigue - stable. She [...] negative except as noted (more content not included)...NormalUH TouchworksPeds Cardiology - 3-19 y/oon [id number] Cardiology - 3-19 y/oDiagnoses/Problems Assessed Acute deep vein thrombosis (DVT) of other specified vein of right lower extremity (453.40) (I82.491) Essential hypertension (401.9) (I10) Multiple subsegmental pulmonary emboli without acute cor pulmonale (415.19) (I26.94) Nocturnal hypoxemia (327.24) (G47.34) PFO (patent foramen ovale) (745.5) (Q21.1) Provider Impressions Zee is a 15-year-old girl who suffered an acute right lower extremity DVT and bilateral submassivepulmonary emboli in October 2020. She still is in the convalescence stage following her DVT/PE. Shestill has a nocturnal oxygen requirement is thought [...] did reveal a patent foramen ovale with zyqe-tj-trxbo shunting by color- flow Doppler. No evidence of right to left shunting, although a agitated hearing contrast injection was not performed. Nevertheless Fabricio has not suffered a cryptogenic stroke nor has she had any other signs of systemic embolization to suggest that the PFO is at all pathologic. The only FDA approved indication for PFO at this time isfor the secondary prevention of cryptogenic stroke in young patients less than 60 years do not haveother explanation for why the had the stroke. Considering that Zee has never had a stroke she doesnot meet any standard indication for PFO closure. I do not think that the oxygen requirement is related to right to left shunting as this was not seen on either of her studies and is getting progressively better presumably as the pulmonary artery clot burden improves and she has less intrapulmonaryshunting. 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 History of Present Illness ZEE is a 15-year-old female who is being seen in follow-up today after recent hospitalization for pulmonary embolus. She is accompanied by her mother who contributed to the history. Previous recordswere reviewed and pertinent details are included below. Zee was admitted to an outside hospital on October 16, 2020 with worsening respiratory distress andfever. Workup at the outside hospital revealed a submassive pulmonary embolism and right lower extremity DVT. She had recently started an oral contraceptive pill for control of her menorrhagia, and this was thought to be the reason for the thrombus formation. She was transferred from the outside hospital to [place] [facility] for management of worsening respiratory distress. [...] multifactorial but partly related to her significant pul monary emboli. She remains on 1 L of oxygen by nasal cannula at night. While in the hospital a transthoracic echocardiogram was performed which was pertinent for abnormalbranch pulmonary artery Doppler profile and mildly diminished RV systolic function. Both of which could be seen with acute s (more content not included)...Normal TouchworksPeds Nephrologyon [id number] NephrologyDiagnoses/Problems Hypertension (401.9) (I10) Orders Start: Lisinopril 10 [...] recently hospitalized for treatment of DVT and PE,noted to have hypertension most likely primary in nature. Renal imaging was reassuring and she had no evidence of end organ damage with no LVH on echocardiogram. She is being treated with lisinopril with some improvement in her home blood pressures, but the majority of her BP's remain above goal of< 120/80. I would like to increase her lisinopril dose today and continue to monitor home BP's, as we may need to adjust dose further. Her renal function and electrolytes after lisinopril initiation is appropriate, and she has no history of proteinuria. Wendy Leyva MD, MS Field Education Director of Pediatric Nephrology [facility] [address] [id number] [place] [address] Chief Complaint An interactive audio and video telecommunication system which permits real time communications between the patient (at the originating site) and provider (at the distant site) was utilized to providethis telehealth service. Verbal consent was requested and obtained for minor from (parent/guardian) on this date, 109:20 AM , for a telehealth visit. This visit was completed via EverythingMe due to the restrictions of the COVID-19 pandemic. All issues as below were discussed and addressed but no physical exam was performed. If it was felt that the patient should be evaluated in clinic then they were directed there. The patient/parent verbally consented to the visit. FUV HTN History of Present IllnessI had the pleasure of seeing ZEE JACOBSON virtually in the Nephrology Clinic at [facility] today for follow-up evaluation of hypertension. [...] rates intermittently. She is working on becoming moreactive, which is going slowly. She reports the [...] but getting better. Denies headaches, vision changes, n osebleeds and dry cough. Home BP's: 124/78, 116/79, [...] trip in their RV next week to [place] Review of Systems The remainder of a [...] Cat Allergies Estrogens Record (more content not included)...NormalUH TouchworksArea 5 Allergens with IgEon [id number] Alternata<0.10NormalClass [address] [place], [place] [address]Comment on above:Performed By: #### ALLERGEN 5, MOUSE EPITHELIA #### [facility] ,Magno White Allergen<0.10NormalClass [address] [place], [place] [address]Comment on above:Performed By: #### ALLERGEN 5, MOUSE EPITHELIA #### [facility] ,Aspergillis Fumigatus Allergen<0.10NormalClass [address] [place], [place] [address]Comment on above:Performed By: #### ALLERGEN 5, MOUSE EPITHELIA #### [facility] ,Bermuda Grass Allergen<0.10NormalClass [address] [place] [address] Comment on above:Performed By: #### ALLERGEN 5, MOUSE EPITHELIA #### [facility] ,Ionia Common Silver Aller<0.10NormalClass [address] [place], [place] [address]Comment on above:Performed By: #### ALLERGEN 5, MOUSE EPITHELIA #### [facility] ,Cat Hair/Dander Allergen<0.10NormalClass [address] [place] [address] Comment on above:Performed By: #### ALLERGEN 5, MOUSE EPITHELIA #### [facility] ,Paoli, Mountain Allergen<0.10NormalClass [address] [place] [address] Comment on above:Performed By: #### ALLERGEN 5, MOUSE EPITHELIA #### [facility] ,Cladosporium Herbarum<0.10NormalClass [address] [place], [place] [address]Comment on above:Performed By: #### ALLERGEN 5, MOUSE EPITHELIA #### [facility] ,CLASS DESCRIPTIONNoal.[facility]ica Memorial HospitalComment on above: Result Comment: Levels of Specific IgE Class Description of Class ----- < 0.10 0 Negative 0.10 - 0.31 0/I Equivocal/Low 0.32 - 0.55 I Low 0.56 - 1.40 II Moderate 1.41 - 3.90 III High 3.91 - 19.00 IV Very High 19.01 - 100.00 V Very High >100.00 Very HighPerformed By: #### ALLERGEN 5, MOUSE EPITHELIA #### [facility] ,Cockroach Irish Allergen<0.10NormalClass [address] [place] [address] Comment on above:Performed By: #### ALLERGEN 5, MOUSE EPITHELIA #### [facility] ,[place]a Allergen<0.10NormalClass [address] [place], [place] [address]Comment on above:Performed By: #### ALLERGEN 5, MOUSE EPITHELIA #### [facility] ,D Farinae Mite Allergen<0.10NormalClass [address] [place] [address] Comment on above:Performed By: #### ALLERGEN 5, MOUSE EPITHELIA #### [facility] ,D Pteronyssinus Allergen<0.10NormalClass [address] [place] [address] Comment on above:Performed By: #### ALLERGEN 5, MOUSE EPITHELIA #### [facility] ,Dog Hair/Dander Allergen<0.10NormalClass [address] [place] [address] Comment on above:Performed By: #### ALLERGEN 5, MOUSE EPITHELIA #### [facility] ,Elm Tree Allergen<0.10NormalClass [address] [place], [place] [address]Comment on above:Performed By: #### ALLERGEN 5, MOUSE EPITHELIA #### [facility] ,Immunoglobulin [id number] Memorial HospitalComment on above: Performed By: #### ALLERGEN 5, MOUSE EPITHELIA #### [facility] ,Maple/Dolores Allergen<0.10NormalClass [address] [place] [address] Comment on above:Performed By: #### ALLERGEN 5, MOUSE EPITHELIA #### [facility] ,Mouse Urine Allergen<0.10NormalClass [address] [place], [place] [address]Comment on above:Performed By: #### ALLERGEN 5, MOUSE EPITHELIA #### [facility] ,San [place], White Allergen<0.10NormalClass [address] [place] [address] Comment on above:Performed By: #### ALLERGEN 5, MOUSE EPITHELIA #### [facility] ,Ott[place] Tree Allergen<0.10NormalClass [address] [place], [place] [address]Comment on above:Performed By: #### ALLERGEN 5, MOUSE EPITHELIA #### [facility] ,Pecan/Nacogdoches Tree Allergen<0.10NormalClass [address] [place] [address] Comment on above:Performed By: #### ALLERGEN 5, MOUSE EPITHELIA #### [facility] ,Penicillium Chrysogen Mold All<0.10NormalClass [address] [place], [place] [address]Comment on above:Performed By: #### ALLERGEN 5, MOUSE EPITHELIA #### [facility] ,Pigweed Allergen<0.10NormalClass [address] [place], [place] [address]Comment on above:Performed By: #### ALLERGEN 5, MOUSE EPITHELIA #### [facility] ,Ragweed Short Allergen<0.10NormalClass [address] [place] [address] Comment on above:Performed By: #### ALLERGEN 5, MOUSE EPITHELIA #### [facility] ,Elkview Sheep Allergen<0.10NormalClass [address] [place], [place] [address]Comment on above:Performed By: #### ALLERGEN 5, MOUSE EPITHELIA #### [facility] ,Taft Allergen<0.10NormalClass [address] [place], [place] [address]Comment on above:Performed By: #### ALLERGEN 5, MOUSE EPITHELIA #### [facility] ,Thistle Filipino Allergen<0.10NormalClass [address] [place] [address] Comment on above:Performed By: #### ALLERGEN 5, MOUSE EPITHELIA #### [facility] ,Du Allergen<0.10NormalClass [address] [place], [place] [address]Comment on above:Performed By: #### ALLERGEN 5, MOUSE EPITHELIA #### [facility] ,P[place] Tree Pollen Allergen<0.10NormalClass [address] [place] [address] Comment on above:Performed By: #### ALLERGEN 5, MOUSE EPITHELIA #### [facility] ,Mouse Epithelia Allergenon [id number] Epithelia Allergen<0.10NormalClass 0 [facility]ica Memorial HospitalComment on above:Result Comment: Performed at: [address] [id number] Antiquer: Wu Sesay MD, Phone: [phone] PERFORMED BY: [facility] [address] [place] [address] PATHOLOGIST INSURANCE SALESPERSON LUIS HENSON M.D.Performed By: #### ALLERGEN 5, MOUSE EPITHELIA #### [facility] ,Peds Pulmonary Medicine- Office Visiton [id number] Pulmonary Medicine- Office VisitDiagnoses/Problems Pulmonary embolism (415.19) (I26.99) Nocturnal hypoxemia (327.24) [...] . I will find out if our merchandise manager can put an IUD in at the [...] need additional refills, your child is sick oryou have questions about the plan ([phone]). Please call us if you are having insurance coverage problems with any of the medications we have prescribed -- Follow up will be in 2-3 months Provider Impressions 15 yo female with hx bilateral PEs associated with right lower extremity DVT after staring OCPs forDUB. She's also on home oxygen at night - 2L and feeling overall better. The general thought was that the oxygen requirement was secondary to V/Q mismatch and parenchymal changes from the PEs. Will need to discuss timing of repeat CT with heme/onc. Also, she is still having some bleeding on the progesterone only pills and we discussed other options today. I emailed mental health worker, heme onc and cardiologyabout her case today as I feel a little uneasy about her undergoing sedation/anesthesia for NATHAN in December, but presumably her oxygen requirement will be better and so will her CT chest. Her PFTs are no rmal and NOT suggestive of obstruction, but she does have rescue inhalers at home to use PRN for dry cough that has been present for a while - unclear if this is related to asthma, post-nasal drip orsomething else. She is high risk for upper [...] the patient's case with other providers including hematology,my partners in pulmonology, mental health worker and cardiology Chief Complaint followup Accompanied by mother. History of Present Illness Today (11/04/2020) I am seeing ZEE JACOBSON as a hospital followup Hospital followup from stay dated: 10/16/20-10/23/20 at [facility]. was at [facility] for 2 days prior to beingtransferred Admitted for: pulmonary embolism Summary from stay: no discharge summary available Summary from consult done 10/22/[address] King and Chandra HPI: 15 year old female with dysfunctional uterine bleeding requiring OCPs who is admitted, hospital day6, for DVT with bilateral pulmonary embolism. She [...] which she attributes to seasonal allergies. She hasno history of chest pain prior to this [...] sleep study for t (more content not included)...NormalUH TouchworksRenal Function Panelon [id number] [Mass/Vol]3.6 g/dLNormal3.2-5.5FSelect Medical Specialty Hospital - YoungstownComment on above:Result Comment: PERFORMED BY: [place] [address] PATHOLOGIST INSURANCE SALESPERSON LUIS HENSON M.D.Performed By: #### RENAL #### [facility] [address] [place] [address] USACalcium [Mass/Vol]9.2 mg/dLNormal8.2-10.2FSelect Medical Specialty Hospital - YoungstownComment on above:Performed By: #### RENAL #### [facility] [address] [place] [address] USAChloride [Moles/Vol]107 mmol/MDpixdn62-782WyacllenqPromedica Memorial HospitalComment on above:Performed By: #### RENAL #### [facility] [address] [place] [address] USACO2 [Moles/Vol]21.5 mmol/LLow22.0-30.0Promedica Memorial HospitalComment on above:Performed By: #### RENAL #### [facility] [address] [place] [address] USACreatinine [Mass/Vol]0.78 mg/dLNormal0.44-1.03Promedica Memorial HospitalComment on above:Performed By: #### RENAL #### [place] [address] USAGlucose [Mass/Vol]85 mg/sNEzhzxr59-203FctbwzbncPromedica Memorial HospitalComment on above:Result Comment: Random Glucose Reference Range is dependent on time and content of last meal. Glucose of more than 200 mg/dL in a nonstressed, ambulatory subject supports the diagnosis of Diabetes Mellitus. ADA recommended reference rangePerformed By: #### RENAL #### [facility] [address] [place] [address] USAPhosphate [Mass/Vol]4.3 mg/dLNormal2.5-4.6FSelect Medical Specialty Hospital - YoungstownComment on above:Performed By: #### RENAL #### [facility] [address] [place] [address] USAPotassium [Moles/Vol]3.9 mmol/LNormal3.5-5.1FSelect Medical Specialty Hospital - YoungstownComment on above:Performed By: #### RENAL #### [facility] [address] [place] [address] USASodium [Moles/Vol]137 mmol/WCjh100-710GiqprbokdPromedica Memorial HospitalComment on above:Performed By: #### RENAL #### [facility] [address] [place] [address] USAUrea nitrogen [Mass/Vol]9 mg/dLNormal9-23Promedica Memorial HospitalComment on above:Performed By: #### RENAL #### [facility] [address] [place] [address] USAED Clinical Summaryon [id number] Clinical Summary [place] [address] ED Clinical SummaryPerson Information Name: ZEE JACOBSON/RubenRosalba Age: 12Years : 2005 12:00 AM Sex: Female Language:Peruvian PCP: Susan Leung MD Marital Status:Single Phone: [phone] MRN: [id number] Visit Id: Visit Reason:Ear pain; RIGHT EARACHE Speciality: Acuity: 4 Enc Type: Emergency Med Service: Emergency Arrival:03/28/2018 10:51 PM Discharge: 03/28/2018 11:51 PM LOS: 000 01:00 Checkin:03/28/2018 10:51 PM Checkout: 03/28/2018 11:51 PM Dispo Type:Home (Routine DC) EVENTS:Event Name Event Status Request [...] PM 03/28/2018 11:51 PM 03/28/2018 11:51 PM ADDRESS:[address] [place] [phone] PHYS DOC NOTES: MEDICAL INFORMATION: Prescriptions Given:Prescription Display acetaminophen-hydrocodone (Saratoga 325 mg-5 mg oral tablet) 1-2 tab(s), Oral, q6hr for pain, 8 tab(s), Refill(s) 0 amoxicillin-clavulanate (Augmentin 875 mg-125 mg Tab) 1 tab(s), Oral, q12hr for 10 day(s), 20 tab(s), Refill(s) 0 hydrocortisone/neomycin/polymyxin B otic (hydrocortisone/neomycin/polymyxin B Otic Ramandeep) 2 drop(s), Otic, QID for 7 day(s), 10 mL, Refill(s) 0 ibuprofen (feviojjbj018 mg Tab) 600 mg = 1 tab(s), Oral, q8hr, with food or milk, # 30 tab(s), Refills(s) 0 PATIENT EDUCATION INFORMATION: Instructions:Eardrum Perforation Follow up:With: Address: When: Susan Leung [address] [place] [address], [place] [address] Business (1) In 3 days 03/31/2018 Comments: Call in morning for recheck before the weekend, Medication as directed. Cotton ball to Ear canalmay be helpful. No Swimming for 2 weeks or until released by Dr Leung DIAGNOSIS:Otitis media; Ruptured eardrumNormalFisher Uniontown Medical CenterED Note-Physicianon [id number] Note-PhysicianBasic Information Time Seen: Ivonne HARRISFrank 03/28/2018 23:02Chief Complaint c/o right ear pain since yesterday PM. was swimming in [place]. c/o muffled sound.History of Present Illness [id number] female presents emergency room with her mother [...] Appropriate mood & affect. Integumentary: Warm, Dry, PinkAssessment/PlanOtitis media Ruptured eardrum Ordered: acetaminophen-hydrocodone, 1-2 tab(s), Oral, q6hr for pain, 8 tab(s), Refill(s) 0 Orders: acetaminophen-hydrocodone, 2 tab(s), Tab, Oral, Once PRN Pain, STAT, Start date 03/28/18 23:24:00 EDT, to go acetaminophen-hydrocodone, 2 tab(s), Tab, Oral, Once PRN Pain, STAT, Start date 03/28/18 23:23:00 EDT amoxicillin-clavulanate, 1 tab(s), Tab, Oral, Once, Stop date 03/28/18 23:23:00 EDT, STAT, Start date 03/28/18 23:23:00 EDT amoxicillin-clavulanate, 1 tab(s), O ral, q12hr for 10 day(s), 20 tab(s), Refill(s) 0 hydrocortisone/neomycin/polymyxin B otic, 2 drop(s), Otic, QID for 7 day(s), 10 mL, Refill(s) 0 ibuprofen, 600 mg = 1 tab(s), Oral, q8hr, with food ormilk, # 30 tab(s), Refills(s) 0Disposition Plan Patient Discharge Condition Stable Discharge Disposition Home Discharge Prescription List Prescriptions Augmentin 875 mg-125 mg Tab, 1 tab(s), Oral, q12hr hydrocortisone/neomycin/polymyxin B Otic Ramandeep, 2 drop(s), Otic, QID ibuprofen 600 mg Tab, 600 mg=1 tab(s), Oral, q8hr Saratoga 325 mg-5 mg oral tablet, 1-2 tab(s), Oral, q6hr, PRN Follow-up With When Contact Information Susan Leung In 3 days 03/31/2018 EDT [address] [facility] [place], [id number]- Business (1) Additional Instructions: Call in morning for recheck before the weekend, Medication as directed. Cotton ball to Ear canal may be helpful. No Swimming for 2 weeks [address]until released by Dr Leung Patient Education Eardrum PerforationAttestation Patient was not seen by me or staffed with me - Dr. Chirinos List/Past Medical History Ongoing No qualifying data Historical No qualifying dataMedications Inpatient Augmentin 875 mg-125 mg Tab, 1 tab(s), Oral, Once Norco5/325 Tab, 2 tab(s), Oral, Once, PRN Saratoga 5/325 Tab, 2 tab(s), Oral, Once, PRN Home Augmentin 875 mg-125 mg Tab, 1 tab(s), Oral, q12hr hydrocortisone/neomycin/polymyxin B Otic Ramandeep, 2 drop(s), Otic, QID ibuprofen 600 mg Tab, 600 mg= 1 tab(s), Oral, q8hr Saratoga 325 mg-5 mg oral tablet, 1-2 tab(s), Oral, q6hr, PRNAllergies No Known AllergiesSocial History Alcohol - Denies Alcohol Use, 03/28/2018Lab Results No qualifying data available.Diagnostic Results No qualifying data available.Keenan Private HospitalComment on above:Result Comment: Electronically Signed By: Ivonne HARRIS, Frank Patricio\.br\Date and Time Signed: 03/28/18 23:39 EDT\.br\Electronically Co- Signed By: Zoltan GOLDMAN, Román Cantrell\.br\Date and Time Co-Signed: 03/29/18 03:42 EDTED Patient Education Noteon [id number] Patient Education NoteFamily MedicineEardrum PerforationThe eardrum is a thin, round tissue inside the ear that separatesthe ear canal from the middle ear. This [...] bleeding from the ear. ? Dizziness.? Vomiting.? Facialparalysis. HOME CARE INSTRUCTIONS? Keep your ear dry, as this improves healing. Swimming, diving, and showers are not allowed until healing is complete. While bathing, protect the ear by placing a piece of cotton covered with petroleum jelly in the outer ear canal.? Only take dowa-hdp-jmppmvx or pre scription medicines for pain, discomfort, or fever as directed by your caregiver.? Blow your nose gently. Forceful blowing increases the pressure in the middle ear and may cause further injury or delay healing.? Resume normal activities, such as showering, when the perforation has healed. Your caregiver can let you know when this has occurred.? Talk to your caregiver before flying on an airplane.Air travel is generally allowed with a perforated [...] 12/19/2012 Document Reviewed: 09/26/2009ExitCare? Patient Information ?2014 [employer] [facility]. This information is not intended to replace advice given to you by your health care provider. Make sure you discuss any questions you have with your health care provider.Normal [facility] Patient Summaryon [id number] Patient Summary [place] [id number] Patient Discharge Instructions Person Information Name: ZEE JACOBSON Age: 12 Years Date: 03/28/2018 10:51 PMDischarge Diagnosis: Otitis media; R uptured eardrum Primary Care Physician: Susan Leung MD Provider InformationPrimary Provider: Advanced Gyroscope Technician:Frank Coronado PA-C The exam and treatment you received in the Emergency Department were for an urgent problem and are not intended as complete care. It is important that you follow up with a doctor, nurse practitioner, or physician?s blood bank assistant for ongoing care. If your symptoms become worse or you do not improve as expected and you are unable to reach your usual health care provider, you should return to the Emergency Department. We are available 24 hours a day. ZEE JACOBSON has been given the following list of patient education materials, prescriptions and follow-up instructions: Follow-up Instructions:With: Address: When: Susan Leung [facility] [facility], [address] [id number] Soonr (1) In 3 days 03/31/2018 Comments: Call [...] A MESSAGE TO ALL PATIENTS REGARDING OPIOIDS P RESCRIPTION OPIOIDS: WHAT YOU NEED TO KNOW Prescription opioids can be used to help relieve ihabdqye-kb-eqworu pain and are often prescribed following a surgery or injury, or for certain health conditions. These medications can be an important part of the treatment but also come with serious risks.It is important to work with your healthcare provider to make sure you are getting the safest, mosteffective care. WHAT ARE THE RISKS AND SIDE [...] FOR PAIN:? Never take opioids in greater amountsor more often than prescribed.? Follow up with your primary health care provider.o Work together tocreate a plan on how to manage your [...] guidance from the Food and Drug Administration (www.fda.gov/Drugs/ResourcesForYou).? Visit www.cdc.gov/drugoverdose to learn about the risks of opioids abuse and overdose.? If you believe you may bestruggling with addiction, tell your health landcare officer and ask for guidance or call [facility]?SNational Helpline at 0-500-991-PWKI. l Source: US Department of Health and Human Services/Center for Disease Control & Prevention [facility] Medications Given:Medication Dose Route No medications found. Medication Information:New MedicationsPrinted Prescriptionsacetaminophen-hydrocodone (Sar[place]oga 325 mg-5 mg oral tablet) 1-2 tab(s) By Mouth every 6 hours as needed for pain. Refills: 0.amoxicillin-clavulanate (Augmentin 875 mg-125 mg Tab) 1 Tabs By Mouth every 12 hours for 10Days. Refills: 0.hydrocortisone/neomycin/polymyxin B otic (hydrocortisone/neomycin/polymyxin B OticSol) 2 Drops Otic 4 times a day for 7 Days. Refills: 0.ibuprofen (ibuprofen 600 mg Tab) 1 Tabs By Mouth every 8 hours. with food or milk. Refills: 0.Comment: Pharmacy Information: Thank you for choosing [facility] Patient Education Materials: Eardrum PerforationThe eardrum [...] Hearing loss.? Ear pain.? Ringing in the ears.?Discharge or bleeding from the ear. ? Dizziness.? Vomiting.? Facial paralysis. HOME CARE INSTRUCTIONS? Keep your ear dry, as this improves healing. Swimming, diving, and showers are not allowed untilhealing is complete. While bathing, protect the ear by placing a piece of cotton covered with petrol eum jelly in the outer ear canal.? Only take itoy-jva-ytsgdza or prescription medicines for pain, discomfort, or fever as directed by your caregiver.? Blow your nose gently. Forceful blowing increases the pressure in the middle ear and may cause further injury or delay healing.? Resume normal activities, such as showering, when the perforation has healed. Your caregiver can let you know when thishas occurred.? Talk to your caregiver before flying on an airplane. Air travel is generally allowedwith a perforated eardrum. ? If your caregiver has given you a follow-up appointment, it is very important to keep that appointment. Failure to keep the appointment could result in a chronic or perman ent injury, pain, hearing loss, and disability.SEEK IMMEDIATE MEDICAL CARE IF:? You have bleeding or pus coming from your ear.? You have problems with balance, dizziness, nausea, or vomiting.? You develop increased pain.? You have a fever.MAKE SURE YOU:? Understand these instructions. ? Will watch your condition.? Will get help right away if you are not doing well or get worse. Document Released:09/24/2001 Document Revised: 12/19/2012 Document Reviewed: 09/26/2009ExitCare? Patient Information ?2015 [employer]. This information is not intended to replace advice given to you by your health care provider. Make sure you discuss any questions you have with your health care provider.KAVON Modi LILY E , have received the following patient education materials/instructions and have verbalizedunderstanding: Patient Education Materials: Eardrum Perforation Follow-up Instructions: With: Address: When: Susan Leung [address] [place] [address] [place] [id number] [facility] (1) In 3 days 03/31/2018 Comments: Call in morning for recheck before the weekend, Medication as directed. Cotton ball to Ear canal may be helpful. No Swimming for 2 weeks or until released by Dr Leung Prescriptions: [acetaminophen- hydrocodone (Saratoga 325 mg-5 mg oral tablet)] [amoxicillin-clavulanate (Augmentin 875 mg-125 mg Tab)] [hydrocortisone/neomycin/polymyxin B otic (hydrocortisone/neomycin/polymyxin B Otic Ramandeep)] [ibuprofen (ibuprofen 600 mg Tab)] Patient Signature Date Clinician/Nurse Signature Date 03/28/18 23:51:16NormalSelect [facility], IncProgress Note-Nurseon 93-18-0670Oieoyzyq Note-Nursept was educated on Saratoga. 2 tabs were given here as ordered, 2 tabs sent home. patient instructed to take medications as needed but not until after 6am to allow time in between. mother verbalizes understanding. verbalizes understanding on prescriptions and follow up as well. [facility] Vital Signs Date TimeVital SignValuePerforming BbspoxhtsFkcvlpbl60-09-3799 15:58-0400Body yozhlz120.2 cmCoreSummit Microelectronics Work Phone: Celestial SemiconductorFreeman Health SystemRirnsvygmm67-74-7487 15:58-0400Body mass index (BMI) [Ratio]44.39 kg/b1CzzpySummit Microelectronics Work Phone: Celestial SemiconductorFreeman Health SystemBpdbybobip10-69-3233 15:58-0400Body cajwdb978.55 kgCoreSummit Microelectronics Work Phone: Celestial SemiconductorFreeman Health SystemJrsqkxfejy52-41-7553 15:58-0400Diastolic blood tdnexmhe47 mm[Hg]WaldemarSummit Microelectronics Work Phone: Celestial SemiconductorFreeman Health SystemSoshkzmnov78-33-7642 15:58-0400Systolic blood hvbedjwm516 mm[Hg]WaldemarSummit Microelectronics Work Phone: noLA [facility] Encounters Encounter DateEncounter TypeCare ProviderFacilityStart: 07-30-2025 End: 92-37-9481Dmdhrs outpatient visit 15 minutesCoreSummit Microelectronics Work Phone: noms [facility] OBGYNComment on above:Encounter for removal and reinsertion of intrauterine contraceptive device (IUD); IUD check up; Intrauterine contraceptive device threads lost, initial encounterStart: 07-30-2025 End: 99-94-2156cqhejwmvwfGFPIY Richard AvailableStart: 03-31-2024 End: 55-13-2191Bwvozuxpl department patient visitMICHAEL P [facility] HospitalStart: 03-31-2024 End: 37-50-3355Imfvxwtkn department patient visitMICHAEL P [facility] HospitalStart: 12-25-2022 End: 02-57-9775iubdtbaquwZU SUSAN LEUNG .Facility:W0Yqehv: 10-07-2022 End: 97-39-1565vtjyhlhiwoGTRMOR Hospital Corporation of Americacility:U6Wibtn: 08-10-2022 End: 88-22-8511hhqoxyjaiiDK LUCY ROBER .Facility:Q0Mfsjw: 05-15-2022 End: 15-78-1743jtmmpdltlvRH GREGORY KARASIK .Facility:J0Spzou: 02-10-2022 End: 20-34-8314vbokxaloyvPL SUSAN MADHU .Facility:Y0Wgryz: 19-07-5665JMJSJ Susna Conrad Madhu Work Phone: [phone]-Kyrebhgnwl-[facility] Work Phone: Start: 16-40-8812Xv RenewalDovernamadeo Leung Work Phone: [phone]-Ciawcheyjh-[facility] Work Phone: Start: 26-00-8828Eimdrya encounter procedureEmmathieu SilvaDzrycQC-Qonghobslz-[facility]gp [facility] Work Phone: Start: 44-53-9756Lnqktjg encounter procedureEmmathieu SilvaQjkdbLB-Iblmjoyaub-[facility] Work Phone: Start: 03-29-2018 End: 46-82-8040Uzjxgwmzw department patient [id number] AAYUSH Leung [place] Procedures DateProcedureProcedure DetailPerforming ClinicianStart: 42-71-1321Hlgldno intrauterine device iudCorey Caryl DO Work Phone: Start: 10-55-3203Fmthw test visual color cmprsn vidhyasCmercedez Hutson DO Work Phone: Start: 82-52-4738Oglearsjzu, automatedWendy Leyva Start: 45-46-8974Tdjest Action PlanEmily TiffyceStart: 39-84-9440SAZIR EPI.IGE,IC Wendy TiffyceStart: 33-41-2803Pqoau Oximetry, NocturnalEmmathieu TiffyceStart: 34-71-2388Uicqahxculn Allergy Profile Region 5, ICEmily JoyceStart: 10-22-2020 Renal function panelEmmathieu Mcraesillectomy and adenoidectomyEmmathieu Leyva Plan of Treatment DateCare ActivityDetailAuthorStart: 07-30-2025 End: 69-58-1349OE Pelvis transvaginalUS pelvis transvaginal Imaging Routine IUD check up Intrauterine contraceptive device threads lost,initial encounter Expected: 07/30/2025, Expires: 01/28/2026[facility] Work Phone: comment on above:Expected: 07/30/2025, Expires: 01/28/2026Start: 23-38-3727Pmqycqkvn vaccinationInfluenza Vaccine (#1)[facility] HealthcareStart: 60-79-8053EVZNUFQSCM, Provider: Wendy Leyva, Status: Pen, Time: 11:20 AMVIRFUADILIA, Provider: Wendy Leyva, Status: Pen, Time: 11:20 AM HE-Upxopedtyl-[facility] Work Phone: [phone]-TceydvrzrgUnited [facility] Work Phone: NEGATED: Highlighted row has been ruled out!Planned Goals not vipmoubftdML-Mcnmsgmimk-[facility] Work Phone: Payers DatePayer CategoryPayerPolicy [id number] [facility] HospitalBCBS [id number] [id number] 2018Unknown [id number] 2..[id number]. [id number] 2.0.1.639359.3.57[id number] 2..1.569790.3.57[id number] 2..1.141992.3.57[id number] 2..1.404723.3.57[id number] 2..1.196609.3.57[id number] ..[id number] .1.242802.3.57[id number] INSURANCE COMPANY MEDICAID Social History DateTypeDetailFacilityLives with parentsLives with xyogtjhSR-Xyxkujwkch-[facility]ptr [facility] Work Phone: Tobacco smoking status NHISTobacco smoking consumption unknownNOMS HealthcareStart: 26-27-1098Sap assigned at birthNot on fileSPANISH FORK HOSPITAL HealthcareStart: 84-78-1029DdiSjkqfiCCSF HealthcareGender identityNot on file [facility] HealthcareNEGATED: Highlighted row--[facility] Work Phone: Functional Status DateAssessmentResultFacilityNEGATED: Highlighted rowFunctional performance Functional status health issues are not documented MywtzquLZ-Ilbdfqlfwb-EfysjzBellevue Hospital Clinic Work Phone: Mental Status DateAssessmentResultFacilityNEGATED: Highlighted rowCognitive function [Interpretation]Cognitive status health issues are not documented Disease [facility] Work Phone: History of Present illness Narrative 07-30-2025 Note Date & QqqwGgjuQiwwojhh58-25-7812 History of Present illness Narrative* Kezia Poe, INSURANCE AND FINANCIAL SERVICES AGENT - 07/30/2025 3:30 PM EDTAssociated Order(s): IUD [...] Medical History: Diagnosis Date Blood clotting disorder ([facility] HISTORY PAST MEDICAL HISTORY SOCIAL HISTORY Past Medical History: Diagnosis Date Blood clotting disorder ([facility]) Social History Tobacco Use Smoking status: Not [...] nursing note reviewed. Exam conducted with a miniature set designer present. Vitals: Estimated body mass index is 44.39 kg/m as calculated from the following: Height as [...] Removal Date/Time: 07/30/2025 4:35 PM Performed by: Waldemar Hutson DO Authorized by: Waldemar Hutson DO Consent: Consent obtained: Written Consent [...] by Margo Wheat PA-C on behalf of: Waldemar Hutson DO documented in this encounterNOMS Healthcare Evaluation note Note Date & TypeNoteFacilityEvaluation note* Diagnosis Encounter for removal and reinsertion of intrauterine contraceptive device (IUD) IUD check up Intrauterine contraceptive device threads lost, initial encounter documented in this encounter [facility] Summary Purpose Family History Father Name Dates Details Family history of Environmen kenya allergies(V15.09, Z91.09) Status:ActiveFamily history of sleep apnea(V19.8, Z82.0) Status:Active Unknown Family Member Name Dates Details Environmental allergies: Fat her Status:ActiveFamily history of sleep apnea: Father(V19.8, Z82.0) Status:Active Unknown Family Member Name Dates Details Environmental allergies: Fat her Status:ActiveFamily history of sleep apnea: Father(V19.8, Z82.0) Status:Active Advance Directives No Advanced Directives Records FoundNo Advanced Directives Records FoundNo Advanced Directives Records FoundNo Advanced Directives Records FoundNo Advanced Directives Records FoundNo Advanced Directives Records FoundNo Advanced Directives Records Found Additional Source Comments INFORMATION SOURCE (unrecogn ized section and content) DATE CREATED AUTHOR 03/29/2018 [facility] DATE CREATED AUTHOR AUTHOR'S ORGANIZ ATION 11/08/2020 [facility] DATE CREATED AUTHOR AUTHOR'S ORGANIZ ATION 10/03/2021 [employer] DATE CREATED AUTHOR AUTHOR'S ORGANIZ ATION 06/07/2022 [facility] DATE CREATED AUTHOR AUTHOR'S ORGANIZ ATION 01/03/2023 [facility] DATE CREATED AUTHOR AUTHOR'S ORGANIZ ATION 04/02/2024 [facility] DATE CREATED AUTHOR AUTHOR'S ORGANIZ ATION 07/31/2025 [facility] EPIC Reason for Visit (unrecogniz ed section and content) ReasonCommentsContraceptionMirena Removal/ reinsert FOR RECORDS PERTAINING TO PATIENTS WHO ARE [...] BE BASED ON THE PRIMARY CLINICAL RECORDS. [facility], [facility]. provides no warranty or guarantee of the accuracy or completeness of information in this document.
--- OUTSIDE RECORDS SUMMARY | 2025-08-07 06:18 | XMS_ITS | Encounter Summary ---
Author Organization [facility] Address [address] [place] [address] Care Team Providers Care Case Mgr Name Role Phone Unavailable Primary Care Provider Unavailabl e Encounter Details DateTypeDepartmentCare Team (Latest Contact Info)Dpyuhabuyvz98/20/2025bstract NOMKaylen Caldera OBGYN [address] [place] [address] Kun Hutson DO [address] Jose Caldera, [facility] Social History Tobacco UseTypesPacks/DayYears UsedDateSmoking Tobacco: Never Assessed CommentsNoSex and Gender InformationValueDate RecordedSex Assigned at BirthNot on fileLegal McsNomslv32/15/2023 6:46 PM EDTGender IdentityNot on fileSexual OrientationNot on filedocumented as of this encounter Plan of Treatment Not on file documented as of this encounter Visit Diagnoses Not on filedocumented in this encounter
--- OUTSIDE RECORDS SUMMARY | 2025-08-07 06:18 | XMS_ITS | Patient Health Record ---
Author Organization The [facility] [place] Address [address] [place] [address] Care Team Providers Care Tax Compliance Representative Name Role Phone Rubén Leung Primary Care Provider Allergies Allergen (clinical drug ingredient) Drug/Non Drug Allergy documented on EMR Reaction Allergy Type Onset Date Status estradiol Estrogel Bloodclot Drug Allergy Active Results Component Value Reference Range Notes COVID-19, Flu A+B IH Reviewed date:07/31/2025 06:00:47 PM Interpretation: Performing Lab: Notes/Report: COVID neg FLU AnegFLU BnegControlpresentCBC AUTO DIFF Reviewed date:05/27/2025 01:50:48 PM Interpretation: Performing Lab: Notes/Report: [facility] ,White Blood Count8.14.0-11.0 10 3/uLRed Blood Count5.754.20-5.40 10 6/uL Gvibapxuqz48.912.0-16.0 g/eQZhiopetfpg52.236.0-48.0 %Mean Corpuscular Utmtjw10.1 81.0-99.0 fLMean Corpuscular Zhqxfphlcy93.726.7-34.0 pgMean Corpuscular HGB Conc 33.729.9-35.2 g/dLRed Cell Distribution Width13.011.0-15.0 %Platelet Mzlaf595 150-450 10 3/uLMean Platelet Volume9.49.5-13.5 fLNeutrophils Percent Auto47.1 43.0-75.0 %Lymphocytes Percent Auto43.420.5-60.0 %Monocytes Percent Auto7.11.7- 12.0 %Eosinophils Percent Auto1.50.9-7.0 %Basophils Percent Auto0.70.2-2.0 % Immature Granulocytes Pct Auto0.20.0-0.5 %Neutrophils Absolute Auto3.81.4-6.5 10 3/uLLymphocytes Absolute Auto3.51.2-3.8 10 3/uLMonocytes Absolute Auto0.60.3-0.8 10 3/uLEosinophils Absolute Auto0.10.0-0.7 10 3/uLBasophils Absolute Auto0.10.0- 0.1 10 3/uLImmature Granulocytes Abs Auto0.020.00-0.03 10 3/uLPerforming Lab:see noteML - [facility] LBINSULIN Reviewed date:05/27/2025 01:50:48 PM Interpretation: Performing Lab: Notes/Report: [facility] ,Wjllfnf29.92.6-24.9 uIU/mL Learning Operations Specialist: Rachid Tlyer PhD, Phone: [phone] Performed at: [address] [id number] Performing Lab:[facility]FERR[facility] LabSelect [facility]-FairhillTSH Reviewed date:05/27/2025 01:50:48 PM Interpretation: Performing Lab: Notes/Report: [facility] ,Thyroid Stimulating Hormone2.4330.358-3.740 uIU/mLPerforming Lab:see note - [facility] LBT4 Reviewed date:05/27/2025 01:50:48 PM Interpretation: Performing Lab: Notes/Report: [facility] ,T4 Thyroxine8.704.80-13.90 ug/dLPerforming Lab:see note - [facility] LBPROF 14(COMP METB) Reviewed date:05/27/2025 01:50:48 PM Interpretation: Performing Lab: Notes/Report: [facility] ,Vcbqyx313278-892 mmol/LPotassium4.03.5-5.1 mmol/MHzmetumi17473-139 mmol/LCarbon Sdstshc83.221.0-32.0 mmol/LAnion Gap12.6Vupgokd7855-167 mg/dLBlood Urea Nitrogen 13.07.0-18.0 mg/dLCreatinine0.750.55-1.02 mg/dLEstimated GFR ( Haydee>60 >=60 mL/min/1.73m 2Estimated GFR (Non- Serena>60>=60 mL/min/1.73m 2BUN Creatinine Ratio17.0Elihtbo5.28.5-10.1 mg/dLBilirubin Total0.80.2-1.0 mg/dL Aspartate Amino Vfhfvhijbsg2102-00 U/LAlanine Egsxadrvmdgeoorb3745-68 U/L Alkaline Ygbwlikaobs5922-650 U/LTotal Protein8.06.4-8.2 g/dLAlbumin Level3.83.4- 5.0 g/dLGlobulin4.2Albumin Globulin Ratio0.9Performing Lab:see noteML - [facility] LBLIPID PROFILE Reviewed date:05/27/2025 01:50:48 PM Interpretation: Performing Lab: Notes/Report: [facility] ,Feetqnvokxgvi49<=150 mg/pFWqerxuotmwc454<=200 mg/dLHDL Xekvuydsmvi6186-07 mg/dL > or =60 mg/dl - LOW CARDIOVASCULAR RISK <40 mg/dl - HIGH CARDIOVASCULAR RISK LDL Cholesterol Gfzqiqexbi890.0 100-129 mg/dl NEAR OR ABOVE OPTIMAL <100 mg/dl OPTIMAL 160-189 mg/dl HIGH 130-159 mg/dl BORDERLINE HIGH >190 mg/dl VERY HIGH VLDL UMJJUCXXCTU84.2Chol HDL Ratio5.2 4.4 - 7.1 AVERAGE RISK 7.1 - 11.0 MODERATE RISK >11.0 HIGH RISK 3.3 - 4.4 LOW RISK Performing Lab:see noteML - [facility] LBIRON Reviewed date:05/27/2025 01:50:48 PM Interpretation: Performing Lab: Notes/Report: [facility] ,Iron66.050.0-170.0 ug/dLPerforming Lab:see note - [facility] LB GLYCOHEMOGLOBIN A1C Reviewed date:05/27/2025 01:50:48 PM Interpretation: Performing Lab: Notes/Report: [facility] ,Glycohemoglobin A1C5.14.5-6.2 % ACTION SUGGESTED > 7.0 ADA RECOMMENDED LIMIT 4.0 - 6.0 ADA THERAPEUTIC TARGET < 7.0 Estimated Average Sdmeyxx327Ahrojwqrlp Lab:see noteML - [facility] FREE T3 Reviewed date:05/27/2025 01:50:48 PM Interpretation: Performing Lab: Notes/Report: [facility] T32.322.18-3.98 pg/mLPerforming Lab:see noteML - [facility] US pelvis transvaginal Reviewed date:07/31/2025 06:00:47 PM Interpretation: Performing Lab: Notes/Report: Source Facility: [place] [address] Ultrasound Report Signed Patient: ZEE BRIAN MR#: [id number] : 2005 Acct:[id number] Age/Sex: 20 / F ADM Date: 07/30/25 Loc: US Attending Dr: Waldemar Hutson D.O. Ordering Physician: Waldemar Hutson D.O. Date of Service: 07/30/25 Procedure(s): US pelvis transvaginal Accession Number(s): [id number] cc: Waldemar Hutson D.O.; Nicanor Leung M.D. [place] [address] Patient Name: ZEE BRIAN MRN: [id number] date: 2005 Sex: F Assigned Patient Location: US Current Patient Location: US Accession/Order Number: [id number] Exam Date: 07/30/2025 19:38 Report Date: 07/30/2025 21:49 At the request of: WALDEMAR HUTSON DO Procedure: US pelvis transvaginal Transvaginal pelvic ultrasound INDICATION: IUD check. COMPARISON: None FINDINGS: Uterus measures 8.4 x 3.6 x 4.7 cm. IUD worse appears be within the fundal position of endometrium. Anechoic nabothian cysts within cervix. Endometrial thickness 5.7 mm which is normal. Right ovary 4.0 x 1.7 x 2.5 cm. Left ovary unremarkable 2.2 x 1.5 x 2.2 cm in size. US/US pelvis transvaginal IMPRESSION: IUD within the fundus of the uterus. Impression dictated by: Tripp Perkins M.D. 07/30/2025 9:49 PM Dictation Location: [place] [address] Electronically authenticated by: [id number] Y Date: 07/30/2025 21:49 Dictated By: Tripp Perkins M.D. Signed By: 07/30/252151 DD/ 48 TD/TT: Hydraulic Controls Technician:VITAMIN D 25 [place] Reviewed date:05/27/2025 01:50:48 PM Interpretation: Performing Lab: Notes/Report: [facility] ,Vitamin D17.2 30-100 ng/mL Vit D sufficient <20 ng/mL Vit D deficient >100 ng/mL Potential Toxicity 20-<30 ng/mL Vit D insufficient Performing Lab:see noteML - [facility] LB Reason For Referral Diagnosis 1 Depression (F32.9) Referral Organization [facility] Referring Provider First Name Rubén Referring Provider Last Name Madhu Referring Provider Speciality Family [facility] elizabeth Referred Provider Darryl Gutiérrez Referred Provider Specialty Psychiatry Referral Priority Routine Medications Medication SIG (Take, Route, Frequency, Duration) Notes Start Date End Date Status predniSONE 20 MG 2 tablets Orally Once a day; Du ration: 5 days 5ActivelevoFLOXacin 750 MG1 tablet Orally Once a day; Duration: 10 day(s)5ActiveBenzonatate 200 MG1 capsule Orally Three times a day; Duration: 7 days5ActivePristiq 50 MG1 tablet Orally Once a day; Duration: 30 days5Active Social History Tobacco Use: Social History Observation Description Date Details (start date - stop date) Never Smoker NA - NA Tobacco Use/Smoking Question Answer Notes Patient is a nonsmoker AUDIT-C (Standard) Question Answer Notes Did you have a drink containing alcohol in the p ast year? Yes How often did you have a drink containing alcohol in the past year?Monthly or less (1 point)How many drinks did you have on a typical day when you were drinking in the past year?1 or 2 drinks (0 point)How often did you have six or more drinks on one occasion in the past year?2 to 4 times a month (2 points) Prpsus7AptuphkmpxropjMbidvvay Problems Problem Type SNOMED Code ICD Code Onset Dates Problem Status W/U Status Risk Notes Problem Asthma (214094357) Asthma (J45.909) ActiveconfirmedProblemDepression (579634019)Depression (F32.9)Activeconfirmed ProblemWell adult (273418063)Well adult (Z00.00)ActiveconfirmedProblem Hypercholesterolemia (89260289)Hypercholesterolemia (E78.00)Activeconfirmed Vital Signs Temperature 98.1 degrees Fahrenheit 08/02/2025 Blood pressure mm Hg08/02/20250246Fkizil05 in08/02/2025lood pressure zbafohpj593 mm Hg08/02/20251075Ennxth196.0 lbs1MI44.63 kg/m208/02/2025 Encounters Encounter Location Date Provider Diagnosis [place] [address] [place] [address] 06/22/2025 Rubén Hoy Sore throat J02.9 an d Acute bronchitis, unspecified organism J20.9 [place] [address] [place] [address] 05/21/2025 Rubén Hoy Depression F32.9 and Well adult Z00.00 [facility] [address] [place] [address] 08/02/2025 Rubén Hoy Acute bronchitis, unspecified organism J20.9 and Depression F32.9 [place] [address] [place] [address] 05/27/2025 Rubén Hoy [facility] [place] [address] 06/04/2025Doug HoyHypercholesterolemia E78.00 Assessments Encounter Date Diagnosis (ICD Code) Assessment Notes Treatment Notes Treatment Clinical Notes Section Notes 05/21/2025 Depression (ICD-10 - F32.9) 05/21/2025Well adult (ICD-10 - Z00.00)06/22/2025Sore throat (ICD-10 - J02.9) 08/02/2025Depression (ICD-10 - F32.9)5Acute bronchitis, unspecified organism (ICD-10 - J20.9)Rest and drink more liquids, especially water. You may use a humidifier or vaporizer to help keep the drainage moist. Dfly-jct-ynxofua Nasal Saline may help the stuffy and runny nose. Use Ibuprofen and or Tylenol as needed for fever, chills, body aches or pain. Children 5 years old should not be given tjjc-sxp-wdmbnli cough and cold medications such as guaifenesin and dextromethorphan. If you're over age 5, you may try gofd-zpe-zladrut cold medications such as guaifenesin and dextromethorphan, [...] go to the emergency room or call [phone] (ICD-10 - E78.00)5Acute bronchitis, unspecified organism (ICD-10 - J20.9)Rest and drink more liquids, especially water. You may use a humidifier or vaporizer to help keep the drainage moist. Ostk-xoz-oyexhjb Nasal Saline may help the stuffy and runny nose. Use Ibuprofen and or Tylenol as needed for fever, chills, body aches or pain. Children 5 years old should not be given vkip-fux-rbubbxp cough and cold medications such as guaifenesin and dextromethorphan. If you're over age 5, you may try ugee-kex-coyvwms cold medications such as guaifenesin and dextromethorphan, [...] to the emergency room or call 911 Plan Of Treatment Pending Test Test Name Order Date HEMOGLOBIN A1C (GLYCO) 05/21/2025 IRON, TOTAL 05/21/2025 LIPID PANEL (CHOL/TRIG/HDL/LDL) 05/21/20 25 VITAMIN D, 25 LEVEL (TOTAL) 05/21/2025 Insulin Level 05/21/2025 LIPID PROFILE 06/04/2025 THYROID PANEL (T4/TSH/FREE T3) CMP (COMP MET HERNANDEZ) w/eGFR CKD-EPI 2024 CBC WITH DIFF 05/21/2025 Insurance Providers Payer Name Payer Address Payer Phone Subscriber Number Group Number Insured Name Patient Relationship to Insured Coverage Start Date Coverage End Date [employer] [address] [place] [address] [id number] Esther Brianelf - patient is the insured Medical (General) [...]
--- OUTSIDE RECORDS SUMMARY | 2025-08-07 06:18 | XMS_ITS | Clinical Summary ---
Author Organization [facility] Address [address] [facility] [place] [address] Care Team Providers Care Test Rack Operator Name Role Phone Unavailable Primary Care Provider Unavailabl e Allergies No known active allergies Medications Hospital, Clinic, or Other Facility Administered MedicationOrdered DoseRoute FrequencyStart DateEnd DateStatus Levonorgestrel intrauterine device 52 mg Indications:Encounter for removal and reinsertion of intrauterine contraceptive device (IUD)52 dkVMIudqjxcahf86Discontinued Encounters DateTypeDepartmentCare HqtjRxswjmrnblz12/20/2025 3:30 PM EDTProcedure Visit [facility] [address] [place] [address] Kun Hutson DO Encounter for removal and reinsertion of intrauterine contraceptive device (IUD); IUD check up; Intrauterine contraceptive device threads lost, initial dpbuxremy02/20/2025 Abstract [facility] [address] [place] [address] Kun Hutson DO from Last 3 Months Family History Medical HistoryRelationNameCommentsClotting disorderFatherCervical cancerMother Cervical cancerMother's SisterClotting disorderOtherRelationNameStatusComments FatherMotherMother's SisterOther Social History Tobacco UseTypesPacks/DayYears UsedDateSmoking Tobacco: Never Assessed CommentsNoSex and Gender InformationValueDate RecordedSex Assigned at BirthNot on fileLegal ZcvMphbgt64/15/2023 6:46 PM EDTGender IdentityNot on fileSexual OrientationNot on file Last Filed Vital Signs Vital SignReadingTime TakenCommentsBlood Qurblmca321/8207/30/2025 3:58 PM EDT Pulse--Temperature--Respiratory Rate--Oxygen Saturation--Inhaled Oxygen Concentration--Ihxvqg621 kg (283 lb 6.4 oz)07/30/2025 3:58 PM IOGCiokby660.2 cm (5' 7 )07/30/2025 3:58 PM EDTBody Mass Index44.391 3:58 PM EDT Plan of Treatment Health MaintenanceDue DateLast DoneCommentsInfluenza Vaccine (#1)06/11/2025 Procedures Procedure NamePriorityDate/TimeAssociated DiagnosisCommentsIUD REMOVALRoutine 07/30/2025 4:35 PM EDT IUD check up POCT , UWSKRMctlxfa76/20/2025 4:10 PM EDT Encounter for removal and reinsertion of intrauterine contraceptive device (IUD) from Last 3 Months Results * IUD REMOVAL (07/30/2025 4:35 PM EDT) Kezia Sutton LPN - 07/30/2025 4:35 PM EDT Kezia [...] Location / LateralityCollection Method / VolumeCollection TimeReceived OcejBkfsv33/20/2025 4:10 PM EDT Narrative Authorizing ProviderResult TypeResult StatusCorey Caryl DOPOINT OF CARE TEST ENTER/EDIT ORDERABLESFinal Result from Last 3 Months Insurance
--- OUTSIDE RECORDS SUMMARY | 2025-08-07 06:19 | XMS_ITS | Patient Health Record ---
Author Organization [employer] Address [address] [facility] [facility] [place] [address] Care Team Providers Care Health Worker Name Role Phone Matias Fernandez Primary Care Provider Reason For Referral No Information Plan Of Treatment No Information
[2025-08-07 06:29] LABS: Hematocrit 43.8 % (36.0-48.0); Hemoglobin 14.7 g/dL (12.0-16.0); Mean Corpuscular HGB Conc 33.6 g/dL (29.9-35.2); Mean Corpuscular Hemoglobin 27.7 pg (26.7-34.0); Mean Corpuscular Volume 82.5 fL (81.0-99.0); Platelet Count 333 10^3/uL (150-450); Red Blood Count 5.31 10^6/uL (4.20-5.40); White Blood Count 13.4 10^3/uL (4.0-11.0)
[2025-08-07 06:45] LABS: Atypical Lymphocytes % Manual 16.0 %; Atypical Lymphocytes Abs Man 2.14; Basophils Abs Manual 0.13 10^3/uL (0.00-0.10); Basophils Percent Manual 1.0 % (0.2-2.0); Eosinophils Absolute Manual 0.13 10^3/uL (0.00-0.70); Eosinophils Percent Manual 1.0 % (0.9-7.0); Lymphocytes Absolute Manual 3.08 10^3/uL (1.20-3.80); Lymphocytes Percent Manual 23.0 % (20.5-60.0); Metamyelocytes Absolute Manual 0.13; Monocytes Absolute Manual 0.80 10^3/uL (0.30-0.80); Monocytes Percent Manual 6.0 % (1.7-12.0); Segmented Neut Absolute Manual 7.10 10^3/uL (1.4-6.5); Segmented Neutrophils % Manual 53.0 (43.0-75.0)
--- NOTE | 2025-08-07 07:36 | PC.NURSE ---
([id number]) Dr. Hutson notified of CBC result. No new orders received. ([id number]) Dr. Hogan at patient's bedside and completes his pre procedure interview. Aware of CBC results. No new orders recieved.
--- NOTE | 2025-08-13 20:14 | P.ON_ITS ---
Brief Operative Note Date of procedure: 08/13/25 Pre-op diagnosis general: retained iud Post-op diagnosis: same as pre-op Procedure: NAME OF PROCEDURE: [removal and reinsertion of iud] PROCEDURE: The patient was taken back to the Operating Room where she was prepped and draped in normal sterile fashion after being placed under general anesthesia without difficulty. She was also placed in the dorsal lithotomy position. A we ighted speculum was placed in the patient?s vagina. The anterior lip of the cervix was identified and grasped with a single tooth tenaculum. The patient?s uterus was then sounded roughly to [8? ] cm. The patient was then gently dilated using Hegar dilators. the polyp forcep was then used to remove the iud without difficulty, upon inspection strings where note to be around the iud device. The mirena apparatus was then used and the iud was deployed into the fundal region of the uterus, the strings where then cut. The single tooth tenaculum was then removed from the patient's anterior lip of the cervix where excellent hemostasis was noted. all instruments where removed from the patients vagina, sponge lap and needle counts correct times 2 Anesthesia: MAC Surgeon: Kun Hutson Estimated blood loss (mL): 5 Pathology: none sent Condition: stable Disposition: PACU Urinary Catheter Management Urinary Catheter Management Urethral: Cath placed during this visit: no
== END 2025-08-07 09:40 | disposition home or self-care (01) ==
PROVIDERS: PCP Family Medicine; Visit Provider Obstetrics & Gynecology
PROC: (CPT 940; principal; 2025-08-07 07:30)
DX: Z30.433 Encounter for removal and reinsertion of intrauterine contraceptive device (principal); T83.89XA Other specified complication of genitourinary prosthetic devices, implants and grafts, initial encounter; E66.01 Morbid (severe) obesity due to excess calories; Z68.41 Body mass index [BMI] 40.0-44.9, adult; J45.909 Unspecified asthma, uncomplicated; D68.51 Activated protein C resistance
CPT/HCPCS: 58300; 58301; 36415; 84702; 85007; 85027; J0330; J1100; J1885; J2250; J2405; J2704; J3010

== ENCOUNTER 2025-09-11 19:02 | Outpatient (REF) | payer BC, SELFPAY ==
--- OUTSIDE RECORDS SUMMARY | 2025-09-11 14:10 | XMS_ITS | Encounter Summary ---
Author Organization [facility] Address [address] [facility] [place] [address] Care Team Providers Care Director Of Intelligence Name Role Phone Unavailable Primary Care Provider Unavailabl e Reason for Visit * ReasonCommentsGynecologic Exam Encounter Details DateTypeDepartmentCare Team (Latest Contact Info)Hhbqywbcduw92/02/2025 2:10 PM ESTOffice Visit [facility] [address] [place] [phone] Kun Hutson DO [address] [place], [facility]11 IUD check up; Well woman exam with routine gynecological exam Social History Tobacco UseTypesPacks/DayYears UsedDateSmoking Tobacco: Never Assessed CommentsNoSex and Gender InformationValueDate RecordedSex Assigned at BirthNot on fileLegal VnsAguzbp20/15/2023 6:46 PM EDTGender IdentityNot on fileSexual OrientationNot on filedocumented as of this encounter Last Filed Vital Signs Vital SignReadingTime TakenCommentsBlood Ttrfgwvu28/6009/11/2025 2:23 PM EST Pulse--Temperature--Respiratory Rate--Oxygen Saturation--Inhaled Oxygen Concentration--Qyuuge376 kg (288 lb)09/11/2025 2:23 PM ESTHeight--Body Mass Index45.1110 3:58 PM EDTdocumented in this encounter Plan of Treatment NameTypePriorityAssociated DiagnosesOrder SchedulePap SmearPathology and CytologyRoutine Well woman exam with routine gynecological exam Ordered: 09/11/2025documented as of this encounter Visit Diagnoses Diagnosis IUD check up Well woman exam with routine gynecological exam Routine gynecological examination documented in this encounter
--- OUTSIDE RECORDS SUMMARY | 2025-09-11 19:04 | XMS_ITS | Encounter Summary ---
Author Organization [facility] Address [address] [place] [address] Care Team Providers Care Front Office Secretary Name Role Phone Unavailable Primary Care Provider Unavailabl e Encounter Details DateTypeDepartmentCare Team (Latest Contact Info)Axmqnxvajrf77/02/2025amboo flowsheet [facility] [address] [place] [address] Kun Hutson DO [address] [facility] [address] [place], [facility]11 Social History Tobacco UseTypesPacks/DayYears UsedDateSmoking Tobacco: Never Assessed CommentsNoSex and Gender InformationValueDate RecordedSex Assigned at BirthNot on fileLegal HgcBeoilh60/15/2023 6:46 PM EDTGender IdentityNot on fileSexual OrientationNot on filedocumented as of this encounter Plan of Treatment Not on file documented as of this encounter Visit Diagnoses Not on filedocumented in this encounter
--- OUTSIDE RECORDS SUMMARY | 2025-09-11 19:04 | XMS_ITS | Clinical Summary ---
Author Organization [facility] Address [address] [facility] [place] [address] Care Team Providers Care Design Maintenance Engineer Name Role Phone Unavailable Primary Care Provider Unavailabl e Allergies Active AllergyReactionsCriticalityNoted PjsqVboiojkxEkxvgjfpxXgvivef25/02/2025 Medications MedicationSigDispense QuantityRefillsLast FilledStart DateEnd DateStatus Rivaroxaban 15 & 20 MG tablet therapy pack as directed OrallyActive lisinopril 5 MG tablet 1 (one) time each day at the same timeActive Encounters DateTypeDepartmentCare PxmyWbjfijmudcl42/02/2025 2:10 PM [place] [address] Kun Hutson DO IUD check up; Well woman exam with routine gynecological exam5Bamboo flowsheet [facility] [place] [facility] [place] [address] Kun Hutson DO 5Clinisync Result Encounter [facility] External Department Unsolicited Kun Hutson DO 07/30/2025 3:30 PM EDTProcedure Visit [facility] [address] [address] [place] [address] Kun Hutson DO Encounter for removal and reinsertion of intrauterine contraceptive device (IUD); IUD check up; Intrauterine contraceptive device threads lost, initial ukzupjgzl85/20/2025 Abstract [facility] [address] [address] [place] [address] Kun Hutson DO from Last 3 Months Family History Medical HistoryRelationNameCommentsClotting disorderFatherCervical cancerMother Cervical cancerMother's SisterClotting disorderOtherRelationNameStatusComments FatherMotherMother's SisterOther Social History Tobacco UseTypesPacks/DayYears UsedDateSmoking Tobacco: Never Assessed CommentsNoSex and Gender InformationValueDate RecordedSex Assigned at BirthNot on fileLegal YvoDvnuwc85/15/2023 6:46 PM EDTGender IdentityNot on fileSexual OrientationNot on file Last Filed Vital Signs Vital SignReadingTime TakenCommentsBlood Czkkepud25/6009/11/2025 2:23 PM EST Pulse--Temperature--Respiratory Rate--Oxygen Saturation--Inhaled Oxygen Concentration--Ycqlkg954 kg (288 lb)09/11/2025 2:23 PM DARMgxgdr842.2 cm (5' 7 ) 07/30/2025 3:58 PM EDTBody Mass Index45.111 3:58 PM EDT Plan of Treatment Health MaintenanceDue DateLast DoneCommentsCOVID-19 Vaccine ( season) 501/, 02/17/2021, 01/15/2021Influenza Vaccine (#1)2025 Pneumococcal Vaccine: Pediatrics (0 to 5 Years) and At-Risk Patients (6 to 64 Years)Aged OutNo longer eligible based on patient's age to complete this topic Procedures Procedure NamePriorityDate/TimeAssociated DiagnosisCommentsTBH PREG QUANT HCG Nuzbshq4308/07/2025 6:25 AM EDT MHPT WAUHOQGRIXLMYwtqhkg98/28/2025 6:25 AM EDT ALL CBC WITH AUTO JYNAKadqxzg74/28/2025 6:25 AM EDT IUD RGICBQVAyuoeni33/20/2025 4:35 PM EDT IUD check up POCT , DGPSTJsjgjxa12/20/2025 4:10 PM EDT Encounter for removal and reinsertion of intrauterine contraceptive device (IUD) from Last 3 Months Results * TBH PREG QUANT HCG (08/07/2025 6:25 AM EDT)ComponentValueRef RangeTest Method Analysis TimePerformed AtPathologist SignatureHCG QUANTITATIVE<1mIU/mLTBH Comment: 5-50 ? 0.2-1 WEEK 50-500 ? 1-2 WEEKS 100-5,000 ?2-3 WEEKS 500-10,000 ? 3-4 WEEKS 1,000-50,000 ?? 4-5 WEEKS 10,000-100,000 5-6 WEEKS 15,000-200,000 6-8 WEEKS 10,000-100,000 2-3 MONTHS Specimen (Source)Anatomical Location / LateralityCollection Method / Volume Collection TimeReceived Time08/07/2025 6:25 AM EDT1 6:25 AM EDT Narrative [facility] - 08/07/2025 7:01 AM EDT Authorizing ProviderResult TypeResult StatusCorey Caryl DOCLINISYNCFinal Result Performing OrganizationAddressCity/State/ZIP CodePhone Number [facility] * (ABNORMAL) MHPT DIFFERENTIAL (08/07/2025 6:25 AM EDT)ComponentValueRef Range Test MethodAnalysis TimePerformed AtPathologist SignatureSEGMENTED NEUTROPHILS % YJHPJV65.043.0 - 75.0TBHLYMPHOCYTES PERCENT CBGWOW17.020.5 - 60.0 %TBH MONOCYTES PERCENT MANUAL6.01.7 - 12.0 %TBHEOSINOPHILS PERCENT MANUAL1.00.9 - 7.0 %TBHBASOPHILS PERCENT MANUAL1.00.2 - 2.0 %TBHTBH ATYPICAL LYMPHOCYTES % RBDBGI32.0%TBHMETAMYELOCYTES %1.0TBHSEGMENTED NEUT ABSOLUTE MANUAL7.10(H)1.4 - 6.5 10 3/uLTBHLYMPHOCYTES ABSOLUTE MANUAL3.081.20 - 3.80 10 3/uLTBHMONOCYTES ABSOLUTE MANUAL0.800.30 - 0.80 10 3/uLTBHEOSINOPHILS ABSOLUTE MANUAL0.130.00 - 0.70 10 3/uLTBHBASOPHILS ABS MANUAL0.13(H)0.00 - 0.10 10 3/uLTBHATYPICAL LYMPHOCYTES ABS MAN2.14TBHMETAMYELOCYTES ABSOLUTE MANUAL0.13TBHSpecimen (Source)Anatomical Location / LateralityCollection Method / VolumeCollection TimeReceived Time08/07/2025 6:25 AM EDT1 6:25 AM EDT Narrative [facility] - 08/07/2025 6:45 AM EDT Authorizing ProviderResult TypeResult StatusCorey Caryl DOCLINISYNCFinal Result Performing OrganizationAddressCity/State/ZIP CodePhone Number [facility] * (ABNORMAL) ALL CBC WITH AUTO DIFF (08/07/2025 6:25 AM EDT)ComponentValueRef RangeTest MethodAnalysis TimePerformed AtPathologist SignatureTBH WBC13.4(H) 4.0 - 11.0 10 3/uLTBHTBH RBC5.314.20 - 5.40 10 6/uLTBHTBH HGB14.712.0 - 16.0 g/dLTBHTBH HCT43.836.0 - 48.0 %TBHTBH MCV82.581.0 - 99.0 fLTBHTBH MCH27.726.7 - 34.0 pgTBHTBH MCHC33.629.9 - 35.2 g/dLTBHTBH RDW13.211.0 - 15.0 %TBHTBH PLT 548121 - 450 10 3/uLTBHTBH MPV8.9(L)9.5 - 13.5 fLTBHSpecimen (Source) Anatomical Location / LateralityCollection Method / VolumeCollection Time Received Time08/07/2025 6:25 AM EDT1 6:25 AM EDT Narrative [facility] - 08/07/2025 6:45 AM EDT Authorizing ProviderResult TypeResult StatusCorey Caryl DOCLINISYNCFinal Result Performing OrganizationAddressCity/State/ZIP CodePhone Number [facility] * IUD REMOVAL (07/30/2025 4:35 PM EDT) [...] reinserted in OR. Authorizing ProviderResult TypeResult StatusKun Hutson DOIN CLINIC/BEDSIDE ORDERABLESFinal Result * POCT , urine manually resulted (07/30/2025 4:10 PM EDT)ComponentValue Ref RangeTest MethodAnalysis TimePerformed AtPathologist SignaturePreg Test, UrNegativeNegativeSpecimen (Source)Anatomical Location / LateralityCollection Method / VolumeCollection TimeReceived LxmcSifbu71/20/2025 4:10 PM EDT Narrative Authorizing ProviderResult TypeResult Maine Hutson DOPOINT OF CARE TEST ENTER/EDIT ORDERABLESFinal Result from Last 3 Months Insurance
--- OUTSIDE RECORDS SUMMARY | 2025-09-11 19:05 | XMS_ITS | CCD ---
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 Name Role Phone Susan [phone] UNKNOWN Unavailable Unavailable Román Charlton Unavailable Unavailable [...] DAVIS Admitting Unavailable DIANE DAVIS Attending Unavailable HOYasmeen ., DR DAVIS Primary Care Unavailable DIANE DAVIS Consulting Unavailable HOY ., DR DAVIS Admitting Unavailable HOY ., DR DAVIS Attending Unavailable HOY ., DR DAVIS Primary Care Unavailable HOYasmeen ., DR DAVIS Consulting Unavailable LEEANN, DR ANTONIO Nguyen Consulting Unavailable LIBERTY LOONEY Attending Unavailab SUSAN Patino Primary Care Unavailable LIBERTY LOONEY Attending Unavailab LIBERTY Pérez Referring Unavailab SUSAN Patino Primary Care Unavailable WALDEMAR HUTSON Attending Unavailable Unavailable Primary Care Provider Unavailnelsy e Allergies Allergy ClassificationReported Allergen(s)Allergy TypeDate of OnsetReaction(s) FacilityEstrogens (1 source)Estrogens; Translations: [Estrogens]Drug JzcxwrjTF-Vjqzoshhut-Tqyjgr [facility] Work Phone: (2 sources)Estrogens; Translations: [Estrogens]Drug KrzgjvqVM-Qankndefye-[facility] Work Phone: (1 source)EstradiolDrug Xglebet10-75-8615Udj[facility] (1 source)Estradiol; Translations: [ESTRADIOL]Drug Cifkoqu24-77-2045GweStifmu Repository Medications Completed/Discontinued Medications MedicationDrug Class(es)DatesSig (Normalized)Sig (Original)acetaminophen 325 mg oral tablet (3 sources)Start: 08-92-7136zdkq 1-2 tablets by mouth every four hours as needed Tylenol 325 MG Oral Tablet TAKE 1 TO 2 TABLETS EVERY 4 HOURS NEEDED Quantity: 0 Refills: 0 Ordered: 14-Nov-2020 DO Start : 14-Nov-2020 Geplis89 actuat albuterol 0.09 mg/actuat metered dose inhaler (1 source)beta2-Adrenergic AgonistStart: 49-60-5827kmsl 2 puff(s) by mouth every four to six hours as neededAlbuterol Sulfate HFA 108 (90 Base) MCG/ACT Inhalation Aerosol Solution INHALE 2 PUFFS BY MOUTH EVERY 4 TO 6 HOURS NEEDED Quantity: 18 Refills: 0 Start : 06-Oct-2020 Activecetirizine hydrochloride 10 mg oral tablet (3 sources)Histamine-1 Receptor AntagonistStart: 44-65-6734xwsc 1 tablet by mouth once daily as neededCetirizine HCl - 10 MG Oral Tablet TAKE 1 TABLET DAILY NEEDED. Quantity: 0 Refills: 2 Ordered: 14-Nov-2020 DO Start : 27-Nov-2019 Activeferrous sulfate 143 mg extended release oral tablet (3 sources)Start: 66-14-0703phcx 1 tablet by mouth twice dailyIron Slow Release 143 (45 Fe) MG Oral Tablet Extended Release take one tablet po bid Quantity: 0 Refills: 0 Ordered: 14-Nov-2020 DO Start : 14-Nov-2020 Activelevonorgestrel 0.746531 mg/hr intrauterine system (2 sources)Progestin, Progestin-containing Intrauterine DeviceStart: 07-30-2025 End: 43-71-3900Zaeeowjidatxzj intrauterine device 52 mglisinopril 10 mg oral tablet (3 sources)Angiotensin Converting Enzyme InhibitorStart: 65-31-9570vsyi 1 tablet by mouth once dailyLisinopril 10 MG Oral Tablet TAKE 1 TABLET BY MOUTH DAILY Quantity: 30 Refills: 1 Ordered: 15-Sep-2021 Wendy Leyva MD Start : 14-Nov-2020 Active Needs to be seen in Nephrology for further refillsNasoGel Nasal Gel (1 source)Start: 56-84-8493RgfnCop Nasal Gel Use once or twice daily as needed for nasal congestion/irritation Quantity: 1 Refills: 6 DiMwallaceo DO, Margo Start : 04-Nov-2020 Active 30 ML Olds Btlnorethindrone acetate 5 mg oral tablet (1 source)Start: 99-72-8808ylhn 1 tablet by mouth once dailyNorethindrone Acetate 5 MG Oral Tablet TAKE 1 TABLET DAILY. Quantity: 30 Refills: 6 Start : 23-Oct-2020 Activerivaroxaban 20 mg oral tablet (3 sources)Factor Xa InhibitorStart: 84-96-3691nmzh 1 tablet by mouth once daily Xarelto 20 MG Oral Tablet TAKE ONE TABLET PO DAILY Quantity: 0 Refills: 0 Ordered: 14-Nov-2020 DO Start : 21-Oct-2020 Active Problems Active Problems Problem ClassificationProblemDateDocumented DateEpisodic/ChronicAbdominal pain (1 source)Abdominal painOnset: 69-23-9526RoadtymsRdcxpkw and circulatory congenital anomalies (2 sources)Patent foramen ovale; Translations: [Ostium secundum type atrial septal defect]ChronicComplication of device; implant or graft (1 source)IUD threads lost; Translations: [Displacement of intrauterine contraceptive device, initial encounter]73-05-0232WuibhtonSpwmbscllp associated with dizziness or vertigo (3 sources)Dizziness and giddiness; Translations: [Dizziness]Onset: 03-31-2024 EpisodicContraceptive and procreative management (2 sources)Contraception status; Translations: [Encounter for removal and reinsertion of intrauterine contraceptive device]01-19-9566RpquywbqLrrgedmecr and other anemia (3 sources)Anemia; Translations: [Anemia, unspecified]EpisodicEssential hypertension (5 sources)Hypertensive disorder; Translations: [Unspecified essential hypertension]ChronicFluid and electrolyte disorders (1 source)Dehydration; Translations: [Dehydration]Onset: 74-87-4706Nathktbr Menstrual disorders (4 sources)Dysmenorrhea, unspecified; Translations: [DYSMENORRHEA UNSPECIFIED] Onset: 32-93-0412CghdctkFwhujnhloek deficiencies (1 source)Vitamin D deficiency, unspecified; Translations: [VITAMIN D DEFICIENCY UNSPECIFIED]Onset: 79-09-5189FkdaubuQxkfc female genital disorders (1 source)Abnormal uterine bleeding; Translations: [DUB (dysfunctional uterine bleeding)]ChronicOther female genital disorders (4 sources)Postcoital and contact bleeding; Translations: [POSTCOITAL AND CONTACT BLEEDING]Onset: 56-49-9491WkkqdtaUmevs lower respiratory disease (1 source)Hypoxia; Translations: [Nocturnal [...] sources)Acute sinusitis, unspecified; Translations: [ACUTE SINUSITIS UNSPECIFIED]Onset: 72-66-7313WjiqczabNcbslfrvb; thrombophlebitis and thromboembolism (2 sources)Acute deep vein thrombosis of lower limb; Translations: [Acute venous embolism and thrombosis of unspecified deep vessels of lower extremity]Episodic Pulmonary heart disease (3 sources)Pulmonary embolism; Translations: [Other pulmonary embolism and infarction]EpisodicResidual codes; unclassified (2 sources)Hypoxia; Translations: [Idiopathic sleep related non-obstructive alveolar hypoventilation]ChronicSpondylosis; intervertebral disc disorders; other back problems (4 sources)Radiculopathy, cervical region; Translations: [RADICULOPATHY CERVICAL REGION]Onset: 58-60-0227TgngfalwMeczhjhxzlad (1 source)CONTACT W/AND (SUSP) EXPOS COVID-19; Translations: [CONTACT W/AND (SUSP) EXPOS COVID-19]Onset: 10-09-2022 Past or Other Problems Problem ClassificationProblemDateDocumented DateEpisodic/ChronicDeficiency and other anemia (1 source)Anemia, unspecified; Translations: [ANEMIA UNSPECIFIED]Onset: 18-95-4665OjabaebwNdxjemkg mellitus without complication (1 source)Other abnormal glucose; Translations: [OTHER ABNORMAL GLUCOSE]Onset: 67-61-2576TjilqssdSfmzg female genital disorders (2 sources)History of gynecological disorder; Translations: [Personal history of other genital system and obstetric disorders] Resolved: 95-04-0695CibwrxtoQcgwlxaykvje (1 source)History of No significant past medical history; Translations: [History of No significant past medical history]NEGATED: Highlighted row has not occurred!Residual codes; unclassified (2 sources)DiseaseEpisodic Results Test NameValueInterpretationReference RangeFacilityALL CBC WITH AUTO DIFFon 06-63-7180Arxvsmodmut distribution width (RBC) [Ratio]13.2 %11.0 - 15.0 %[facility] HospitalHematocrit (Bld) [Volume fraction]43.8 %36.0 - 48.0 %[facility] Hemoglobin (Bld) [Mass/Vol]14.7 g/dL12.0 - 16.0 g/dLRay County Memorial Hospital Interpretation and review of laboratory resultsAbnormalNOSSM Saint Mary's Health CenterH (RBC) [Entitic mass]27.7 pg26.7 - 34.0 pgSouthPointe HospitalHC (RBC) [Mass/Vol]33.6 g/dL 29.9 - 35.2 g/dLSouthPointe HospitalV (RBC) [Entitic vol]82.5 fL81.0 - 99.0 fLRay County Memorial HospitalPlatelet mean volume (Bld) [Entitic vol]8.9 fLLow9.5 - 13.5 fLNorthwest Medical Center NUN543ZIFCMissouri Delta Medical Center RBC5.31NOMissouri Delta Medical Center WBC13.4HighRay County Memorial HospitalCLINISYNCNOMS HealthcareHCG ( test) Ql (U)on 07-30-2025 Interpretation and review of laboratory resultsNormalRay County Memorial HospitalPreg Test, UrNegativeNegativeNovant Health Matthews Medical CenterIUD Removalon 96-10-9853Ycbzhjennifer Poe LPN 08/01/2025 2:01 PM IUD Removal [...] CenterCBC AND AUTO DIFFon 03-31-2024 ABSOLUTE BASOPHIL0.0 X10E9/LNormal0.0-0.2PWooster Community HospitalComment on above:Performed By: #### CBCAmaya, 87974-6, CMP, 1988-02, , 21682-2 #### [facility] ([id number]) [address] [place] [address] 51994TBUCFESP NEUTROPHIL6.2 X10E9/LNormal1.5-6.6ProCitizens Medical CenterComment on above:Performed By: #### CBCA, 02061-2, CMP, 1988-02, , 85329-4 #### [facility] ([id number]) [address] [place] [address] 55358Utcezdkvk/100 WBC (Bld)0.3 %NormalCoshocton Regional Medical Center Comment on above:Performed By: #### CBCA, 40426-4, CMP, 1988-02, , 75350-2 #### [facility] ([id number]) [address] [place] [address] 17573Xsnswlhpwcs (Bld) [#/Vol]0.2 10*3/uLNormal0.0-0.4Coshocton Regional Medical CenterComment on above:Performed By: #### CBCAmaya, 76393-4, CMP, 1988-02, , 53949-7 #### [facility] ([id number]) [address] [place] [address] 33869Bkgisbmrwkr/100 WBC (Bld)2.1 %NormalProCitizens Medical Center Comment on above:Performed By: #### AMARI, 30079-8, CMP, 1988-02, , 12127-3 #### [facility] ([id number]) [address] [place] [address] 65553Fyxjolywbjz distribution width (RBC) [Ratio]14.0 %Normal 11.5-15.0ProCitizens Medical CenterComment on above:Performed By: #### AMARI, 79183-6, CMP, 1988-02, , 87471-2 #### [facility] ([id number]) [address] [place] [address] 95022Iopdnzxlja (Bld) [Volume fraction]41.1 %Tynycs32-84BsdQababpCitizens Medical CenterComment on above:Performed By: #### CBCAmaya, 14102-7, CMP, 1988-02, , 47068-4 #### [facility] ([id number]) [address] [place] [address] 85205Vfzmqqqvji (Bld) [Mass/Vol]13.9 g/rYUywnnr98.7-15.5PWooster Community HospitalComment on above:Performed By: #### CBCAmaya, 20854-6, CMP, 1988-02, , 21868-3 #### [facility] ([id number]) [address] [place] [address] 07075Ckxhwjiglrd (Bld) [#/Vol]4.4 10*3/uLHigh1.0-3.5PWooster Community HospitalComment on above:Performed By: #### AMARI, 60268-7, CMP, 1988-02, , 18703-1 #### [facility] ([id number]) [address] [place] [address] 78028Szvmoucdhmo/100 WBC (Bld)38.2 %NormalProCitizens Medical Center Comment on above:Performed By: #### AMARI, 42678-9, CMP, 1988-02, , 33070-2 #### [facility] ([id number]) [address] [place] [address] 92603RJZ (RBC) [Entitic mass]27.2 ylVqftcp15-47CosPsfyjwCoshocton Regional Medical CenterComment on above:Performed By: #### AMARI, 47467-8, CMP, 1988-02, , 17425-2 #### [facility] ([id number]) [address] [place] [address] 47934UEZP (RBC) [Mass/Vol]33.8 g/bLMfsuoe31-15IasWlhctnCitizens Medical CenterComment on above:Performed By: #### AMARI, 91937-4, CMP, 1988-02, , 55384-4 #### [facility] ([id number]) [address] [place] [address] 55475ZML (RBC) [Entitic vol]80 dXFslxpa29-158NvaHlyadr [facility]remont HospitalComment on above:Performed By: #### AMARI, 44684-8, CMP, 1988-02, , 18463-6 #### [facility] ([id number]) [address] [place] [address], [place] [address]Vfxadmobc (Bld) [#/Vol]0.7 10*3/uLNormal0-0.9Coshocton Regional Medical CenterComment on above:Performed By: #### CBCA, 25184-3, CMP, 1988-02, , 91338-4 #### [facility] ([id number]) [address] [place] [address] 49255Ijwtspbkm/100 WBC (Bld)6.1 %[facility] Comment on above:Performed By: #### CBCA, 60413-1, CMP, 1988-02, , 68309-7 #### [facility] ([id number]) [address] [place] [address] 76768Okboqahefxr/100 WBC (Bld)53.3 %[facility] Comment on above:Performed By: #### CBCAmaya, 94549-4, CMP, 1988-02, , 74794-7 #### [facility] ([id number]) [address] [place] [address] 37611Bylnlhgo mean volume (Bld) [Entitic vol]7.4 fLNormal7-12 [facility] Regional Medical CenterComment on above:Performed By: #### CBCAmaya, 58954-0, CMP, 1988-02, , 16136-7 #### [facility] ([id number]) [address] [place] [address] 28432Snietnytv (Bld) [#/Vol]310 10*3/eEDtjiuz078-689LovOxqypzCoshocton Regional Medical CenterComment on above:Performed By: #### CBCA, 89825-5, CMP, 1988-02, , 56455-8 #### [facility] ([id number]) [address] [place] [address] 68754LCQ COUNT5.11 X10E12/LNormal3.80-5.20[facility] Comment on above:Performed By: #### AMARI, 30549-8, CMP, 1988-02, , 72667-6 #### [facility] ([id number]) [address] [place] [address] 69046EXW (Bld) [#/Vol]11.6 10*3/uLHigh4.0-11.0ProCitizens Medical CenterComment on above:Performed By: #### AMARI, 27427-3, CMP, 1988-02, , 97867-8 #### [facility] ([id number]) [address] [place] [address] 69913FVLOJKSCNBNUQ METABOLIC PANELon 18-82-4148Wyvfhrk [Mass/Vol]3.8 g/dLNormal3.2-5.3PWooster Community HospitalComment on above:Performed By: #### AMARI, 22209-0, CMP, 1988-02, , 83210-7 #### [facility] ([id number]) [address] [place] [address] 23720TVU [Catalytic activity/Vol]75 U/AChjdyj25-663RogAlmbtpCitizens Medical CenterComment on above:Performed By: #### AMARI, 00074-2, CMP, 1988-02, , 57740-5 #### [facility] ([id number]) [address] [place] [address] 76518OIA [Catalytic activity/Vol]16 U/LNormal0-31PWooster Community HospitalComment on above:Performed By: #### AMARI, 29919-0, CMP, 1988-02, , 83499-4 #### [facility] ([id number]) [address] [place] [address] 71782Asvua gap [Moles/Vol]3 mmol/LLow5-15ProNorman Regional [facility] Comment on above:Performed By: #### AMARI, 80060-2, CMP, 1988-02, , 04931-8 #### [facility] ([id number]) [address] [place] [address] 32930MON [Catalytic activity/Vol]19 U/LNormal0-41ProCitizens Medical CenterComment on above:Performed By: #### AMARI, 22325-3, CMP, 1988-02, , 75602-8 #### [facility] ([id number]) [address] [place] [address] 31080Wtxbqjxng [Mass/Vol]0.6 mg/dLNormal0.3-1.2PWooster Community HospitalComment on above:Performed By: #### AMARI, 40422-7, CMP, 1988-02, , 22055-3 #### [facility] ([id number]) [address] [place] [address] 74259Pqqwvun [Mass/Vol]8.7 mg/dLNormal8.5-10.5PWooster Community HospitalComment on above:Performed By: #### AMARI, 87002-1, CMP, 1988-02, , 20387-7 #### [facility] ([id number]) [address] [place] [address], [place] [address]Pmxqtahz [Moles/Vol]108 mmol/MDtbhgi18-183MdhZluasxCitizens Medical CenterComment on above:Performed By: #### AMARI, 67275-5, CMP, 1988-02, , 16479-0 #### [facility] ([id number]) [address] [place] [address] 40457EM2 [Moles/Vol]26 mmol/XClyclp81-25VupOzmpkaWooster Community Hospital Comment on above:Performed By: #### AMARI, 01159-8, CMP, 1988-02, , 04420-3 #### [facility] ([id number]) [address] [place] [address] 90447Duudekddnm [Mass/Vol]0.83 mg/dLNormal0.40-1.00ProCitizens Medical CenterComment on above:Result Comment: METHOD TRACEABLE TO IDMS STANDARD Performed By: #### AMARI, 03847-9, JORDON, 1988-02, , 84350-4 #### [facility] ([id number]) [address] [place] [address] 83162gJNJ (CKD-EPI) NON-RACE DEPENDENT>90Normal>59ProCitizens Medical CenterComment on above:Result Comment: Reported eGFR is based on the CKD-EPI 2020 equation that does not use a race coefficient.Performed By: #### AMARI, 47708-7, JORDON, 1988-02, , 13748-0 #### [facility] ([id number]) [address] [place] [address] 04002Icfgofb [Mass/Vol]88 mg/zHJgztep67-91SqwUrneqzCoshocton Regional Medical Center Comment on above:Performed By: #### AMARI, 29012-3, JORDON, 1988-02, , 40105-2 #### [facility] ([id number]) [address] [place] [address] 53645Oggzqehnu [Moles/Vol]3.6 mmol/LNormal3.5-5.0ProCitizens Medical CenterComment on above:Performed By: #### AMARI, 44113-6, JORDON, 1988-02, , 87435-8 #### [facility] ([id number]) [address] [place] [address] 53077Temonfs [Mass/Vol]6.9 g/dLNormal6.0-8.0ProCitizens Medical CenterComment on above:Performed By: #### AMARI, 29436-8, CMP, 1988-02, , 99149-9 #### [facility] ([id number]) [address] [place] [address] 01021Dobofz [Moles/Vol]137 mmol/KSeyndl765-803KtoAbqyka [facility] HospitalComment on above:Performed By: #### AMARI, 61813-0, JORDON, 1988-02, , 78345-4 #### [facility] ([id number]) [address] [place] [address] 44023Hskg nitrogen [Mass/Vol]15 mg/dLNormal5-ProCitizens Medical CenterComment on above:Performed By: #### AMARI, 78321-8, JORDON, 1988-02, , 04246-7 #### [facility] ([id number]) [address] [place] [address] 90962NXD [Mass/Vol]on 4C REACTIVE PROTEIN1.5 mg/dLHigh 0.000-0.744PWooster Community HospitalComment on above:Performed By: #### AMARI, 50749-0, JORDON, 1988-02, , 56708-6 #### [facility] ([id number]) [address] [place] [address] 11265WB ABDOMEN AND PELVIS W CONTon 91-47-6465PJ ABDOMEN AND PELVIS W CONTCT ABDOMEN AND [...] by Carlos Bar MD on 03/31/2024 3:35 PMNormalCoshocton Regional Medical CenterDRUG SCREEN, URINEon 46-31-0576VVGLZLLPCJC/METHAMPNegativeNormalNEG ProMgrove hill memorial hospitala [facility] HospitalComment on above:Result Comment: AMPH/METH screening cut off = 1000 ng/mLPerformed By: #### DSU #### [facility] ([id number]) [address] [place] [address] 10686NNVMMFBEUGTBUhhdmqtjWoaslyXNFGlcKznwwh [facility] HospitalComment on above:Result Comment: Barbiturates screening cut off value = 200 ng/mL Performed By: #### DSU #### [facility] ([id number]) [address] [place] [address] 11116MHHRPVWLUCKFOGZJapnhkzoYqjdboUOHFimGpdbvs [facility] Comment on above:Result Comment: Benzodiazepines screening cut off value = 200 ng/mLPerformed By: #### DSU #### [facility] ([id number]) [address] [place] [address] 42204YRHEVUFBCHJQSmngapshXdbcaqZPKRkkUkoujz [facility] HospitalComment on above:Result Comment: Cannabinoids/THC screening cut off value = 50 ng/mL Performed By: #### DSU #### [facility] ([id number]) [address] [place] [address] 67175QJAEORD METABOLITENegativeNormalNEGCoshocton Regional Medical Center Comment on above:Result Comment: Cocaine screening cut off value = 300 ng/mL Performed By: #### DSU #### [facility] ([id number]) [address] [place] [address] 06094XQZTMDZSelipnnpLvasbuHTOYnpUvobwq [facility] HospitalComdeckerville [facility] on above:Result Comment: Ecstasy screening cut off value = 500 ng/mL This report is intended for use in clinical monitoring or management of patients.Performed By: #### DSU #### [facility] ([id number]) [address] [place] [address] 05417KOVHVJWIUAheiwpjcDyzfmiZGLUuuRjuxvb [facility] HospitalComdeckerville [facility] on above:Result Comment: Methadone screening cut off value = 300 ng/mL.Performed By: #### DSU #### [facility] ([id number]) [address] [place] [address] 41279MAPAVKMUwnadtixArpklgUZLDwbXozzub [facility] HospitalComdeckerville [facility] on above:Result Comment: Opiates screening cut off value = 300 ng/mL NOTE: This test is used for the detection of codeine, hydrocodone (>1000 ng/mL), morphine and hydromorphone (>900 ng/mL) in urine.Performed By: #### DSU #### [facility] ([id number]) [address] [place] [address] 01810FRMQOUEQTWwmavgruOcuwwwELBIauJgsyyd [facility] HospitalComdeckerville [facility] on above:Result Comment: Oxycodone screening cut off value = 300 ng/mL NOTE: This test is used for the detection of oxycodone and oxymorphone in urine.Performed By: #### DSU #### [facility] ([id number]) [address] [place] [address] 18609NQAPTEFAIIIKXQvbfqfbaFijnclPSEPevTfbihf [facility]Com[facility] on above:Result Comment: Phencyclidine screening cut off value = 25 ng/mL Performed By: #### DSU #### [facility] ([id number]) [address] [place] [address] 92391Bbosuq D-dimer DDU (PPP) [Mass/Vol]on 03-31-2024 DIMER<150 Normal<255ProCitizens Medical CenterComment on above:Result Comment: Results <255 ng/mL DDU: The presence of a VTE can safely be excluded with a negative D-Dimer result and Wells score. A negative result doesn't exclude the possibility of DIC. The test be repeated along with other diagnostic tests if the patient's symptoms persist or worsen. [email or web address] By: #### CBCA, 11993-1, CMP, 1988-02, , 01183-0 #### [facility] ([id number]) [address] [place] [address] 42708PZP ( test) Ql (U)on 62-03-8753Vdkh HCG ( test) Ql (U)NegativeNormalNEGCoshocton Regional Medical CenterComment on above: Performed By: #### 2106-3 #### [facility] ([id number]) [address] [place] [address] 46653QKQZSZRNWqs 06-76-8111Fvfsbmcyr [Mass/Vol]2.2 mg/dLNormal 1.8-2.6ProCitizens Medical CenterComment on above:Performed By: #### CBCA, 18168-8, CMP, 1988-02, , 61195-2 #### [facility] ([id number]) [address] [place] [address] 17348Ezxfeqom I.cardiac High sensitivity method [Mass/Vol]on HOUR TROP I, HIGH SENSITIVITY<2Normal<16ProCitizens Medical Center Comment on above:Result Comment: Reference ranges have not been established for patients under 21 years of age.Performed By: #### 60917-8 #### [facility] ([id number]) [address] [place] [address] 03115KRDBTXKF I, HIGH SENSITIVITY<2Normal<16ProCitizens Medical CenterComment on above:Result Comment: Reference ranges have not been established for patients under 21 years of age.Performed By: #### CBCA, 57160-5, CMP, 1987-, 74735-3, 56381-8 #### [facility] ([id number]) [address] [place] [address] 46431BPB MACROSCOPIC NURon 71-42-5882XIGOATNET NURSmallAbnormalNEG ProMgrove hill memorial hospitala [facility] HospitalComment on above:Performed By: #### NUM #### [facility] ([id number]) [address] [place] [address] 29989KPRKA/HGB NURNegativeNormalNEGProCitizens Medical CenterComment on above:Performed By: #### NUM #### [facility] ([id number]) [address] [place] [address] 06411UHTHLOL NURNegativeNormalNEGProCitizens Medical CenterComment on above:Performed By: #### NUM #### [facility] ([id number]) [address] [place] [address] [id number] NURTraceAbnormalNEGProCitizens Medical CenterComment on above:Performed By: #### NUM #### [facility] ([id number]) [address] [place] [address] [id number] ESTERASE NURNegativeNormalNEGProCitizens Medical CenterComment on above:Performed By: #### NUM #### [facility] ([id number]) [address] [place] [address] [id number] NURNegativeNormalNEGProCitizens Medical CenterComment on above:Performed By: #### NUM #### [facility] ([id number]) [address] [place] [address] [id number] NUR5.2Ptxixw4.0-8.5PWooster Community HospitalComment on above:Performed By: #### NUM #### [facility] ([id number]) [address] [place] [address] [id number] NURNegativeNormalNEGProCitizens Medical CenterComment on above:Performed By: #### NUM #### [facility] ([id number]) [address] [place] [address] [id number] GRAVITY MRIEYA>=1.303Tlhekq0.003-1.035ProCitizens Medical CenterComment on above:Performed By: #### NUM #### [facility] [facility] ([id number]) [address] [place] [address] [id number] NUR0.2 eu/dLNormal<1.1PWooster Community Hospital Comment on above:Performed By: #### NUM #### [facility] ([id number]) [address] [place] [address] [id number] CSPINE MIN 4 VIEWSon 75-77-0116LP CSPINE MIN 4 VIEWS EXAMINATION: XR CSPINE [...] Electronically authenticated by: ANTONIO BRADSHAW Date: 2022-12-25 15:36NoTriHealth [facility]hes[facility] Butler HospitalCovid-19 PCR (CVDTBH)on 89-23-8676ZXSZ-CoV-2 (COVID-19) RNA HAIDER+probe Ql (Unsp spec)Not detectedNormalNOT [facility] Comment on above:Result Comment: This test is not yet approved or cleared by the [place] FDA. When there are no FDA-approved or cleared tests available, and other criteria are met, FDA can make tests available under an emergency access mechanism called an Emergency Use Authorization (EUA). The EUA for this test is supported by the [place] of Health and Human Service's (HHS's) declaration [...] consistent with SARS-CoV-2.Performed By: #### CVDTBH #### [facility] [address] [place] [address] Dr. Ryan Lopez AND B AGon 23-52-5666WJZEFMEAYKSUQOhioHealth Van Wert HospitalComment on above:Result Comment: Negative for Flu A protein angiten. Infection due to Flu A cannot be ruled out. FluA angiten in the sample may be below the detection limit of the test.Performed By: #### INFLUAB ####[facility] [address] [address]Dr. Ryan BagleyINFLUBNEGHSEE [facility]cy HospitalComment on above:Result Comment: Negative for Flu B protein antigen. Infection due to Flu B cannot be ruled out. FluB antigen in the sample may be below the detection limit of the test.Performed By: #### INFLUAB ####[facility] [address] [address]DrKing Hanks A AGNegativeNormalNEGATIVE SEE COMMENTThe [facility] HospitalComdeckerville community hospital on above:Performed By: #### INFLUAB ####[facility] [address]xm[address] [place] [address]DrKing Morales AGNegativeNormalNEGATIVE SEE COMMENTThe [facility] Comment on above:Performed By: #### INFLUAB ####[facility] Nvnbe[address]yr[address] [address]Dr. Ryan Noble PELVISon [id number] PELVISEXAMINATION: US PELVIS HISTORY: IUD check COMPARISON: [...] Electronically authenticated by: ANTONIO BRADSHAW Date: 2022-08-11 07:[address] [place], [place] [address]CHLAMYDIA/GONOCOCCUS HAIDER (SWAB/URINE/PAPon 14-56-9451Bwnnbpxva trachomatis, NAANegativeNormalNegativeMemorial Health System Selby General HospitalComment on above: Performed By: #### CT/NGNA #### [facility] [address] [place] [address] Dr. Ryan BagleyNeisseria gonorrhoeae, NAANegativeNormalNegativeThe [facility] HospitalComment on above:Performed By: #### CT/NGNA #### [facility] [address] [place] [address] Dr. Ryan BagleyVAGINITIS/VAGINOSIS DNA PROBEon 06-40-1377Lajtdos speciesNegative NormalNegativeThe [facility] HospitalComment on above:Performed By: #### VAGINT ####[facility] [address] [address]Dr. Ryan Agustinerella vaginalisNegativeNormalNegativeThe [facility] Comment on above:Performed By: #### VAGINT ####[facility] [address] [address]Dr. Ryan BagleyTrichomonas vaginalisNegative NormalNegativeThe [facility] HospitalComment on above:Performed By: #### VAGINT ####[facility] [address]lpz[address] [address]Dr. Ryan ChangINSULINon 42-31-4226Zxrwydc76.4 uIU/mLCritically high2.6-24.9The [facility] HospitalComment on above:Performed By: #### INSULIN #### [facility] [address] [address] [address] Ryan BagleyCBC AUTO DIFFon 44-37-3517VTFH #0.1 103/ulNormal0.0-0.1The [facility] HospitalComment on above:Performed By: #### CBC ####[facility] [address] [place] [address]Dr.Ryan BagleyBasophils/100 WBC (Bld)1.0 %Normal0.2-2.0The [facility] HospitalComment on above:Performed By: #### CBC ####[facility] Bnewd[address]axe[address] [place] [address]Dr.Robynyana ChangEO #0.2 103/ulNormal0.0-0.7The [facility] HospitalComment on above:Performed By: #### CBC ####[facility] [address] [place] [address]Dr.Ryan ChangEosinophils/100 WBC (Bld)3.1 %Normal 0.9-7.0The [facility] HospitalComment on above:Performed By: #### CBC ####[facility] Oxoyxymypg[address] [place] [address]Dr.Ryan Bagley Erythrocyte distribution width (RBC) [Ratio]17.5 %Critically high11.0-15.0The [facility] HospitalComment on above:Performed By: #### CBC ####[facility] Vtpriblasj[address] [place], [place] [address]Dr.Ryan BagleyHematocrit (Bld) [Volume fraction]47.4 %Prcwse32.0-48.0The [facility] HospitalComment on above:Performed By: #### CBC ####[facility] Znqxdljxyy[address] [place] [address]Dr.Ryan ChangHemoglobin (Bld) [Mass/Vol]14.7 g/dL Sbbfyn92.0-16.0The [facility] HospitalComment on above:Performed By: #### CBC ####[facility] Yzasiumvqo[address] [place], [place] [address]Dr. Robynlan ChangIG #0.03 10e3/ulNormal0.00-0.03The [facility] HospitalComment on above: Performed By: #### CBC ####[facility] Ejluqgbnjs[address] [place], [place] [address]Dr.Ryan ChangIG %0.4 %Normal0.0-0.5The [facility] HospitalComment on above:Performed By: #### CBC ####[facility] Masarkhjax[address] [place], [place] [address]Dr.Ryan ChangLYMPH #2.0 103/ulNormal1.2-3.8The [facility] HospitalComment on above:Performed By: #### CBC ####[facility] Ytwznxoxrp026[address] [place], [place] [address]Dr. Robynyana KevynLymphocytes/100 WBC (Bld)28.9 %Crcwow01.5-60.0The [facility] Comment on above:Performed By: #### CBC ####[facility] Anqdcbjhdl474[address] [place], [place] [address]Dr.Robynyana BagleyMANUAL DIFF REQNONormalThe [facility] HospitalComment on above:Performed By: #### CBC ####[facility] Fttybuttps[address] [place], [place] [address]Dr.Ryan BagleyMCH (RBC) [Entitic mass]24.2 pgCritically low26.7-34.0The [facility] HospitalComment on above:Performed By: #### CBC ####[facility] Bhgmpkiikj[address] [place], [place] [address]Dr.Ryan BagleyMCHC (RBC) [Mass/Vol]31.0 g/dLNormal 29.9-35.2The [facility]renice HospitalComment on above:Performed By: #### CBC ####[facility] [address] [place] [address]Dr. Ryan KevynMCV (RBC) [Entitic vol]78.0 fLCritically low81.0-99.0The [facility] HospitalComment on above:Performed By: #### CBC ####[facility] H[address]vpb[address]fl[address] [place], [place] [address]Dr.Ryan KevynMONO #0.5 103/ulNormal0.3-0.8The [facility] HospitalComment on above:Performed By: #### CBC ####[facility] Rcxwklivht[address] [place], [place] [address]Dr. Ryan KevynMonocytes/100 WBC (Bld)6.8 %Normal1.7-12.0The [facility] Comment on above:Performed By: #### CBC ####[facility] Xkaspttwgp[address] [place], [place] [address]Dr.Ryan BagleyNEUT #4.2 103/ulNormal1.4-6.5 The [facility] HospitalComment on above:Performed By: #### CBC ####[facility] Iyznmbcmaf[address] [place], [place] [address]Dr.Robynyana Bagley Neutrophils/100 WBC (Bld)59.8 %Bxxsts07.0-75.0The [facility] HospitalComment on above:Performed By: #### CBC ####[facility] S[address]oswdltdy[address] [place], [place] [address]Dr.Ryan KevynPlatelet mean volume (Bld) [Entitic vol] 8.7 fLCritically low9.5-13.5The [facility] HospitalComment on above:Performed By: #### CBC ####[facility] Wvjjes[address] [place], [place] [address]Dr.Ryan BagleyPLT268 103/nzFvyphq984-228Gpu [facility] HospitalComment on above:Performed By: #### CBC ####[facility] Ttzspqy[address] [place], [place] [address]Dr.Ryan BagleyRBC6.08 106/ulCritically high4.20-5.40 [facility] HospitalComment on above:Performed By: #### CBC ####[facility] [address] [address]Dr.Yilan BagleyWBC7.0 103/ulNormal4.0-11.0The [facility] HospitalComment on above:Performed By: #### CBC ####[facility] [address] [address]Dr. Ryan Ram THYROXINE INDEX T7on 82-22-5872GFU5.06NormCleveland Clinic Hillcrest HospitalComment on above:Performed By: #### T7, TSH, CMP, LIPID #### [facility] [address] [address] [address] Ryan BagleyT3U36.0 %Utpmqq39.5-40.5The [facility] HospitalComment on above: Performed By: #### T7, TSH, CMP, LIPID #### [facility] [address] [address] [address] Ryan BagleyT4 [Mass/Vol]8.50 ug/dLNormal5.40-10.60The [facility] Comment on above:Performed By: #### T7, TSH, CMP, LIPID #### [facility] [address] [address] [address] Ryan BagleyGLYCOHEMOGLOBIN A1Con 29-98-1460NSF RECOMMENDATIONSEE BELOWNormal [facility] HospitalComdeckerville community hospital on above:Result Comment: ADA RECOMMENDED LIMIT 4.0 - 6.0 ADA THERAPEUTIC TARGET < 7.0 ACTION SUGGESTED > 7.0Performed By: #### A1C ####[facility] [address] [address]Dr. Ryan BagleyGlucose [Mass/Vol]108 mg/dLNoTriHealth Bethesda Butler HospitalComment on above:Performed By: #### A1C ####[facility] [address] [place] [address]Dr.Yilan BagleyHbA1c (Bld) [Mass fraction]5.4 %Normal 4.5-6.2The [facility] HospitalComment on above:Performed By: #### A1C ####[facility] [address] [address]Dr.Ryan BagleyIRONon 93-69-4155Bgzn [Mass/Vol]50.0 ug/aJXrpvvn34.0-170.0[facility] HospitalComment on above:Performed By: #### VITAD, IRON ####[facility] [address] [address]Dr. Ryan KevynLIPID PROFILEon 02-10-2022 CHOL-HDL RATIO NORMSEE [facility] HospitalComment on above:Result Comment: 3.3 - 4.4 LOW RISK 4.4 - 7.1 AVERAGE RISK 7.1 - 11.0 MODERATE RISK >11.0 HIGH RISKPerformed By: #### T7, TSH, CMP, LIPID #### [facility] [address] [place] [address] Dr. Ryan Castellanosesterol [Mass/Vol]215 mg/iHRvwglb468-993Tap [facility] Comment on above:Performed By: #### T7, TSH, CMP, LIPID #### [facility] [address] [address] [address] Ryan Castellanosesterol in HDL [Mass/Vol]42 mg/pYCmubvk65-73Kkj [facility] HospitalComment on above:Performed By: #### T7, TSH, CMP, LIPID #### [facility] [address] [address] [address] Ryan Castellanosestermariano in LDL [Mass/Vol]145.0 mg/dLCritically high46.0-140.0 The [facility] HospitalComment on above:Performed By: #### T7, TSH, CMP, LIPID #### [facility] [address] [address] [address] Ryan Cho.total/Cholesterol in HDL [Mass ratio]5.1 {ratio} NormalMercy Health Allen Hospital on above:Performed By: #### T7, TSH, CMP, LIPID #### [facility] [address] [address] [address] Yilan ChangHDL NORMAL> or = 60 mg/dl - LOW CARDIOVASCULAR RISK <40 mg/dl - HIGH CARDIOVASCULAR RISKDiley Ridge Medical CenterComment on above:Performed By: #### T7, TSH, CMP, LIPID #### [facility] [address] [address] [address] Ryan Lucio CALC NORMALSEE BELOWDiley Ridge Medical CenterComment on above:Result Comment: <100 mg/dl OPTIMAL 100 - 129 mg/dl NEAR OR ABOVE OPTIMAL 130 - 159 mg/dl BORDERLINE HIGH 160 - 189 mg/dl HIGH >190 mg/dl VERY HIGH Performed By: #### T7, TSH, CMP, LIPID #### [facility] [address] [address] [address] Ryan BagleyTriglyceride [Mass/Vol]140 mg/kSQgogsp06-041Ozh [facility] Comment on above:Performed By: #### T7, TSH, CMP, LIPID #### [facility] [address] [place] [address] Dr. Ryan Hernandez CALC28.0 mg/dLNoTriHealth Bethesda Butler HospitalComment on above: Performed By: #### T7, TSH, CMP, LIPID #### [facility] [address] [place] [address] Dr. Ryan Aguilera 14(COMP METB)on 31-63-6422Qffyxun [Mass/Vol]3.7 g/dLNormal 3.4-5.0ACMC Healthcare Systemment on above:Performed By: #### T7, TSH, CMP, LIPID #### [facility] [address] [place] [address] Dr. Ryan BagleyAlbumin/Globulin [Mass ratio]0.9 {ratio}NormalThe [facility] HospitalComment on above:Performed By: #### T7, TSH, CMP, LIPID #### [facility] [address] [place] [address] Dr. Ryan Levin [Catalytic activity/Vol]102 U/DDhktqz42-749Ein [facility] HospitalComment on above:Performed By: #### T7, TSH, CMP, LIPID #### [facility] [address] [address] [address] Ryan Salinas [Catalytic activity/Vol]19 U/PYluxet04-94Fxn [facility] HospitalComment on above:Performed By: #### T7, TSH, CMP, LIPID #### [facility] [address] [place] [address] Dr. Ryan BagleyAnion gap [Moles/Vol]15.1 mmol/LNormalMemorial Health System [facility] Comment on above:Performed By: #### T7, TSH, CMP, LIPID #### [facility] [address] [place] [address] Dr. Ryan BagleyAST [Catalytic activity/Vol]17 U/NNpkcyk28-87Vsv [facility] HospitalComment on above:Performed By: #### T7, TSH, CMP, LIPID #### [facility] [address] [place] [address] Dr. Ryan BagleyBilirubin [Mass/Vol]0.7 mg/dLNormal0.2-1.0The [facility] Comment on above:Performed By: #### T7, TSH, CMP, LIPID #### [facility] [address] [place] [address] Dr. Ryan BagleyCalcium [Mass/Vol]8.3 mg/dLCritically low8.5-10.1The [facility] HospitalComment on above:Performed By: #### T7, TSH, CMP, LIPID #### [facility] [address] [place] [address] Dr. Ryan BagleyChloride [Moles/Vol]101 mmol/PLnyzmx88-716Rhn [facility] Comment on above:Performed By: #### T7, TSH, CMP, LIPID #### [facility] [address] [place] [address] Dr. Ryan BagleyCO2 [Moles/Vol]23.8 mmol/IRlmkmg55.0-32.0The [facility] Comment on above:Performed By: #### T7, TSH, CMP, LIPID #### [facility] [address] [place] [address] Dr. Ryan BagleyCreatinine [Mass/Vol]0.81 mg/dLNormal0.55-1.02[facility] HospitalComment on above:Performed By: #### T7, TSH, CMP, LIPID #### [facility] [address] [place] [address] Dr. Ryan VillarealGFR-AF WELSH>60Normal>=60The [facility] HospitalComment on above:Performed By: #### T7, TSH, CMP, LIPID #### [facility] [address] [place] [address] Dr. Ryan Alcala-NON AF WELSH>60Normal>=60The [facility] HospitalComment on above:Performed By: #### T7, TSH, CMP, LIPID #### [facility] [address] [place] [address] Dr. Ryan BagleyGlobulin (S) [Mass/Vol]4.0 g/dLNormalThChildren's Hospital for RehabilitationComment on above:Performed By: #### T7, TSH, CMP, LIPID #### [facility] [address] [place] [address] Dr. Ryan BagleyGlucose [Mass/Vol]95 mg/cCZrcmbg32-679SoxMemorial Health System [facility] Hospital Comment on above:Performed By: #### T7, TSH, CMP, LIPID #### [facility] [address] [place] [address] Dr. Ryan BagleyPotassium [Moles/Vol]3.9 mmol/LNormal3.5-5.1[facility] Comment on above:Performed By: #### T7, TSH, CMP, LIPID #### [facility] [address] [place] [address] Dr. Ryan BagleyProtein [Mass/Vol]7.7 g/dLNormal6.1-8.2[facility] Comment on above:Performed By: #### T7, TSH, CMP, LIPID #### [facility] [address] [place] [address] Dr. Ryan BagleySodium [Moles/Vol]136 mmol/UHmjaok295-765EqgMemorial Health System [facility] Hospital Comment on above:Performed By: #### T7, TSH, CMP, LIPID #### [facility] [address] [place] [address] Dr. Ryan Ramos nitrogen [Mass/Vol]9.0 mg/dLNormal6.4-19.3TSelect Medical Specialty Hospital - YoungstownComment on above:Performed By: #### T7, TSH, CMP, LIPID #### [facility] [address] [place] [address] Dr. Ryan Ramos nitrogen/Creatinine [Mass ratio]11.1 mg/mgNoTriHealth Bethesda Butler HospitalComdeckerville community hospital on above:Performed By: #### T7, TSH, CMP, LIPID #### [facility] [address] [place] [address] Dr. Ryan AyalaHokrishan 48-90-9457JYE1.133 uIU/mLNormal0.430-3.750[facility] HospitalComdeckerville community hospital on above:Performed By: #### T7, TSH, CMP, LIPID #### [facility] [address] [place] [address] Dr. Ryan GLEASON [facility] HospitalComment on above: Result Comment: <0.34 UIU/ml HYPERTHYROID 0.34-5.60 UIU/ml EUTHYROID >5.60 UIU/ml HYPOTHYROIDPerformed By: #### T7, TSH, CMP, LIPID #### [facility] [address] [place] [address] Dr. Ryan BagleyVITAMIN D 25 OHon 68-20-8282KOS D 25-OH11.3 ng/mLNormalMemorial Health System Sel[facility] HospitalComdeckerville community hospital on above:Performed By: #### VITAD, IRON #### [facility] [address] [place] [address] Dr. Ryan ARNOLDSanto [facility] HospitalComdeckerville community hospital on above: Result Comment: <20 ng/mL Vit D deficient 20 - <30 ng/mL Vit D insufficient 30 - 100 ng/mL Vit D sufficient >100 ng/mL Potential ToxicityPerformed By: #### VITAD, IRON #### [facility] [address] [place] [address] Dr. Ryan Fleming + TIBCon 01-03-2022% KTIDBDUPVI85 %Low25 - 45UH Bailey Medical CenterComment on above:Performed By: #### IRONT #### [facility] [address] [place], [place] [address]Etbd [Mass/Vol]36 ug/iDKchunx69 - 150UH [facility] University HospitalComment on above:Performed By: #### IRONT #### [facility] [address] [place], [place] [address]BTXJ779 ug/oZUcyece585 - 445[facility] Comment on above:Performed By: #### IRONT #### [facility] [address] [place], [place] [address]SCX AND DIFFERENTIALon 01-02-2022% AUTOMATED IMMATURE GRAN0.4 %Normal0.0 - 0.9[facility] CenterComment on above:Result Comment: Immature Granulocyte Count (IG) includes promyelocytes, myelocytes and metamyelocytes but does not include bands. Percent differential counts (%) should be interpreted in the context of the absolute cell counts (cells/L).Performed By: #### CBCDF #### [address] [id number] (Bld) [#/Vol]0.07 10*3/uLNormal0.00 - 0.10[facility] CenterComment on above:Performed By: #### CBCDF #### [address] [id number]/100 WBC (Bld)0.6 %Normal0.0 - 2.0[facility] CenterComment on above:Performed By: #### CBCDF #### [address] [id number] (Bld) [#/Vol]0.14 10*3/uLNormal0.00 - 0.70[facility] CenterComment on above:Performed By: #### CBCDF #### [address] [id number]/100 WBC (Bld)1.1 %Normal0.0 - 6.0UH [facility] Medical CenterComment on above:Performed By: #### CBCDF #### [address] [id number] distribution width (RBC) [Ratio]16.5 %High11.5 - 14.5[facility] CenterComment on above:Performed By: #### CBCDF #### [address] [id number] (Bld) [Volume fraction]46.8 %High36.0 - 46.0[facility] CenterComment on above:Performed By: #### CBCDF #### [address] [id number] (Bld) [Mass/Vol]13.7 g/fXMrowjd89.0 - 16.0[facility] CenterComment on above:Performed By: #### CBCDF #### [address] [id number] (Bld) [#/Vol]3.77 10*3/uLNormal1.20 - 4.80[facility] CenterComment on above:Performed By: #### CBCDF #### [address] [id number]/100 WBC (Bld)30.5 %Pdwfcp77.0 - 44.0[facility] CenterComment on above:Performed By: #### CBCDF #### [address] [id number] (RBC) [Mass/Vol]29.3 g/dLLow32.0 - 36.0[facility] CenterComment on above:Performed By: #### CBCDF #### [address] [id number] (RBC) [Entitic vol]79 fLLow80 - 100Southern [facility] CenterComment on above:Performed By: #### CBCDF #### [address] [id number] (Bld) [#/Vol]0.94 10*3/uLNormal0.10 - 1.00[facility] CenterComment on above:Performed By: #### CBCDF #### [address] [id number]/100 WBC (Bld)7.6 %Normal2.0 - 10.0[facility] CenterComment on above:Performed By: #### CBCDF #### [address] [id number] (Bld) [#/Vol]7.41 10*3/uLNormal1.20 - 7.70[facility] CenterComment on above:Performed By: #### CBCDF #### [address] [id number]/100 WBC (Bld)59.8 %Nrzisw06.0 - 80.0[facility] CenterComment on above:Performed By: #### CBCDF #### [address] [id number] (Bld) [#/Vol]427 10*3/yAHkngvf536 - 450[facility] CenterComment on above:Performed By: #### CBCDF #### [address] [id number] x10E12/LHigh4.00 - 5.20[facility] Comment on above:Performed By: #### CBCDF #### [address] [id number] (Bld) [#/Vol]12.4 10*3/uLHigh4.4 - 11.3[facility] CenterComment on above:Performed By: #### CBCDF #### [address] [id number] 79-43-1527RYZZWSKU83 ug/LNormal8 - 150[facility] CenterComment on above:Performed By: #### KOKI #### [facility] [address] [place], [place] [address]Omqe Nephrologyon 49-68-5586Mqoi NephrologyNo report was sent [facility] Nephrologyon 43-49-7198Ssji NephrologyOrders Renew: Lisinopril 10 MG Oral Tablet; [...] ROGE-I therapy. Latisha Hoyt, DO PGY-2 Pediatrics DocHalo I saw and evaluated the patient. I personally obtained the martins and critical portions of the historyand physical exam or was physically present for martins and critical portions performed by the trainee.I reviewed the documentation and discussed the patient with the trainee. I agree with the medical decision making, as documented on the trainee's note. 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 She endorses chronic fatigue - stable. [...] not included)...NormalUH TouchworksPeds Cardiology - 1-19 y/oon 50-26-4741Pggw Cardiology - 1- y/oDiagnoses/Problems Assessed Acute deep vein thrombosis (DVT) [...] did reveal a patent foramen ovale with igvn-mh-bugut shunting by color- flow Doppler. 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 [...] seen with acute s (more content not included)...NormalUH TouchworksPeds Nephrologyon 51-12-5568Uzhm NephrologyDiagnoses/Problems Hypertension (401.9) (I10) Orders Start: Lisinopril [...] history of proteinuria. Wendy Leyva MD, MS [employer] [facility] [address] [address] [place] [address] Chief Complaint An interactive audio and video telecommunication system which permits real time communications between the patient (at the originating site) and provider (at the distant site) was utilized to providethis telehealth service. Verbal consent was requested and obtained for minor from (parent/guardian) on this date, 109:20 AM , for a telehealth visit. This visit was completed via Apttus due to the restrictions of the COVID-19 [...] JACOBSON virtually in the Nephrology Clinic at [facility] today for follow-up evaluation of hypertension. [...] trip in their RV next week to [place] Review of Systems The remainder of a [...] not included)...NormalUH TouchworksArea 5 Allergens with IgEon 47-82-5721Jvieaixdqe Alternata<0.10NormalClass [address] [place], [place] [address]Comment on above:Performed By: #### ALLERGEN 5, MOUSE EPITHELIA #### [facility] ,Magno White Allergen<0.10NormalClass [address] [place], [place] [address]Comment on above:Performed By: #### ALLERGEN 5, MOUSE EPITHELIA #### [facility] ,Aspergillis Fumigatus Allergen<0.10NormalClass [address] [place], [place] [address]Comment on above:Performed By: #### ALLERGEN 5, MOUSE EPITHELIA #### [facility] ,Bermuda Grass Allergen<0.10NormalClass [address] [place] [address] Comment on above:Performed By: #### ALLERGEN 5, MOUSE EPITHELIA #### [facility] ,Dahlgren Common Silver Aller<0.10NormalClass [address] [place], [place] [address]Comment on above:Performed By: #### ALLERGEN 5, MOUSE EPITHELIA #### [facility] ,Cat Hair/Dander Allergen<0.10NormalClass [address] [place] [address] Comment on above:Performed By: #### ALLERGEN 5, MOUSE EPITHELIA #### [facility] ,Oran, Mountain Allergen<0.10NormalClass [address] [place] [address] Comment on above:Performed By: #### ALLERGEN 5, MOUSE EPITHELIA #### [facility] ,Cladosporium Herbarum<0.10NormalClass [address] [place], [place] [address]Comment on above:Performed By: #### ALLERGEN 5, MOUSE EPITHELIA #### [facility] ,CLASS DESCRIPTIONNormal.Trinity Health SystemComment on above: Result Comment: Levels of Specific IgE Class Description of Class ----- < 0.10 0 Negative 0.10 - 0.31 0/I Equivocal/Low 0.32 - 0.55 I Low 0.56 - 1.40 II Moderate 1.41 - 3.90 III High 3.91 - 19.00 IV Very High 19.01 - 100.00 V Very High >100.00 Very HighPerformed By: #### ALLERGEN 5, MOUSE EPITHELIA #### [facility] ,Cockroach Macanese Allergen<0.10NormalClass [address] [place] [address] Comment on above:Performed By: #### ALLERGEN 5, MOUSE EPITHELIA #### [facility] ,Isabela Allergen<0.10NormalClass [address] [place], [place] [address]Comment on above:Performed By: #### ALLERGEN 5, MOUSE EPITHELIA #### [facility] ,D Farinae Mite Allergen<0.10NormalClass [address] [place] [address] Comment on above:Performed By: #### ALLERGEN 5, MOUSE EPITHELIA #### [facility] ,D Pteronyssinus Allergen<0.10NormalClass [address] [place] [address] Comment on above:Performed By: #### ALLERGEN 5, MOUSE EPITHELIA #### [facility] ,Dog Hair/Dander Allergen<0.10NormalClass [address] [place] [address] Comment on above:Performed By: #### ALLERGEN 5, MOUSE EPITHELIA #### [facility] ,Elm Tree Allergen<0.10NormalClass [address] [place], [place] [address]Comment on above:Performed By: #### ALLERGEN 5, MOUSE EPITHELIA #### [facility] ,Immunoglobulin X79Ebyvts3-343FtzgpzybbTrinity Health SystemComment on above: Performed By: #### ALLERGEN 5, MOUSE EPITHELIA #### [facility] ,Maple/Marengo Allergen<0.10NormAdena Fayette Medical Centerlass [address] [place] [address] Comment on above:Performed By: #### ALLERGEN 5, MOUSE EPITHELIA #### [facility] ,Mouse Urine Allergen<0.10NormalClass [address] [place], [place] [address]Comment on above:Performed By: #### ALLERGEN 5, MOUSE EPITHELIA #### [facility] ,Oakland, White Allergen<0.10NormalClass [address] [place] [address] Comment on above:Performed By: #### ALLERGEN 5, MOUSE EPITHELIA #### [facility] ,Kulm Tree Allergen<0.10NormalClass [address] [place], [place] [address]Comment on above:Performed By: #### ALLERGEN 5, MOUSE EPITHELIA #### [facility] ,Pecan/Bernard Tree Allergen<0.10NormalClass [address] [place] [address] Comment on above:Performed By: #### ALLERGEN 5, MOUSE EPITHELIA #### [facility] ,Penicillium Chrysogen Mold All<0.10NormalClass [address] [place], [place] [address]Comment on above:Performed By: #### ALLERGEN 5, MOUSE EPITHELIA #### [facility] ,Pigweed Allergen<0.10NormalClass [address] [place], [place] [address]Comment on above:Performed By: #### ALLERGEN 5, MOUSE EPITHELIA #### [facility] ,Ragweed Short Allergen<0.10NormalClass [address] [place] [address] Comment on above:Performed By: #### ALLERGEN 5, MOUSE EPITHELIA #### [facility] ,Hosmer Sheep Allergen<0.10NormalClass [address] [place], [place] [address]Comment on above:Performed By: #### ALLERGEN 5, MOUSE EPITHELIA #### [facility] ,Elmwood Park Allergen<0.10NormalClass [address] [place], [place] [address]Comment on above:Performed By: #### ALLERGEN 5, MOUSE EPITHELIA #### [facility] ,Thistle Togolese Allergen<0.10NormalClass [address] [place] [address] Comment on above:Performed By: #### ALLERGEN 5, MOUSE EPITHELIA #### [facility] ,Du Allergen<0.10NormalClass [address] [place], [place] [address]Comment on above:Performed By: #### ALLERGEN 5, MOUSE EPITHELIA #### [facility] ,San Bernardino Tree Pollen Allergen<0.10NormalClass [address] [place] [address] Comment on above:Performed By: #### ALLERGEN 5, MOUSE EPITHELIA #### [facility] ,Mouse Epithelia Allergenon 78-65-6374Oggqp Epithelia Allergen<0.10NormalClass [address] [place], [place] [address]Comment on above:Result Comment: Performed at: [facility] [address] [id number] Rn Concurrent Review: Wu Sesay MD, Phone: [phone] PERFORMED BY: [facility] [address] [place] [address] PATHOLOGIST CARDIOTHORACIC SURGEON LUIS HENSON M.D.Performed By: #### ALLERGEN 5, MOUSE EPITHELIA #### [facility] ,Peds Pulmonary Medicine- Office Visiton 13-75-5982Rvto Pulmonary Medicine- Office VisitDiagnoses/Problems Pulmonary embolism (415.19) [...] . I will find out if our course instructor can put an IUD in at the [...] sick oryou have questions about the plan ([phone]). Please call us if you are having [...] we discussed other options today. I emailed center manager, heme onc and cardiologyabout her case today [...] other providers including hematology,my partners in pulmonology, center manager and cardiology Chief Complaint followup Accompanied by mother. History of Present Illness Today (11/04/2020) I am seeing ZEE JACOBSON as a hospital followup Hospital followup from stay dated: 10/16/20-10/23/20 at [facility]. was at [facility] for 2 days prior to beingtransferred Admitted [...] pain keith dyspnea. She was taken to [facility] ED where CXR was concerning for pneumonia. [...] (more content not included)...NormalUH TouchworksRenal Function Panelon 78-33-8697Tjxynjx [Mass/Vol]3.6 g/dLNormal3.2-5.5FCorey HospitalComment on above:Result Comment: PERFORMED BY: [place] [id number] PATHOLOGIST CARDIOTHORACIC SURGEON LUIS HENSON M.D.Performed By: #### RENAL #### [place] [address] USACalcium [Mass/Vol]9.2 mg/dLNormal8.2-10.2FCorey HospitalComment on above:Performed By: #### RENAL #### [facility] [address] [place] [id number] USAChloride [Moles/Vol]107 mmol/PXulzov20-151DrnwjdzntTrinity Health SystemComment on above:Performed By: #### RENAL #### [facility] [address] [place] [address] USACO2 [Moles/Vol]21.5 mmol/LLow22.0-30.0Trinity Health SystemComment on above:Performed By: #### RENAL #### [facility] [address] [place] [address] USACreatinine [Mass/Vol]0.78 mg/dLNormal0.44-1.03Trinity Health SystemComment on above:Performed By: #### RENAL #### [facility] [address] [place] [id number] USAGlucose [Mass/Vol]85 mg/vGXmfsat35-577NjqicrcqeTrinity Health SystemComment on above:Result Comment: Random Glucose Reference Range is dependent on time and content of last meal. Glucose of more than 200 mg/dL in a nonstressed, ambulatory subject supports the diagnosis of Diabetes Mellitus. ADA recommended reference rangePerformed By: #### RENAL #### [facility] [address] [place] [address] USAPhosphate [Mass/Vol]4.3 mg/dLNormal2.5-4.6FCorey HospitalComment on above:Performed By: #### RENAL #### [facility] [address] [place] [id number] USAPotassium [Moles/Vol]3.9 mmol/LNormal3.5-5.1FCorey HospitalComment on above:Performed By: #### RENAL #### [facility] [address] [place] [address] USASodium [Moles/Vol]137 mmol/YBgi924-471GdliujllwTrinity Health SystemComment on above:Performed By: #### RENAL #### [facility] [address] [place] [address] USAUrea nitrogen [Mass/Vol]9 mg/dLNormal9-23Trinity Health SystemComment on above:Performed By: #### RENAL #### [facility] [address] [place] [id number] USAED Clinical Summaryon 64-99-3686ML Clinical Summary [place] [id number] ED Clinical SummaryPerson Information Name: ZEE JACOBSON/Ruben_Keven Age: 12Years : 2005 12:00 AM Sex: Female Language:Greenlandic PCP: Susan Leung MD Marital Status:Single Phone: [phone] Visit Id: Visit Reason:Ear pain; RIGHT EARACHE [...] PM 03/28/2018 11:51 PM 03/28/2018 11:51 PM ADDRESS:[address] [place] [phone] PHYS DOC NOTES: MEDICAL INFORMATION: Prescriptions Given:Prescription Display acetaminophen-hydrocodone (Columbia 325 mg-5 mg oral tablet) 1-2 tab(s), Oral, q6hr for pain, 8 tab(s), Refill(s) 0 amoxicillin-clavulanate (Augmentin 875 mg-125 mg Tab) 1 tab(s), Oral, q12hr for 10 day(s), 20 tab(s), Refill(s) 0 hydrocortisone/neomycin/polymyxin B otic (hydrocortisone/neomycin/polymyxin B Otic Ramandeep) 2 drop(s), Otic, QID for 7 day(s), 10 mL, Refill(s) 0 ibuprofen (aueinhekz265 mg Tab) 600 mg = 1 tab(s), Oral, q8hr, with food or milk, # 30 tab(s), Refills(s) 0 PATIENT EDUCATION INFORMATION: Instructions:Eardrum Perforation Follow up:With: Address: When: Susan Leung [address] [place] [address], [facility] [address] [place] [phone] [facility] () In 3 days 03/31/2018 Comments: Call in morning for recheck before the weekend, Medication as directed. Cotton ball to Ear canalmay be helpful. No Swimming for 2 weeks or until released by Dr Leung DIAGNOSIS:Otitis media; Ruptured eardrumNormalFisher Thiells Medical CenterED Note-Physicianon 69-14-0451CQ Note-PhysicianBasic Information Time Seen: Frank Coronado PA-C 03/28/2018 23:02Chief Complaint c/o right ear pain since yesterday PM. was swimming in [place]. c/o muffled sound.History of Present Illness 58-nmdw-babqdlcn female presents emergency room with her mother [...] mg Tab, 600 mg=1 tab(s), Oral, q8hr Columbia 325 mg-5 mg oral tablet, 1-2 tab(s), Oral, q6hr, PRN Follow-up With When Contact Information Susan Leung In 3 days 03/31/2018 EDT [address] [facility] [address] [place], [id number] Business (1) Additional Instructions: Call in morning [...] Norco5/325 Tab, 2 tab(s), Oral, Once, PRN Columbia 5/325 Tab, 2 tab(s), Oral, Once, PRN Home Augmentin 875 mg-125 mg Tab, 1 tab(s), Oral, q12hr hydrocortisone/neomycin/polymyxin B Otic Ramandeep, 2 drop(s), Otic, QID ibuprofen 600 mg Tab, 600 mg= 1 tab(s), Oral, q8hr Columbia 325 mg-5 mg oral tablet, 1-2 tab(s), Oral, q6hr, PRNAllergies No Known AllergiesSocial History Alcohol - Denies Alcohol Use, 03/28/2018Lab Results No qualifying data available.Diagnostic Results No qualifying data available.[facility] Jewish HospitalComment on above:Result Comment: Electronically Signed By: Frank Coronado PA-C\.br\Date and Time Signed: 03/28/18 23:39 EDT\.br\Electronically Co- Signed By: Román Charlton MD\.br\Date and Time Co-Signed: 03/29/18 03:42 EDTED Patient Education Noteon 42-79-6350HZ Patient Education NoteFamily MedicineEardrum PerforationThe eardrum is [...] in the outer ear canal.? Only take hpze-dfd-kyrejfq or pre scription medicines for pain, discomfort, [...] 12/19/2012 Document Reviewed: 09/26/2009ExitCare? Patient Information ?2014 [employer]. This information is not intended to replace advice given to you by your health care provider. Make sure you discuss any questions you have with your health care provider.Normal [facility] Patient Summaryon 35-28-0750WZ Patient Summary [address] [address] Patient Discharge Instructions Person Information Name: ZEE JACOBSON Age: 12 Years Date: 03/28/2018 10:51 PMDischarge Diagnosis: Otitis media; R uptured eardrum Primary Care Physician: Susan Leung MD Provider InformationPrimary Provider: Advanced Manager Express:Frank Coronado PA-C The exam and treatment you received in the Emergency Department were for an urgent problem and are not intended as complete care. It is important that you follow up with a doctor, nurse practitioner, or physician?s geriatric nursing assistant for ongoing care. If your [...] instructions: Follow-up Instructions:With: Address: When: Susan Leung [facility] [facility], [place] [address] Business (1) In 3 days [...] opioids can be used to help relieve bjtglobb-me-eplruy pain and are often prescribed following a [...] may bestruggling with addiction, tell your health managed care manager and ask for guidance or call [facility]?SNational Helpline at 4-557-702-HXAD. e Source: US Department of Health and Human Services/Center for Disease Control & Prevention [facility] Medications Given:Medication Dose Route No medications found. Medication Information:New MedicationsPrinted Prescriptionsacetaminophen-hydrocodone (Columbia 325 mg-5 mg oral tablet) 1-2 tab(s) [...] 0.Comment: Pharmacy Information: Thank you for choosing [facility] Patient Education Materials: Eardrum PerforationThe eardrum [...] in the outer ear canal.? Only take jzhp-wsz-cnnurbi or prescription medicines for pain, discomfort, or [...] 12/19/2012 Document Reviewed: 09/26/2009ExitCare? Patient Information ?2014 [employer]. This information is not intended to replace advice given to you by your health care provider. Make sure you discuss any questions you have with your health care provider.I, ZEE JACOBSON , have received the following patient education materials/instructions and have verbalizedunderstanding: Patient Education Materials: Eardrum Perforation Follow-up Instructions: With: Address: When: Susan Leung [address] [place] [address], [address] [place] [phone] Business (1) In 3 days 03/31/2018 Comments: Call in morning for recheck before the weekend, Medication as directed. Cotton ball to Ear canal may be helpful. No Swimming for 2 weeks or until released by Dr Leung Prescriptions: [acetaminophen- hydrocodone (Columbia 325 mg-5 mg oral tablet)] [amoxicillin-clavulanate (Augmentin 875 mg-125 mg Tab)] [hydrocortisone/neomycin/polymyxin B otic (hydrocortisone/neomycin/polymyxin B Otic Ramandeep)] [ibuprofen (ibuprofen 600 mg Tab)] Patient Signature Date Clinician/Nurse Signature Date 03/28/18 23:51:16NoGalion HospitalProgress Note-Nurseon 30-17-4588Fihdomwt Note-Nursept was educated on Columbia. 2 tabs were given here as ordered, 2 tabs sent home. patient instructed to take medications as needed but not until after 6am to allow time in between. mother verbalizes understanding. verbalizes understanding on prescriptions and follow up as well. [facility] Vital Signs Date TimeVital SignValuePerforming CuffsrnpoUllatjfo92-04-7933 15:58-0400Body xsctjy200.2 cmCoreyasmeen Hutson DO Work Phone: NOCox MonettSzmieicuyh82-21-5144 15:58-0400Body mass index (BMI) [Ratio]44.39 kg/w0Dghly Caryl DO Work Phone: [facility] HospitalFbcqnrtkht67-88-6219 15:58-0400Body hhbrxa013.55 kgCorey Caryl DO Work Phone: noGA Zwdguustbt55-64-5572 15:58-0400Diastolic blood ongadtxw73 mm[Hg]Waldemar Caryl DO Work Phone: noCox MonettLkkfchibqu41-51-5351 15:58-0400Systolic blood czowlfyf356 mm[Hg]Waldemar Caryl DO Work Phone: noGA Healthcare Encounters Encounter DateEncounter TypeCare ProviderFacilityStart: 08-07-2025 End: 39-75-6176Ltrvixjfw Result EncounterCorey Caryl DO Work Phone: noms External Department UnsolicitedStart: 08-07-2025 End: 91-75-3787Doicyvfpp Result EncounterCorey Caryl DO Work Phone: noGA External Department UnsolicitedStart: 07-30-2025 End: 71-57-7084Fphpdl outpatient visit 15 minutesCorey Caryl DO Work Phone: noms Verenice OBGYNComment on above:Encounter for removal and reinsertion of intrauterine contraceptive device (IUD); IUD check up; Intrauterine contraceptive device threads lost, initial encounterStart: 07-30-2025 End: 90-97-0204hvmkozxojeMFWGN FAZIONot AvailableStart: 03-31-2024 End: 60-18-0542Xxepwuklh department patient visitMICHAEL P [facility] HospitalStart: 03-31-2024 End: 07-16-0409Mpwegpnsk department patient visitMICHAEL P [facility]ENTERSPDelta [facility] Hospital HospitalStart: 12-25-2022 End: 20-70-9924nduhbciegpUV DOUGLAS HOY .Facility:D9Fmvxi: 10-07-2022 End: 48-00-4040ydsxxrjxygUYYSYC [facility] Center Portsmouthcility:K9Iwcas: 08-10-2022 End: 24-83-4115quwengsmthRK LUCY RICHTER .Facility:U2Uzczu: 05-15-2022 End: 61-10-5571dgsqgirllzMX LUCY RICHTER .Facility:Y1Keeaj: 02-10-2022 End: 28-12-6176viinlpqanuJM SUSAN LEUNG .Facility:B2Rumom: 43-36-6841LSYUM Susan Leung Work Phone: [phone]-EpqnbmthufOchsner Medical Complex [facility]berville Work Phone: Start: 53-76-4599Mq RenewalDojaqueline Leung Work Phone: [phone]-KkirvbsdwpOchsner Medical Complex – Iberville Work Phone: Start: 09-46-2061Vtaturt encounter procedureEmmathieu SilvaAwehkRR-Qajlnntfgl-OkcoekLake Charles [facility] For [facility] Work Phone: Start: 94-50-6901Ncqvlqp encounter procedureEmmathieu SilvaYqutcWC-Bkemqjimrq-YyhqljLake Charles Memorial Hospital [facility] Work Phone: Start: 03-29-2018 End: 69-03-9753Xolbtdrdx department patient visitDougamadeo~[phone] UNKNOWN Madhu Facility:[facility] Procedures DateProcedureProcedure DetailPerforming ClinicianStart: 55-09-9636VWY CBC WITH AUTO DIFFCorey Caryl DO Work Phone: Start: 42-42-5246Pixeekx intrauterine device iudCorey Caryl DO Work Phone: Start: 09-39-0277Eynfn test visual color cmprsn methsCorey Caryl DO Work Phone: Start: 31-42-8780Tvpgfjthdq, automatedWendy Leyva Start: 84-49-3326Petunt Action PlanEmihiren MatthewyceStart: 10-38-0361BTINN EPI.IGE,IC Wendy MatthewyceStart: 40-35-8470Nkzne Oximetry, NocturnalEmmathieu MatthewyceStart: 08-75-7737Qwdslatdmxl Allergy Profile Region 5, ICEmily JoyceStart: 10-22-2020 Renal function panelEmmathieu Mcraesillectomy and adenoidectomyEmmathieu Leyva Plan of Treatment DateCare ActivityDetailAuthorStart: 07-30-2025 End: 52-27-9966NN Pelvis transvaginalUS pelvis transvaginal Imaging Routine IUD check up Intrauterine contraceptive device threads lost,initial encounter Expected: 07/30/2025, Expires: 01/28/2026NO[facility] Work Phone: comment on above:Expected: 07/30/2025, Expires: 01/28/2026Start: 43-64-1382Hzxsaanga vaccinationInfluenza Vaccine (#1)[facility] HealthcareStart: 20-04-1107UOOLUGWKEK, Provider: Wendy Leyva, Status: Pen, Time: 11:20 AMVIRTAD, Provider: Wendy Leyva, Status: Pen, Time: 11:20 AM [facility] Work Phone: [phone]-VjvvmmusxpHudson River [facility] Work Phone: NEGATED: Highlighted row has been ruled out!Planned Goals not bhqjlphdgdZN-Fshdjawmfi-VlujshCoral Gables Hospital Work Phone: Payers DatePayer CategoryPayerPolicy [id number] Healthcare System [facility] [id number] [id number] [id number] 2018Unknown [id number] [id number]. [id number] 2.16.840.1.987416.3.57[id number] 2.16.840.1.111818.3.57[id number] 2.16.840.1.493278.3.57[id number] 2.16.840.1.083839.3.57[id number] 2.16.840.1.351028.3.57[id number] 2.840.1.126975.3.57[id number] 2.16.840.1.172621.3.57[id number] INSURANCE COMPANY MEDICAID Social History DateTypeDetailFacilityLives with parentsLives with vltsgbnQF-Ybfrjhdxgy-WdnkgiHudson River Psychiatric Center [facility] Work Phone: Tobacco smoking status NHISTobacco smoking consumption unknownNOGA HealthcareStart: 56-93-8819Kik assigned at birthNot on fileNOMS HealthcareStart: 84-18-7309XfnVkntoiGPVQ HealthcareGender identityNot on file NOMS HealthcareNEGATED: Highlighted row--[facility] Work Phone: Functional Status DateAssessmentResultFacilityNEGATED: Highlighted rowFunctional performance Functional status health issues are not documented DurqxkoWY-Tclgzojcjc-ZxravqHudson River Psychiatric Center Clinic Work Phone: Mental Status DateAssessmentResultFacilityNEGATED: Highlighted rowCognitive function [Interpretation]Cognitive status health issues are not documented Disease BN-Itlmjujlid-Bssmtw Specialty Clinic Work Phone: History of Present illness Narrative 07-30-2025 Note Date & EgrlYuveJhzirjtv57-14-2833 History of Present illness Narrative* Kezia Poe, DIRECTOR ENERGY - 07/30/2025 3:30 PM EDTAssociated Order(s): IUD [...] Medical History: Diagnosis Date Blood clotting disorder ([facility]) HISTORY PAST MEDICAL HISTORY SOCIAL HISTORY Past Medical History: Diagnosis Date Blood clotting disorder ([facility]) Social History Tobacco Use Smoking [...] nursing note reviewed. Exam conducted with a ammonium sulfate operator present. Vitals: Estimated body mass index is [...] of: Waldemar Hutson DO documented in this encounterNOGA Healthcare Evaluation note Note Date & TypeNoteFacilityEvaluation [...] section and content) DATE CREATED AUTHOR 03/29/2018 [facility] DATE CREATED AUTHOR AUTHOR'S ORGANIZ ATION 11/08/2020 [facility] DATE CREATED AUTHOR AUTHOR'S ORGANIZ ATION 10/03/2021 [facility] DATE CREATED AUTHOR AUTHOR'S ORGANIZ ATION 06/07/2022 [facility] DATE CREATED AUTHOR AUTHOR'S ORGANIZ ATION 01/03/2023 [facility] DATE CREATED AUTHOR AUTHOR'S ORGANIZ ATION 04/02/2024 [facility] DATE CREATED AUTHOR AUTHOR'S ORGANIZ ATION 07/31/2025 [facility] EPIC Reason for Visit (unrecogniz [...] BE BASED ON THE PRIMARY CLINICAL RECORDS. [employer] [facility]. provides no warranty or guarantee of the accuracy or completeness of information in this document.
== END 2025-09-11 19:03 | disposition home or self-care (01) ==
LOC: LAB 19:02
PROVIDERS: PCP Family Medicine; Visit Provider Obstetrics & Gynecology
DX: Z01.419 Encounter for gynecological examination (general) (routine) without abnormal findings (principal)
CPT/HCPCS: 88175

== ENCOUNTER 2025-09-22 12:25 | Outpatient (OUT) | payer BC, SELFPAY ==
--- OUTSIDE RECORDS SUMMARY | 2024-06-08 06:00 | XMS_ITS ---
Author Organization [facility] Servic es Address [address] [place] [address] Care Team Providers Care Financial Health Counselor Name Role Phone Matias Fernandez Primary Care Provider REASON FOR VISIT NEW PT, ROOT CANAL PAIN, WISDOM TEETH REMOVAL REFERRAL,, ANOTHER TOOTH EXTRACTED Encounters Encounter Location Date Provider Diagnosis [place] [address] [place] [address] 06/08/2024 Matias Fernandez Plan Of Treatment No Information Progress Notes * MEGAN JOYAOB:2005 ([age] yo F)Acc No.[id number]:06/08/2024 Patient:?TOAN CHAYO :?Matias Fernandez DDSDOB:2005???Age:19 Y ???Sex:FemaleDate:06/08/2024hone:[phone]:[address] [place], [place] [id number] Subjective: * Chief Complaints: * N EW PT, ROOT CANAL PAIN, WISDOM TEETH REMOVAL REFERRAL,, ANOTHER TOOTH EXTRACTED * Electronic signature of Matias Fernandez DDS on 09/22/2025 at 12:30 PM ESTSign off status: Pending * Provider: Amaya Fernandez DDS Date: 0 06/08/2024 Generated for Printing/Faxing/eTransmitting on:?09/22/2025 12:30 PM EST
--- OUTSIDE RECORDS SUMMARY | 2024-06-09 06:30 | XMS_ITS ---
Author Organization [facility] Servic es Address [address] [place] [address] Care Team Providers Care Binding End Stitcher Name Role Phone Matias Fernandez Primary Care Provider REASON FOR VISIT r/s from 06/07/2024 Encounters Encounter Location Date Provider Diagnosis [address] [place] [address] [place] [address] 06/09/2024 Matias Fernandez Plan Of Treatment No Information Progress Notes * MEGAN JOYAOB:2005 ([age] yo F)Acc No.[id number]:06/09/2024 Patient:?CHAYO JOYA :?Matias Fernandez DDSDOB:2005???Age:19 Y ???Sex:FemaleDate:06/09/2024hone:[phone]:[address] [place], [place] [id number] Subjective: * Chief Complaints: * R /s from 06/07/2024 * Electronic signature of Matias Fernandez DDS on 09/22/2025 at 12:29 PM ESTSign off status: Pending * Provider: Amaya Fernandez DDS Date: 0 06/09/2024 Generated for Printing/Faxing/eTransmitting on:?09/22/2025 12:29 PM EST
--- OUTSIDE RECORDS SUMMARY | 2025-09-11 14:10 | XMS_ITS | Encounter Summary ---
Author Organization [facility] Address [address] [facility] [place] [address] Care Team Providers Care Dietary Internship Name Role Phone Unavailable Primary Care Provider Unavailabl e Reason for Visit * ReasonCommentsGynecologic Exam Encounter Details DateTypeDepartmentCare Team (Latest Contact Info)Qtpitcojvyx46/02/2025 2:10 PM ESTOffice Visit [facility] [address] [place] [address] Kun Hutson DO [address] [place], [facility]11 IUD check up; Well woman exam with routine gynecological exam Social History Tobacco UseTypesPacks/DayYears UsedDateSmoking Tobacco: Never Assessed CommentsNoSex and Gender InformationValueDate RecordedSex Assigned at BirthNot on fileLegal ErgZlcywq50/15/2023 6:46 PM EDTGender IdentityNot on fileSexual OrientationNot on filedocumented as of this encounter Last Filed Vital Signs Vital SignReadingTime TakenCommentsBlood Zmmhltit47/6009/11/2025 2:23 PM EST Pulse--Temperature--Respiratory Rate--Oxygen Saturation--Inhaled Oxygen Concentration--Izhsng522 kg (288 lb)09/11/2025 2:23 PM ESTHeight--Body Mass Index45.1110 3:58 PM EDTdocumented in this encounter Progress Notes * Kristie Ruth LPN - 09/11/2025 2:10 PM EST Reason for Appointment: Patient ID: Zee Brian is a 20 y.o. female who presents for Gynecologic Exam Patient presents today for Annual Exam. and String Check Follow Up appointment. MEDICATIONS Current Outpatient Medications Medication Instructions lisinopril 5 MG tablet Every 24 hours Rivaroxaban 15 & 20 MG tablet therapy pack as directed Orally ALLERGIES Allergies Allergen Reactions Estradiol Unknown PROBLEMS Active Ambulatory Problems Diagnosis Date Noted No Active Ambulatory Problems Resolved Ambulatory Problems Diagnosis Date Noted No Resolved Ambulatory Problems Past Medical History: Diagnosis Date Blood clotting disorder (HHS-HCC) HISTORY PAST MEDICAL HISTORY SOCIAL HISTORY Past Medical History: Diagnosis Date Blood clotting disorder (HHS-HCC) Social History Tobacco Use Smoking status: Not [...] appearance. She is well-developed. Genitourinary: Vulva normal. Breasts: Breasts are soft. Right: Normal. Left: Normal. Cardiovascular: Rate and Rhythm: Normal rate and [...] nursing note reviewed. Exam conducted with a senior tableau developer present. Vitals: Estimated body mass index is 45.11 kg/m?? as calculated from the following: Height as of 07/30/25: 5' 7 . Weight as of this encounter: 288 lb. BP: 98/60 No LMP recorded. (Menstrual status: IUD). ASSESSMENT & PLAN ICD-10-CM 1. IUD check up Z30.431 2. Well woman exam with routine gynecological exam Z01.419 Pap Smear No orders of the defined types were placed in this encounter. Annual Wellness Exam: Patient presents today for routine annual exam. Patient states she has no current complaints. Patients vitals were reviewed and within normal limits. Growth and development is noted to be appropriate for age. Menstrual history is noted to be regular with no concerns reported. No mental health concerns was expressed. Pap Smear: Speculum was inserted into the vagina and pap was obtained without difficulty. No HPV testing was performed per age guideline. Patient was advised that pap results could take anywhere from 7 to 10 days to receive and our office will reach out to the patient with those once we have them. Patient canalso view results via [employer]. I reinforced importance of condom use for STI prevention. Patient declined cultures to be performed with today's visit. Breast Exam: Upon examination, clinical breast exam was noted to be normal. Patient was counseled on breast self-awareness, including the importance of knowing what is normal for her own breasts and promptly reporting any changes such as new lumps, skin dimpling, nipple discharge, or pain. Screening mammogram recommended annually beginning at age 40 or earlier if risk factors are present. Discussed signs and symptoms of breast cancer and when to seek medical attention. Answered all patient questions. Contraceptive Counseling (if applicable): Patient is currently using IUD as a form of contraceptive. Follow Up: Patient is to return to our office in one year for annual exam unless needed otherwise. Documented by Kristie Ruth LPN on behalf of: Kun Hutson DO documented in this encounter Plan of Treatment NameTypePriorityAssociated DiagnosesOrder SchedulePap SmearPathology and CytologyRoutine Well woman exam with routine gynecological exam Ordered: 09/11/2025documented as of this encounter Visit Diagnoses Diagnosis IUD check up Well woman exam with routine gynecological exam Routine gynecological examination documented in this encounter
--- OUTSIDE RECORDS SUMMARY | 2025-09-22 12:29 | XMS_ITS | Clinical Summary ---
Author Organization [facility] Address [address] [place] [address] Care Team Providers Care Mixer Whipped Topping Name Role Phone Unavailable Primary Care Provider Unavailabl e Allergies Active AllergyReactionsCriticalityNoted IbpwKmgtdtzdFhbpcyzxoMiuiskw75/02/2025 Medications MedicationSigDispense QuantityRefillsLast FilledStart DateEnd DateStatus Rivaroxaban 15 & 20 MG tablet therapy pack as directed OrallyActive lisinopril 5 MG tablet 1 (one) time each day at the same timeActive Encounters DateTypeDepartmentCare YodkHcikmktnfkp65/02/2025 2:10 PM [place]Office [place] [address] Kun Hutson, IUD check up; Well woman exam with routine gynecological exam5Clinisync Result Encounter [facility] External Department Unsolicited Kun Hutson, DO 5Bamboo flow[place] [address] Kun Hutson, DO 5Clinisync Result Encounter [facility] External Department Unsolicited Kun Hutson, DO 07/30/2025 3:30 PM EDTProcedure [place] [address] Kun Hutson, DO Encounter for removal and reinsertion of intrauterine contraceptive device (IUD); IUD check up; Intrauterine contraceptive device threads lost, initial lnismjdqk11/20/2025 [place] [address] Kun Hutson DO from Last 3 Months Family History Medical HistoryRelationNameCommentsClotting disorderFatherCervical cancerMother Cervical cancerMother's SisterClotting disorderOtherRelationNameStatusComments FatherMotherMother's SisterOther Social History Tobacco UseTypesPacks/DayYears UsedDateSmoking Tobacco: Never Assessed CommentsNoSex and Gender InformationValueDate RecordedSex Assigned at BirthNot on fileLegal NfjOizvdd70/15/2023 6:46 PM EDTGender IdentityNot on fileSexual OrientationNot on file Last Filed Vital Signs Vital SignReadingTime TakenCommentsBlood Gwfpfhnn72/6009/11/2025 2:23 PM EST Pulse--Temperature--Respiratory Rate--Oxygen Saturation--Inhaled Oxygen Concentration--Nhkphb076 kg (288 lb)09/11/2025 2:23 PM CYARtfbyv123.2 cm (5' 7 ) 07/30/2025 3:58 PM EDTBody Mass Index45.111 3:58 PM EDT Plan of Treatment Health MaintenanceDue DateLast DoneCommentsCOVID-19 Vaccine ( season) /, 02/17/2021, 01/15/2021Influenza Vaccine (#1)2025 Pneumococcal Vaccine: Pediatrics (0 to 5 Years) and At-Risk Patients (6 to 64 Years)Aged OutNo longer eligible based on patient's age to complete this topic Procedures Procedure NamePriorityDate/TimeAssociated DiagnosisCommentsIGP,APTIMA HPV,AGE SIWSPqxmgfp71/02/2025 3:00 PM EST [facility] PREG QUANT LOAWovhrvn55/28/2025 6:25 AM EDT MHPT REQVOOPWUXMPTnzngsl32/28/2025 6:25 AM EDT ALL CBC WITH AUTO FHWGPmbzicc88/28/2025 6:25 AM EDT IUD QLVICJLXllvnzi25/20/2025 4:35 PM EDT IUD check up POCT , DKBEHNadyixj45/20/2025 4:10 PM EDT Encounter for removal and reinsertion of intrauterine contraceptive device (IUD) from Last 3 Months Results * IGP,APTIMA HPV,AGE GDLN (09/11/2025 3:00 PM EST)ComponentValueRef RangeTest MethodAnalysis TimePerformed AtPathologist SignatureAGE GDLN ACOG TESTINGNote. TBHComment: ?? TESTS ? RESULT ??FLAG ??UNITS ?REF RANGE ??LAB ?? Clinician Provided Cytology Information ?? Source.............Cervix;Endocervix ?? No. of containers..01 ThinPrep Vial Age Algo ACOG Tesha... ??21-29 ? 01 ?FLAG LEGEND: ?L-Low Normal,H-High Normal,LL-Alert Low,HH-Alert High <-Panic Low,>-Panic High,A-Abnormal,AA-Critical Abnormal Performed at: 01 =G ?[facility] ?? [address] [place] ??[address] ?? Rhoda Torres MD, IGP, RFX APTIMA HPV ASCUNote.TBHComment: ?? TESTS ? RESULT ??FLAG ??UNITS ?REF RANGE ??LAB DIAGNOSIS: ?02 ?? NEGATIVE FOR INTRAEPITHELIAL LESION OR MALIGNANCY. Specimen adequacy: ?02 ?? Satisfactory for evaluation. ??Endocervical and/or squamous metaplastic ?? cells (endocervical component) are present. Performed by: ? 02 ?? Mendez Zeng, Restaurant And Bar Manager ([employer]) . ? 02 Note: ? Note ?02 ?? The Pap smear is a screening test designed to aid in the ?? detection of premalignant and malignant conditions of the ?? uterine cervix. ??It is not a diagnostic procedure and ?? should not be used as the sole means of detecting cervical ?? cancer. ??Both false-positive and false-negative reports do ?? occur. Test Methodology: ? Note ?02 ?? This liquid based ThinPrep(R) pap test was interpreted ?? using the [employer](R) Genius(TM) Cervical Algorithm whole ?? slide imaging system. . ? 02 ?? The HPV DNA reflex criteria were not met with this specimen ?? result therefore, no HPV testing was performed. ?FLAG LEGEND: ?L-Low Normal,H-High Normal,LL-Alert Low,HH-Alert High <-Panic Low,>-Panic High,A-Abnormal,AA-Critical Abnormal Performed at: 02 WB ?[facility] [place] ?? [address], [place] ??[address] ?? Rhoda Torres MD, Performed at: ??=G - [facility] [address], [place] ??[id number] Childcare Director: Rhoda Torres MD, Phone: ??[phone] Performed at: ??WB - [facility] [address], [place] ??[id number] Childcare Director: Rhoda Torres MD, Phone: ??[phone] Specimen (Source)Anatomical Location / LateralityCollection Method / Volume Collection TimeReceived Time09/11/2025 3:00 PM EST09/11/2025 7:08 PM EST Narrative ALESSANDRO - 09/14/2025 11:12 AM EST BRUSH-SPATULA CERVIX ENDOCERVIX Authorizing ProviderResult TypeResult StatusCorey Caryl DOLAB BLOOD ORDERABLES Final ResultPerforming OrganizationAddressCity/State/ZIP CodePhone Number [facility] * [facility] PREG QUANT HCG (08/07/2025 6:25 AM EDT)ComponentValueRef RangeTest Method Analysis TimePerformed AtPathologist SignatureHCG QUANTITATIVE<1mIU/mLTBH Comment: 5-50 ? 0.2-1 WEEK 50-500 ? 1-2 WEEKS 100-5,000 ?2-3 WEEKS 500-10,000 ? 3-4 WEEKS 1,000-50,000 ?? 4-5 WEEKS 10,000-100,000 5-6 WEEKS 15,000-200,000 6-8 WEEKS 10,000-100,000 2-3 MONTHS Specimen (Source)Anatomical Location / LateralityCollection Method / Volume Collection TimeReceived Time08/07/2025 6:25 AM EDT1 6:25 AM EDT Narrative ALESSANDRO - 08/07/2025 7:01 AM EDT Authorizing ProviderResult TypeResult StatusCorey Caryl DOCLINISYNCFinal Result Performing OrganizationAddressCity/State/ZIP CodePhone Number [facility] * (ABNORMAL) MHPT DIFFERENTIAL (08/07/2025 6:25 AM EDT)ComponentValueRef Range Test MethodAnalysis TimePerformed AtPathologist SignatureSEGMENTED NEUTROPHILS % ODDVKT24.043.0 - 75.0TBHLYMPHOCYTES PERCENT SDXMIS50.020.5 - 60.0 %TBH MONOCYTES PERCENT MANUAL6.01.7 - 12.0 %TBHEOSINOPHILS PERCENT MANUAL1.00.9 - 7.0 %TBHBASOPHILS PERCENT MANUAL1.00.2 - 2.0 %TBHTBH ATYPICAL LYMPHOCYTES % ZLGMIT20.0%TBHMETAMYELOCYTES %1.0TBHSEGMENTED NEUT ABSOLUTE MANUAL7.10(H)1.4 - 6.5 10 3/uLTBHLYMPHOCYTES ABSOLUTE MANUAL3.081.20 - 3.80 10 3/uLTBHMONOCYTES ABSOLUTE MANUAL0.800.30 - 0.80 10 3/uLTBHEOSINOPHILS ABSOLUTE MANUAL0.130.00 - 0.70 10 3/uLTBHBASOPHILS ABS MANUAL0.13(H)0.00 - 0.10 10 3/uLTBHATYPICAL LYMPHOCYTES ABS MAN2.14TBHMETAMYELOCYTES ABSOLUTE MANUAL0.13TBHSpecimen (Source)Anatomical Location / LateralityCollection Method / VolumeCollection TimeReceived Time08/07/2025 6:25 AM EDT1 6:25 AM EDT Narrative CLINISYKY - 08/07/2025 6:45 AM EDT Authorizing ProviderResult TypeResult StatusCorey Caryl DOCLINISYNCFinal Result Performing OrganizationAddressCity/State/ZIP CodePhone Number [facility] * (ABNORMAL) ALL CBC WITH AUTO DIFF (08/07/2025 6:25 AM EDT)ComponentValueRef RangeTest MethodAnalysis TimePerformed AtPathologist SignatureTB WBC13.4(H) 4.0 - 11.0 10 3/uLTBHTBH RBC5.314.20 - 5.40 10 6/uLTBHTBH HGB14.712.0 - 16.0 g/dLTBHTBH HCT43.836.0 - 48.0 %TBHTBH MCV82.581.0 - 99.0 fLTBHTBH MCH27.726.7 - 34.0 pgTBHTBH MCHC33.629.9 - 35.2 g/dLTBHTBH RDW13.211.0 - 15.0 %TBHTBH PLT 550224 - 450 10 3/uLTBHTBH MPV8.9(L)9.5 - 13.5 fLTBHSpecimen (Source) Anatomical Location / LateralityCollection Method / VolumeCollection Time Received Time08/07/2025 6:25 AM EDT1 6:25 AM EDT Narrative CLINISYNC - 08/07/2025 6:45 AM EDT Authorizing ProviderResult TypeResult StatusKun Hutson DOCLINISYNCFinal Result Performing OrganizationAddressCity/State/ZIP CodePhone Number CLINISYNC [facility] * IUD REMOVAL (07/30/2025 4:35 PM EDT) [...] and reinserted in OR. Authorizing ProviderResult TypeResult Maine Hutson DOIMichael CLINIC/BEDSIDE ORDERABLESFinal Result * POCT , urine manually resulted (07/30/2025 4:10 PM EDT)ComponentValue Ref RangeTest MethodAnalysis TimePerformed AtPathologist SignaturePreg Test, UrNegativeNegativeSpecimen (Source)Anatomical Location / LateralityCollection Method / VolumeCollection TimeReceived BweoJkhtn33/20/2025 4:10 PM EDT Narrative Authorizing ProviderResult TypeResult Maine Hutson DOPOINT OF CARE TEST ENTER/EDIT ORDERABLESFinal Result from Last 3 Months Insurance
--- OUTSIDE RECORDS SUMMARY | 2025-09-22 12:30 | XMS_ITS | Patient Health Record ---
Author Organization [facility] [place] Address [address] [place] [address] Care Team Providers Care Quality Auditor Name Role Phone Rubén Leung Primary Care [...] date:05/27/2025 01:50:48 PM Interpretation: Performing Lab: Notes/Report: [facility] ,White Blood Count8.14.0-11.0 10 3/uLRed Blood Count5.754.20-5.40 10 6/uL Awtgjzdxlc84.912.0-16.0 g/eIBraoishgwy84.236.0-48.0 %Mean Corpuscular Aucrhp56.1 81.0-99.0 fLMean Corpuscular Pghqnswqfu79.726.7-34.0 pgMean Corpuscular HGB Conc 33.729.9-35.2 g/dLRed Cell Distribution Width13.011.0-15.0 %Platelet Oqytp742 150-450 10 3/uLMean Platelet Volume9.49.5-13.5 fLNeutrophils Percent Auto47.1 43.0-75.0 %Lymphocytes Percent Auto43.420.5-60.0 %Monocytes Percent Auto7.11.7- 12.0 %Eosinophils Percent Auto1.50.9-7.0 %Basophils Percent Auto0.70.2-2.0 % Immature Granulocytes Pct Auto0.20.0-0.5 %Neutrophils Absolute Auto3.81.4-6.5 10 3/uLLymphocytes Absolute Auto3.51.2-3.8 10 3/uLMonocytes Absolute Auto0.60.3-0.8 10 3/uLEosinophils Absolute Auto0.10.0-0.7 10 3/uLBasophils Absolute Auto0.10.0- 0.1 10 3/uLImmature Granulocytes Abs Auto0.020.00-0.03 10 3/uLPerforming Lab:see [facility]Gu[facility] LBFREE T3 Reviewed date:05/27/2025 01:50:48 PM Interpretation: Performing Lab: Notes/Report: [facility] ,Free T32.322.18-3.98 pg/mLPerforming Lab:see [facility] GLYCOHEMOGLOBIN A1C Reviewed date:05/27/2025 01:50:48 PM Interpretation: Performing Lab: Notes/Report: [facility] ,Glycohemoglobin A1C5.14.5-6.2 % ADA RECOMMENDED LIMIT 4.0 - 6.0 ADA THERAPEUTIC TARGET < 7.0 ACTION SUGGESTED > 7.0 Estimated Average Xlspsam926Selvdxyiwg Lab:see [facility] INSULIN Reviewed date:05/27/2025 01:50:48 PM Interpretation: Performing Lab: Notes/Report: [facility] ,Cakfxjr64.92.6-24.9 uIU/mL Performed at: - [facility] [id number] Educational Adviser: Rachid Tyler PhD, Phone: [phone] Performing Lab:see [facility] LBIRON Reviewed date:05/27/2025 01:50:48 PM Interpretation: Performing Lab: Notes/Report: [facility] ,Iron66.050.0-170.0 ug/dLPerforming Lab:see [facility] LB LIPID PROFILE Reviewed date:05/27/2025 01:50:48 PM Interpretation: Performing Lab: Notes/Report: [facility] ,Iymqhntunzccm38<=150 mg/aRSqxurzvuwbp434<=200 mg/dLHDL Qqaoaitrxzz7538-05 mg/dL > or =60 mg/dl - LOW CARDIOVASCULAR RISK <40 mg/dl - HIGH CARDIOVASCULAR RISK LDL Cholesterol Nxfydhrwqp886.0 <100 mg/dl OPTIMAL 100-129 mg/dl NEAR OR ABOVE OPTIMAL 130-159 mg/dl BORDERLINE HIGH 160-189 mg/dl HIGH >190 mg/dl VERY HIGH VLDL WPVOFVJQPZD66.2Chol HDL Ratio5.2 3.3 - 4.4 LOW RISK 4.4 - 7.1 AVERAGE RISK 7.1 - 11.0 MODERATE RISK >11.0 HIGH RISK Performing Lab:see noteML - [facility] LBPROF 14(COMP METB) Reviewed date:05/27/2025 01:50:48 PM Interpretation: Performing Lab: Notes/Report: [facility] ,Ooadnb006290-523 mmol/LPotassium4.03.5-5.1 mmol/PQcusklak21314-659 mmol/LCarbon Epvmpko10.221.0-32.0 mmol/LAnion Gap12.4Euuavcb7063-255 mg/dLBlood Urea Nitrogen 13.07.0-18.0 mg/dLCreatinine0.750.55-1.02 mg/dLEstimated GFR ( Haydee>60 >=60 mL/min/1.73m 2Estimated GFR (Non- Serena>60>=60 mL/min/1.73m 2BUN Creatinine Ratio17.4Rzsbbew3.28.5-10.1 mg/dLBilirubin Total0.80.2-1.0 mg/dL Aspartate Amino Qzfzouvkzre2773-55 U/LAlanine Zxxnrizkbkhflisj2726-74 U/L Alkaline Ancqrqcnsjp3796-724 U/LTotal Protein8.06.4-8.2 g/dLAlbumin Level3.83.4- 5.0 g/dLGlobulin4.2Albumin Globulin Ratio0.9Performing Lab:see noteML - [facility] LBT4 Reviewed date:05/27/2025 01:50:48 PM Interpretation: Performing Lab: Notes/Report: [facility] ,T4 Thyroxine8.704.80-13.90 ug/dLPerforming Lab:see noteML - [facility] LBTSH Reviewed date:05/27/2025 01:50:48 PM Interpretation: Performing Lab: Notes/Report: [facility] ,Thyroid Stimulating Hormone2.4330.358-3.740 uIU/mLPerforming Lab:see note - [facility] LBVITAMIN D 25 [place] Reviewed date:05/27/2025 01:50:48 PM Interpretation: Performing Lab: Notes/Report: [facility] ,Vitamin D17.2 <20 ng/mL Vit D deficient 20-<30 ng/mL Vit D insufficient 30-100 ng/mL Vit D sufficient >100 ng/mL Potential Toxicity Performing Lab:see note - [facility] LBUS pelvis transvaginal Reviewed date:07/31/2025 06:00:47 PM Interpretation: Performing Lab: Notes/Report: Source Facility: [facility]-[address] [place] [address] Ultrasound Report Signed Patient: ZEE BRIAN MR#: [id number] : 2005 Acct:[id number] Age/Sex: 20 / F ADM Date: 07/30/25 Loc: US Attending Dr: Waldemar Hutson D.O. Ordering Physician: Waldemar Hutson D.O. Date of Service: 07/30/25 Procedure(s): US pelvis transvaginal Accession Number(s): [id number] cc: Waldemar Hutson D.O.; Nicanor Leung M.D. [place] [address] Patient Name: ZEE BRIAN MRN: [id number] date: 2005 Sex: F Assigned Patient Location: US Current Patient Location: US Accession/Order Number: [id number] Exam Date: 07/30/2025 19:38 Report Date: 07/30/2025 [...] Perkins M.D. 07/30/2025 9:49 PM Dictation Location: [place] [address] Electronically authenticated by: [id number] Y Date: 07/30/2025 21:49 Dictated By: Tripp Perkins M.D. Signed By: 07/30/252151 DD/ 48 TD/TT: Erisa Attorney:CBC AUTO DIFF Reviewed date:08/07/2025 07:38:40 PM Interpretation: Performing Lab: Notes/Report: [facility] ,White Blood Count13.44.0-11.0 10 3/uLRed Blood Count5.314.20-5.40 10 6/uL Ygccejxrne61.712.0-16.0 g/dECnxenhveur97.836.0-48.0 %Mean Corpuscular Nyuohc71.5 81.0-99.0 fLMean Corpuscular Icutfzqhkm16.726.7-34.0 pgMean Corpuscular HGB Conc 33.629.9-35.2 g/dLRed Cell Distribution Width13.211.0-15.0 %Platelet Cxhfh778 150-450 10 3/uLMean Platelet Volume8.99.5-13.5 fLPerforming Lab:see noteML - [facility] LBPREG QUANT HCG Reviewed date:08/07/2025 07:38:40 PM Interpretation: Performing Lab: Notes/Report: [facility] ,HCG Quantitative<1 5-50 0.2-1 WEEK 50-500 1-2 WEEKS 100-5,000 2-3 WEEKS 500-10,000 3-4 WEEKS 1,000-50,000 4-5 WEEKS 10,000-100,000 5-6 WEEKS 15,000-200,000 6-8 WEEKS 10,000-100,000 2-3 MONTHS Performing Lab:see noteML - [facility] LBManual Differential Reviewed date:08/07/2025 07:38:40 PM Interpretation: Performing Lab: Notes/Report: [facility] ,Segmented Neutrophils % Hetbgp52.043.0-75.0Lymphocytes Percent Zqphub41.020.5- 60.0 %Monocytes Percent Manual6.01.7-12.0 %Eosinophils Percent Manual1.00.9-7.0 %Basophils Percent Manual1.00.2-2.0 %Atypical Lymphocytes % Eeamxu69.0 Metamyelocytes %1.0Segmented Neut Absolute Manual7.101.4-6.5 10 3/uLLymphocytes Absolute Manual3.081.20-3.80 10 3/uLMonocytes Absolute Manual0.800.30-0.80 10 3/uLEosinophils Absolute Manual0.130.00-0.70 10 3/uLBasophils Abs Manual0.13 0.00-0.10 10 3/uLAtypical Lymphocytes Abs Man2.14Metamyelocytes Absolute Manual 0.13Performing Lab:see noteML - [facility] LBIGP,Aptima HPV,Age Gdln Reviewed date:09/14/2025 12:53:51 PM Interpretation: Performing Lab: Notes/Report: BRUSH-SPATULA CERVIX ENDOCERVIX [facility] ,Age Gdln ACOG TestingNote. TESTS RESULT FLAG UNITS REF RANGE LAB Clinician Provided Cytology Information Source.............Cervix;Endocervix No. of containers..01 ThinPrep Vial Age Judyo ACOG Tesha... FLAG LEGEND: L-Low Normal,H-High Normal,LL-Alert Low,HH-Alert High <-Panic Low,>-Panic High,A-Abnormal,AA-Critical Abnormal Performed at: 01 =[facility] [address] [facility] [place] [address] Rhoda Torres MD, IGP, rfx Aptima HPV ASCUNote. TESTS RESULT FLAG UNITS REF RANGE LAB DIAGNOSIS: 02 NEGATIVE FOR INTRAEPITHELIAL LESION OR MALIGNANCY. Specimen adequacy: 02 Satisfactory for evaluation. Endocervical and/or squamous metaplastic cells (endocervical component) are present. Performed by: 02 Mendez Zeng, Biomedical Analytical Scientist ([facility]) . 02 Note: Note 02 The Pap smear is a screening test designed to aid in the detection of premalignant and malignant conditions of the uterine cervix. It is not a diagnostic procedure and should not be used as the sole means of detecting cervical cancer. Both false-positive and false-negative reports do occur. Test Methodology: Note 02 This liquid based ThinPrep(R) pap test was interpreted using the [employer](R) [employer](TM) Cervical Algorithm whole slide imaging system. . 02 The HPV DNA reflex criteria were not met with this specimen result therefore, no HPV testing was performed. FLAG LEGEND: L-Low Normal,H-High Normal,LL-Alert Low,HH-Alert High <-Panic Low,>-Panic High,A-Abnormal,AA-Critical Abnormal Performed at: [address] [address] Rhoda Torres MD, Performed at: = - [facility] [address] [id number] Educational Adviser: Rhoda Torres MD, Phone: [phone] Performed at: [facility] [address] [id number] Educational Adviser: Rhoda Torres MD, Phone: [phone] Performing Lab:see note - [facility] LB Reason For Referral Diagnosis 1 Depression (F32.9) Referral Organization [facility] Referring Provider First Name Rubén Referring Provider Last Name Madhu Referring Provider [facility] Referred Provider Darryl Gutiérrez Referred Provider Specialty Psychiatry Referral Priority Routine Medications Medication SIG (Take, Route, Frequency, Duration) Notes Start Date End Date Status Escitalopram Oxalate 5 MG 1 tablet Orally Once a day; Duration: 30 day(s) 5ActiveBenzonatate 200 MG1 capsule Orally Three times a day; Duration: 7 days5Active Social History Tobacco Use: Social History [...] to 4 times a month (2 points) Ekpaaf4QjgiqrgsmpllvkJtyqsgtq Problems Problem Type SNOMED Code ICD Code Onset Dates Problem Status W/U Status Risk Notes Problem Asthma (385386328) Asthma (J45.909) ActiveconfirmedProblemDepression (204026347)Depression (F32.9)Activeconfirmed ProblemWell adult (468282168)Well adult (Z00.00)ActiveconfirmedProblem Hypercholesterolemia (12986065)Hypercholesterolemia (E78.00)Activeconfirmed Vital Signs Temperature 98.1 degrees Fahrenheit 08/02/2025 Blood pressure gbqbbkebd47 mm Hg08/02/20253653Nwrheb54 in08/02/2025lood pressure aphkhouq133 mm Hg08/02/20257386Znoauj293.0 lbs1MI44.63 kg/m208/02/2025 Encounters Encounter Location Date Provider Diagnosis [facility] [address] [place] [address] 05/27/2025 Rubén Hoy [facility] [place] [address] 06/04/2025Doug HoyHypercholesterolemia E78.00[facility] [place] [address]/03/2025Doug HoyAcute bronchitis, unspecified organism [facility]20.9[facility] [place] [address]/09/2025Doug HoySore throat J02.9 and Acute bronchitis, unspecified organism J20.9[place] [address] [place] [address]/Doug HoyAcute bronchitis, unspecified organism J20.9 and Depression F32.9[facility] [place] [address]/08/2025Doug HoyDepression F32.9 and Well adult Z00.00 Assessments Encounter Date Diagnosis (ICD Code) Assessment Notes Treatment Notes Treatment Clinical Notes Section Notes 05/21/2025 Depression (ICD-10 - F32.9) 05/21/2025Well adult (ICD-10 - Z00.00)06/22/2025Sore throat (ICD-10 - J02.9) 08/02/2025ute bronchitis, unspecified organism (ICD-10 - J20.9)Rest and drink more liquids, especially water. You may use a humidifier or vaporizer to help keep the drainage moist. Ilkp-iqt-vmrgnyh Nasal Saline may help the stuffy and runny nose. Use Ibuprofen and or Tylenol as needed for fever, chills, body aches or pain. Children 5 years old should not be given ycvb-cie-dudnxcz cough and cold medications such as guaifenesin and dextromethorphan. If you're over age 5, you may try dhnw-upp-aswegss cold medications such as guaifenesin and dextromethorphan, [...] go to the emergency room or call [phone] (ICD-10 - F32.9)06/04/2025Hypercholesterolemia (ICD-10 - E78.00)5Acute bronchitis, unspecified organism (ICD-10 - J20.9)5Acute bronchitis, unspecified organism (ICD-10 - J20.9)Rest and drink more liquids, especially water. You may use a humidifier or vaporizer to help keep the drainage moist. Dpru-egg-jnykoim Nasal Saline may help the stuffy and runny nose. Use Ibuprofen and or Tylenol as needed for fever, chills, body aches or pain. Children 5 years old should not be given yxlw-qaz-yrrmxkb cough and cold medications such as guaifenesin and dextromethorphan. If you're over age 5, you may try nllc-wzl-ypstavf cold medications such as guaifenesin and dextromethorphan, [...] chest pain you should go to the [facility] room or call 911 Plan Of Treatment [...] Coverage End Date [employer] [address] [place] [address] [id number] Haydee Brian - patient is the insured Medical (General) [...] lower extremity I82.491 Surgical History Surgery Date(Month/Year) Retained IUD removal- Dr Hutson 09/14/25 TONSILLECTOMY,OVER 12 YRS
--- OUTSIDE RECORDS SUMMARY | 2025-09-22 12:30 | XMS_ITS | Patient Health Record ---
Author Organization [facility] Address [address] [place] [address] Care Team Providers Care Precision Aircraft Systems Assembler Name Role Phone Matias Fernandez Primary Care Provider Reason For Referral No Information Plan Of Treatment No Information
--- OUTSIDE RECORDS SUMMARY | 2025-09-22 12:30 | XMS_ITS | Encounter Summary ---
Author Organization [facility] Address [address] [place] [address] Care Team Providers Care School Bus Aide Name Role Phone Unavailable Primary Care Provider Unavailabl e Encounter Details DateTypeDepartmentCare Team (Latest Contact Info)Bojacboixng18/02/2025amboo flowsheet [facility] [address] [place] [address] Kun Hutson DO [address] Jose Caldera, [facility] Social History Tobacco UseTypesPacks/DayYears UsedDateSmoking Tobacco: Never Assessed CommentsNoSex and Gender InformationValueDate RecordedSex Assigned at BirthNot on fileLegal OziZttbqi15/15/2023 6:46 PM EDTGender IdentityNot on fileSexual OrientationNot on filedocumented as of this encounter Plan of Treatment Not on file documented as of this encounter Visit Diagnoses Not on filedocumented in this encounter
--- OUTSIDE RECORDS SUMMARY | 2025-09-22 12:30 | XMS_ITS | Encounter Summary ---
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 [place] [address] Social History Tobacco UseTypesPacks/DayYears UsedDateSmoking Tobacco: Never Assessed CommentsNoSex and Gender InformationValueDate RecordedSex Assigned at BirthNot on fileLegal LjwQvwiog15/15/2023 6:46 PM EDTGender IdentityNot on fileSexual OrientationNot on filedocumented as of this encounter Plan of Treatment Not on file documented as of this encounter Procedures Procedure NamePriorityDate/TimeAssociated DiagnosisCommentsIGP,APTIMA HPV,AGE TCVHShpbjca41/02/2025 3:00 PM EST documented in this encounter Results * IGP,APTIMA HPV,AGE GDLN (09/11/2025 3:00 PM EST)ComponentValueRef RangeTest MethodAnalysis TimePerformed AtPathologist SignatureAGE GDLN ACOG TESTINGNote. TBHComment: ?? TESTS ? RESULT ??FLAG ??UNITS ?REF RANGE ??LAB ?? Clinician Provided Cytology Information ?? Source.............Cervix;Endocervix ?? No. of containers..01 ThinPrep Vial Age Algo ACOG Tesha... ??-27 ? 01 ?FLAG LEGEND: ?L-Low Normal,H-High Normal,LL-Alert Low,HH-Alert High <-Panic Low,>-Panic High,A-Abnormal,AA-Critical Abnormal Performed at: 01 =G ?[facility] ?? [address] ??[address] ?? Rhoda Torres MD, IGP, RFX APTIMA HPV ASCUNote.TBHComment: ?? TESTS ? RESULT ??FLAG ??UNITS ?REF RANGE ??LAB DIAGNOSIS: ?02 ?? NEGATIVE FOR INTRAEPITHELIAL LESION OR MALIGNANCY. Specimen adequacy: ?02 ?? Satisfactory for evaluation. ??Endocervical and/or squamous metaplastic ?? cells (endocervical component) are present. Performed by: ? 02 ?? Mendez Zeng, Assistant Account Manager (ASCP) . ? 02 Note: ? [...] pap test was interpreted ?? using the Cytheris(R) Genius(TM) Cervical Algorithm whole ?? slide imaging system. . ? 02 ?? The HPV DNA reflex criteria were not met with this specimen ?? result therefore, no HPV testing was performed. ?FLAG LEGEND: ?L-Low Normal,H-High Normal,LL-Alert Low,HH-Alert High <-Panic Low,>-Panic High,A-Abnormal,AA-Critical Abnormal Performed at: 02 WB ?[facility] [place] ?? [address] [place], [place] ??[address] ?? Rhoda Torres MD, Performed at: ??=G - [facility] [address] ??[id number] [employer] Supervisor: Rhoda Torres MD, Phone: ??[phone] Performed at: ??WB - [facility] [address] ??[id number] [employer] Supervisor: Rhoda Torres MD, Phone: ??[phone] Specimen (Source)Anatomical Location / LateralityCollection Method / Volume Collection TimeReceived Time09/11/2025 3:00 PM EST09/11/2025 7:08 PM EST Narrative [facility] - 09/14/2025 11:12 AM EST BRUSH-SPATULA CERVIX ENDOCERVIX Authorizing ProviderResult TypeResult StatusCorey Caryl DOLAB BLOOD ORDERABLES Final ResultPerforming OrganizationAddressCity/State/ZIP CodePhone Number [facility] documented in this encounter Visit Diagnoses Not on filedocumented in this encounter
--- OUTSIDE RECORDS SUMMARY | 2025-09-22 12:30 | XMS_ITS | Clinical Summary ---
Author Organization [facility] Address [id number] [address] 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 Name Role Phone Nicanor Leung MD Primary Care Provider [phone] Allergies Active AllergyReactionsCriticalityNoted DateCommentsEstradiolOther (See Comments)03/31/2024 Blood clot Medications MedicationSigDispense QuantityRefillsLast FilledStart DateEnd DateStatus rivaroxaban (XARELTO) 10 mg tablet Take 1 tablet (10 mg total) by mouth in the morning.Active lisinopriL (PRINIVIL,ZESTRIL) 10 mg tablet Take 1 tablet (10 mg total) by mouth in the morning.Active Social History Tobacco UseTypesPacks/DayYears UsedDateSmoking Tobacco: NeverSmokeless Tobacco: Never Tobacco Cessation:Counseling Given: Not Answered Alcohol UseStandard Drinks/WeekCommentsNever0 (1 standard drink = 0.6 oz pure alcohol)Hunger ScreeningAnswerDate RecordedWithin the past 12 months we worried whether our food would run out before we got money to buy more.Never True 03/31/2024Within the past 12 months the food we bought just didn't last and we didn't have money to get more.Never True03/31/2024CommentsNoSex and Gender InformationValueDate RecordedSex Assigned at BirthNot on fileLegal Sex Unelzw8803/31/2024 10:34 AM EDTGender IdentityNot on fileSexual OrientationNot on file Last Filed Vital Signs Vital SignReadingTime TakenCommentsBlood Uplvvjhb613/61003/31/2024 1:30 PM EDT Avvwo5380/21/2024 3:45 PM YLOGvdunvxvnnl82.4 ??C (97.6 ??F)03/31/2024 10:55 AM EDTRespiratory Tdad329003/31/2024 3:45 PM EDTOxygen Aqkvdcleuu97%03/31/2024 3:45 PM EDTInhaled Oxygen Concentration--Pvjbrx732.1 kg (278 lb)03/31/2024 10:55 AM HFGMdxslj006.2 cm (5' 7 )03/31/2024 10:55 AM EDTBody Mass Index43.54003/31/2024 10:55 AM EDT Plan of Treatment Health MaintenanceDue DateLast DoneCommentsChlamydia Fhsxhtloc2003 Depression Wtmupumqy04/28/2015Pap Smear2024dult BMI Guginvmfo54/21/2025 03/31/2024Tobacco Qdaixyedx95/4DTaP,Tdap and Td Vaccines (7 - Td or Tdap)/03/2015, 02/07/2008, 01/19/2005, Additional history exists Influenza Mryomyp7906/11/2025 Medical Devices Not on file Insurance Care Teams Team MemberRelationshipSpecialtyStart DateEnd Nicanor Leung MD PCP - GeneralFamily Medicine03/31/24
[2025-09-22 12:57] LABS: Cholesterol 223 mg/dL (<=200); HDL Cholesterol 46 mg/dL (40-60); Triglycerides 70 mg/dL (<=150); VLDL CHOLESTEROL 14.0 mg/dL
== END 2025-09-22 12:26 | disposition home or self-care (01) ==
LOC: LAB 12:26
PROVIDERS: PCP Family Medicine; Visit Provider Family Medicine
DX: E78.00 Pure hypercholesterolemia, unspecified (principal)
CPT/HCPCS: 36415; 80061